=== PATIENT | male | born 1960 | race Caucasian/White ===

== ENCOUNTER → 2020-01-04 15:20 | Outpatient (BNVA) | payer OTHER, SELFPAY | PROVIDERS: PCP Family Medicine; Referring Provider Family Medicine; Visit Provider Internal Medicine | DX: Z86.73 Personal history of transient ischemic attack (TIA), and cerebral infarction without residual deficits (principal); Z51.81 Encounter for therapeutic drug level monitoring; Z79.01 Long term (current) use of anticoagulants | CPT/HCPCS: 85610; 99211 ==

== ENCOUNTER → 2020-02-01 15:30 | Outpatient (BNVA) | payer OTHER, SELFPAY | PROVIDERS: PCP Family Medicine; Referring Provider Family Medicine; Visit Provider Internal Medicine | DX: Z86.73 Personal history of transient ischemic attack (TIA), and cerebral infarction without residual deficits (principal); Z51.81 Encounter for therapeutic drug level monitoring; Z79.01 Long term (current) use of anticoagulants | CPT/HCPCS: 85610; 99211 ==

== ENCOUNTER → 2020-02-29 15:21 | Outpatient (BNVA) | payer OTHER, SELFPAY | PROVIDERS: PCP Family Medicine; Visit Provider Internal Medicine | DX: Z86.73 Personal history of transient ischemic attack (TIA), and cerebral infarction without residual deficits (principal); Z51.81 Encounter for therapeutic drug level monitoring; Z79.01 Long term (current) use of anticoagulants | CPT/HCPCS: 85610; 99211 ==

== ENCOUNTER 2020-03-03 08:31 | Outpatient (REF) | payer OTHER, SELFPAY ==
[2020-03-03 09:23] LABS: Estimated Average Glucose 128 mg/dL; Hemoglobin A1c % 6.1 %
[2020-03-03 09:27] LABS: Anion Gap 11 (12-20); Blood Urea Nitrogen 14 mg/dL (9-16); Carbon Dioxide 28 mmol/L (22-29); Chloride 104 mmol/L (96-108); Cholesterol 163 mg/dL; Estimated Glomerular Filt Rate > 60; Glucose Random 103 mg/dL (60-115); HDL Cholesterol 51 mg/dL; LDL Cholesterol Calculated 86 mg/dl; Potassium 4.2 mmol/l (3.3-5.1); Sodium 139 mmol/L (135-145); Triglycerides 134 mg/dL
== END 2020-03-03 08:32 | disposition home or self-care (01) ==
LOC: HO.LAB 08:31
PROVIDERS: PCP Family Medicine; Visit Provider Family Medicine
DX: Z00.00 Encounter for general adult medical examination without abnormal findings (principal); R73.01 Impaired fasting glucose
CPT/HCPCS: 80048; 80061; 83036

== ENCOUNTER → 2020-04-02 14:01 | Outpatient (BNVA) | payer OTHER, SELFPAY | PROVIDERS: PCP Family Medicine; Visit Provider Internal Medicine | DX: Z86.73 Personal history of transient ischemic attack (TIA), and cerebral infarction without residual deficits (principal); Z79.01 Long term (current) use of anticoagulants; Z51.81 Encounter for therapeutic drug level monitoring | CPT/HCPCS: 85610; 99211 ==

== ENCOUNTER → 2020-04-30 15:13 | Outpatient (BNVA) | payer OTHER, SELFPAY | PROVIDERS: PCP Family Medicine; Visit Provider Internal Medicine | DX: Z86.73 Personal history of transient ischemic attack (TIA), and cerebral infarction without residual deficits (principal); Z51.81 Encounter for therapeutic drug level monitoring; Z79.01 Long term (current) use of anticoagulants | CPT/HCPCS: 85610; 99211 ==

== ENCOUNTER 2020-05-16 10:58 | Outpatient (REF) | payer OTHER, SELFPAY ==
--- NOTE | ~2020-05-16 | XR_ITS ---
EXAMINATION: XR HAND, LEFT CLINICAL INFORMATION: M79.642 - Pain in left hand COMPARISON: None TECHNIQUE: PA, lateral, and oblique views of the left hand. FINDINGS: There is no acute or healing fracture, dislocation, destructive process. The ulnar variance is neutral. There is no carpal joint narrowing, erosive change, or chondrocalcinosis. The MCP and interphalangeal joints show no narrowing or erosive change. There is small spur medial neck fifth metacarpal. Lateral view shows dorsal spurring carpal metacarpal region, not appreciated on the other 2 views. There is a small distal clavicle fourth finger distal phalangeal tuft, possibly related to a remote injury. XR/XR hand LT 2V IMPRESSION: 1. No acute or healing fracture or destructive process. 2. Dorsal spurring carpal metacarpal region only appreciated on lateral view. 3. No erosive changes.
--- NOTE | ~2020-05-16 | XR_ITS ---
EXAMINATION: XR CERVICAL SPINE CLINICAL INFORMATION: M54.12 - Radiculopathy, cervical region COMPARISON: None TECHNIQUE: Cervical spine is imaged in 4 views: AP, lateral, odontoid, and Fuchs. FINDINGS: The cervical vertebral bodies are normal in height and alignment. There is no cervical vertebral compression, spondylolisthesis, destructive process, or prevertebral soft tissue swelling. The odontoid is unremarkable. There is borderline disc narrowing C5-C6. Mild anterior and posterior vertebral spurring present C4-C7. There are leads from pacemaker suggested overlying left lung apex. XR/XR cervical spine 2V IMPRESSION: 1. Mild degenerative disc changes C5-C6. 2. Mild anterior and posterior vertebral spurring C4-C7.
== END 2020-05-16 10:59 | disposition home or self-care (01) ==
LOC: HO.XRAY 10:58
PROVIDERS: PCP Family Medicine; Visit Provider Family Medicine
DX: M54.12 Radiculopathy, cervical region (principal); M79.642 Pain in left hand
CPT/HCPCS: 72040; 73120

== ENCOUNTER → 2020-05-28 15:23 | Outpatient (BNVA) | payer OTHER, SELFPAY | PROVIDERS: PCP Family Medicine; Visit Provider Internal Medicine | DX: Z86.718 Personal history of other venous thrombosis and embolism (principal); Z51.81 Encounter for therapeutic drug level monitoring; Z79.01 Long term (current) use of anticoagulants | CPT/HCPCS: 85610; 99211 ==

== ENCOUNTER → 2020-06-11 08:35 | Outpatient (REF) | payer OTHER, SELFPAY ==
--- NOTE | 2020-06-11 08:38 | CA_ITS ---
Transthoracic Echocardiogram Patient (Last, First, Middle): Skyler Cifuentes, Gender: Male Date of : 1960 Age: 59 Procedure Date: 06/11/2020 Procedure Type: Transthoracic Echocardiogram Location: OP Height: 177.8 cm Weight: 104.78 kg BSA: 2.22 m2 Heart Rate: bpm BP: 110 / 80 mmHg Cake Washer: AUGUSTO Referring MD: García Patterson MD Symptoms: I42.8 NICM I63.40 CVA Study Quality: Fair/contrast ECG Rhythm: Sinus Conclusions: - The calculated ejection fraction is 42% by biplane method. - No obvious valvular pathology seen on this study. Findings Procedure Information The patient receives contrast. Left Ventricle Normal left ventricular cavity size. There is mildly increased left ventricular wall thickness. The left ventricular systolic function is mild to moderately decreased. The calculated ejection fraction is 42% by biplane method. Regional wall motion abnormalities can not be excluded due to suboptimal endocardial definition. Globally hypokinetic. Visually estimated LVEF about 40%. Right Ventricle Normal right ventricular cavity size and systolic function. There is a pacemaker wire seen in the right ventricle. Atria The left atrium is normal in size. The right atrium is normal in size. Aortic Valve There is a normal trileaflet aortic valve. There is no aortic valve stenosis. There is no aortic valve regurgitation. Mitral Valve The mitral valve appears normal. There is trace mitral valve regurgitation. There is no mitral valve stenosis. Pulmonic Valve The pulmonic valve was not well visualized. Tricuspid Valve Normal tricuspid valve structure. There is mild tricuspid valve regurgitation. The pulmonary artery systolic pressure is normal. Great Vessels The asc aorta is normal in size. Venous The inferior vena cava is normal in size and collapses greater than 50% with inspiration. Pericardium/Pleural There is no evidence of pericardial effusion. Prior Study Comparison No significant change compared to prior study dated: 08/24/2019. Recommendations, Care & Conclusions No obvious valvular pathology seen on this study. Measurements 2D Linear Measurements IVSd: 1.07 0.6-0.9/0.6-1.0 cm LVIDd: 4.47 3.9-5.3/4.2-5.9 cm LVIDd Index: 2.01 2.4-3.2/2.2-3.1 cm/m2 LVIDs: 3.39 2.0-3.6 cm LVPWd: 1.08 0.7-1.1 cm Ao Root: 3.50 2.1-3.5 cm LA Diam: 3.40 2.7-3.8/3.0-4.0 cm LAIDs Index: 1.53 1.5-2.3 cm/m2 LV Mass: 208.84 67-162/88-224 g LV Mass Index: 94.07 43-95/49-115 g/m2 LVOT Diam: 2.10 3.0+(-)1.3 cm 2D Systolic Function EF 4C: 40.60 >55% EF 2C: 44.20 >55% EF BiP: 42.10 >55% Mitral Valve MV Pk E: 0.60 MV PK A: 0.82 MV Decel Time: 299.00 E/A: 0.70 E'Lateral: 6.85 E'Medial: 5.87 E/E' Med: 10.30 E/E' Lat: 8.80 PHT: 88.00 MVA PHT: 2.50 Decel Hardeman: 2.01 Aortic Valve AoV Pk Bari: 1.19 AoV Mn Bari: 0.82 AoV VTI: 0.22 AoV Pk Grad: 6.00 Aov Mn Grad: 3.00 ANN Cont.VTI: 2.91 LVOT LVOT Pk Bari: 0.96 LVOT Mn Bari: 0.62 LVOT VTI: 0.18 LVOT Pk Grad: 4.00 LVOT Mn Grad: 2.00 LVOT Diam: 2.10 LVOT Area: 3.46 Diastolic Function MV Pk E: 0.60 MV Pk A: 0.82 E/A: 0.70 E'Medial: 5.87 E/E' Med: 10.30 E' Laterial: 6.85 E/E' Lat: 8.80 Tricuspid Valve TR Pk Bari: 2.73 TR Pk Grad: 30.00 RA Press: 3.00 RVSP: 33.00 Great Vessels Aorta Ao Root-2D: 3.50 2.0-3.7 cm Ao Asc: 3.30 2.1-3.4 cm Updated in Other Vendor System with Status of Final García Patterson MD electronically signed on 06/12/2020 10:56:24 AM with status of Final
== END ==
LOC: HO.CARD 08:35
PROVIDERS: Visit Provider Internal Medicine
DX: I42.8 Other cardiomyopathies (principal); I63.40 Cerebral infarction due to embolism of unspecified cerebral artery
CPT/HCPCS: 93306; Q9957

== ENCOUNTER → 2020-06-25 14:22 | Outpatient (BNVA) | payer OTHER, SELFPAY | PROVIDERS: PCP Family Medicine; Visit Provider Internal Medicine | DX: Z86.73 Personal history of transient ischemic attack (TIA), and cerebral infarction without residual deficits (principal); Z79.01 Long term (current) use of anticoagulants; Z51.81 Encounter for therapeutic drug level monitoring | CPT/HCPCS: 85610; 99211 ==

== ENCOUNTER → 2020-07-02 13:22 | Outpatient (BNVA) | payer OTHER, SELFPAY | PROVIDERS: PCP Family Medicine; Visit Provider Internal Medicine | DX: Z45.02 Encounter for adjustment and management of automatic implantable cardiac defibrillator (principal); I42.8 Other cardiomyopathies; I63.40 Cerebral infarction due to embolism of unspecified cerebral artery; I44.7 Left bundle-branch block, unspecified; G47.33 Obstructive sleep apnea (adult) (pediatric) | CPT/HCPCS: 93005 ==

== ENCOUNTER → 2020-07-23 15:33 | Outpatient (BNVA) | payer OTHER, SELFPAY | PROVIDERS: PCP Family Medicine; Visit Provider Internal Medicine | DX: Z86.73 Personal history of transient ischemic attack (TIA), and cerebral infarction without residual deficits (principal); Z51.81 Encounter for therapeutic drug level monitoring; Z79.01 Long term (current) use of anticoagulants | CPT/HCPCS: 85610; 99211 ==

== ENCOUNTER → 2020-08-21 15:22 | Outpatient (BNVA) | payer OTHER, SELFPAY | PROVIDERS: PCP Family Medicine; Visit Provider Internal Medicine | DX: Z86.73 Personal history of transient ischemic attack (TIA), and cerebral infarction without residual deficits (principal); Z51.81 Encounter for therapeutic drug level monitoring; Z79.01 Long term (current) use of anticoagulants | CPT/HCPCS: 85610; 99211 ==

== ENCOUNTER → 2020-10-02 15:38 | Outpatient (BNVA) | payer OTHER, SELFPAY | PROVIDERS: PCP Family Medicine; Visit Provider Internal Medicine | DX: Z86.73 Personal history of transient ischemic attack (TIA), and cerebral infarction without residual deficits (principal); Z51.81 Encounter for therapeutic drug level monitoring; Z79.01 Long term (current) use of anticoagulants | CPT/HCPCS: 85610; 99211 ==

== ENCOUNTER → 2020-10-30 15:19 | Outpatient (BNVA) | payer OTHER, SELFPAY | PROVIDERS: PCP Family Medicine; Visit Provider Internal Medicine | DX: I48.0 Paroxysmal atrial fibrillation (principal); Z51.81 Encounter for therapeutic drug level monitoring; Z79.01 Long term (current) use of anticoagulants | CPT/HCPCS: 85610; 99211 ==

== ENCOUNTER → 2020-11-19 15:20 | Outpatient (BNVA) | payer OTHER, SELFPAY | PROVIDERS: PCP Family Medicine; Visit Provider Internal Medicine ==

== ENCOUNTER → 2020-11-20 15:30 | Outpatient (BNVA) | payer OTHER, SELFPAY | PROVIDERS: PCP Family Medicine; Visit Provider Internal Medicine | DX: Z86.73 Personal history of transient ischemic attack (TIA), and cerebral infarction without residual deficits (principal); Z51.81 Encounter for therapeutic drug level monitoring; Z79.01 Long term (current) use of anticoagulants | CPT/HCPCS: 85610; 99211 ==

== ENCOUNTER 2020-12-15 07:29 | Outpatient (REF) | payer OTHER, SELFPAY ==
[2020-12-15 08:57] LABS: Anion Gap 13 (12-20); Blood Urea Nitrogen 17 mg/dL (9-16); Calcium 9.3 mg/dL (8.4-10.2); Carbon Dioxide 24 mmol/L (22-29); Chloride 106 mmol/L (96-108); Cholesterol 163 mg/dL; Estimated Glomerular Filt Rate > 60; Glucose Fasting 109 mg/dL (60-99); HDL Cholesterol 41 mg/dL; LDL Cholesterol Calculated 89 mg/dl; Potassium 4.4 mmol/L (3.3-5.1); Sodium 139 mmol/L (135-145); Triglycerides 166 mg/dL
[2020-12-15 09:20] LABS: Creatinine Urine 29.91 mg/dL; Microalbumin Urine < 5.0 mg/L
== END 2020-12-15 07:30 | disposition home or self-care (01) ==
LOC: HO.LAB 07:29
PROVIDERS: PCP Family Medicine; Visit Provider Family Medicine
DX: Z00.00 Encounter for general adult medical examination without abnormal findings (principal); I10 Essential (primary) hypertension; I63.40 Cerebral infarction due to embolism of unspecified cerebral artery
CPT/HCPCS: 36415; 80048; 80061; 82043

== ENCOUNTER → 2020-12-18 15:33 | Outpatient (BNVA) | payer OTHER, SELFPAY | PROVIDERS: PCP Family Medicine; Visit Provider Internal Medicine | DX: Z86.73 Personal history of transient ischemic attack (TIA), and cerebral infarction without residual deficits (principal); Z51.81 Encounter for therapeutic drug level monitoring; Z79.01 Long term (current) use of anticoagulants | CPT/HCPCS: 85610; 99211 ==

== ENCOUNTER → 2021-01-09 13:10 | Outpatient (BNVA) | payer OTHER, SELFPAY | PROVIDERS: PCP Family Medicine; Referring Provider Family Medicine; Visit Provider Internal Medicine ==

== ENCOUNTER → 2021-01-15 15:17 | Outpatient (BNVA) | payer OTHER, SELFPAY | PROVIDERS: PCP Family Medicine; Visit Provider Internal Medicine | DX: Z86.73 Personal history of transient ischemic attack (TIA), and cerebral infarction without residual deficits (principal); Z51.81 Encounter for therapeutic drug level monitoring; Z79.01 Long term (current) use of anticoagulants | CPT/HCPCS: 85610; 99211 ==

== ENCOUNTER → 2021-02-05 14:49 | Outpatient (BNVA) | payer OTHER, SELFPAY | PROVIDERS: PCP Family Medicine; Visit Provider Internal Medicine | DX: Z86.73 Personal history of transient ischemic attack (TIA), and cerebral infarction without residual deficits (principal); Z51.81 Encounter for therapeutic drug level monitoring; Z79.01 Long term (current) use of anticoagulants | CPT/HCPCS: 85610; 99211 ==

== ENCOUNTER → 2021-03-05 15:24 | Outpatient (BNVA) | payer OTHER, SELFPAY | PROVIDERS: PCP Family Medicine; Visit Provider Internal Medicine | DX: Z86.73 Personal history of transient ischemic attack (TIA), and cerebral infarction without residual deficits (principal); Z51.81 Encounter for therapeutic drug level monitoring; Z79.01 Long term (current) use of anticoagulants | CPT/HCPCS: 85610; 99211 ==

== ENCOUNTER 2021-03-18 06:57 | Outpatient (REF) | payer OTHER, SELFPAY ==
[2021-03-18 07:24] LABS: Estimated Average Glucose 128 mg/dL; Hemoglobin A1c % 6.1 %
[2021-03-18 07:50] LABS: Alanine Aminotransferase 31 U/L (0-40); Albumin Level 4.5 g/dL (3.5-5.0); Alkaline Phosphatase 100 U/L (39-117); Anion Gap 9 (12-20); Aspartate Amino Transferase 21 U/L (5-37); Bilirubin Total 0.6 mg/dL (0.0-1.0); Blood Urea Nitrogen 16 mg/dL (9-16); Calcium 9.4 mg/dL (8.4-10.2); Carbon Dioxide 27 mmol/L (22-29); Chloride 106 mmol/L (96-108); Cholesterol 147 mg/dL; Estimated Glomerular Filt Rate > 60; Glucose Fasting 118 mg/dL (60-99); HDL Cholesterol 45 mg/dL; LDL Cholesterol Calculated 73 mg/dl; Sodium 138 mmol/L (135-145); Total Protein 7.1 g/dL (6.5-8.0); Triglycerides 147 mg/dL
== END 2021-03-18 06:58 | disposition home or self-care (01) ==
LOC: HO.LAB 06:57
PROVIDERS: PCP Family Medicine; Visit Provider Family Medicine
DX: Z00.00 Encounter for general adult medical examination without abnormal findings (principal); R73.01 Impaired fasting glucose
CPT/HCPCS: 36415; 80053; 80061; 83036

== ENCOUNTER → 2021-04-02 15:32 | Outpatient (BNVA) | payer OTHER, SELFPAY | PROVIDERS: PCP Family Medicine; Visit Provider Internal Medicine | DX: Z86.73 Personal history of transient ischemic attack (TIA), and cerebral infarction without residual deficits (principal); Z51.81 Encounter for therapeutic drug level monitoring; Z79.01 Long term (current) use of anticoagulants | CPT/HCPCS: 85610; 99211 ==

== ENCOUNTER → 2021-04-30 15:16 | Outpatient (BNVA) | payer OTHER, SELFPAY | PROVIDERS: PCP Family Medicine; Visit Provider Internal Medicine | DX: Z86.73 Personal history of transient ischemic attack (TIA), and cerebral infarction without residual deficits (principal); Z51.81 Encounter for therapeutic drug level monitoring; Z79.01 Long term (current) use of anticoagulants | CPT/HCPCS: 85610; 99211 ==

== ENCOUNTER → 2021-05-28 15:37 | Outpatient (BNVA) | payer OTHER, SELFPAY | PROVIDERS: PCP Family Medicine; Visit Provider Internal Medicine | DX: Z86.73 Personal history of transient ischemic attack (TIA), and cerebral infarction without residual deficits (principal); Z51.81 Encounter for therapeutic drug level monitoring; Z79.01 Long term (current) use of anticoagulants | CPT/HCPCS: 85610; 99211 ==

== ENCOUNTER → 2021-06-26 15:20 | Outpatient (BNVA) | payer OTHER, SELFPAY | PROVIDERS: PCP Family Medicine; Visit Provider Internal Medicine | DX: Z86.73 Personal history of transient ischemic attack (TIA), and cerebral infarction without residual deficits (principal); Z51.81 Encounter for therapeutic drug level monitoring; Z79.01 Long term (current) use of anticoagulants | CPT/HCPCS: 85610; 99211 ==

== ENCOUNTER → 2021-07-24 15:24 | Outpatient (BNVA) | payer OTHER, SELFPAY | PROVIDERS: PCP Family Medicine; Visit Provider Internal Medicine | DX: Z86.718 Personal history of other venous thrombosis and embolism (principal); Z79.01 Long term (current) use of anticoagulants; Z51.81 Encounter for therapeutic drug level monitoring | CPT/HCPCS: 85610; 99211 ==

== ENCOUNTER → 2021-08-21 15:53 | Outpatient (BNVA) | payer OTHER, SELFPAY | PROVIDERS: PCP Family Medicine; Visit Provider Internal Medicine | DX: Z86.73 Personal history of transient ischemic attack (TIA), and cerebral infarction without residual deficits (principal); Z51.81 Encounter for therapeutic drug level monitoring; Z79.01 Long term (current) use of anticoagulants | CPT/HCPCS: 85610; 99211 ==

== ENCOUNTER → 2021-09-11 15:16 | Outpatient (BNVA) | payer OTHER, SELFPAY | PROVIDERS: PCP Family Medicine; Visit Provider Internal Medicine | DX: Z86.73 Personal history of transient ischemic attack (TIA), and cerebral infarction without residual deficits (principal); Z51.81 Encounter for therapeutic drug level monitoring; Z79.01 Long term (current) use of anticoagulants | CPT/HCPCS: 85610; 99211 ==

== ENCOUNTER 2021-09-21 07:03 | Outpatient (REF) | payer OTHER, SELFPAY ==
[2021-09-21 08:10] LABS: Alanine Aminotransferase 27 U/L (0-40); Albumin Level 4.7 g/dL (3.5-5.0); Alkaline Phosphatase 95 U/L (39-117); Anion Gap 10 (12-20); Aspartate Amino Transferase 22 U/L (5-37); Bilirubin Total 0.7 mg/dL (0.0-1.0); Blood Urea Nitrogen 17 mg/dL (9-16); Calcium 9.3 mg/dL (8.4-10.2); Carbon Dioxide 25 mmol/L (22-29); Chloride 105 mmol/L (96-108); Cholesterol 141 mg/dL; Estimated Glomerular Filt Rate > 60; Glucose Fasting 107 mg/dL (60-99); HDL Cholesterol 43 mg/dL; LDL Cholesterol Calculated 70 mg/dl; Sodium 136 mmol/L (135-145); Total Protein 7.5 g/dL (6.5-8.0); Triglycerides 143 mg/dL
[2021-09-21 08:33] LABS: Prostate Specific Antigen Scr 0.71 ng/mL (<0.05-4.0); TSH reflex Free T4 1.32 uIU/mL (0.32-4.0)
[2021-09-21 09:20] LABS: Creatinine Urine 46.48 mg/dL; Microalbumin Urine < 5.0 mg/L
== END 2021-09-21 07:04 | disposition home or self-care (01) ==
LOC: HO.LAB 07:03
PROVIDERS: PCP Family Medicine; Visit Provider Family Medicine
DX: Z00.00 Encounter for general adult medical examination without abnormal findings (principal); Z12.5 Encounter for screening for malignant neoplasm of prostate; I10 Essential (primary) hypertension
CPT/HCPCS: 36415; 80053; 80061; 82043; 84153; 84443

== ENCOUNTER → 2021-09-25 15:30 | Outpatient (BNVA) | payer OTHER, SELFPAY | PROVIDERS: PCP Family Medicine; Visit Provider Internal Medicine | DX: Z86.73 Personal history of transient ischemic attack (TIA), and cerebral infarction without residual deficits (principal); Z51.81 Encounter for therapeutic drug level monitoring; Z79.01 Long term (current) use of anticoagulants | CPT/HCPCS: 85610; 99211 ==

== ENCOUNTER → 2021-10-16 15:36 | Outpatient (BNVA) | payer OTHER, SELFPAY | PROVIDERS: PCP Family Medicine; Visit Provider Internal Medicine | DX: Z86.73 Personal history of transient ischemic attack (TIA), and cerebral infarction without residual deficits (principal); Z51.81 Encounter for therapeutic drug level monitoring; Z79.01 Long term (current) use of anticoagulants | CPT/HCPCS: 85610; 99211 ==

== ENCOUNTER → 2021-11-13 15:16 | Outpatient (BNVA) | payer OTHER, SELFPAY | PROVIDERS: PCP Family Medicine; Visit Provider Internal Medicine | DX: Z86.73 Personal history of transient ischemic attack (TIA), and cerebral infarction without residual deficits (principal); Z51.81 Encounter for therapeutic drug level monitoring; Z79.01 Long term (current) use of anticoagulants | CPT/HCPCS: 85610; 99211 ==

== ENCOUNTER → 2021-12-11 14:44 | Outpatient (REF) | payer OTHER, SELFPAY ==
--- NOTE | 2021-12-11 14:47 | CA_ITS ---
Transthoracic Echocardiogram Patient (Last, First, Middle): Skyler Cifuentes, Gender: Male Date of : 1960 Age: 60 Procedure Date: 12/11/2021 Procedure Type: Transthoracic Echocardiogram Location: OP Height: 177.8 cm Weight: 104.33 kg BSA: 2.22 m2 Heart Rate: bpm BP: 130 / 80 mmHg Maintenance And Engineering Manager: TO Referring MD: García Patterson MD Symptoms: I42.8 - Other cardiomyopathies Study Quality: Adequate w Definity ECG Rhythm: Ventriculary paced rhythm Conclusions: - The left ventricular systolic function is moderately decreased. The calculated ejection fraction is 33% by biplane method. - No obvious valvular pathology seen on this study. Findings Procedure Information Contrast agent, definity, is being given per protocol without apparent complications. Left Ventricle Normal left ventricular cavity size. There is normal left ventricular wall thickness. The left ventricular systolic function is moderately decreased. The calculated ejection fraction is 33% by biplane method. There is moderate global hypokinesis. Diastolic function is normal for age. Right Ventricle Normal right ventricular cavity size and systolic function. There is an ICD wire seen in the right ventricle. Atria Both atria are normal in size. Aortic Valve There is a normal trileaflet aortic valve. There is no aortic valve stenosis. There is no aortic valve regurgitation. Mitral Valve The mitral valve appears normal. There is no mitral valve regurgitation. There is no mitral valve stenosis. Pulmonic Valve The pulmonic valve is likely normal. Tricuspid Valve There is mild tricuspid valve regurgitation. The pulmonary artery systolic pressure is normal. Great Vessels The aortic annulus, sinuses of valsalva, and asc aorta are normal in size. Venous The inferior vena cava is normal in size and collapses greater than 50% with inspiration. Pericardium/Pleural There is no evidence of pericardial effusion. Prior Study Comparison Changes noted compared to prior study dated: 06/11/2020. Slight decrease in LVEF. Recommendations, Care & Conclusions No obvious valvular pathology seen on this study. Measurements 2D Linear Measurements IVSd: 1.00 0.6-0.9/0.6-1.0 cm LVIDd: 5.23 3.9-5.3/4.2-5.9 cm LVIDd Index: 2.36 2.4-3.2/2.2-3.1 cm/m2 LVIDs: 3.59 2.0-3.6 cm LVPWd: 0.81 0.7-1.1 cm LA Diam: 3.30 2.7-3.8/3.0-4.0 cm LAIDs Index: 1.49 1.5-2.3 cm/m2 LV Mass: 213.32 67-162/88-224 g LV Mass Index: 96.09 43-95/49-115 g/m2 LVOT Diam: 2.20 3.0+(-)1.3 cm 2D Systolic Function EF 4C: 31.00 >55% EF 2C: 31.90 >55% EF BiP: 32.90 >55% Mitral Valve MV Pk E: 0.71 MV PK A: 0.72 MV Decel Time: 171.00 E/A: 1.00 E'Lateral: 6.85 E'Medial: 5.44 E/E' Med: 13.10 E/E' Lat: 10.40 PHT: 50.00 MVA PHT: 4.40 Decel [place]: 4.16 Aortic Valve AoV Pk Bari: 1.29 AoV Mn Bari: 0.89 AoV VTI: 0.27 AoV Pk Grad: 7.00 Aov Mn Grad: 4.00 ANN Cont.VTI: 2.71 LVOT LVOT Pk Bair: 0.92 LVOT Mn Bari: 0.59 LVOT VTI: 0.19 LVOT Pk Grad: 3.00 LVOT Mn Grad: 2.00 LVOT Diam: 2.20 LVOT Area: 3.80 Diastolic Function MV Pk E: 0.71 MV Pk A: 0.72 E/A: 1.00 E'Medial: 5.44 E/E' Med: 13.10 E' Laterial: 6.85 E/E' Lat: 10.40 Right Ventricle TAPSE (mm): 22.00 TVS' Bari: 11.00 Tricuspid Valve TR Pk Bari: 2.49 TR Pk Grad: 25.00 RA Press: 3.00 RVSP: 28.00 Great Vessels Aorta Sinus of Valsalva: 3.59 2.0-3.5 cm Ao Asc: 3.30 2.1-3.4 cm Updated in Other Vendor System with Status of Final García Patterson MD electronically signed on 12/12/2021 10:11:43 AM with status of Final
== END ==
LOC: HO.CARD 14:44
PROVIDERS: PCP Family Medicine; Visit Provider Internal Medicine
DX: I42.8 Other cardiomyopathies (principal); Z86.73 Personal history of transient ischemic attack (TIA), and cerebral infarction without residual deficits; Z51.81 Encounter for therapeutic drug level monitoring; Z79.01 Long term (current) use of anticoagulants
CPT/HCPCS: 85610; 93306; 99211; Q9957

== ENCOUNTER → 2021-12-31 13:05 | Outpatient (BNVA) | payer OTHER, SELFPAY | PROVIDERS: PCP Family Medicine; Referring Provider Family Medicine; Visit Provider Internal Medicine | DX: Z45.02 Encounter for adjustment and management of automatic implantable cardiac defibrillator (principal); I42.8 Other cardiomyopathies; I63.40 Cerebral infarction due to embolism of unspecified cerebral artery; I44.7 Left bundle-branch block, unspecified; I48.0 Paroxysmal atrial fibrillation; G47.33 Obstructive sleep apnea (adult) (pediatric) | CPT/HCPCS: 93005 ==

== ENCOUNTER → 2022-01-08 15:28 | Outpatient (BNVA) | payer OTHER, SELFPAY | PROVIDERS: PCP Family Medicine; Visit Provider Internal Medicine | DX: Z86.73 Personal history of transient ischemic attack (TIA), and cerebral infarction without residual deficits (principal); Z79.01 Long term (current) use of anticoagulants; Z51.81 Encounter for therapeutic drug level monitoring | CPT/HCPCS: 85610; 99211 ==

== ENCOUNTER 2022-02-05 15:13 | Outpatient (REF) | payer OTHER, SELFPAY ==
[2022-02-05 17:35] LABS: Anion Gap 14 (12-20); Blood Urea Nitrogen 19 mg/dL (9-16); Calcium 9.3 mg/dL (8.4-10.2); Carbon Dioxide 25 mmol/L (22-29); Chloride 106 mmol/L (96-108); Estimated Glomerular Filt Rate > 60; Glucose Random 64 mg/dL (60-115); Potassium 3.9 mmol/L (3.3-5.1); Sodium 141 mmol/L (135-145)
[2022-02-05 17:41] LABS: B Type Natriuretic Peptide < 10 pg/mL (<100)
== END 2022-02-05 15:14 | disposition home or self-care (01) ==
LOC: HO.LAB 15:13
PROVIDERS: PCP Family Medicine; Visit Provider Internal Medicine
DX: I42.8 Other cardiomyopathies (principal); Z86.73 Personal history of transient ischemic attack (TIA), and cerebral infarction without residual deficits; Z51.81 Encounter for therapeutic drug level monitoring; Z79.01 Long term (current) use of anticoagulants
CPT/HCPCS: 36415; 80048; 83880; 85610; 99211

== ENCOUNTER 2022-02-06 | Outpatient (REF) | payer OTHER, SELFPAY ==
--- NOTE | ~2022-02-06 | XR_ITS ---
EXAMINATION: XR PELVIS CLINICAL INFORMATION: Pain COMPARISON: None TECHNIQUE: AP view of the pelvis. FINDINGS: There is severe right hip arthritis with joint space narrowing, osteophyte formation and subchondral cyst formation. There is a slight lateral position of the left femoral head lying on the lateral femoral head. The left hip joint is unremarkable. Bones of the pelvis are unremarkable. There are degenerative changes of the visualized lower lumbar spine. Soft tissues are unremarkable. XR/XR pelvis 1-2V IMPRESSION: Severe right hip arthritis.
== END 2022-02-06 00:01 | disposition home or self-care (01) ==
LOC: HO.HOSX
PROVIDERS: Visit Provider Orthopaedic Surgery
DX: M25.551 Pain in right hip (principal); M25.552 Pain in left hip
CPT/HCPCS: 72170

== ENCOUNTER → 2022-03-05 15:31 | Outpatient (BNVA) | payer OTHER, SELFPAY | PROVIDERS: PCP Family Medicine; Visit Provider Internal Medicine | DX: Z86.73 Personal history of transient ischemic attack (TIA), and cerebral infarction without residual deficits (principal); Z79.01 Long term (current) use of anticoagulants; Z51.81 Encounter for therapeutic drug level monitoring | CPT/HCPCS: 85610; 99211 ==

== ENCOUNTER → 2022-04-02 15:40 | Outpatient (BNVA) | payer OTHER, SELFPAY | PROVIDERS: PCP Family Medicine; Visit Provider Internal Medicine | DX: Z86.73 Personal history of transient ischemic attack (TIA), and cerebral infarction without residual deficits (principal); Z51.81 Encounter for therapeutic drug level monitoring; Z79.01 Long term (current) use of anticoagulants | CPT/HCPCS: 85610; 99211 ==

== ENCOUNTER → 2022-04-28 14:38 | Outpatient (BNVA) | payer OTHER, SELFPAY | PROVIDERS: PCP Family Medicine; Referring Provider Family Medicine; Visit Provider Internal Medicine | DX: Z13.89 Encounter for screening for other disorder (principal) ==

== ENCOUNTER → 2022-04-29 14:26 | Outpatient (BNVA) | payer OTHER, SELFPAY | PROVIDERS: PCP Family Medicine; Visit Provider Orthopaedic Surgery | DX: Z01.812 Encounter for preprocedural laboratory examination (principal); Z86.73 Personal history of transient ischemic attack (TIA), and cerebral infarction without residual deficits; Z79.01 Long term (current) use of anticoagulants; Z51.81 Encounter for therapeutic drug level monitoring | CPT/HCPCS: 85610; 99211 ==

== ENCOUNTER → 2022-05-27 15:22 | Outpatient (BNVA) | payer OTHER, SELFPAY | PROVIDERS: PCP Family Medicine; Visit Provider Internal Medicine | DX: Z86.73 Personal history of transient ischemic attack (TIA), and cerebral infarction without residual deficits (principal); Z51.81 Encounter for therapeutic drug level monitoring; Z79.01 Long term (current) use of anticoagulants | CPT/HCPCS: 85610; 99211 ==

== ENCOUNTER → 2022-06-05 14:34 | Outpatient (BNVA) | payer OTHER, SELFPAY | PROVIDERS: PCP Family Medicine; Visit Provider Physician Assistant | DX: M16.11 Unilateral primary osteoarthritis, right hip (principal); Z86.73 Personal history of transient ischemic attack (TIA), and cerebral infarction without residual deficits; Z51.81 Encounter for therapeutic drug level monitoring; Z79.01 Long term (current) use of anticoagulants | CPT/HCPCS: 85610; 99211 ==

== ENCOUNTER → 2022-06-09 16:07 | Outpatient (BNVA) | payer OTHER, SELFPAY | PROVIDERS: PCP Family Medicine; Visit Provider Internal Medicine | DX: Z86.73 Personal history of transient ischemic attack (TIA), and cerebral infarction without residual deficits (principal); Z51.81 Encounter for therapeutic drug level monitoring; Z79.01 Long term (current) use of anticoagulants | CPT/HCPCS: 85610; 99211 ==

== ENCOUNTER 2022-06-11 07:08 | Inpatient (IN) | payer OTHER, SELFPAY ==
[2022-05-15 12:06] VITALS: BP 139/73; PULSE 76; RESP 16; O2SAT 98; BMI 31.5
[2022-05-15 12:49] LABS: MANUAL DIFF FLAG NO
[2022-05-15 13:35] LABS: Basophils Percent Auto 0.5 % (0-2); Eosinophils Absolute Auto 0.1 X10*3/uL (0.0-0.4); Eosinophils Percent Auto 0.8 % (0-4); Hematocrit 46.4 % (42.0-52.0); Hemoglobin 15.1 g/dl (14.0-18.0); Imm Gran Abs Auto 0.09 X10*3/uL (0.00-0.03); Imm Gran Pct Auto 1.1 % (0.0-0.4); Lymphocytes Absolute Auto 1.7 X10*3/uL (1.2-4.9); Lymphocytes Percent Auto 20.3 % (20-40); Mean Corpuscular HGB Conc 32.5 g/dl (31.0-36.0); Mean Corpuscular Hemoglobin 29.5 pg (27.0-33.0); Mean Corpuscular Volume 90.6 fL (80.0-98.0); Mean Platelet Volume 9.7 fL (9.4-12.4); Monocytes Absolute Auto 0.5 X10*3/uL (0.1-1.2); Monocytes Percent Auto 5.8 % (2-11); Neutrophils Percent Auto 71.5 % (45-73); Platelet Count 251 X10*3/uL (160-400); Red Blood Count 5.12 X10*6/uL (4.60-5.80); Red Cell Distribution Width 13.1 % (11.0-16.0); White Blood Count 8.4 X10*3/uL (4.8-10.8)
[2022-05-15 13:49] LABS: Anion Gap 14 (12-20); Blood Urea Nitrogen 15 mg/dL (9-16); Calcium 9.5 mg/dL (8.4-10.2); Carbon Dioxide 25 mmol/L (22-29); Chloride 105 mmol/L (96-108); Creatinine Clr Calc Pharmacy 93.2; Estimated Glomerular Filt Rate > 60; Glucose Random 75 mg/dL (60-115); Potassium 4.4 mmol/L (3.3-5.1); Sodium 140 mmol/L (135-145)
[2022-05-15 13:58] LABS: Estimated Average Glucose 126 mg/dL
[2022-05-15 14:47] LABS: MRSA Nasal PCR NEGATIVE (Negative); SA Nasal PCR NEGATIVE (Negative)
--- NOTE | 2022-06-10 10:23 | HO.ANESPROP2 ---
Documented by User: Melissa Casarez NP 06/18/22 15:18 HPI - Anesthesia Eval Consult details Narrative: 61yo M for Right Hip Total Replacement Cardiac cleared PCP cleared Warfarin for hx CVA - lovenox bridge BiV ICD in situ PMFSH Active Problems Active Problems: All Active Problems (Updated 06/05/22 @ 15:26 by Lali Foley PA-C) Osteoarthritis of right hip (Acute) Pre-operative clearance (Acute) Current use of anticoagulant therapy (Acute) Other cerebral infarction (Acute) Elevated fasting blood sugar (Acute) Elevated fasting blood sugar (Acute) Encounter for interrogation of cardiac defibrillator (Acute) Essential hypertension (Acute) Pre-diabetes (Acute) Left hand pain (Acute) Cervical radiculopathy (Acute) 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 (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) High triglycerides (Acute) Diabetes (Acute) Adult general medical exam (Acute) Screening for colon cancer (Acute) Screening for prostate cancer (Acute) Hyperlipidemia (Acute) PAF (paroxysmal atrial fibrillation) (Acute) Hip pain, bilateral (Acute) Bilateral primary osteoarthritis of hip (Acute) Pre-operative cardiovascular examination (Acute) Pacemaker (Acute) Obesity (BMI 30-39.9) (Acute) KIERRA (obstructive sleep apnea) (Acute) LBBB (left bundle branch block) (Acute) Cerebrovascular accident (CVA) due to embolism of cerebral artery (Acute) NICM (nonischemic cardiomyopathy) (Acute) Past Medical History Medical History Biventricular ICD (implantable cardioverter-defibrillator) in place Cerebrovascular accident (CVA) due to embolism of cerebral artery LBBB (left bundle branch block) NICM (nonischemic cardiomyopathy) Obesity (BMI 30-39.9) KIERRA (obstructive sleep apnea) Pacemaker Family History Family History Father CVD (cardiovascular disease) S/P triple vessel bypass Mother Stroke CVD (cardiovascular disease) Brother No problems noted. Sister No problems noted. Sister No problems noted. Sister No problems noted. Sister No problems noted. Son No problems noted. Daughter No problems noted. Surgical History Surgical History History of cardiac catheterization (~03/2018) History of removal of cyst Social History Social History Household Members: Significant Other Housing: House Are you a primary rn intensive care unit to a significant other at home: No Do you presently have visiting nurse or other home services: No Alcohol intake: former Patient Tobacco Use Status: Former Tobacco user Quit Date: 2017 Tobacco use type: Cigarette Years Smoked: 30 e-Cigarette/Vaping Use: Never Used Second Hand Smoke Exposure: No service: No Current occupational status: employed Current occupation: [employer] Cognitive needs: No Hearing needs: No Vision needs: No Meds Allergies Allergy/AdvReac Type Severity Reaction Status Date / Time No Known Allergies Allergy Verified 06/16/22 13:22 [No Known Allergies*] Home Medications Medication Instructions Recorded Confirmed Last Taken Type atorvastatin 20 mg tablet 30 mg PO BEDTIME 05/15/22 06/11/22 Unknown History warfarin 5 mg tablet 2.5 mg PO 3XW 06/16/22 06/16/22 Unknown History warfarin 5 mg tablet 5 mg PO 4XW 06/16/22 06/16/22 Unknown History Exam Exam Date and Time: June 10, 2022 1023 Height,Weight and Vital Signs: Height 5 ft 10 in Weight 99.79 kg Last Vital Signs Pulse 76 05/15/22 12:06 Resp 16 05/15/22 12:06 BP 139/73 05/15/22 12:06 Pulse Ox 98 05/15/22 12:06 O2 Del Method 05/15/22 12:06 Pertinent Lab Results Pertinent Lab Results: Laboratory Tests 05/15/22 05/15/22 05/15/22 12:30 12:47 12:47 WBC 8.4 RBC 5.12 Hgb 15.1 Hct 46.4 MCV 90.6 MCH 29.5 MCHC 32.5 RDW 13.1 Plt Count 251 MPV 9.7 Immature Gran % (Auto) 1.1 H Neut % (Auto) 71.5 Lymph % (Auto) 20.3 [place] % (Auto) 5.8 Eos % (Auto) 0.8 Baso % (Auto) 0.5 Lymph # (Auto) 1.7 [place] # (Auto) 0.5 Eos # (Auto) 0.1 Baso # (Auto) 0.0 Abs Immat Gran (auto) 0.09 H Absolute Neuts (auto) 6.0 Absolute Nucleated RBC 0.000 Nucleated RBC % (auto) 0.0 Sodium 140 Potassium 4.4 Chloride 105 Carbon Dioxide 25 Anion Gap 14 BUN 15 Creatinine 1.01 Estim Creat Clear Calc 93.2 Estimated GFR > 60 Random Glucose 75 Estimat Average Glucose Hemoglobin A1c % Calcium 9.5 Nasal Screen MRSA (PCR) NEGATIVE Nasal S. aureus Screen NEGATIVE Nasal MRSA/S.aureus Interp SEE NOTE Blood Type Antibody Screen 05/15/22 06/05/22 12:47 15:15 WBC RBC Hgb Hct MCV MCH MCHC RDW Plt Count MPV Immature Gran % (Auto) Neut % (Auto) Lymph % (Auto) [place] % (Auto) Eos % (Auto) Baso % (Auto) Lymph # (Auto) [place] # (Auto) Eos # (Auto) Baso # (Auto) Abs Immat Gran (auto) Absolute Neuts (auto) Absolute Nucleated RBC Nucleated RBC % (auto) Sodium Potassium Chloride Carbon Dioxide Anion Gap BUN Creatinine Estim Creat Clear Calc Estimated GFR Random Glucose Estimat Average Glucose 126 Hemoglobin A1c % 6.0 Calcium Nasal Screen MRSA (PCR) Nasal S. aureus Screen Nasal MRSA/S.aureus Interp Blood Type O Positive Antibody Screen NEGATIVE Narrative Narrative: EKG 12/2021 atrial sensed, biventricular paced rhythm at 73/Min. ECHO 11/2021 Conclusions: - The left ventricular systolic function is moderately decreased. The calculated ejection fraction is 33% by biplane method. ? ? ? - No obvious valvular pathology seen on this study.? Left Ventricle Normal left ventricular cavity size.? There is normal left ventricular wall thickness.? The left ventricular systolic function is moderately decreased. The calculated ejection fraction is 33% by biplane method.? There is moderate global hypokinesis.? Diastolic function is normal for age. HF monitor Cardiac Device Check Details: Date of service- 06/02/2022;?based on impedance data and physiological variables, there is no evidence of worsening congestive heart failure. ICD Cardiac Device Check Details: Date of service 03/31/2022;?Battery life 2.6 years; normal lead parameters; no treated VT/VF; adequate biventricular pacing; normal ICD function. Assessment and Plan Assessment Anesthesia Assessment: Chart Reviewed Documented by User: Hilda Nobles MD 06/19/22 09:35 [facility] Past Medical History Medical History Biventricular ICD (implantable cardioverter-defibrillator) in place Cerebrovascular accident (CVA) due to embolism of cerebral artery LBBB (left bundle branch block) NICM (nonischemic cardiomyopathy) Obesity (BMI 30-39.9) KIERRA (obstructive sleep apnea) Pacemaker Family History Family History Father CVD (cardiovascular disease) S/P triple vessel bypass Mother Stroke CVD (cardiovascular disease) Brother No problems noted. Sister No problems noted. Sister No problems noted. Sister No problems noted. Sister No problems noted. Son No problems noted. Daughter No problems noted. Family history of problems with anesthesia: No Surgical History Surgical History History of cardiac catheterization (~03/2018) History of removal of cyst History of Problems with Anesthesia: No Social History Social History Household Members: Significant Other Housing: House Are you a primary rn intensive care unit to a significant other at home: No Do you presently have visiting nurse or other home services: No Alcohol intake: former Patient Tobacco Use Status: Former Tobacco user Quit Date: 2017 Tobacco use type: Cigarette Years Smoked: 30 e-Cigarette/Vaping Use: Never Used Second Hand Smoke Exposure: No service: No Current occupational status: employed Current occupation: [employer] Cognitive needs: No Hearing needs: No Vision needs: No Meds Allergies Allergy/AdvReac Type Severity Reaction Status Date / Time No Known Allergies Allergy Verified 06/16/22 13:22 [No Known Allergies*] Home Medications Medication Instructions Recorded Confirmed Last Taken Type atorvastatin 20 mg tablet 30 mg PO BEDTIME 05/15/22 06/11/22 Unknown History warfarin 5 mg tablet 2.5 mg PO 3XW 03/27/23 03/27/23 Unknown History warfarin 5 mg tablet 5 mg PO 4XW 06/16/22 06/16/22 Unknown History Exam Airway Mallampati Class: II TM Dist: >3cm Neck ROM: Full Heart: rrr Lungs: cta Assessment and Plan Assessment Anesthesia Assessment: Anesthesia Plan Discussed Final Anesthetic Review Family History of Problems with Anesthesia: No History of Problems with Anesthesia: No NPO: Yes ASA Class: III Final Preanesthetic Review: No Changes in Pt Med Stat, Meds/Allgs Chart Reviewed, Consent Obtained/Reviewed and Anes Risks/Benef Reviewed Patient Risk: Intermediate Procedure Risk: Intermediate Anesthetic Plan Anesthetic Plan: GA Disposition: Standard PACU
[2022-06-11] VITALS (16 sets, daily range): BP systolic 104–164; BP diastolic 60–83; PULSE 55–91; RESP 10–20; TEMP 36.1–36.6; O2SAT 96–100
--- NOTE | ~2022-06-11 | XR_ITS ---
EXAMINATION: XR PELVIS CLINICAL INFORMATION: Status post right total hip COMPARISON: 02/06/2022 TECHNIQUE: AP view of the pelvis. FINDINGS: Two-part prosthesis on the right. There is a good visual result. There is no acute finding. No evidence for hardware failure. XR/XR pelvis 1-2V IMPRESSION: Two-part prosthesis on the right. Good visual result.
[2022-06-11] MEDS: oxyCODONE HCl ER 10 MG TAB.ER.12H PO ×2 (07:38→19:58)
[2022-06-11 07:55] LABS: Glucose, Whole Blood 110 mg/dL (60-115)
[2022-06-11 08:14] LABS: Prothrombin Time 11.1 SEC (10.0-13.1)
[2022-06-11 08:15] LABS: COVID-19 Test Negative (Negative); IDNOW Serial# 08D9AD1C
[2022-06-11] MEDS: Lactated Ringers 1,000 ML 50 ML IVCONT (08:27)
--- NOTE | 2022-06-11 11:39 | PM.OP ---
Brief Operative Note Date of Service: 06/11/22 Pre-op diagnosis: Right hip OA Post-op diagnosis: same Procedure: Right PAM Implants: Simone Trident2 60/ 20 deg lip Baker Accolade2 #9 132 deg with + 2.5 36 ceramic femoral head Surgeon: Donaldo Ponce MD Anesthesia: GETA and local Was an Cafeteria Clerk used for this Procedure?: Yes Cafeteria Clerk: Lali Foley Estimated blood loss (mL): 200 IV fluids (mL): 1,000 Pathology: other Condition: stable Disposition: PACU
[2022-06-11] MEDS: Lactated Ringers 1,000 ML 100 ML IVCONT (14:43)
--- NOTE | 2022-06-11 15:27 | PC.NURSE ---
Large amt of bloody drainage present under surgical drsg,NICOLAS Vaughn notified,picture of a drsg sent with patient permission
[2022-06-11] MEDS: oxyCODONE HCl Immed Release 5 MG TABLET PO ×2 (15:39→20:03)
[2022-06-11] MEDS: ceFAZolin Sodium/Dextrose,Iso 2 GM/50 ML PIGGYBACK IV (19:58)
[2022-06-11] MEDS: Docusate Sodium 100 MG CAPSULE PO (19:59)
[2022-06-11] MEDS: Celecoxib 200 MG CAPSULE PO (19:59)
--- NOTE | 2022-06-11 20:38 | PC.NURSE ---
Addendum entered by Kay Shell RN 06/11/22 22:22: Surgical drsg right hip clean and dry since reinforced earlier Original Note: Surgical drsg changed earlier by NICOLAS Escalera saturated with bloody drainage at present,large amt of drainage present on a bed linen,NICOLAS Marshall notified,patient cleansed and drsg reiforced,pillow placed on a side to take presure off the hip,will monitor
--- NOTE | 2022-06-11 21:36 | PHA.MEDREC ---
Pharmacy Consult ? Medication Reconciliation Pharmacy has completed the medication reconciliation.
--- NOTE | 2022-06-11 23:41 | P.CONHOSP_ITS ---
History of Present Illness Data of Consult Service Date: 06/11/22 Primary Care Provider: Richard Calles MD [facility] Reason for consult: Medical management Patient is a 61-year-old male with a PMH significant for HTN no t-ixewkpa-wljydrivt diabetes, HLD, paroxysmal AFib on warfarin, obstructive sleep apnea, CVA, nonischemic cardiomyopathy, left bundle-branch block, 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 Hospitals consult for medical management. Patient has no acute complaints other than mild pain at surgical site. Patient states that he was able to ambulate with help to the door and back but experienced bloody drainage from surgical site. Dressing and bed sheets had to be replaced. Currently dressing is clean with no noticeable drainage. Patient denies chest pain/pressure, palpitations. No shortness of breath. Denies abdominal pain, fever, chills, nausea, vomiting. 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 Sister No problems noted. Sister No problems noted. Sister No problems noted. Sister No problems noted. Son No problems noted. Daughter No problems noted. Surgical History History of cardiac catheterization (~03/2018) History of removal of cyst Social History Household Members: Significant Other Housing: House Are you a primary health care recruiter to a significant other at home: No Do you presently have visiting nurse or other home services: No Alcohol intake: former Patient Tobacco Use Status: Former Tobacco user Quit Date: 2017 Tobacco use type: Cigarette Years Smoked: 30 e-Cigarette/Vaping Use: Never Used Second Hand Smoke Exposure: No Use of substances other than those prescribed or required for medical reasons: No Have you been hit, kicked, punched, or otherwise hurt by someone within the past year? If so, by whom?: No Do you feel safe in your current relationship?: Yes Is there a partner from a previous relationship who is making you feel unsafe now?: No Are you made to feel afraid or neglected: No Spiritual Healthcare Practices: none Sabianism Healthcare Practices: none Cultural Healthcare Practices: none Are you DNR?: No Advance Directives: No Advance Directives Information Provided: Yes Advance Directives on File: No Do you have thoughts of harming others: None Do you have a plan to hurt others: No Plan Recently lost weight without trying: No Eating poorly because of decreased appetite: No Nutrition Risks: No Nutritional Risk Poor oral hygiene: No service: No Current occupational status: employed Current occupation: [employer] Cognitive needs: No Hearing needs: No Vision needs: No Meds Allergies Allergy/AdvReac Type Severity Reaction Status Date / Time No Known Allergies Allergy Verified 06/09/22 16:08 [No Known Allergies*] Active Medications: Current Medications Acetaminophen (Acetaminophen 325 Mg Tablet) 650 mg PO Q6H PRN PRN Reason: Pain, Mild (Pain Scale 1-3) Celecoxib (Celecoxib 200 Mg Capsule) 200 mg PO BID [facility] Last Admin: 06/11/22 19:59 Dose: 200 mg Docusate Sodium (Docusate Sodium 100 Mg Capsule) 100 mg PO BID [facility] Last Admin: 06/11/22 19:59 Dose: 100 mg Hydromorphone HCl (Hydromorphone Hcl 0.5 Mg/0.5 Ml Syringe) 0.25 mg IVPUSH Q4H PRN; Protocol PRN Reason: Pain, Severe (Pain Scale 7-10) Lactated Ringer's (Lr) 1,000 mls @ 100 mls/hr IVCONT .Q10H [facility] Last Admin: 06/11/22 14:43 Dose: 100 mls/hr Ondansetron HCl (Ondansetron Hcl 4 Mg/2 Ml Vial) 4 mg IVPUSH Q8H PRN PRN Reason: Nausea and Vomiting Oxycodone HCl (Oxycodone Hcl Immed Release 5 Mg Tablet) 5 mg PO Q4H PRN PRN Reason: Pain, Moderate (Pain Scale 4-6 Last Admin: 06/11/22 20:03 Dose: 5 mg Oxycodone HCl (Oxycodone Hcl Er 10 Mg Tab.Er.12h) 10 mg PO BID [facility] Last Admin: 06/11/22 19:58 Dose: 10 mg Pharmacy Consult (Consult Rx Perform Med Rec) 1 each MISCELLANE ONCE PRN PRN Reason: Consult order Sodium Chloride (0.9 % Sodium Chloride Flush 3 Ml Syringe) 3 ml IVFLUSH QSHIFT [facility] Last Admin: 06/11/22 17:39 Dose: Not Given Home Medications Medication Instructions Recorded Confirmed Last Taken Type atorvastatin 20 mg tablet 30 mg PO BEDTIME 05/15/22 06/11/22 Unknown History warfarin 5 mg tablet 2.5 mg PO MOFRSA@1800 06/11/22 06/11/22 Unknown History warfarin 5 mg tablet 5 mg PO SUTUWETH@1800 06/11/22 06/11/22 Unknown History Physical Exam Vital Signs and Narrative: Vital Signs: Last Vital Signs Temp 97.8 F 06/11/22 19:36 Pulse 91 06/11/22 19:36 Resp 18 06/11/22 19:36 BP 112/67 06/11/22 19:36 Pulse Ox 96 06/11/22 19:36 O2 Del Method 06/11/22 19:36 O2 Flow Rate 2 06/11/22 12:35 BMI result Body Mass Index 31.5 General: AOx3, no acute distress Resp: CTA bilaterally CVS: S1, S2, RRR GI: +BS, NT, no distention Neuro: Cranial nerves II-XII grossly intact bilaterally. Motor grossly intact bilaterally Extremities: No edema Psych: Appropriate affect Results Labs 05/15/22 12:47 05/15/22 12:47 Labs: Laboratory Results - last 24 hr 06/11/22 06/11/22 06/11/22 07:40 07:52 08:03 PT 11.1 INR 1.0 POC Glucose 110 COVID-19 (IZABELLA) Negative COVID-19 Clin Com See Note Imaging Radiologist's Impressions: Impressions Pelvis X-Ray 06/11/22 11:29 IMPRESSION: Two-part prosthesis on the right. Good visual result. Assessment and Plan (1) Osteoarthritis of right hip: Status: Acute Plan Patient is a 61-year-old male with a PMH significant for HTN non-insulin- dependent diabetes, HLD, paroxysmal AFib on warfarin, obstructive sleep apnea, CVA, nonischemic cardiomyopathy, left bundle-branch block, 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 Hospitals consult for medical management. Patient has no acute complaints other than mild pain at surgical site. Total right hip arthroplasty Plan as per Orthopedics None insulin-dependent diabetes Continue dapagliflozin Hold metformin Sliding scale insulin HLD Continue statin Paroxysmal AFib Continue metoprolol Hold warfarin for now, pending okay by surgical team HFrEF Continue spironolactone, Entresto Thank you for allowing us to participate in the care of this patient. We will continue to follow during the patient's stay at the hospital. Please let us know if there are any acute concerns or questions. Time Spent With Patient Time: Total time managing care of this patient today ____ minutes.
[2022-06-12] VITALS (11 sets, daily range): BP systolic 78–128; BP diastolic 40–74; PULSE 77–89; RESP 18; TEMP 36.4–37; O2SAT 95–99
[2022-06-12] MEDS: Lactated Ringers 1,000 ML 100 ML IVCONT ×2 (00:37→17:24)
[2022-06-12] MEDS: Atorvastatin Calcium 10 MG TABLET 30 MG PO ×2 (00:43→20:57)
[2022-06-12] MEDS: oxyCODONE HCl Immed Release 5 MG TABLET PO ×2 (03:27→09:09)
[2022-06-12 06:55] LABS: MANUAL DIFF FLAG NO
[2022-06-12 06:59] LABS: Hemoglobin 11.2 g/dl (14.0-18.0)
[2022-06-12 07:00] LABS: Basophils Percent Auto 0.2 % (0-2); Eosinophils Percent Auto 0.1 % (0-4); Hematocrit 34.4 % (42.0-52.0); Imm Gran Abs Auto 0.09 X10*3/uL (0.00-0.03); Imm Gran Pct Auto 0.8 % (0.0-0.4); Lymphocytes Absolute Auto 1.4 X10*3/uL (1.2-4.9); Mean Corpuscular Hemoglobin 29.6 pg (27.0-33.0); Mean Corpuscular Volume 92.5 fL (80.0-98.0); Mean Platelet Volume 10.3 fL (9.4-12.4); Monocytes Absolute Auto 1.2 X10*3/uL (0.1-1.2); Monocytes Percent Auto 11.1 % (2-11); Neutrophils Absolute Auto 8.3 x10*3/uL (2.0-8.3); Neutrophils Percent Auto 74.8 % (45-73); Platelet Count 199 X10*3/uL (160-400); Red Blood Count 3.72 X10*6/uL (4.60-5.80); Red Cell Distribution Width 13.3 % (11.0-16.0); White Blood Count 11.1 X10*3/uL (4.8-10.8)
[2022-06-12 07:22] LABS: Anion Gap 16 (12-20); Blood Urea Nitrogen 23 mg/dL (9-16); Calcium 8.5 mg/dL (8.4-10.2); Carbon Dioxide 21 mmol/L (22-29); Chloride 102 mmol/L (96-108); Creatinine Clr Calc Pharmacy 67.2; Estimated Glomerular Filt Rate 52; Glucose Fasting 123 mg/dL (60-99); Potassium 4.2 mmol/L (3.3-5.1); Sodium 135 mmol/L (135-145)
[2022-06-12 07:31] LABS: Glucose, Whole Blood 133 mg/dL (60-115)
[2022-06-12] MEDS: oxyCODONE HCl ER 10 MG TAB.ER.12H PO ×2 (09:08→20:57)
[2022-06-12] MEDS: Enoxaparin Sodium 100 MG/ML SYRINGE SUBCUT (09:08)
[2022-06-12] MEDS: Docusate Sodium 100 MG CAPSULE PO ×2 (09:09→20:57)
[2022-06-12] MEDS: Celecoxib 200 MG CAPSULE PO ×2 (09:09→21:02)
[2022-06-12] MEDS: Spironolactone 25 MG TABLET PO (09:09)
[2022-06-12 09:10] LABS: Hematocrit 36.2 % (42.0-52.0); Hemoglobin 11.9 g/dl (14.0-18.0); Mean Corpuscular HGB Conc 32.9 g/dl (31.0-36.0); Mean Corpuscular Hemoglobin 30.4 pg (27.0-33.0); Mean Corpuscular Volume 92.6 fL (80.0-98.0); Mean Platelet Volume 10.1 fL (9.4-12.4); Platelet Count 209 X10*3/uL (160-400); Red Blood Count 3.91 X10*6/uL (4.60-5.80); Red Cell Distribution Width 13.5 % (11.0-16.0); White Blood Count 10.9 X10*3/uL (4.8-10.8)
[2022-06-12] MEDS: Metoprolol Succinate ER 12.5 MG HALFTAB.ER.24H PO (09:10)
[2022-06-12] MEDS: Sacubitril/Valsartan 24/26 1 TAB TABLET PO (09:10)
[2022-06-12] MEDS: Empagliflozin 10 MG TABLET PO (09:10)
[2022-06-12 09:17] LABS: INTERNATIONAL NORM RATIO 1.1 (0.9-1.1); Prothrombin Time 12.5 SEC (10.0-13.1)
[2022-06-12 09:20] LABS: Partial Thromboplastin Time 26.5 SEC (26.0-36.4)
--- NOTE | 2022-06-12 09:31 | P.PNOP_ITS ---
Subjective Subjective Date of Service: 06/12/22 Interval history: POD 1 s/p RT PAM no overnight events bandage soiled has been out of bed denies sob, palpitations, cp Physical Exam Vital Signs: Vital Signs: Last Vital Signs Temp 98.1 F 06/12/22 07:25 Pulse 86 06/12/22 09:18 Resp 18 06/12/22 07:25 BP 116/56 L 06/12/22 09:18 Pulse Ox 98 06/12/22 09:18 O2 Del Method Room Air 06/12/22 07:25 O2 Flow Rate 2 06/11/22 12:35 BMI result Body Mass Index 31.5 Const: General: cooperative, healthy appearing and no acute distress Resp: Effort & Inspection: normal respiratory effort and able to speak in complete sentences Cardio: Rate: regular rate Peripheral pulses: Peripheral pulses 2+ throughout GI: Palpation (GI): Soft to palpation Skin: General skin exam: no rashes or lesions noted Extrem: Other: incision clean dry and intact. [place] intact. No erythema or joint effusion. Calf supple nontender. Neurovascularly intact. Procedures Date of Service Date of Service: 06/12/22 Progress Note: A&P Assessment and plan (1) History of total right hip replacement: Status: Acute Assessment and Plan: * Continue pain mgmnt * Begin lovenox bridge for dvt ppx and resume coumadin * begin PT for RT PAM * Dispo planning-Pending PT eval, pain mgmnt Time Spent With Patient Time: Total time managing care of this patient today ____ minutes. Quality Stroke Does the patient have a stroke diagnosis?: No VTE Prior VTE?: No VTE Risk Level:: Surgical - very high VTE Device Contraindication: N/A - Device Ordered VTE Drug Contraindication: N/A - Med Ordered
--- NOTE | 2022-06-12 09:50 | HO.POSTANES ---
Post Anesthesia Evaluation Post Anesthesia Evaluation Vital Signs: Vital Signs Temp Pulse Resp BP Pulse Ox O2 Del Method 06/12/22 09:18 86 116/56 L 98 06/12/22 07:25 98.1 F 86 18 116/56 L 98 Room Air 06/12/22 03:08 98.6 F 80 18 128/63 97 Room Air 06/12/22 00:47 97.5 F 79 18 123/74 97 Room Air Anesthesia: General Endotracheal-GETA Mental Status: Awake Pain Control: Satisfactory Nausea/Vomiting: None Hydration: Adequate Anesthesia-Related Issues: No Anes. Related Issues
[2022-06-12] MEDS: ondansetron HCL 4 MG/2 ML VIAL IVPUSH (11:06)
[2022-06-12 11:23] LABS: Glucose, Whole Blood 143 mg/dL (60-115)
--- NOTE | 2022-06-12 12:55 | W.PM.OPN ---
Operative Note Operative Note Date of Service: 06/11/22 Narrative: Date of Service: 06/11/22 Pre-op diagnosis: Right hip OA Post-op diagnosis: same Procedure: Right PAM Implants: [place] Trident2 60/ 20 deg lip [place] Accolade2 #9 132 deg with + 2.5 36 ceramic femoral head Surgeon: Donaldo Ponce MD Anesthesia: GETA and local Was an Access Consultant used for this Procedure?: Yes Access Consultant: Lali Foley Estimated blood loss (mL): 200 IV fluids (mL): 1,000 Pathology: other Condition: stable Disposition: PACU Procedure in detail: Patient was brought into the operating room and placed in the right lateral decubitus position. All bony prominences were well padded and the limb was prepped and draped in standard sterile fashion. A time-out was called to identify proper site procedure proper surgeon IV antibiotics and 1 g of transaxemic acid was NOT administered. I began by making a curvilinear incision over the posterolateral aspect of the greater trochanter. Dissection was taken down to the tensor fascia which was incised in line with the incision and a Charnley retractor was placed. Cautery was used to maintain hemostasis. The hip was internally rotated and the external rotators were identified. The vessels were cauterized and a full-thickness capsular/external rotator layer was developed starting just proximal to the piriformis. This layer was tagged and a dull Hohmann retractor was placed underneath the neck in the hip was dislocated. A neck cut was made 1 cm proximal to the lesser trochanter and the head and neck were removed and measured 56mm on the back table. The head was deformed and eburnated. I then removed the labrum and cauterized the fovea. I started with a 44 reamer and medialized to the inner table. I sequentially reamed up to a size 59 and impacted a 60mm cup at 45 degrees of inclination and 25 degrees of version. I then removed the excedss osteophytes circumerentially and the excess acetabular bone superiorly and anteroinferiorly. I then placed a 20 deg posterior lipped liner and turned my attention to the femur. I identified the piriformis insertion and used this as a starting point for my willie cutter. The medius tendon was protected with a Hibs retractor. A Charnley awl was inserted in the canal and a curved curette used to remove the lateral bone. I irrigated copiously. I then sequentially broached in the patient's natural version to a size 9 and placed my trial implants. I used a #59/132/+2.5 based on my pre-operative template. Using a trail head I took the hip through range of motion. I was satisfied with the stability. I removed all instrumentation and copiously irrigated. I placed my final femoral implant and again took the hip through range of motion and was satisfied with the stability and length. The final 2.5 implant was impacted in place and the hip reduced. Intra-operative radiographs were taken with the patient supine. I was satisfied with the alignment and length. I then irrigated for 3 minutes with iodine.. I performed a capsular closure with 2.0 fiberwire, Estefani's fascia with 0 Vicryl, subcuticular with 2-0 Vicryl and the skin with jose rafael. Patient was placed into a sterile dressing. Patient was extubated brought to the recovery room in stable condition. There were no known complications.
--- NOTE | 2022-06-12 13:28 | PC.NURSE ---
Addendum entered by Magaly Jensen RN 06/12/22 17:33: BP recheck 95/51. Taina Morton aware. Addendum entered by Magaly Jensen RN 06/12/22 15:23: BP recheck 89/51. Taina Morton made aware. Addendum entered by Magaly Jensen RN 06/12/22 15:10: Recheck BP after 1L NS bolus 83/48 automated on L upper arm with pt sitting in recliner. BP manually checked 80/40. Taina Morton made aware. POC checked 139. Original Note: Pt working with physical therapy. Stood up with Physical therapist, PT reports pt complained of lightheadedness but was talking to her. PT reports pt then passed out back into the chair . Pt currently awake and oriented sitting in chair talking and answering appropriately . Vitals P 82 BP 78/42 oxygen 98 on room air respirations 18. NICOLAS Gonsalez notified.
[2022-06-12] MEDS: 0.9 % Sodium Chloride 1,000 ML 999 ML IV (13:41)
--- NOTE | 2022-06-12 14:38 | MHC.CM.PN ---
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
[2022-06-12 15:07] LABS: Glucose, Whole Blood 139 mg/dL (60-115)
[2022-06-12 15:15] LABS: Hematocrit 29.2 % (42.0-52.0); Hemoglobin 9.6 g/dl (14.0-18.0)
[2022-06-12 16:25] LABS: Glucose, Whole Blood 122 mg/dL (60-115)
--- NOTE | 2022-06-12 17:20 | PC.NURSE ---
Warfarin 5mg given per Taina Morton.
[2022-06-12] MEDS: Warfarin Sodium 5 MG TABLET PO (17:23)
[2022-06-12] MEDS: Acetaminophen 325 MG TABLET 650 MG PO (17:30)
--- NOTE | 2022-06-12 17:48 | HO.PM.IMPN ---
Subjective Subjective Date of Service: 06/12/22 Interval History: seen and examined this morning follow up for medical consult s/p right PAM. patient feeling well this am, had saturation of hip dressing overnight subsequently after evaluation pt had episode of syncope while standing to work with PT -bp taken and initially in the 70s Review of Systems Review of Systems: Yes all other systems are reviewed and are negative Constitutional Constitutional: Denies chills and Denies fever(s) ENT Ears, Nose, Mouth, and Throat: Reports dizziness Cardiovascular Cardiovascular: Denies chest pain, Denies palpitations and Denies dyspnea Respiratory Respiratory: Denies cough and Denies dyspnea Gastrointestinal Gastrointestinal: Denies abdominal pain, Denies nausea and Denies vomiting Neurologic Neurologic: Reports dizziness Endocrine Endocrine: Denies palpitations Physical Exam Vital Signs: Vital Signs: Last Vital Signs Temp 97.5 F 06/12/22 15:19 Pulse 77 06/12/22 15:19 Resp 18 06/12/22 15:19 BP 95/51 L 06/12/22 17:32 Pulse Ox 99 06/12/22 15:19 O2 Del Method Room Air 06/12/22 15:19 O2 Flow Rate 2 06/11/22 12:35 BMI result Body Mass Index 31.5 Const: General: cooperative, comfortable, alert and awake Nutritional Appearance: overweight Orientation/consciousness: patient oriented x3 Resp: Effort & Inspection: normal respiratory effort and able to speak in complete sentences Auscultation: clear to auscultation bilaterally Cardio: Rate: regular rate Heart sounds: S1 normal heart sound present and S2 normal heart sound present GI: Inspection: No distended Palpation (GI): Soft to palpation Neuro: General: patient oriented x3 and CN's II-XI intact bilaterally Extrem: Other: right hip bandage with some staining; mild bruising Objective Data Active Medications Acetaminophen (Acetaminophen 325 Mg Tablet) 650 mg PO Q6H PRN PRN Reason: Pain, Mild (Pain Scale 1-3) Last Admin: 06/12/22 17:30 Dose: 650 mg Documented By: JORDAN Atorvastatin Calcium (Atorvastatin Calcium 10 Mg Tablet) 30 mg PO BEDTIME [facility] Last Admin: 06/12/22 00:43 Dose: 30 mg Documented By: TONE Celecoxib (Celecoxib 200 Mg Capsule) 200 mg PO BID [facility] Last Admin: 06/12/22 09:09 Dose: 200 mg Documented By: JORDAN Docusate Sodium (Docusate Sodium 100 Mg Capsule) 100 mg PO BID [facility] Last Admin: 06/12/22 09:09 Dose: 100 mg Documented By: JORDAN Empagliflozin (Empagliflozin 10 Mg Tablet) 10 mg PO DAILY [facility] Last Admin: 06/12/22 09:10 Dose: 10 mg Documented By: JORDAN Enoxaparin Sodium (Enoxaparin Sodium 100 Mg/Ml Syringe) 100 mg SUBCUT Q12H [facility] Last Admin: 06/12/22 09:08 Dose: 100 mg Documented By: JORDAN Glucose (Glucose Gel 15 Gm Gel..Gram.) 15 gm PO Q15M PRN; Protocol PRN Reason: per Hypoglycemia Standing Ord. Hydromorphone HCl (Hydromorphone Hcl 0.5 Mg/0.5 Ml Syringe) 0.25 mg IVPUSH Q4H PRN; Protocol PRN Reason: Pain, Severe (Pain Scale 7-10) Dextrose (D10) 250 mls @ 750 mls/hr IV Q15M PRN; Protocol PRN Reason: per Hypoglycemia Standing Ord. Insulin Human Lispro (Insulin Lispro 100 Unit/Ml 3 Ml Vial) 0 unit SUBCUT QIDACHS [facility]; Protocol Last Admin: 06/12/22 15:53 Dose: Not Given Documented By: JORDAN Non-Admin Reason: No Insulin Coverage Metoprolol Succinate (Metoprolol Succinate Er 12.5 Mg Halftab.Er.24h) 12.5 mg PO DAILY [facility]; Protocol Last Admin: 06/12/22 09:10 Dose: 12.5 mg Documented By: JORDAN Ondansetron HCl (Ondansetron Hcl 4 Mg/2 Ml Vial) 4 mg IVPUSH Q8H PRN PRN Reason: Nausea and Vomiting Last Admin: 06/12/22 11:06 Dose: 4 mg Documented By: JORDAN Oxycodone HCl (Oxycodone Hcl Immed Release 5 Mg Tablet) 5 mg PO Q4H PRN PRN Reason: Pain, Moderate (Pain Scale 4-6 Last Admin: 06/12/22 09:09 Dose: 5 mg Documented By: JORDAN Oxycodone HCl (Oxycodone Hcl Er 10 Mg Tab.Er.12h) 10 mg PO BID [facility] Last Admin: 06/12/22 09:08 Dose: 10 mg Documented By: JORDAN Pharmacy Consult (Consult Rx Perform Med Rec) 1 each MISCELLANE ONCE PRN PRN Reason: Consult order Sacubitril/Valsartan (Sacubitril/Valsartan 1 Tab Tablet) 1 tab PO BID [facility]; Protocol Last Admin: 06/12/22 09:10 Dose: 1 tab Documented By: JORDAN Sodium Chloride (0.9 % Sodium Chloride Flush 3 Ml Syringe) 3 ml IVFLUSH QSHIFT [facility] Last Admin: 06/12/22 15:10 Dose: Not Given Documented By: JORDAN Non-Admin Reason: IV Running Spironolactone (Spironolactone 25 Mg Tablet) 25 mg PO DAILY [facility]; Protocol Last Admin: 06/12/22 09:09 Dose: 25 mg Documented By: JORDAN Warfarin Sodium (Warfarin Sodium 5 Mg Tablet) 5 mg PO DAILY@1800 HARINI Warfarin Sodium (Warfarin Sodium 5 Mg Tablet) 5 mg PO ONCE@1800 ONE Stop: 06/12/22 18:01 Last Admin: 06/12/22 17:23 Dose: 5 mg Documented By: JORDAN Labs 06/12/22 14:57 06/12/22 06:00 Labs: Laboratory Results - last 24 hr 06/12/22 06/12/22 06/12/22 06:00 06:00 07:22 MCV 92.5 MCH 29.6 MCHC 32.0 RDW 13.3 Plt Count 199 MPV 10.3 Immature Gran % (Auto) 0.8 H Neut % (Auto) 74.8 H Lymph % (Auto) 13.0 L [place] % (Auto) 11.1 H Eos % (Auto) 0.1 Baso % (Auto) 0.2 Lymph # (Auto) 1.4 [place] # (Auto) 1.2 Eos # (Auto) 0.0 Baso # (Auto) 0.0 Abs Immat Gran (auto) 0.09 H Absolute Neuts (auto) 8.3 Absolute Nucleated RBC 0.000 Nucleated RBC % (auto) 0.0 PT INR APTT Anion Gap 16 Estim Creat Clear Calc 67.2 Estimated GFR 52 POC Glucose 133 H Fasting Glucose 123 H Calcium 8.5 D 06/12/22 06/12/22 06/12/22 08:32 08:32 11:16 MCV 92.6 MCH 30.4 MCHC 32.9 RDW 13.5 Plt Count 209 MPV 10.1 Immature Gran % (Auto) Neut % (Auto) Lymph % (Auto) [place] % (Auto) Eos % (Auto) Baso % (Auto) Lymph # (Auto) [place] # (Auto) Eos # (Auto) Baso # (Auto) Abs Immat Gran (auto) Absolute Neuts (auto) Absolute Nucleated RBC 0.000 Nucleated RBC % (auto) 0.0 PT 12.5 INR 1.1 APTT 26.5 Anion Gap Estim Creat Clear Calc Estimated GFR POC Glucose 143 H Fasting Glucose Calcium 06/12/22 06/12/22 15:02 16:21 MCV MCH MCHC RDW Plt Count MPV Immature Gran % (Auto) Neut % (Auto) Lymph % (Auto) [place] % (Auto) Eos % (Auto) Baso % (Auto) Lymph # (Auto) [place] # (Auto) Eos # (Auto) Baso # (Auto) Abs Immat Gran (auto) Absolute Neuts (auto) Absolute Nucleated RBC Nucleated RBC % (auto) PT INR APTT Anion Gap Estim Creat Clear Calc Estimated GFR POC Glucose 139 H 122 H Fasting Glucose Calcium Assessment and Plan (1) Anemia: Status: Acute Plan This is a 61-year-old male with a PMH significant for HTN oib-mnvqftt-igafqqrbt diabetes, HLD, paroxysmal AFib on warfarin, obstructive sleep apnea, CVA, nonischemic cardiomyopathy, left bundle-branch block, 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 Hospitals consult for medical management. POD #1 s/p RT PAM Management per Orthopedic team acute normocytic anemia r/t blood loss from surgery discussed with ortho -rec to continue coumadin, but hold lovenox due to anemia follow H/H closely no indication for transfusion at this time syncope likely vasovagal hypotension likely r/t anemia hold bp meds for now continue gentle IVF bp improving Paroxysmal AFib with h/o CVA Continue metoprolol if bp allows resume coumadin, hold lovenox due to anemia HFrEF ECHO from 12/12 with EF 33% Hold spironolactone, Entresto for hypotension continue jardiance Judicious use of fluids, monitor fluid status closely None insulin-dependent diabetes Hold metformin Sliding scale insulin HLD Continue statin attending - dr. thayer dvt ppx - coumadin, follow INR Thank you for allowing us to participate in the care of this patient. We will continue to follow during the patient's stay at the hospital Time Spent With Patient Time: Total time managing care of this patient today ____ minutes. Quality Stroke Does the patient have a stroke diagnosis?: No VTE Prior VTE?: No VTE Risk Level:: Surgical - very high VTE Device Contraindication: N/A - Device Ordered VTE Drug Contraindication: N/A - Med Ordered
[2022-06-12 20:31] LABS: Hematocrit 27.1 % (42.0-52.0); Hemoglobin 9.1 g/dl (14.0-18.0)
[2022-06-12 20:39] LABS: Glucose, Whole Blood 160 mg/dL (60-115)
[2022-06-13 03:25] VITALS: BP 99/57; PULSE 75; RESP 18; TEMP 36.4; O2SAT 96
[2022-06-13 06:03] LABS: MANUAL DIFF FLAG NO
[2022-06-13 06:07] LABS: Basophils Percent Auto 0.4 % (0-2); Eosinophils Percent Auto 0.3 % (0-4); Hematocrit 28.8 % (42.0-52.0); Hemoglobin 9.4 g/dl (14.0-18.0); Imm Gran Abs Auto 0.11 X10*3/uL (0.00-0.03); Imm Gran Pct Auto 1.1 % (0.0-0.4); Lymphocytes Absolute Auto 1.6 X10*3/uL (1.2-4.9); Lymphocytes Percent Auto 16.5 % (20-40); Mean Corpuscular HGB Conc 32.6 g/dl (31.0-36.0); Mean Corpuscular Hemoglobin 30.2 pg (27.0-33.0); Mean Corpuscular Volume 92.6 fL (80.0-98.0); Mean Platelet Volume 10.2 fL (9.4-12.4); Monocytes Absolute Auto 1.1 X10*3/uL (0.1-1.2); Monocytes Percent Auto 11.3 % (2-11); Neutrophils Absolute Auto 6.8 x10*3/uL (2.0-8.3); Neutrophils Percent Auto 70.4 % (45-73); Platelet Count 152 X10*3/uL (160-400); Red Blood Count 3.11 X10*6/uL (4.60-5.80); Red Cell Distribution Width 13.6 % (11.0-16.0); White Blood Count 9.7 X10*3/uL (4.8-10.8)
[2022-06-13 06:30] LABS: Anion Gap 13 (12-20); Blood Urea Nitrogen 23 mg/dL (9-16); Calcium 8.3 mg/dL (8.4-10.2); Carbon Dioxide 24 mmol/L (22-29); Chloride 106 mmol/L (96-108); Creatinine Clr Calc Pharmacy 86.4; Estimated Glomerular Filt Rate > 60; Glucose Fasting 101 mg/dL (60-99); Potassium 4.1 mmol/L (3.3-5.1); Sodium 139 mmol/L (135-145)
[2022-06-13 07:04] VITALS: BP 119/57; PULSE 81; RESP 18; TEMP 36.7; O2SAT 98
[2022-06-13] MEDS: Empagliflozin 10 MG TABLET PO (07:20)
[2022-06-13] MEDS: oxyCODONE HCl ER 10 MG TAB.ER.12H PO (07:20)
[2022-06-13] MEDS: Docusate Sodium 100 MG CAPSULE PO (07:20)
[2022-06-13] MEDS: Celecoxib 200 MG CAPSULE PO (07:20)
[2022-06-13 07:21] LABS: Glucose, Whole Blood 101 mg/dL (60-115)
[2022-06-13] MEDS: Acetaminophen 325 MG TABLET 650 MG PO (07:21)
--- NOTE | 2022-06-13 07:54 | P.DS_ITS ---
DS: Providers Provider Date of Service: 06/13/22 Date of admission: 06/11/22 07:08 Primary care physician: Richard Calles MD Consults: 06/11/22 14:13 Consult to Hospitalist Routine Consulting Provider: Hospitalist Reason For Exam: routine medical management DS: Diagnosis Discharge Diagnosis (1) Anemia: Status: Acute DS: Summary Hospital Course Hospital Course: The patient underwent a successful Right total hip arthroplasty on 06/11/22, was transferred to PACU and then to the floor to recover. During their stay, their vitals were stable, afebrile at 98.0. Labs were unremarkable, H/H 9.2/28.8 . POD 1 he was started on Lovenox along with his Coumadin for DVT ppx. POD he did have a syncopal episode, he was bolused with 1L of NS, Lovenox was d/c to prevent further potential blood loss, Coumadin was continued. He received Physical Therapy services twice a day. Physical therapy should include gait training, ROM to tolerance and strength ening. He is WBAT. Posterior precautuions in place. Prior to discharge, his dressing was changed, incision clean dry and intact, new Aquacel dressing applied. The Aquacel dressing shoulder remain intact and dry at all times. Any concerns with the dressing, please contact orthopedic office. No showering. The plan is to be discharged home with VNA services Time Spent with Patient Time attestation: Total time managing care of this patient today ____ minutes. Discharge coordination time: Less than 30 minutes Quality: Safe Use of Opioids Does Pt have an Active Cancer Diagnosis on the Problem List?: No Quality: Stroke Does the patient have a stroke diagnosis?: No Physical Exam Vital Signs: Vital Signs: Last Vital Signs Temp 98.0 F 06/13/22 07:04 Pulse 81 06/13/22 07:04 Resp 18 06/13/22 07:04 BP 119/57 L 06/13/22 07:04 Pulse Ox 98 06/13/22 07:04 O2 Del Method Room Air 06/13/22 07:04 O2 Flow Rate 2 06/11/22 12:35 BMI result Body Mass Index 31.5 Const: General: cooperative, healthy appearing and no acute distress Resp: Effort & Inspection: normal respiratory effort and able to speak in complete sentences Cardio: Rate: regular rate Peripheral pulses: Peripheral pulses 2+ throughout GI: Palpation (GI): Soft to palpation Skin: General skin exam: no rashes or lesions noted Extrem: Other: incision clean dry and intact. [place] intact. No erythema or joint effusion. Calf supple nontender. Neurovascularly intact. DS: Data Data Completed and Pending Pending studies at discharge: Pending at discharge 06/11/22 11:01 Surgical [PTH] Routine Labs on day of discharge: Laboratory Results - last 24 hr 06/12/22 06/12/22 06/12/22 08:32 08:32 11:16 WBC 10.9 H RBC 3.91 L Hgb 11.9 L Hct 36.2 L MCV 92.6 MCH 30.4 MCHC 32.9 RDW 13.5 Plt Count 209 MPV 10.1 Immature Gran % (Auto) Neut % (Auto) Lymph % (Auto) [place] % (Auto) Eos % (Auto) Baso % (Auto) Lymph # (Auto) [place] # (Auto) Eos # (Auto) Baso # (Auto) Abs Immat Gran (auto) Absolute Neuts (auto) Absolute Nucleated RBC 0.000 Nucleated RBC % (auto) 0.0 PT 12.5 INR 1.1 APTT 26.5 Sodium Potassium Chloride Carbon Dioxide Anion Gap BUN Creatinine Estim Creat Clear Calc Estimated GFR POC Glucose 143 H Fasting Glucose Calcium 06/12/22 06/12/22 06/12/22 14:57 15:02 16:21 WBC RBC Hgb 9.6 L Hct 29.2 L MCV MCH MCHC RDW Plt Count MPV Immature Gran % (Auto) Neut % (Auto) Lymph % (Auto) [place] % (Auto) Eos % (Auto) Baso % (Auto) Lymph # (Auto) [place] # (Auto) Eos # (Auto) Baso # (Auto) Abs Immat Gran (auto) Absolute Neuts (auto) Absolute Nucleated RBC Nucleated RBC % (auto) PT INR APTT Sodium Potassium Chloride Carbon Dioxide Anion Gap BUN Creatinine Estim Creat Clear Calc Estimated GFR POC Glucose 139 H 122 H Fasting Glucose Calcium 06/12/22 06/12/22 06/13/22 20:20 20:21 05:38 WBC 9.7 RBC 3.11 L D Hgb 9.1 L 9.4 L Hct 27.1 L 28.8 L MCV 92.6 MCH 30.2 MCHC 32.6 RDW 13.6 Plt Count 152 L D MPV 10.2 Immature Gran % (Auto) 1.1 H Neut % (Auto) 70.4 Lymph % (Auto) 16.5 L [place] % (Auto) 11.3 H Eos % (Auto) 0.3 Baso % (Auto) 0.4 Lymph # (Auto) 1.6 [place] # (Auto) 1.1 Eos # (Auto) 0.0 Baso # (Auto) 0.0 Abs Immat Gran (auto) 0.11 H Absolute Neuts (auto) 6.8 Absolute Nucleated RBC 0.000 Nucleated RBC % (auto) 0.0 PT INR APTT Sodium Potassium Chloride Carbon Dioxide Anion Gap BUN Creatinine Estim Creat Clear Calc Estimated GFR POC Glucose 160 H Fasting Glucose Calcium 06/13/22 06/13/22 05:38 07:10 WBC RBC Hgb Hct MCV MCH MCHC RDW Plt Count MPV Immature Gran % (Auto) Neut % (Auto) Lymph % (Auto) [place] % (Auto) Eos % (Auto) Baso % (Auto) Lymph # (Auto) [place] # (Auto) Eos # (Auto) Baso # (Auto) Abs Immat Gran (auto) Absolute Neuts (auto) Absolute Nucleated RBC Nucleated RBC % (auto) PT INR APTT Sodium 139 Potassium 4.1 Chloride 106 Carbon Dioxide 24 Anion Gap 13 BUN 23 H Creatinine 1.09 Estim Creat Clear Calc 86.4 Estimated GFR > 60 POC Glucose 101 Fasting Glucose 101 H Calcium 8.3 L Discharge Plan Discharge Anticipated Discharge Date/Time: 06/13/22 07:42 Patient Disposition: Home Health Service Discharge Diagnosis: RT PAM Referrals: Richard Calles MD [Primary Care Provider] - 1 Week Lali Foley PA-C [Physician Kettle Room Helper] - 2 Weeks (06/26/22 2:15 [facility] Lali Foley PA-C) Discharge Medications: New acetaminophen 325 mg Tablet 650 mg PO Q6H PRN (Reason: Pain, Mild (Pain Scale 1-3)) 30 Days Qty: 240 0RF celecoxib 200 mg Capsule 200 mg PO BID 30 Days Qty: 60 0RF docusate sodium 100 mg Capsule 100 mg PO BID 14 Days Qty: 28 0RF oxycodone 5 mg Tablet 5 mg PO Q4H PRN (Reason: Pain, Moderate (Pain Scale 4-6) 7 Days Qty: 42 0RF Rx Instructions: Partial Fill upon patient request. Continued Entresto 24-26 mg tablet 1 tab PO BID Qty: 180 3RF warfarin 5 mg tablet 5 mg PO DAILY Qty: 90 3RF Protocol: Dose Management Condition: Thursday (Week One) Dose/Route: 0 mg Instruction: 0 milliliters Condition: Thursday Dose/Route: 0 mg Instruction: 0 milliliters Condition: Thursday Dose/Route: 0 mg Instruction: 0 milliliters Condition: Thursday Dose/Route: 0 mg Instruction: 0 milliliters Condition: Dose/Route: 7.5 mg Instruction: 1.5 x 5 mg milliliters Condition: Thursday Dose/Route: 5 mg Instruction: 1 x 5 mg milliliter Condition: Thursday Dose/Route: 5 mg Instruction: 1 x 5 mg milliliter Condition: Thursday (Week Two) Dose/Route: 5 mg Instruction: 1 x 5 mg milliliter Condition: Thursday Dose/Route: 2.5 mg Instruction: 0.5 x 5 mg milliliters Condition: Thursday Dose/Route: 5 mg Instruction: 1 x 5 mg milliliter Condition: Thursday Dose/Route: 2.5 mg Instruction: 0.5 x 5 mg milliliters Condition: Dose/Route: 5 mg Instruction: 1 x 5 mg milliliter Condition: Thursday Dose/Route: 2.5 mg Instruction: 0.5 x 5 mg milliliters Condition: Thursday Dose/Route: 5 mg Instruction: 1 x 5 mg milliliter Protocol Text: Adjustment Start Date: 06/12/22 INR Value: 1.1 INR Date: 06/12/22 Recheck Date: 06/16/22 Additional Instructions: take 7.5mg today and 5mg tomm then cont reg dosing no greens cont lovenox Rx Instructions: Take as directed by anticoagulation clinic. spironolactone 25 mg tablet 25 mg PO DAILY Qty: 90 3RF metoprolol succinate 25 mg tablet extended release 24 hr 12.5 mg PO DAILY Qty: 45 3RF (DME) raised toliet seat See Rx Instructions .ROUTE .MEDSUPPLY Qty: 1 0RF Rx Instructions: As directed metformin 500 mg tablet 500 mg PO DAILY Qty: 90 3RF (DME) walker Misc See Rx Instructions .ROUTE .MEDSUPPLY Qty: 1 0RF Rx Instructions: Folding front wheeled walker atorvastatin 20 mg tablet 30 mg PO BEDTIME warfarin 5 mg Tablet 5 mg PO [id number] Protocol: Dose Management Condition: Thursday (Week One) Dose/Route: 0 mg Instruction: 0 milliliters Condition: Thursday Dose/Route: 0 mg Instruction: 0 milliliters Condition: Thursday Dose/Route: 0 mg Instruction: 0 milliliters Condition: Thursday Dose/Route: 0 mg Instruction: 0 milliliters Condition: Dose/Route: 7.5 mg Instruction: 1.5 x 5 mg milliliters Condition: Thursday Dose/Route: 5 mg Instruction: 1 x 5 mg milliliter Condition: Thursday Dose/Route: 5 mg Instruction: 1 x 5 mg milliliter Condition: Thursday (Week Two) Dose/Route: 5 mg Instruction: 1 x 5 mg milliliter Condition: Thursday Dose/Route: 2.5 mg Instruction: 0.5 x 5 mg milliliters Condition: Thursday Dose/Route: 5 mg Instruction: 1 x 5 mg milliliter Condition: Thursday Dose/Route: 2.5 mg Instruction: 0.5 x 5 mg milliliters Condition: Dose/Route: 5 mg Instruction: 1 x 5 mg milliliter Condition: Thursday Dose/Route: 2.5 mg Instruction: 0.5 x 5 mg milliliters Condition: Thursday Dose/Route: 5 mg Instruction: 1 x 5 mg milliliter Protocol Text: Adjustment Start Date: 06/12/22 INR Value: 1.1 INR Date: 06/12/22 Recheck Date: 06/16/22 Additional Instructions: take 7.5mg today and 5mg tomm then cont reg dosing no greens cont lovenox warfarin 5 mg Tablet 2.5 mg PO [id number]@1800 Protocol: Dose Management Condition: Thursday (Week One) Dose/Route: 0 mg Instruction: 0 milliliters Condition: Thursday Dose/Route: 0 mg Instruction: 0 milliliters Condition: Thursday Dose/Route: 0 mg Instruction: 0 milliliters Condition: Thursday Dose/Route: 0 mg Instruction: 0 milliliters Condition: Dose/Route: 7.5 mg Instruction: 1.5 x 5 mg milliliters Condition: Thursday Dose/Route: 5 mg Instruction: 1 x 5 mg milliliter Condition: Thursday Dose/Route: 5 mg Instruction: 1 x 5 mg milliliter Condition: Thursday ( Two) Dose/Route: 5 mg Instruction: 1 x 5 mg milliliter Condition: Thursday Dose/Route: 2.5 mg Instruction: 0.5 x 5 mg milliliters Condition: Thursday Dose/Route: 5 mg Instruction: 1 x 5 mg milliliter Condition: Thursday Dose/Route: 2.5 mg Instruction: 0.5 x 5 mg milliliters Condition: Dose/Route: 5 mg Instruction: 1 x 5 mg milliliter Condition: Thursday Dose/Route: 2.5 mg Instruction: 0.5 x 5 mg milliliters Condition: Thursday Dose/Route: 5 mg Instruction: 1 x 5 mg milliliter Protocol Text: Adjustment Start Date: 06/12/22 INR Value: 1.1 INR Date: 06/12/22 Recheck Date: 06/16/22 Additional Instructions: take 7.5mg today and 5mg tomm then cont reg dosing no greens cont lovenox Farxiga 10 mg tablet 10 mg PO DAILY Qty: 90 3RF Discontinued enoxaparin [Lovenox] 100 mg/mL syringe 100 mg subcut Q12H 10 Days Qty: 20 0RF Protocol: Dose Management Condition: Thursday ( One) Dose/Route: 0 mg Instruction: 0 milliliters Condition: Thursday Dose/Route: 0 mg Instruction: 0 milliliters Condition: Thursday Dose/Route: 0 mg Instruction: 0 milliliters Condition: Thursday Dose/Route: 0 mg Instruction: 0 milliliters Condition: Dose/Route: 7.5 mg Instruction: 1.5 x 5 mg milliliters Condition: Thursday Dose/Route: 5 mg Instruction: 1 x 5 mg milliliter Condition: Thursday Dose/Route: 5 mg Instruction: 1 x 5 mg milliliter Condition: Thursday ( Two) Dose/Route: 5 mg Instruction: 1 x 5 mg milliliter Condition: Thursday Dose/Route: 2.5 mg Instruction: 0.5 x 5 mg milliliters Condition: Thursday Dose/Route: 5 mg Instruction: 1 x 5 mg milliliter Condition: Thursday Dose/Route: 2.5 mg Instruction: 0.5 x 5 mg milliliters Condition: Dose/Route: 5 mg Instruction: 1 x 5 mg milliliter Condition: Thursday Dose/Route: 2.5 mg Instruction: 0.5 x 5 mg milliliters Condition: Thursday Dose/Route: 5 mg Instruction: 1 x 5 mg milliliter Protocol Text: Adjustment Start Date: 06/12/22 INR Value: 1.1 INR Date: 06/12/22 Recheck Date: 06/16/22 Additional Instructions: take 7.5mg today and 5mg tomm then cont reg dosing no greens cont lovenox Discharge Orders: Discharge Order (Routine); Ordered 06/13/22 Ordered By: Rolando Gonsalez Diet: Regular diet Activity on Discharge: Use cane or walker Stand Alone Forms: Patient Portal Discharge page Care Plan Goals: Restore function of joint Health Concerns: none Plan of Treatment: Physical Therapy Pain management DVT prophylaxis Assessment: * Physical Therapy for Total hip arthroplasty: wbat, posterior precautions, gait training, ROM, strength * Limit stair climbing * No showering, no tub bath-keep dressing clean, dry and intact * No driving x6 weeks * COntinue Coumadin INR goal 2-3 * Follow up with [facility] [place] [facility]: * 06/26/22 2:15[facility] Sur[facility]ali Foley PA-C
[2022-06-13 08:45] VITALS: BP 119/57; PULSE 81; O2SAT 98
--- NOTE | 2022-06-13 08:49 | P.F2F_ITS ---
Service Date Service Date: 06/13/22 Encounter Date of encounter: 06/13/22 Reasons for Services Signs and symptoms assessed: Right hip pain, weakness, poor balance Homebound: Leaving the home is medically contraindicated at this time without the asist of a device and/or another person due th the listed conditions above and below. Reason homebound: unsteady gait / fall risk, pain with ambulation, poor balance / fall risk and unable to drive Homebound supporting statement: Pt. is considered home bound due to recent surgery. Unable to drive, poor balance, poor gait mechanics. Certification: Based on the above findings, I certify that this patient is confined to the home and needs intermittent half-way care, physical therapy and/or speech therapy, or continues to need occupational therapy. The patient is under my care, and I have initiated the establishment of the plan of care. The patient will be followed by a physician who will periodically review the plan of care. Time Spent With Patient Time: Total time managing care of this patient today ____ minutes.
--- NOTE | 2022-06-13 10:57 | MHC.CM.PN ---
PLAN IS HOME TODAY WITH [facility] TOMORROW (06/14/22) PHYSICAL THERAPY WILL CHECK B/P INR RESULTS TO BE REPORTED TO PCP. PATIENT AWARE OF PLAN.
[2022-06-13 11:06] LABS: INTERNATIONAL NORM RATIO 1.2 (0.9-1.1); Prothrombin Time 13.7 SEC (10.0-13.1)
[2022-06-13 11:23] LABS: Glucose, Whole Blood 114 mg/dL (60-115)
--- NOTE | 2022-06-13 12:59 | P.PNIM_ITS ---
Subjective Subjective Date of Service: 06/13/22 Interval History: seen and examined this morning follow up for medical consultation observed ambulating in the hallway without issue, no dizziness Review of Systems Review of Systems: Yes all other systems are reviewed and are negative Constitutional Constitutional: Denies chills and Denies fever(s) ENT Ears, Nose, Mouth, and Throat: Denies dizziness Cardiovascular Cardiovascular: Denies chest pain, Denies palpitations and Denies dyspnea Respiratory Respiratory: Denies cough and Denies dyspnea Gastrointestinal Gastrointestinal: Denies abdominal pain Neurologic Neurologic: Denies dizziness Endocrine Endocrine: Denies palpitations Physical Exam Vital Signs: Vital Signs: Last Vital Signs Temp 98.0 F 06/13/22 07:04 Pulse 81 06/13/22 08:45 Resp 18 06/13/22 07:04 BP 119/57 L 06/13/22 08:45 Pulse Ox 98 06/13/22 08:45 O2 Del Method Room Air 06/13/22 07:04 O2 Flow Rate 2 06/11/22 12:35 BMI result Body Mass Index 31.5 Const: General: cooperative, comfortable, alert and awake Nutritional Appearance: overweight Orientation/consciousness: patient oriented x3 Resp: Effort & Inspection: normal respiratory effort and able to speak in complete sentences Auscultation: clear to auscultation bilaterally Cardio: Rate: regular rate Heart sounds: S1 normal heart sound present and S2 normal heart sound present GI: Inspection: No distended Palpation (GI): Soft to palpation Neuro: General: patient oriented x3 and CN's II-XI intact bilaterally Extrem: Other: right hip bandage with some staining; mild bruising Objective Data Labs 06/13/22 05:38 06/13/22 05:38 Labs: Laboratory Results - last 24 hr 06/12/22 06/12/22 06/12/22 15:02 16:21 20:21 MCV MCH MCHC RDW Plt Count MPV Immature Gran % (Auto) Neut % (Auto) Lymph % (Auto) [place] % (Auto) Eos % (Auto) Baso % (Auto) Lymph # (Auto) [place] # (Auto) Eos # (Auto) Baso # (Auto) Abs Immat Gran (auto) Absolute Neuts (auto) Absolute Nucleated RBC Nucleated RBC % (auto) PT INR Anion Gap Estim Creat Clear Calc Estimated GFR POC Glucose 139 H 122 H 160 H Fasting Glucose Calcium 06/13/22 06/13/22 06/13/22 05:38 05:38 07:10 MCV 92.6 MCH 30.2 MCHC 32.6 RDW 13.6 Plt Count 152 L D MPV 10.2 Immature Gran % (Auto) 1.1 H Neut % (Auto) 70.4 Lymph % (Auto) 16.5 L [place] % (Auto) 11.3 H Eos % (Auto) 0.3 Baso % (Auto) 0.4 Lymph # (Auto) 1.6 [place] # (Auto) 1.1 Eos # (Auto) 0.0 Baso # (Auto) 0.0 Abs Immat Gran (auto) 0.11 H Absolute Neuts (auto) 6.8 Absolute Nucleated RBC 0.000 Nucleated RBC % (auto) 0.0 PT INR Anion Gap 13 Estim Creat Clear Calc 86.4 Estimated GFR > 60 POC Glucose 101 Fasting Glucose 101 H Calcium 8.3 L 06/13/22 06/13/22 06/13/22 08:13 08:13 11:14 MCV MCH MCHC RDW Plt Count MPV Immature Gran % (Auto) Neut % (Auto) Lymph % (Auto) [place] % (Auto) Eos % (Auto) Baso % (Auto) Lymph # (Auto) [place] # (Auto) Eos # (Auto) Baso # (Auto) Abs Immat Gran (auto) Absolute Neuts (auto) Absolute Nucleated RBC Nucleated RBC % (auto) PT Cancelled 13.7 H INR Cancelled 1.2 H Anion Gap Estim Creat Clear Calc Estimated GFR POC Glucose 114 Fasting Glucose Calcium Assessment and Plan (1) Anemia: Status: Acute (2) Current use of anticoagulant therapy: Status: Acute (3) Other cerebral infarction: Status: Acute Plan This is a 61-year-old male with a PMH significant for HTN bfr-ovedjmm-odvzmfory diabetes, HLD, paroxysmal AFib on warfarin, obstructive sleep apnea, CVA, nonischemic cardiomyopathy, left bundle-branch block, 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 Hospitals consult for medical management. POD #2 s/p RT PAM Management per Orthopedic team acute normocytic anemia r/t blood loss from surgery discussed with ortho - rec to continue coumadin, but hold lovenox due to anemia H/H has remained stable overnight. no indication for transfusion would recommend to follow CBC given patient is on AC syncope likely vasovagal vs orthostasis hypotension likely r/t anemia bp meds held, received IVF bolus and bp improving today will be going home with VNA services for blood pressure monitoring Paroxysmal AFib with h/o CVA Continue metoprolol if bp allows resume coumadin, ortho rec to hold lovenox due to anemia/bleeding folow INR HFrEF ECHO from 12/12 with EF 33% Hold spironolactone, Entresto for hypotension continue jardiance BP improved. resume meds on discharge None insulin-dependent diabetes Hold metformin Sliding scale insulin HLD Continue statin attending - dr. thayer dvt ppx - coumadin, follow INR Thank you for allowing us to participate in the care of this patient. Time Spent With Patient Time: Total time managing care of this patient today ____ minutes. Quality Stroke Does the patient have a stroke diagnosis?: No VTE Prior VTE?: No VTE Risk Level:: Surgical - very high VTE Device Contraindication: N/A - Device Ordered VTE Drug Contraindication: N/A - Med Ordered
== END 2022-06-13 12:46 | disposition home health service (06) | DRG 470 ==
LOC: HO.SSSA 07:17 → HO.S3 12:22
PROVIDERS: Nurse Practitioner; Physician Assistant; Physician Assistant Medical; Admitting Provider Orthopaedic Surgery; PCP Family Medicine; Visit Provider Orthopaedic Surgery
PROC: 0SR903A Replacement of Right Hip Joint with Ceramic Synthetic Substitute, Uncemented, Open Approach (ICD-10-PCS; CPT 27130; principal; 2022-06-11 09:40)
DX: M16.11 Unilateral primary osteoarthritis, right hip (principal); D62 Acute posthemorrhagic anemia; I42.8 Other cardiomyopathies; I50.22 Chronic systolic (congestive) heart failure; I95.81 Postprocedural hypotension; G47.33 Obstructive sleep apnea (adult) (pediatric); I48.0 Paroxysmal atrial fibrillation; E78.5 Hyperlipidemia, unspecified; I11.0 Hypertensive heart disease with heart failure; I44.7 Left bundle-branch block, unspecified; E11.9 Type 2 diabetes mellitus without complications; Z20.822 Contact with and (suspected) exposure to COVID-19; Z95.810 Presence of automatic (implantable) cardiac defibrillator; Z86.73 Personal history of transient ischemic attack (TIA), and cerebral infarction without residual deficits; Z87.891 Personal history of nicotine dependence; Z79.01 Long term (current) use of anticoagulants; Z79.84 Long term (current) use of oral hypoglycemic drugs; Z79.899 Other long term (current) drug therapy
CPT/HCPCS: 36415; 72170; 80048; 82947; 83036; 85014; 85018; 85025; 85027; 85610; 85730; 86850; 86900; 86901; 87635; 87640; 87641; 88304; 88311; 97110; 97116; 97162; 97165; 97535; C1776; J0131; J0690; J1100; J1170; J1650; J2250; J2370; J2405; J2795; J3010

== ENCOUNTER → 2022-06-16 13:21 | Outpatient (BNVA) | payer OTHER, SELFPAY | PROVIDERS: PCP Family Medicine; Visit Provider Internal Medicine | DX: Z79.01 Long term (current) use of anticoagulants (principal) ==

== ENCOUNTER → 2022-06-19 13:28 | Outpatient (BNVA) | payer OTHER, SELFPAY | PROVIDERS: PCP Family Medicine; Visit Provider Internal Medicine | DX: Z86.73 Personal history of transient ischemic attack (TIA), and cerebral infarction without residual deficits (principal); Z51.81 Encounter for therapeutic drug level monitoring; Z79.01 Long term (current) use of anticoagulants | CPT/HCPCS: 99211 ==

== ENCOUNTER → 2022-06-25 10:34 | Outpatient (BNVA) | payer BC, SELFPAY | PROVIDERS: PCP Family Medicine; Visit Provider Internal Medicine | DX: Z79.01 Long term (current) use of anticoagulants (principal) ==

== ENCOUNTER → 2022-06-26 13:57 | Outpatient (BNVA) | payer BC, SELFPAY | PROVIDERS: PCP Family Medicine; Visit Provider Physician Assistant | DX: Z13.89 Encounter for screening for other disorder (principal) ==

== ENCOUNTER → 2022-07-04 13:27 | Outpatient (BNVA) | payer BC, SELFPAY | PROVIDERS: PCP Family Medicine; Visit Provider Internal Medicine | DX: Z86.718 Personal history of other venous thrombosis and embolism (principal); Z51.81 Encounter for therapeutic drug level monitoring; Z79.01 Long term (current) use of anticoagulants | CPT/HCPCS: 85610; 99211 ==

== ENCOUNTER → 2022-07-11 13:37 | Outpatient (BNVA) | payer BC, SELFPAY | PROVIDERS: PCP Family Medicine; Visit Provider Internal Medicine | DX: Z86.73 Personal history of transient ischemic attack (TIA), and cerebral infarction without residual deficits (principal); Z51.81 Encounter for therapeutic drug level monitoring; Z79.01 Long term (current) use of anticoagulants | CPT/HCPCS: 85610; 99211 ==

== ENCOUNTER 2022-07-24 10:19 | Outpatient (REF) | payer BC, SELFPAY ==
--- NOTE | ~2022-07-24 | XR_ITS ---
EXAMINATION: XR PELVIS CLINICAL INFORMATION: Pain COMPARISON: AP pelvis 06/11/2012 and 02/06/2022 TECHNIQUE: AP view of the pelvis. FINDINGS: There is a total right hip prostheses without periprosthetic fracture or loosening. The left hip joint space is normal. The SI joints are normal. No lytic or sclerotic process seen. XR/XR pelvis 1-2V IMPRESSION: Total right hip prosthesis in satisfactory alignment. No periprosthetic fracture or loosening seen.
== END 2022-07-24 10:20 | disposition home or self-care (01) ==
LOC: HO.HOSX 10:19
PROVIDERS: Visit Provider Physician Assistant
DX: Z47.1 Aftercare following joint replacement surgery (principal); Z96.641 Presence of right artificial hip joint
CPT/HCPCS: 72170

== ENCOUNTER → 2022-07-25 14:21 | Outpatient (BNVA) | payer BC, SELFPAY | PROVIDERS: PCP Family Medicine; Visit Provider Internal Medicine | DX: Z51.81 Encounter for therapeutic drug level monitoring (principal); Z79.01 Long term (current) use of anticoagulants; Z86.73 Personal history of transient ischemic attack (TIA), and cerebral infarction without residual deficits | CPT/HCPCS: 85610; 99211 ==

== ENCOUNTER 2022-07-29 16:00 | Outpatient (RCR) | payer BC, SELFPAY ==
--- NOTE | 2022-06-26 16:01 | MHC.PT.EP ---
[facility] [place] Office [place] Office [place] Office [address] Mariah Olmedo [address] [phone] F: [phone] F: [phone] F: [phone] F: [phone] Physical Therapy Plan of Care Date of Evaluation: Date of Surgery: 06/11/22 Diagnosis: POST-OP Rt PAM Assessment: 61 YO MALE REF TO PT S/P RIGHT PAM ON 06/11/22. OF IMPORTANCE, THE Pt HAS A PACEMAKER AND IMPLANTED CARDIOVERTER- DEFIBRILLATOR. HE RESIDES W HIS PARTNER IN A 2 LEVEL HOME AND IS CURRENTLY AMB W A CANE. OBJECTIVE FINDINGS: PO ROM DEFICITS RIGHT HIP, TIGHT HIP FLEXORS/ CALF MM, (+) STRENGTH DEFICITS, AND INTERMITTENT MILD RIGHT PROX LE PAIN. Pt IS AWARE OF POSTERIOR APPROACH RESTRICTIONS/ PRECAUTIONS. FUNCTIONALLY, Pt IS LIMITED WITH DECR STANDING MEGAN, ALTERED GAIT MECHANICS, STAIR MGMT, AND RESTRICTED WITH MORE PHYSICALLY DEMANDING ADLs. Pt WOULD BENEFIT FROM PT AT THIS TIME TO GUIDE HIM IN HIS POST-OP COURSE, DEV A PROGR HEP, ADDRESS PAIN MGMT, OBTAINING MAXIMAL LEVEL OF FUNCTIONAL INDEPENDENCE, AND PREPARING HIM FOR RTW. Frequency and Duration: The patient will be seen 2 x WK x 10 WKS Short Term Goals: *Pt INDEP W PAM POSTERIOR APPROACH PRECAUTIONS AND SELF-MGMT OF POST-OP STATUS TO PROMOTE OPTIMAL HEALING *Pt WILL DEMON EFFICIENT GAIT MECHANICS W LEAST RESTRICTIVE ASST DEVICE ON LEVEL GROUND AND STAIRS *Pt'S LEFT HIP PAIN WILL DECR TO 2-3/10 *Pt DEMON APPROP BED MOB/ POSITIONING/ SIT <-> STAND/ CAR TRANSFERS Nursing Home Goals: *Pt WILL IMPROVE LUMBOPELVIC/ Lt LE STRENGTH TO AT LEAST 5-/5 *Pt RESUME AT LEAST PLOF EVIDENT W IMPROVED LEFI SCORE (AT EVAL 36/80 ) *Pt INDEP W PROGR HEP AND SELF-SX MGMT TECHN Treatment Plan: Modalities to reduce pain, spasms and effusion. Manual therapy to restore motion and function. Therapeutic exercise to improve strength and flexibility. Neuromuscular re-education for posture and balance. Therapeutic activities to return to functional activities of daily living. Electronically signed by: SHAWN FLORES,PT Please sign and return to therapist. Thank you for your referral.
--- NOTE | 2022-07-30 15:20 | MHC.PT.DC ---
[facility] [place] Office [place] Office [place] Office [address] Mariah Olmedo [address] [phone] F: [phone] F: [phone] F: [phone] F: [phone] Physical Therapy Discharge Report Diagnosis: POST-OP Rt PAM Date of Surgery: 06/11/22 Date of Evaluation: 06/26/22 Date of Discharge: 07/30/22 Treatments to Date: 9 Cancellations to Date: 0 No Shows to Date: 0 Discharge Status: Achieved Goals Improved Function Independent with HEP Discharge Summary: All goals MET with an increase in LEFI (45%->73%) and his strength is now in WFL . Pt is now DC TO I HEP. Electronically signed by: SHAWN FLORESPT Please sign and return to therapist. Thank you for your referral.
== END 2022-07-30 15:21 | disposition home or self-care (01) ==
LOC: HO.PT 16:00
PROVIDERS: Visit Provider Physician Assistant
DX: Z96.641 Presence of right artificial hip joint (principal)
CPT/HCPCS: 97110; 97162; 97530

== ENCOUNTER → 2022-08-08 12:13 | Outpatient (BNVA) | payer BC, SELFPAY | PROVIDERS: PCP Family Medicine; Visit Provider Internal Medicine | DX: Z51.81 Encounter for therapeutic drug level monitoring (principal); Z79.01 Long term (current) use of anticoagulants; Z86.73 Personal history of transient ischemic attack (TIA), and cerebral infarction without residual deficits | CPT/HCPCS: 85610; 99211 ==

== ENCOUNTER 2022-09-04 07:25 | Outpatient (REF) | payer BC, SELFPAY ==
--- NOTE | ~2022-09-04 | XR_ITS ---
EXAMINATION: XR PELVIS CLINICAL INFORMATION: Bilateral hip pain. COMPARISON: 07/24/2022 TECHNIQUE: AP view of the pelvis. FINDINGS: A right prosthetic hip is present. The prosthesis appears in good position without evidence of loosening. Some minimal degenerative changes are present in the left hip with supra-acetabular sclerosis and some osteophytes, unchanged from prior. No interval change since the prior study. Prostatic calcifications are present. XR/XR pelvis 1-2V IMPRESSION: Right hip prosthesis in good position. Mild degenerative changes left hip.
== END 2022-09-04 07:26 | disposition home or self-care (01) ==
LOC: HO.HOSX 07:25
PROVIDERS: Visit Provider Orthopaedic Surgery
DX: Z47.1 Aftercare following joint replacement surgery (principal); Z96.641 Presence of right artificial hip joint
CPT/HCPCS: 72170

== ENCOUNTER → 2022-09-05 15:23 | Outpatient (BNVA) | payer BC, SELFPAY | PROVIDERS: PCP Family Medicine; Visit Provider Internal Medicine | DX: Z86.718 Personal history of other venous thrombosis and embolism (principal); Z51.81 Encounter for therapeutic drug level monitoring; Z79.01 Long term (current) use of anticoagulants | CPT/HCPCS: 85610; 99211 ==

== ENCOUNTER 2022-10-02 15:37 | Outpatient (AMB) | payer BC, SELFPAY ==
--- NOTE | 2022-10-02 15:41 | MHC.OFFVISCO ---
Intake Intake Visit Reasons: Anticoagulation Allergies No Known Allergies [No Known Allergies*] Allergy (Verified 10/02/22 15:38) Medication List - Last Reconciled 10/02/22 by Luli Thomas RN acetaminophen 650 mg (2 x 325 mg) PO Q6H PRN 30 days atorvastatin 30 mg PO BEDTIME dapagliflozin propanediol (Farxiga) 10 mg PO DAILY metformin 500 mg PO DAILY metoprolol succinate ER 12.5 mg (1/2 x 25 mg) PO DAILY [raised toliet seat As directed] sacubitril-valsartan 24-26 mg (Entresto) 1 tab PO BID spironolactone 25 mg PO DAILY walker Folding front wheeled walker warfarin 2.5 mg See Protocol PO 3XW warfarin 5 mg See Protocol PO 4XW Nursing Note INR: 2.3- in therapeutic range Medications and supplements reviewed- no changes No changes in health, diet, medications, or supplements, Denies any signs and symptoms of bleeding or bruising or clotting. Bleeding, bruising, clotting discussed Nutritional guidance given Dose: 5mg x 4, 2.5mg x 3 F/U INR: 4 weeks Patient verbalizes understanding of instructions given Anti-Coag Initial Assessment Social Hx Patient Tobacco Use Status: Former Tobacco user Quit Date: 2017 Tobacco use type: Cigarette alcohol intake: former Alcohol intake frequency: former alcohol drinker Coding Level of Care Code Est Patient Level 1 Diagnoses Current use of anticoagulant therapy Z79.01 Results AMB INR Fingerstick AMB INR Fingerstick 2.3 Last Edit by Luli Thomas RN on 10/02/22 15:42 Assessment & Plan Assessment & Plan (1) Current use of anticoagulant therapy: Code(s): Z79.01 - assisted (current) use of 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
[2022-10-02 15:42] LABS: Prothrombin Time Whole Bld POC 27.6 sec (11.1-13.5); ~PT, ~INR - Anti Coag Clinic 2.3 (0.9-1.1)
== END 2022-10-02 15:48 | disposition home or self-care (01) ==
LOC: HO.ACS 15:37
PROVIDERS: PCP Family Medicine; Visit Provider Internal Medicine
DX: Z79.01 Long term (current) use of anticoagulants (principal)

== ENCOUNTER → 2022-10-02 15:37 | Outpatient (BNVA) | payer BC, SELFPAY | PROVIDERS: PCP Family Medicine; Visit Provider Internal Medicine | DX: Z51.81 Encounter for therapeutic drug level monitoring (principal); Z79.01 Long term (current) use of anticoagulants; Z86.73 Personal history of transient ischemic attack (TIA), and cerebral infarction without residual deficits | CPT/HCPCS: 85610; 99211 ==

== ENCOUNTER 2022-10-03 09:15 | Outpatient (AMB) | payer BC, SELFPAY ==
--- NOTE | 2022-10-03 09:40 | A.OFFVIS_ITS ---
Intake Intake Visit Reasons: medtronik device check Allergies No Known Allergies [No Known Allergies*] Allergy (Verified 10/02/22 15:38) [facility] Medical History Anemia Biventricular ICD (implantable cardioverter-defibrillator) in place Cerebrovascular accident (CVA) due to embolism of cerebral artery LBBB (left bundle branch block) NICM (nonischemic cardiomyopathy) Obesity (BMI 30-39.9) KIERRA (obstructive sleep apnea) Osteoarthritis of right hip Pacemaker Surgical History History of cardiac catheterization (~03/2018) History of removal of cyst Family History Father CVD (cardiovascular disease) S/P triple vessel bypass Mother Stroke CVD (cardiovascular disease) Brother No problems noted. Sister No problems noted. Sister No problems noted. Sister No problems noted. Sister No problems noted. Son No problems noted. Daughter No problems noted. Social History Household Members: Significant Other Housing: House Are you a primary medical care administrator to a significant other at home: No Do you presently have visiting nurse or other home services: No Alcohol intake: former Patient Tobacco Use Status: Former Tobacco user Quit Date: 2017 Tobacco use type: Cigarette Years Smoked: 30 e-Cigarette/Vaping Use: Never Used Second Hand Smoke Exposure: No service: No Current occupational status: employed Current occupation: [employer] Cognitive needs: No Hearing needs: No Vision needs: No Office Procedures Cardiac Device Check Cardiac Device Check Details: patient came into office today for device check. He heard a beep from his ICD few days ago. No beep since that time. [employer] Bi V ICD. Interrogation shows battery 2.2 years, threshold stable, normal range, low tracking rate 50, DDD mode, therapies reviewed and no changes, no VT or VF, a sense V pace 95.9%, no alerts to account for beep sound. He does report having a magnetic drill in his hand at that time which may have contributed to the sound. [employer] transmission also performed and sent to [employer] for their review [id number] Cardiac Device Check, multi lead pacemaker Procedure code (CPT) selection complete Coding Level of Care Code Procedure Only Diagnoses CPT Codes Cardiac Device Check - Cardiac Device 3: [id number] Cardiac Device Check, multi lead pacemaker ([id number])
== END 2022-10-03 11:08 | disposition home or self-care (01) ==
PROVIDERS: PCP Family Medicine; Visit Provider Internal Medicine
DX: I48.0 Paroxysmal atrial fibrillation (principal); Z95.0 Presence of cardiac pacemaker
CPT/HCPCS: 93281

== ENCOUNTER → 2022-10-03 09:15 | Outpatient (BNVA) | payer BC, SELFPAY | PROVIDERS: PCP Family Medicine; Visit Provider Internal Medicine ==

== ENCOUNTER → 2022-10-08 23:59 | Outpatient (BNV) | payer BC, SELFPAY ==
--- NOTE | 2022-10-10 14:43 | MHC.OFFVIS ---
Intake Intake Visit Reasons: Remote HF Monitoring- Medtronic Allergies No Known Allergies [No Known Allergies*] Allergy (Verified 10/02/22 15:38) [facility] Medical History Anemia Biventricular ICD (implantable cardioverter-defibrillator) in place Cerebrovascular accident (CVA) due to embolism of cerebral artery LBBB (left bundle branch block) NICM (nonischemic cardiomyopathy) Obesity (BMI 30-39.9) KIERRA (obstructive sleep apnea) Osteoarthritis of right hip Pacemaker Surgical History History of cardiac catheterization (~03/2018) History of removal of cyst Family History Father CVD (cardiovascular disease) S/P triple vessel bypass Mother Stroke CVD (cardiovascular disease) Brother No problems noted. Sister No problems noted. Sister No problems noted. Sister No problems noted. Sister No problems noted. Son No problems noted. Daughter No problems noted. Social History Household Members: Significant Other Housing: House Are you a primary child daycare worker to a significant other at home: No Do you presently have visiting nurse or other home services: No Alcohol intake: former Patient Tobacco Use Status: Former Tobacco user Quit Date: 2017 Tobacco use type: Cigarette Years Smoked: 30 e-Cigarette/Vaping Use: Never Used Second Hand Smoke Exposure: No service: No Current occupational status: employed Current occupation: [employer] Cognitive needs: No Hearing needs: No Vision needs: No Office Procedures Cardiac Device Check Cardiac Device Check Details: Date of service- 10/08/2022; based on impedance data and physiological variables, there is no evidence of worsening congestive heart failure. Patient activity 8hrs/day. Adequate HR variability. [id number] Cardiac Device Interrogation, cardio physiologic monitor Procedure code (CPT) selection complete Assessment & Plan Assessment & Plan (1) NICM (nonischemic cardiomyopathy): Code(s): I42.8 - Other cardiomyopathies Coding Level of Care Code Procedure Only Diagnoses NICM (nonischemic cardiomyopathy) I42.8 CPT Codes Cardiac Device Check - Cardiac Device 15: [id number] Cardiac Device Interrogation, cardio physiologic monitor ([id number])
== END ==
PROVIDERS: PCP Family Medicine; Visit Provider Internal Medicine
DX: I42.8 Other cardiomyopathies (principal)
CPT/HCPCS: 93297

== ENCOUNTER 2022-10-30 15:23 | Outpatient (AMB) | payer BC, SELFPAY ==
--- NOTE | 2022-10-30 15:27 | MHC.OFFVISCO ---
Intake Intake Visit Reasons: Anticoagulation Allergies No Known Allergies [No Known Allergies*] Allergy (Verified 10/02/22 15:38) Nursing Note INR: 2.0- in therapeutic range Medications and supplements reviewed- no changes No changes in health, diet, medications, or supplements, Denies any signs and symptoms of bleeding or bruising or clotting. Bleeding, bruising, clotting discussed Nutritional guidance given Dose: 2.5mg x 3 , 5mg x 4 F/U INR: pt req 4 weeks Patient verbalizes understanding of instructions given Anti-Coag Initial Assessment Social Hx Patient Tobacco Use Status: Former Tobacco user Quit Date: 2017 Tobacco use type: Cigarette alcohol intake: former Alcohol intake frequency: former alcohol drinker Coding Level of Care Code Est Patient Level 1 Diagnoses Current use of anticoagulant therapy Z79.01 Results AMB INR Fingerstick AMB INR Fingerstick 2.0 Last Edit by Luli Thomas RN on 10/30/22 15:29 Assessment & Plan Assessment & Plan (1) Current use of anticoagulant therapy: Code(s): 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
[2022-10-31 10:33] LABS: Prothrombin Time Whole Bld POC 24.2 sec (11.1-13.5)
== END 2022-10-30 15:33 | disposition home or self-care (01) ==
LOC: HO.ACS 15:23
PROVIDERS: PCP Family Medicine; Visit Provider Internal Medicine
DX: Z79.01 Long term (current) use of anticoagulants (principal)

== ENCOUNTER → 2022-10-30 15:23 | Outpatient (BNVA) | payer BC, SELFPAY | PROVIDERS: PCP Family Medicine; Visit Provider Internal Medicine | DX: Z51.81 Encounter for therapeutic drug level monitoring (principal); Z79.01 Long term (current) use of anticoagulants; Z86.73 Personal history of transient ischemic attack (TIA), and cerebral infarction without residual deficits | CPT/HCPCS: 85610; 99211 ==

== ENCOUNTER 2022-11-04 15:37 | Outpatient (AMB) | payer BC, SELFPAY ==
--- NOTE | 2022-11-04 15:43 | MHC.PC.OV ---
Vital Signs 11/04/22 15:44 Height 5 ft 10 in Weight 220 lb 4 oz BMI 31.6 BP 124/76 Blood Pressure Location Lt brachial Position Sitting Pulse 87 Pulse Source Pulse Oximeter Pulse Oximetry (%) 97 Oxygen Delivery Method Room Air Intake Visit Reasons: f/u diabetes Intake Note: Patient is here to following up on diabetes. Allergies No Known Allergies [No Known Allergies*] Allergy (Verified 11/04/22 15:48) Medication List - Last Reconciled 11/04/22 by Richard Calles MD acetaminophen 650 mg (2 x 325 mg) PO Q6H PRN 30 days atorvastatin 30 mg (1.5 x 20 mg) PO BEDTIME 90 days dapagliflozin propanediol (Farxiga) 10 mg PO DAILY metformin 500 mg PO DAILY metoprolol succinate ER 12.5 mg (1/2 x 25 mg) PO DAILY [raised toliet seat As directed] sacubitril-valsartan 24-26 mg (Entresto) 1 tab PO BID spironolactone 25 mg PO DAILY walker Folding front wheeled walker warfarin 5 mg See Protocol PO 4XW 90 days warfarin 2.5 mg See Protocol PO 3XW Tobacco use date assessed: 11/04/22 Dental Screening Dental Screen Date: 11/04/22 Did you have a dental visit in the last 12 months?: No Did you have a dental problem in the last 6 months where you did not have access to dental care?: No HPI f/u diabetes HPI Details 61 y/o male presents to f/u diabetes and hypertension. Last A1c 07/31/22 5.4%. He is on farxiga 10mg and metformin 500mg daily. A1c today 11/04/22 is 6.1%. Blood pressure today is 124/76. He is on spirinolactone 25mg daily and Entresto 1 tab b.i.d. He notes he has lost a bit of weight. [facility] Medical History Anemia Biventricular ICD (implantable cardioverter-defibrillator) in place Cerebrovascular accident (CVA) due to embolism of cerebral artery LBBB (left bundle branch block) NICM (nonischemic cardiomyopathy) Obesity (BMI 30-39.9) KIERRA (obstructive sleep apnea) Osteoarthritis of right hip Pacemaker Surgical History History of cardiac catheterization (~03/2018) History of removal of cyst Family History Father CVD (cardiovascular disease) S/P triple vessel bypass Mother Stroke CVD (cardiovascular disease) Brother No problems noted. Sister No problems noted. Sister No problems noted. Sister No problems noted. Sister No problems noted. Son No problems noted. Daughter No problems noted. Social History Household Members: Significant Other Housing: House Are you a primary intensive care medicine specialist to a significant other at home: No Do you presently have visiting nurse or other home services: No Alcohol intake: former Patient Tobacco Use Status: Former Tobacco user Quit Date: 2017 Tobacco use type: Cigarette Years Smoked: 30 e-Cigarette/Vaping Use: Never Used Second Hand Smoke Exposure: No service: No Current occupational status: employed Current occupation: [employer] Cognitive needs: No Hearing needs: No Vision needs: No Questionnaire Thrive Questionnaire Date Thrive assessed: 12/25/20 NEVIN-7 AMB Questionnaire NEVIN-7 Date NEVIN - 7 assessed: 03/10/22 Source: Developed by Drs. Mir Thomas, Ann Marie Alcantar, Jorden Guzmán and colleagues, with an educational audrey from [employer]. Review of Systems Const Denies chills, Denies fatigue, Denies fever(s), Denies headache(s) and Denies weakness ENT Denies dizziness and Denies headache(s) Card Denies chest pain, Denies lightheadedness, Denies dyspnea and Denies other (Palpitations) Resp Denies cough, Denies dyspnea, Denies wheezing and Denies other ( shortness of breath) Musc Denies numbness and Denies tingling Neuro Denies dizziness, Denies headache(s), Denies numbness, Denies tingling, Denies paresthesias and Denies weakness Psych Denies anxiety and Denies depression Endo Denies fatigue Aller/Immun Denies wheezing Physical exam (Primary Care) Vital Signs: Last Vital Signs Pulse 87 11/04/22 15:44 BP 124/76 11/04/22 15:44 Pulse Ox 97 11/04/22 15:44 Oxygen Delivery Method Room Air 11/04/22 15:44 BMI result Body Mass Index 31.6 Tobacco/Smoking Status: Tobacco use Status Tobacco use date assessed 11/04/22 11/04/22 15:52 Patient Tobacco Use Status Former Tobacco user 11/04/22 15:43 Tobacco use type Cigarette 11/04/22 15:43 e-Cigarette/Vaping Use Never Used 11/04/22 15:43 Thrive Assessment: Date of Thrive Assessment Date Thrive assessed 12/25/20 11/04/22 15:43 Const General: no acute distress and well developed Nutritional Appearance: well nourished Orientation/consciousness: patient oriented x3 HENMT Head: Yes normocephalic and Yes atraumatic Eyes General: appearance normal, both eyes and all related structures Pupils: Equal, round and reactive pupils present EOM: EOMs intact bilaterally Resp Effort & Inspection: normal respiratory effort Auscultation: clear to auscultation bilaterally Cardio Rate: regular rate Rhythm: regular rhythm Heart sounds: S1 normal heart sound present, S2 normal heart sound present, no gallops, no murmurs and no rubs Neuro General: patient oriented x3 and gait normal Cranial nerves: Yes Equal, round and reactive pupils present Psych Affect: normal affect Assessment and Plan Assessment & Plan (1) Diabetes: Code(s): E11.9 - Type 2 diabetes mellitus without complications Plan: A1c had improved to 5.4% at last visit A1c today is increased to 6.1% Still at goal of less than 7.0% Continue current medication regimen Continue to work at a diabetic diet and exercise and weight control Patient saw his eye doctor this year in about April. No diabetic retinopathy He will have his eye doctor forward the report (2) Essential hypertension: Code(s): I10 - Essential (primary) hypertension Plan: Blood pressure is controlled. Goal is less than 130/80 Continue current medication regimen (3) Cerebrovascular accident (CVA) due to embolism of cerebral artery: Code(s): I63.40 - Cerebral infarction due to embolism of unspecified cerebral artery Plan: Stable Continue blood pressure, blood sugar and lipid control (4) NICM (nonischemic cardiomyopathy): Code(s): I42.8 - Other cardiomyopathies Plan: Followed by cardiology Recent interrogation of his defibrillator Stable Follow-up with Cardiology as recommended (5) Bilateral primary osteoarthritis of hip: Code(s): M16.0 - Bilateral primary osteoarthritis of hip Plan: Now status post total hip and doing well and back to work Continue active lifestyle Follow-up with ortho as recommended Orders: Orders Comprehensive [place]. Panel Fast Today Z00.00 - Encounter for general adult medical examination without abnormal findings Lipid Panel Today Z00.00 - Encounter for general adult medical examination without abnormal findings Prostate Specific Antigen Scr Today Z12.5 - Encounter for screening for malignant neoplasm of prostate TSH reflex Free T4 Today Z00.00 - Encounter for general adult medical examination without abnormal findings Microalbumin, Random (w Creat) Today I10 - Essential (primary) hypertension Complete Blood Count Auto Diff Today Z00.00 - Encounter for general adult medical examination without abnormal findings UA and rflx microscopic Today Z00.00 - Encounter for general adult medical examination without abnormal findings Coding Level of Care Code Est Pt Level 3 (43403) Diagnoses Diabetes E11.9 Essential hypertension I10 Cerebrovascular accident (CVA) due to embolism of cerebral artery I63.40 NICM (nonischemic cardiomyopathy) I42.8 Bilateral primary osteoarthritis of hip M16.0
[2022-11-04 15:44] VITALS: BP 124/76; PULSE 87; O2SAT 97; BMI 31.6
== END 2022-11-04 16:12 | disposition home or self-care (01) ==
PROVIDERS: Visit Provider Family Medicine
DX: E11.9 Type 2 diabetes mellitus without complications (principal); I10 Essential (primary) hypertension; I63.40 Cerebral infarction due to embolism of unspecified cerebral artery; I42.8 Other cardiomyopathies; M16.0 Bilateral primary osteoarthritis of hip
CPT/HCPCS: 83036; 99213

== ENCOUNTER → 2022-11-09 23:59 | Outpatient (BNV) | payer BC, SELFPAY ==
--- NOTE | 2022-11-12 14:08 | MHC.OFFVIS ---
Intake Intake Visit Reasons: Remote ICD check- Medtronic Allergies No Known Allergies [No Known Allergies*] Allergy (Verified 11/04/22 15:48) [facility] Medical History Anemia Biventricular ICD (implantable cardioverter-defibrillator) in place Cerebrovascular accident (CVA) due to embolism of cerebral artery LBBB (left bundle branch block) NICM (nonischemic cardiomyopathy) Obesity (BMI 30-39.9) KIERRA (obstructive sleep apnea) Osteoarthritis of right hip Pacemaker Surgical History History of cardiac catheterization (~03/2018) History of removal of cyst Family History Father CVD (cardiovascular disease) S/P triple vessel bypass Mother Stroke CVD (cardiovascular disease) Brother No problems noted. Sister No problems noted. Sister No problems noted. Sister No problems noted. Sister No problems noted. Son No problems noted. Daughter No problems noted. Social History Household Members: Significant Other Housing: House Are you a primary health care attorney to a significant other at home: No Do you presently have visiting nurse or other home services: No Alcohol intake: former Patient Tobacco Use Status: Former Tobacco user Quit Date: 2017 Tobacco use type: Cigarette Years Smoked: 30 e-Cigarette/Vaping Use: Never Used Second Hand Smoke Exposure: No service: No Current occupational status: employed Current occupation: [employer] Cognitive needs: No Hearing needs: No Vision needs: No Office Procedures Cardiac Device Check Cardiac Device Check Details: Date of service 11/09/2022; Battery life >2 years; normal lead parameters; adequate ventricular pacing; no treated VT/VF; ; normal ICD function. [id number] Cardiac Interrogation, implant defibrillator w/interim Procedure code (CPT) selection complete Assessment & Plan Assessment & Plan (1) NICM (nonischemic cardiomyopathy): Code(s): I42.8 - Other cardiomyopathies (2) LBBB (left bundle branch block): Code(s): I44.7 - Left bundle-branch block, unspecified Coding Level of Care Code Procedure Only Diagnoses NICM (nonischemic cardiomyopathy) I42.8 LBBB (left bundle branch block) I44.7 CPT Codes Cardiac Device Check - Cardiac Device 13: [id number] Cardiac Interrogation, implant defibrillator w/interim ([id number])
== END ==
PROVIDERS: PCP Family Medicine; Visit Provider Internal Medicine
DX: I42.8 Other cardiomyopathies (principal); Z95.810 Presence of automatic (implantable) cardiac defibrillator; I44.7 Left bundle-branch block, unspecified
CPT/HCPCS: 93295

== ENCOUNTER → 2022-11-09 23:59 | Outpatient (BNV) | payer BC, SELFPAY ==
--- NOTE | 2022-11-12 14:02 | A.OFFVIS_ITS ---
Intake Intake Visit Reasons: Remote HF monitoring-Medtronic Allergies No Known Allergies [No Known Allergies*] Allergy (Verified 11/04/22 15:48) [facility] Medical History Anemia Biventricular ICD (implantable cardioverter-defibrillator) in place Cerebrovascular accident (CVA) due to embolism of cerebral artery LBBB (left bundle branch block) NICM (nonischemic cardiomyopathy) Obesity (BMI 30-39.9) KIERRA (obstructive sleep apnea) Osteoarthritis of right hip Pacemaker Surgical History History of cardiac catheterization (~03/2018) History of removal of cyst Family History Father CVD (cardiovascular disease) S/P triple vessel bypass Mother Stroke CVD (cardiovascular disease) Brother No problems noted. Sister No problems noted. Sister No problems noted. Sister No problems noted. Sister No problems noted. Son No problems noted. Daughter No problems noted. Social History Household Members: Significant Other Housing: House Are you a primary personal care service provider to a significant other at home: No Do you presently have visiting nurse or other home services: No Alcohol intake: former Patient Tobacco Use Status: Former Tobacco user Quit Date: 2017 Tobacco use type: Cigarette Years Smoked: 30 e-Cigarette/Vaping Use: Never Used Second Hand Smoke Exposure: No service: No Current occupational status: employed Current occupation: [employer] Cognitive needs: No Hearing needs: No Vision needs: No Office Procedures Cardiac Device Check Cardiac Device Check Details: Date of service- 11/09/2022; based on impedance data and physiological variables, there is no evidence of worsening congestive heart failure. Patient activity about 6 hours a day. [id number] Cardiac Device Interrogation, cardio physiologic monitor Procedure code (CPT) selection complete Assessment & Plan Assessment & Plan (1) NICM (nonischemic cardiomyopathy): Code(s): I42.8 - Other cardiomyopathies Coding Level of Care Code Procedure Only Diagnoses NICM (nonischemic cardiomyopathy) I42.8 CPT Codes Cardiac Device Check - Cardiac Device 15: [id number] Cardiac Device Interrogation, cardio physiologic monitor ([id number])
== END ==
PROVIDERS: PCP Family Medicine; Visit Provider Internal Medicine
DX: I42.8 Other cardiomyopathies (principal); Z95.0 Presence of cardiac pacemaker
CPT/HCPCS: 93297

== ENCOUNTER 2022-11-20 14:10 | Outpatient (AMB) | payer BC, SELFPAY ==
--- NOTE | 2022-11-20 14:14 | A.OFFVIS_ITS ---
Intake Vital Signs 11/20/22 14:15 Height 5 ft 10 in Weight 220 lb BMI 31.6 BP 120/64 Blood Pressure Location Lt brachial Position Sitting Pulse 80 Pulse Source Pulse Oximeter Pulse Oximetry (%) 97 Oxygen Delivery Method Room Air Intake Visit Reasons: Annual check up Intake Note: pt is here for follow up and states he is here for follow up and doing okay, no issues. Section [employer] Activities Clerk Required: No Allergies No Known Allergies [No Known Allergies*] Allergy (Verified 11/20/22 14:37) Medication List - Last Reconciled 11/20/22 by Rhianna Sorenson MD acetaminophen 650 mg (2 x 325 mg) PO Q6H PRN 30 days atorvastatin 30 mg (1.5 x 20 mg) PO BEDTIME 90 days dapagliflozin propanediol (Farxiga) 10 mg PO DAILY metformin 500 mg PO DAILY metoprolol succinate ER 12.5 mg (1/2 x 25 mg) PO DAILY [raised toliet seat As directed] sacubitril-valsartan 24-26 mg (Entresto) 1 tab PO BID spironolactone 25 mg PO DAILY walker Folding front wheeled walker warfarin 5 mg See Protocol PO 4XW 90 days warfarin 2.5 mg See Protocol PO 3XW Do you need a note to return to daycare/school/sports/work: No HPI Annual check up HPI Details Skyler is a known case of obstructive sleep apnea and is coming after 1 year for follow-up. He uses his CPAP very religiously an regularly and sleeps well at least for 8 hours per night. He has no issues with the CPAP. device are the CPAP mask He has no daytime sleepiness. 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 [employer] and now he is looking for a job at [employer] as a de león [facility] Medical History Anemia Biventricular ICD (implantable cardioverter-defibrillator) in place Cerebrovascular accident (CVA) due to embolism of cerebral artery LBBB (left bundle branch block) NICM (nonischemic cardiomyopathy) Obesity (BMI 30-39.9) KIERRA (obstructive sleep apnea) Osteoarthritis of right hip Pacemaker Surgical History History of cardiac catheterization (~03/2018) History of removal of cyst Family History Father CVD (cardiovascular disease) S/P triple vessel bypass Mother Stroke CVD (cardiovascular disease) Brother No problems noted. Sister No problems noted. Sister No problems noted. Sister No problems noted. Sister No problems noted. Son No problems noted. Daughter No problems noted. Social History Household Members: Significant Other Housing: House Are you a primary auto care center manager to a significant other at home: No Do you presently have visiting nurse or other home services: No Alcohol intake: former Patient Tobacco Use Status: Former Tobacco user Quit Date: 2017 Tobacco use type: Cigarette Years Smoked: 30 e-Cigarette/Vaping Use: Never Used Second Hand Smoke Exposure: No service: No Current occupational status: employed Current occupation: [employer] Cognitive needs: No Hearing needs: No Vision needs: No Review of Systems Const All systems reviewed & are unremarkable except as noted in HPI and below Eyes Reports no additional complaints ENT Reports no additional complaints Card Denies chest pain, Denies irregular heart rhythm, Denies leg edema and Denies dyspnea on exertion Resp Denies cough, Denies dyspnea on exertion and Denies wheezing GI Reports no additional complaints Musc Reports no additional complaints Neuro Reports no additional complaints Psych Reports no additional complaints Endo Reports no additional complaints Aller/Immun Denies wheezing Physical Exam Vital Signs: Last Vital Signs Pulse 80 11/20/22 14:15 BP 120/64 11/20/22 14:15 Pulse Ox 97 11/20/22 14:15 Oxygen Delivery Method Room Air 11/20/22 14:15 BMI result Body Mass Index 31.6 Const General: healthy appearing (BUT OVERWEIGHT), comfortable, no acute distress, alert and awake Orientation/consciousness: patient oriented x3 HEENT Head: Yes normal to inspection General nose exam: No nasal polyps present and No nasal discharge present Face and sinus: Yes sinuses nontender Mouth: oropharynx normal Throat: Yes posterior oropharynx normal Eyes General: appearance normal, both eyes and all related structures Neck Neck: Yes normal visual inspection, Yes no lymphadenopathy, Yes trachea midline, Yes no JVD and Yes other (Neck size 18-1/2 inch) Thyroid: Thyroid normal Chest Chest palpation & inspection: normal inspection of the chest, normal palpation of entire chest wall and no tenderness Resp Auscultation: clear to auscultation bilaterally, no crackles and no wheezes Cardio Palpation: normal PMI Rate: regular rate Rhythm: regular rhythm Heart sounds: no gallops and no murmurs Peripheral pulses: Peripheral pulses 2+ throughout GI Palpation (GI): Soft to palpation, nontender, No hepatosplenomegaly present and no masses Auscultation: normal bowel sounds Back/Spine/Pelvis Thoracic/Lumbar Spine: thoracic and lumbar spine normal to inspection Skin General skin exam: no rashes or lesions noted Neuro General: patient oriented x3 and no focal motor deficits Cranial nerves: Yes CN's II-XII intact bilaterally Extrem General: Yes normal to inspection, Yes no clubbing, cyanosis or edema and Yes no calf tenderness Psych Appearance: grossly normal and well kempt Speech and movement: Normal speech and movement present Results Reviewed Results Reviewed: Compliance report is reviewed and he has used 100% of the time average usage per night is 8 hours 9 minutes. Pressure 10 cm. No air leak. Residual AHI 2.5 Assessment & Plan Assessment & Plan (1) Obesity (BMI 30-39.9): Comment: PATIENT IS AWARE OF BEING OVERWEIGHT. HE IS NOT ABLE TO DO ANY STRENUOUS PHYSICAL EXERCISE. DISCUSSED WITH HIM ABOUT THE DIET AND MAY TRY TO REDUCE CALORIES INTAKE. Code(s): E66.9 - Obesity, unspecified (2) KIERRA (obstructive sleep apnea): Comment: He is a well known case of obstructive. sleep apnea He is using CPAP very. Regularly remains fully compliant and benefiting. He denies any daytime sleepiness. Will continue to use the CPAP and at present he has no issues with the mask or CPAP machine. Code(s): G47.33 - Obstructive sleep apnea (adult) (pediatric) Coding Level of Care Code Est Pt Level 3 (13545) Diagnoses Obesity (BMI 30-39.9) E66.9 KIERRA (obstructive sleep apnea) G47.33
[2022-11-20 14:15] VITALS: BP 120/64; PULSE 80; O2SAT 97; BMI 31.6
== END 2022-11-20 14:38 | disposition home or self-care (01) ==
PROVIDERS: PCP Family Medicine; Visit Provider Internal Medicine
DX: E66.9 Obesity, unspecified (principal); G47.33 Obstructive sleep apnea (adult) (pediatric)
CPT/HCPCS: 99213

== ENCOUNTER → 2022-11-20 14:10 | Outpatient (BNVA) | payer BC, SELFPAY | PROVIDERS: PCP Family Medicine; Visit Provider Internal Medicine ==

== ENCOUNTER 2022-11-26 15:14 | Outpatient (AMB) | payer BC, SELFPAY ==
--- NOTE | 2022-11-26 15:29 | MHC.OFFVISCO ---
Intake Intake Visit Reasons: Anticoagulation Allergies No Known Allergies [No Known Allergies*] Allergy (Verified 11/26/22 15:15) Medication List - Last Reconciled 11/26/22 by Kayla Atkins RN acetaminophen 650 mg (2 x 325 mg) PO Q6H PRN 30 days atorvastatin 30 mg (1.5 x 20 mg) PO BEDTIME 90 days dapagliflozin propanediol (Farxiga) 10 mg PO DAILY metformin 500 mg PO DAILY metoprolol succinate ER 12.5 mg (1/2 x 25 mg) PO DAILY [raised toliet seat As directed] sacubitril-valsartan 24-26 mg (Entresto) 1 tab PO BID spironolactone 25 mg PO DAILY walker Folding front wheeled walker warfarin 5 mg See Protocol PO 4XW 90 days warfarin 2.5 mg See Protocol PO 3XW Nursing Note INR: 2.3 in therapeutic range Medications and supplements reviewed No changes in health, diet, medications, or supplements, Denies any signs and symptoms of bleeding or bruising or clotting. Bleeding, bruising, clotting discussed Nutritional guidance given Dose: 2.5mg x 3 days/ 5mg x 4 days F/U INR: 1 month Patient verbalizes understanding of instructions given Anti-Coag Initial Assessment Social Hx Patient Tobacco Use Status: Former Tobacco user Quit Date: 2017 Tobacco use type: Cigarette alcohol intake: former Alcohol intake frequency: former alcohol drinker Coding Level of Care Code Est Patient Level 1 Diagnoses Current use of anticoagulant therapy Z79.01 Results AMB INR Fingerstick AMB INR Fingerstick 2.3 Last Edit by Kayla Atkins RN on 11/26/22 15:24 manual entry slow interfacing Assessment & Plan Assessment & Plan (1) Current use of anticoagulant therapy: Code(s): Z79.01 - detention (current) use of 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
[2022-11-26 15:32] LABS: Prothrombin Time Whole Bld POC 27.5 sec (11.1-13.5); ~PT, ~INR - Anti Coag Clinic 2.3 (0.9-1.1)
== END 2022-11-26 15:31 | disposition home or self-care (01) ==
LOC: HO.ACS 15:14
PROVIDERS: PCP Family Medicine; Visit Provider Internal Medicine
DX: Z79.01 Long term (current) use of anticoagulants (principal)

== ENCOUNTER → 2022-11-26 15:14 | Outpatient (BNVA) | payer BC, SELFPAY | PROVIDERS: PCP Family Medicine; Visit Provider Internal Medicine | DX: Z86.73 Personal history of transient ischemic attack (TIA), and cerebral infarction without residual deficits (principal); Z51.81 Encounter for therapeutic drug level monitoring; Z79.01 Long term (current) use of anticoagulants | CPT/HCPCS: 85610; 99211 ==

== ENCOUNTER → 2022-12-11 23:59 | Outpatient (BNV) | payer BC, SELFPAY ==
--- NOTE | 2022-12-11 14:34 | MHC.OFFVIS ---
Intake Intake Visit Reasons: Remote HF Monitoring- [employer] Allergies No Known Allergies [No Known Allergies*] Allergy (Verified 11/26/22 15:15) [facility] Medical History Anemia Biventricular ICD (implantable cardioverter-defibrillator) in place Cerebrovascular accident (CVA) due to embolism of cerebral artery LBBB (left bundle branch block) NICM (nonischemic cardiomyopathy) Obesity (BMI 30-39.9) KIERRA (obstructive sleep apnea) Osteoarthritis of right hip Pacemaker Surgical History History of cardiac catheterization (~03/2018) History of removal of cyst Family History Father CVD (cardiovascular disease) S/P triple vessel bypass Mother Stroke CVD (cardiovascular disease) Brother No problems noted. Sister No problems noted. Sister No problems noted. Sister No problems noted. Sister No problems noted. Son No problems noted. Daughter No problems noted. Social History Household Members: Significant Other Housing: House Are you a primary transitions rn care coordinator to a significant other at home: No Do you presently have visiting nurse or other home services: No Alcohol intake: former Patient Tobacco Use Status: Former Tobacco user Quit Date: 2017 Tobacco use type: Cigarette Years Smoked: 30 e-Cigarette/Vaping Use: Never Used Second Hand Smoke Exposure: No service: No Current occupational status: employed Current occupation: [employer] Cognitive needs: No Hearing needs: No Vision needs: No Office Procedures Cardiac Device Check Cardiac Device Check Details: Date of service- 12/11/2022; based on impedance data and physiological variables, there is no evidence of worsening congestive heart failure. Patient activity about 6 hours a day. Adequate heart rate variability. [id number] Cardiac Device Interrogation, cardio physiologic monitor Procedure code (CPT) selection complete Assessment & Plan Assessment & Plan (1) NICM (nonischemic cardiomyopathy): Code(s): I42.8 - Other cardiomyopathies Coding Level of Care Code Procedure Only Diagnoses NICM (nonischemic cardiomyopathy) I42.8 CPT Codes Cardiac Device Check - Cardiac Device 15: [id number] Cardiac Device Interrogation, cardio physiologic monitor ([id number])
== END ==
PROVIDERS: PCP Family Medicine; Visit Provider Internal Medicine
DX: I42.8 Other cardiomyopathies (principal); Z95.0 Presence of cardiac pacemaker
CPT/HCPCS: 93297

== ENCOUNTER 2022-12-24 15:23 | Outpatient (AMB) | payer BC, SELFPAY ==
[2022-12-24 15:29] LABS: Prothrombin Time Whole Bld POC 28.3 sec (11.1-13.5); ~PT, ~INR - Anti Coag Clinic 2.4 (0.9-1.1)
--- NOTE | 2022-12-24 15:41 | MHC.OFFVISCO ---
Intake Intake Visit Reasons: Anticoagulation Allergies No Known Allergies [No Known Allergies*] Allergy (Verified 12/24/22 15:29) Medication List - Last Reconciled 12/24/22 by Fay Calhoun RN acetaminophen 650 mg (2 x 325 mg) PO Q6H PRN 30 days atorvastatin 30 mg (1.5 x 20 mg) PO BEDTIME 90 days dapagliflozin propanediol (Farxiga) 10 mg PO DAILY metformin 500 mg PO DAILY metoprolol succinate ER 12.5 mg (1/2 x 25 mg) PO DAILY [raised toliet seat As directed] sacubitril-valsartan 24-26 mg (Entresto) 1 tab PO BID spironolactone 25 mg PO DAILY walker Folding front wheeled walker warfarin 5 mg See Protocol PO 4XW 90 days warfarin 5 mg See Protocol PO 3XW 90 days Nursing Note NO CP,SOB,DIET/MED CHANGES,FALLS OR SX OF BLEEDING. CONTINUE PRESENT DOSE AND FOLLOW-UP IN 4 WEEKS. GOOD UNDERSTANDING OF DOSING INSTR. Anti-Coag Initial Assessment Social Hx Patient Tobacco Use Status: Former Tobacco user Quit Date: 2017 Tobacco use type: Cigarette alcohol intake: former Alcohol intake frequency: former alcohol drinker Coding Level of Care Code Est Patient Level 1 Diagnoses Current use of anticoagulant therapy Z79.01 Assessment & Plan Assessment & Plan (1) Current use of anticoagulant therapy: Code(s): Z79.01 - jail (current) use of 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
== END 2022-12-24 15:47 | disposition home or self-care (01) ==
LOC: HO.ACS 15:23
PROVIDERS: PCP Family Medicine; Visit Provider Internal Medicine
DX: Z79.01 Long term (current) use of anticoagulants (principal)

== ENCOUNTER → 2022-12-24 15:23 | Outpatient (BNVA) | payer BC, SELFPAY | PROVIDERS: PCP Family Medicine; Visit Provider Internal Medicine | DX: Z86.73 Personal history of transient ischemic attack (TIA), and cerebral infarction without residual deficits (principal); Z51.81 Encounter for therapeutic drug level monitoring; Z79.01 Long term (current) use of anticoagulants | CPT/HCPCS: 85610; 99211 ==

== ENCOUNTER 2022-12-30 12:03 | Outpatient (AMB) | payer OTHER, SELFPAY ==
--- NOTE | 2022-12-30 12:32 | MHC.OFFVIS ---
Intake Vital Signs 12/30/22 12:37 Height 5 ft 10 in BMI Reason not done Patient refused/unable BP 104/62 Blood Pressure Location Lt brachial Position Sitting Pulse 67 Intake Visit Reasons: 1 year follow up with [employer] ICD check Intake Note: 1 year follow up w/ EKG Allergies No Known Allergies [No Known Allergies*] Allergy (Verified 12/30/22 12:38) Medication List - Last Reconciled 12/30/22 by García Patterson MD acetaminophen 650 mg (2 x 325 mg) PO Q6H PRN 30 days atorvastatin 30 mg (1.5 x 20 mg) PO BEDTIME 90 days dapagliflozin propanediol (Farxiga) 10 mg PO DAILY metformin 500 mg PO DAILY metoprolol succinate ER 12.5 mg (1/2 x 25 mg) PO DAILY [raised toliet seat As directed] sacubitril-valsartan 24-26 mg (Entresto) 1 tab PO BID spironolactone 25 mg PO DAILY walker Folding front wheeled walker warfarin 5 mg See Protocol PO 4XW 90 days warfarin 5 mg See Protocol PO 3XW 90 days HPI HPI Comments History of Present Illness Details Skyler is here for follow-up regarding cardiomyopathy. To recall, in 2018, he was admitted for complaints of difficulty speaking and generalized weakness. Found to have acute stroke. Full recovery. Echocardiogram then showed a markedly diminished LVEF. Thought to have cardioembolic stroke. He had a long history of smoking and excessive alcohol use but has stopped since. Cardiac catheterization without any CAD. He has had a Bi V ICD since then and overall doing well. Since last seen, no new complaints. Feels good. Compliant with medications. [facility] Medical History Anemia Osteoarthritis of right hip Biventricular ICD (implantable cardioverter-defibrillator) in place Pacemaker Obesity (BMI 30-39.9) KIERRA (obstructive sleep apnea) LBBB (left bundle branch block) 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 Sister No problems noted. Sister No problems noted. Sister No problems noted. Sister No problems noted. Son No problems noted. Daughter No problems noted. Social History Household Members: Significant Other Housing: House Are you a primary residential caregiver to a significant other at home: No Do you presently have visiting nurse or other home services: No Alcohol intake: former Patient Tobacco Use Status: Former Tobacco user Quit Date: 2017 Tobacco use type: Cigarette Years Smoked: 30 e-Cigarette/Vaping Use: Never Used Second Hand Smoke Exposure: No service: No Current occupational status: employed Current occupation: [email or web address] Cognitive needs: No Hearing needs: No Vision needs: No Review of Systems Const Denies weakness ENT Denies dizziness Card Denies chest pain, Denies chest pain with activity, Denies syncope, Denies rapid heart rate, Denies pedal edema, Denies edema, Denies leg edema, Denies lightheadedness, Denies palpitations, Denies dyspnea, Denies dyspnea on exertion and Denies orthopnea Resp Denies cough, Denies dyspnea and Denies dyspnea on exertion GI Denies hematochezia and Denies change in stool character Musc Denies abnormal gait, Denies muscle cramps, Denies muscle weakness, Denies numbness, Denies radiating pain into limb and Denies tingling Neuro Denies abnormal gait, Denies dizziness, Denies syncope, Denies numbness, Denies tingling and Denies weakness Endo Denies palpitations Physical Exam Vital Signs: Last Vital Signs Pulse 67 12/30/22 12:37 BP 104/62 12/30/22 12:37 Const General: comfortable and no acute distress Orientation/consciousness: patient oriented x3 HEENT Other: Unremarkable Head: Yes normal to inspection Neck Neck: Yes normal visual inspection Chest Chest palpation & inspection: normal inspection of the chest Resp Auscultation: clear to auscultation bilaterally Cardio Palpation: normal PMI Heart sounds: S1 normal heart sound present, S2 normal heart sound present, no gallops, no murmurs and no rubs GI Palpation (GI): Soft to palpation Back/Spine/Pelvis Other: unremarkable Skin General skin exam: no rashes or lesions noted Neuro General: patient oriented x3 Extrem General: Yes normal to inspection Psych Mental Status: mental status grossly normal Office Procedures Cardiac Device Check Cardiac Device Check Details: ICD interrogated today. Battery status more than 2 years. Normal lead parameters. Effective ventricular pacing more than 95%. No treated VT/VF. Rare, brief atrial fibrillation episodes. Overall, normal device function. [id number] Cardiac Device Check, multi lead implantable defibrillator Procedure code (CPT) selection complete EKG Details: EKG with atrial sensed, ventricular paced rhythm at 67/Min. [id number], Complete Assessment & Plan Assessment & Plan (1) NICM (nonischemic cardiomyopathy): Code(s): I42.8 - Other cardiomyopathies Plan: In the past, LVEF as low as 10-15%. Most recently 33%. Continue metoprolol ER, Entresto, spironolactone, Farxiga. He is aware of need of routine labs periodically. He will coordinate that his own PCP. He states they are due to be done the next few weeks. (2) Cerebrovascular accident (CVA) due to embolism of cerebral artery: Code(s): I63.40 - Cerebral infarction due to embolism of unspecified cerebral artery Plan: Suspected cardioembolic related to severe cardiomyopathy. No significant disease in the carotids. Continue anticoagulation. (3) LBBB (left bundle branch block): Code(s): I44.7 - Left bundle-branch block, unspecified Plan: Status post bi V ICD. (4) PAF (paroxysmal atrial fibrillation): Code(s): I48.0 - Paroxysmal atrial fibrillation Plan: Very brief episodes on ICD interrogation. Nothing clinically significant. Continue anticoagulation. (5) KIERRA (obstructive sleep apnea): Comment: He is a well known case of obstructive. sleep apnea He is using CPAP very. Regularly remains fully compliant and benefiting. He denies any daytime sleepiness. Will continue to use the CPAP and at present he has no issues with the mask or CPAP machine. Code(s): G47.33 - Obstructive sleep apnea (adult) (pediatric) Plan: Continue CPAP. Coding Level of Care Code Est Pt Level 4 (70984) Diagnoses NICM (nonischemic cardiomyopathy) I42.8 Cerebrovascular accident (CVA) due to embolism of cerebral artery I63.40 LBBB (left bundle branch block) I44.7 PAF (paroxysmal atrial fibrillation) I48.0 KIERRA (obstructive sleep apnea) G47.33 CPT Codes Cardiac Device Check - Cardiac Device 6: [id number] Cardiac Device Check, multi lead implantable defibrillator ([id number]) EKG - CPT: 94531-Thibexqitolpocjyp, Complete ([id number])
[2022-12-30 12:37] VITALS: BP 104/62; PULSE 67
== END 2022-12-30 12:48 | disposition home or self-care (01) ==
PROVIDERS: PCP Family Medicine; Visit Provider Internal Medicine
DX: I42.8 Other cardiomyopathies (principal); I63.40 Cerebral infarction due to embolism of unspecified cerebral artery; I44.7 Left bundle-branch block, unspecified; I48.0 Paroxysmal atrial fibrillation; G47.33 Obstructive sleep apnea (adult) (pediatric)
CPT/HCPCS: 93284; 99214

== ENCOUNTER → 2022-12-30 12:03 | Outpatient (BNVA) | payer OTHER, SELFPAY | PROVIDERS: PCP Family Medicine; Visit Provider Internal Medicine | DX: I42.8 Other cardiomyopathies (principal); I63.40 Cerebral infarction due to embolism of unspecified cerebral artery; I44.7 Left bundle-branch block, unspecified; I48.0 Paroxysmal atrial fibrillation | CPT/HCPCS: 93005 ==

== ENCOUNTER → 2023-01-11 23:59 | Outpatient (BNV) | payer OTHER, SELFPAY ==
--- NOTE | 2023-01-15 13:12 | MHC.OFFVIS ---
Intake Intake Visit Reasons: Remote HF Monitoring- [employer] Allergies No Known Allergies [No Known Allergies*] Allergy (Verified 12/30/22 12:38) [facility] Medical History Anemia Osteoarthritis of right hip Biventricular ICD (implantable cardioverter-defibrillator) in place Pacemaker Obesity (BMI 30-39.9) KIERRA (obstructive sleep apnea) LBBB (left bundle branch block) 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 Sister No problems noted. Sister No problems noted. Sister No problems noted. Sister No problems noted. Son No problems noted. Daughter No problems noted. Social History Household Members: Significant Other Housing: House Are you a primary child care provider to a significant other at home: No Do you presently have visiting nurse or other home services: No Alcohol intake: former Patient Tobacco Use Status: Former Tobacco user Quit Date: 2017 Tobacco use type: Cigarette Years Smoked: 30 e-Cigarette/Vaping Use: Never Used Second Hand Smoke Exposure: No service: No Current occupational status: employed Current occupation: [employer] Cognitive needs: No Hearing needs: No Vision needs: No Office Procedures Cardiac Device Check Cardiac Device Check Details: Date of service- 01/11/2023; based on impedance data and physiological variables, there is no evidence of worsening congestive heart failure. [id number] Cardiac Device Interrogation, cardio physiologic monitor Procedure code (CPT) selection complete Assessment & Plan Assessment & Plan (1) NICM (nonischemic cardiomyopathy): Code(s): I42.8 - Other cardiomyopathies Coding Level of Care Code Procedure Only Diagnoses NICM (nonischemic cardiomyopathy) I42.8 CPT Codes Cardiac Device Check - Cardiac Device 15: [id number] Cardiac Device Interrogation, cardio physiologic monitor ([id number])
== END ==
PROVIDERS: PCP Family Medicine; Visit Provider Internal Medicine
DX: I42.8 Other cardiomyopathies (principal); Z95.0 Presence of cardiac pacemaker
CPT/HCPCS: 93297

== ENCOUNTER 2023-01-21 15:36 | Outpatient (AMB) | payer SELFPAY ==
--- NOTE | 2023-01-21 15:42 | MHC.OFFVISCO ---
Intake Intake Visit Reasons: Anticoagulation Allergies No Known Allergies [No Known Allergies*] Allergy (Verified 01/21/23 15:38) Medication List - Last Reconciled 01/21/23 by Luli Thomas RN acetaminophen 650 mg (2 x 325 mg) PO Q6H PRN 30 days atorvastatin 30 mg (1.5 x 20 mg) PO BEDTIME 90 days dapagliflozin propanediol (Farxiga) 10 mg PO DAILY metformin 500 mg PO DAILY metoprolol succinate ER 12.5 mg (1/2 x 25 mg) PO DAILY [raised toliet seat As directed] sacubitril-valsartan 24-26 mg (Entresto) 1 tab PO BID spironolactone 25 mg PO DAILY walker Folding front wheeled walker warfarin 5 mg See Protocol PO 4XW 90 days warfarin 5 mg See Protocol PO 3XW 90 days Nursing Note INR: 2.4-in therapeutic range of 2-3 Medications and supplements reviewed No changes in health, diet, medications, or supplements, Denies any signs and symptoms of bleeding or bruising or clotting. Bleeding, bruising, clotting discussed Nutritional guidance given Dose: 2.5mg x 3, 5mg x 4 F/U INR: 4 weeks Patient verbalizes understanding of instructions given Anti-Coag Initial Assessment Social Hx Patient Tobacco Use Status: Former Tobacco user Quit Date: 2017 Tobacco use type: Cigarette alcohol intake: former Alcohol intake frequency: former alcohol drinker Coding Level of Care Code Est Patient Level 1 Diagnoses Current use of anticoagulant therapy Z79.01 Assessment & Plan Assessment & Plan (1) Current use of anticoagulant therapy: Code(s): Z79.01 - terminal manager (current) use of 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
[2023-01-21 15:43] LABS: Prothrombin Time Whole Bld POC 28.7 sec (11.1-13.5); ~PT, ~INR - Anti Coag Clinic 2.4 (0.9-1.1)
== END 2023-01-21 15:50 | disposition home or self-care (01) ==
LOC: HO.ACS 15:36
PROVIDERS: PCP Family Medicine; Visit Provider Internal Medicine
DX: Z79.01 Long term (current) use of anticoagulants (principal)

== ENCOUNTER → 2023-01-21 15:36 | Outpatient (BNVA) | payer SELFPAY | PROVIDERS: PCP Family Medicine; Visit Provider Internal Medicine | DX: Z86.73 Personal history of transient ischemic attack (TIA), and cerebral infarction without residual deficits (principal); Z51.81 Encounter for therapeutic drug level monitoring; Z79.01 Long term (current) use of anticoagulants | CPT/HCPCS: 85610; 99211 ==

== ENCOUNTER 2023-01-31 07:28 | Outpatient (REF) | payer OTHER, SELFPAY ==
[2023-01-31 07:42] LABS: MANUAL DIFF FLAG NO
[2023-01-31 08:31] LABS: Basophils Percent Auto 0.5 % (0-2); Eosinophils Absolute Auto 0.2 X10*3/uL (0.0-0.4); Eosinophils Percent Auto 2.8 % (0-4); Hematocrit 43.7 % (42.0-52.0); Hemoglobin 14.3 g/dl (14.0-18.0); Imm Gran Abs Auto 0.08 X10*3/uL (0.00-0.03); Imm Gran Pct Auto 1.2 % (0.0-0.4); Lymphocytes Absolute Auto 1.5 X10*3/uL (1.2-4.9); Lymphocytes Percent Auto 23.4 % (20-40); Mean Corpuscular HGB Conc 32.7 g/dl (31.0-36.0); Mean Corpuscular Hemoglobin 30.2 pg (27.0-33.0); Mean Corpuscular Volume 92.4 fL (80.0-98.0); Mean Platelet Volume 9.6 fL (9.4-12.4); Monocytes Absolute Auto 0.4 X10*3/uL (0.1-1.2); Monocytes Percent Auto 6.6 % (2-11); Neutrophils Absolute Auto 4.3 x10*3/uL (2.0-8.3); Neutrophils Percent Auto 65.5 % (45-73); Platelet Count 215 X10*3/uL (160-400); Red Blood Count 4.73 X10*6/uL (4.60-5.80); Red Cell Distribution Width 13.4 % (11.0-16.0); White Blood Count 6.5 X10*3/uL (4.8-10.8)
[2023-01-31 08:37] LABS: Appearance Urine Clear; Color Urine Yellow; Glucose Urine UA >=1000 mg/dL (Negative); Leukocyte Esterase Urine Negative (Negative); Nitrite Urine Negative (Negative); PH 5.5 (5.0-9.0); Specific Gravity - Urine 1.015 (1.005-1.025); UMIC TRIGGER UA YES; Urine Blood Small (1+) (Negative); Urine Ketones Negative (Negative); Urine Protein Negative (Neg-Trace)
[2023-01-31 08:46] LABS: Bacteria Urine None Seen (None Seen); Hyaline Casts Urine 0-2 /LPF (0-2); RBC Urine 0-2 /HPF (0-2); Squamous Epithelial Cell Urine 0-2 /HPF (0-2); WBC Urine 0-5 /HPF (0-5)
[2023-01-31 09:02] LABS: Alanine Aminotransferase 22 U/L (0-40); Albumin Level 4.6 g/dL (3.5-5.0); Alkaline Phosphatase 108 U/L (39-117); Anion Gap 12 (12-20); Aspartate Amino Transferase 23 U/L (5-37); Bilirubin Total 0.5 mg/dL (0.0-1.0); Blood Urea Nitrogen 21 mg/dL (9-16); Calcium 9.4 mg/dL (8.4-10.2); Carbon Dioxide 26 mmol/L (22-29); Chloride 104 mmol/L (96-108); Cholesterol 147 mg/dL (<200); Estimated Glomerular Filt Rate > 60; Glucose Fasting 100 mg/dL (60-99); HDL Cholesterol 54 mg/dL (>40); LDL Cholesterol Calculated 74 mg/dL (<100); Sodium 138 mmol/L (135-145); Total Protein 7.6 g/dL (6.5-8.0); Triglycerides 96 mg/dL (<150)
[2023-01-31 09:19] LABS: TSH reflex Free T4 1.39 uIU/mL (0.32-4.0)
[2023-01-31 09:20] LABS: Creatinine Urine 33.81 mg/dL; Microalbum/Creatinine Ratio Ur 44.3 ug/mg cr (<30)
== END 2023-01-31 07:29 | disposition home or self-care (01) ==
LOC: HO.LAB 07:28
PROVIDERS: PCP Family Medicine; Visit Provider Family Medicine
DX: Z00.00 Encounter for general adult medical examination without abnormal findings (principal); Z12.5 Encounter for screening for malignant neoplasm of prostate; I10 Essential (primary) hypertension
CPT/HCPCS: 36415; 80053; 80061; 81001; 82043; 82570; 84153; 84443; 85025

== ENCOUNTER 2023-02-09 16:58 | Emergency (ER) | payer OTHER, SELFPAY ==
[2023-02-09 17:04] VITALS: BP 141/88; PULSE 86; RESP 18; TEMP 36.6; O2SAT 99; BMI 30.6
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
== END 2023-02-09 18:25 | disposition home or self-care (01) ==
PROVIDERS: Emergency Provider Student in an Organized Health Care Education/Training Program; PCP Family Medicine
DX: S16.1XXA Strain of muscle, fascia and tendon at neck level, initial encounter (principal); V43.52XA Car driver injured in collision with other type car in traffic accident, initial encounter; E11.9 Type 2 diabetes mellitus without complications; I48.0 Paroxysmal atrial fibrillation; Z87.891 Personal history of nicotine dependence; F12.90 Cannabis use, unspecified, uncomplicated; Y93.89 Activity, other specified; Y92.414 Local residential or business street as the place of occurrence of the external cause; Y99.9 Unspecified external cause status; Z79.01 Long term (current) use of anticoagulants
CPT/HCPCS: 99282; 99283

== ENCOUNTER 2023-02-11 15:30 | Outpatient (AMB) | payer OTHER, SELFPAY ==
--- NOTE | 2023-02-11 15:32 | A.OFFPC_ITS ---
Vital Signs 02/11/23 15:34 Height 5 ft 10 in Weight 222 lb BMI 31.9 BP 112/64 Blood Pressure Location Lt brachial Position Sitting Pulse 73 Pulse Source Pulse Oximeter Pulse Oximetry (%) 96 Oxygen Delivery Method Room Air Intake Visit Reasons: CPE Intake Note: Patient is here today for his physical today. Allergies No Known Allergies [No Known Allergies*] Allergy (Verified 02/11/23 15:35) Tobacco use date assessed: 02/11/23 HPI CPE HPI Details 62 y/o male presents for a CPE with f/u labs and health maintenance. Labs were drawn 01/31/23. Reviewed labs with pt. CBC was fine. Triglycerides 96. TC 147. LDL 74. HDL 54. A1c today 02/11/23 5.9%. He is on metformin 500mg and Farxiga 10mg daily. He notes he has been doing better at his diabetic diet. [facility] Medical History Anemia Osteoarthritis of right hip Biventricular ICD (implantable cardioverter-defibrillator) in place Pacemaker Obesity (BMI 30-39.9) KIERRA (obstructive sleep apnea) LBBB (left bundle branch block) 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 Sister No problems noted. Sister No problems noted. Sister No problems noted. Sister No problems noted. Son No problems noted. Daughter No problems noted. Household Members: Significant Other Housing: House Are you a primary care program resident to a significant other at home: No Do you presently have visiting nurse or other home services: No Alcohol intake: former Patient Tobacco Use Status: Former Tobacco user Quit Date: 2017 Tobacco use type: Cigarette Years Smoked: 30 e-Cigarette/Vaping Use: Never Used Second Hand Smoke Exposure: No Substance Use Type: Marijuana service: No Current occupational status: employed Current occupation: [employer] Cognitive needs: No Hearing needs: No Vision needs: No Questionnaire Thrive Questionnaire Date Thrive assessed: 12/25/20 NEVIN-7 AMB Questionnaire NEVIN-7 Date NEVIN - 7 assessed: 03/10/22 Source: Developed by Drs. Mir Thomas, Ann Marie Alcantar, Jorden Guzmán and colleagues, with an educational audrey from [employer]. Review of Systems Const Denies chills, Denies fatigue, Denies fever(s), Denies headache(s) and Denies weakness Eyes Denies change in vision ENT Denies dizziness, Denies headache(s), Denies hearing loss, Denies nasal congestion, Denies sinus pain, Denies sinus pressure and Denies sore throat Card Denies chest pain, Denies lightheadedness, Denies dyspnea and Denies other (palpitations) Resp Denies cough, Denies dyspnea and Denies wheezing GI Denies abdominal pain, Denies melena, Denies hematochezia, Denies change in bowel habits, Denies dyspepsia and Denies nausea Denies hematuria and Denies dysuria Musc Denies abnormal gait, Denies myalgias, Denies arthralgias, Denies numbness and Denies tingling Skin/Breast Denies rash, Denies unusual bruising and Denies wounds Neuro Denies abnormal gait, Denies dizziness, Denies headache(s), Denies memory loss, Denies numbness, Denies Sensory deficit (Neuro), Denies tingling and Denies weakness Psych Denies anxiety, Denies depression and Denies memory loss Endo Denies cold intolerance, Denies fatigue, Denies heat intolerance, Denies polydipsia and Denies polyuria Lars/Lymph Denies easy bleeding and Denies easy bruising Aller/Immun Denies wheezing Physical exam (Primary Care) Vital Signs: Last Vital Signs Pulse 73 02/11/23 15:34 BP 112/64 02/11/23 15:34 Pulse Ox 96 02/11/23 15:34 Oxygen Delivery Method Room Air 02/11/23 15:34 BMI result Body Mass Index 31.9 Tobacco/Smoking Status: Tobacco use Status Tobacco use date assessed 02/11/23 02/11/23 15:44 Patient Tobacco Use Status Former Tobacco user 02/11/23 15:35 Tobacco use type Cigarette 02/11/23 15:35 e-Cigarette/Vaping Use Never Used 02/11/23 15:35 Thrive Assessment: Date of Thrive Assessment Date Thrive assessed 12/25/20 02/11/23 15:35 Const General: no acute distress, well developed, alert and awake Nutritional Appearance: well nourished Orientation/consciousness: patient oriented x3 HENMT Head: Yes normocephalic and Yes atraumatic Ears: hearing grossly normal bilaterally and TM's normal bilaterally General nose exam: Normal external nose present and Normal nares present Mouth: Normal oral and palatal mucosa present and moist mucous membranes Teeth and gingiva: dentition normal Throat: Yes posterior oropharynx normal Eyes General: appearance normal, both eyes and all related structures Pupils: Equal, round and reactive pupils present and Pupil accommodation reflex normal EOM: EOMs intact bilaterally Neck Neck: Yes normal visual inspection, Yes no lymphadenopathy and Yes trachea midline Thyroid: Thyroid normal Carotids: no bruits Lymphatic: no lymphadenopathy noted Chest Chest palpation & inspection: normal inspection of the chest Resp Effort & Inspection: normal respiratory effort Auscultation: clear to auscultation bilaterally Cardio Rate: regular rate Rhythm: regular rhythm Heart sounds: S1 normal heart sound present, S2 normal heart sound present, no gallops, no murmurs and no rubs Bruits: no abdominal aortic bruits and no carotid bruits GI Palpation (GI): No Abdominal aortic bruit present, Soft to palpation, nontender, No hepatosplenomegaly present and No Rebound tenderness present Auscultation: normal bowel sounds General: Yes no CVA tenderness Back/Spine/Pelvis Back: no CVA tenderness Cervical Spine: cervical ROM normal and No Cervical spine tenderness Thoracic/Lumbar Spine: thoraco-lumbar ROM normal, No pain with thoraco-lumbar ROM, No thoracic spinal tenderness and No lumbar spinal tenderness Skin Lesions: no lesions Rashes: no rashes Trauma: no lacerations or abrasions Wounds: no wounds Nails: normal Neuro General: patient oriented x3 Cranial nerves: Yes Equal, round and reactive pupils present Cognition (Neuro): normal cognition Gait exam (Neuro): Normal gait present Motor exam (neuro): 5/5 motor strength present throughout Sensory Exam: No Sensory deficit (Neuro) Deep tendon reflexes (DTR's): Right patellar reflex intensity grade: 2+ and Left patellar reflex intensity grade: 2+ Extrem General: Yes normal to inspection and No edema Psych Appearance: grossly normal Affect: normal affect Attitude: cooperative Thought process: Normal thought process present Results AMB Hemoglobin A1c AMB Hemoglobin A1c 5.9 % Last Edit by Blanca Bedolla CMA on 02/11/23 16:05 Results Reviewed Results Reviewed: Laboratory Last Values Hgb A1c (Clinic) 5.9 % (4.0-6.0) 02/11/23 16:03 Assessment and Plan Assessment & Plan (1) Adult general medical exam: Code(s): Z00.00 - Encounter for general adult medical examination without abnormal findings Plan: Male?presents?for?complete?physical?exam Encouraged?healthy?diet?with?active?lifestyle?and?plenty?of?exercise (2) Diabetes: Code(s): E11.9 - Type 2 diabetes mellitus without complications Plan: A1c?shows?good?control.??Goal?is?less?than?7% Continue?diabetic?diet Continue?current?medication?regimen Continue?weight?loss?and?exercise (3) Hyperlipidemia: Code(s): E78.5 - Hyperlipidemia, unspecified Plan: LDL?cholesterol?74. History?of?CVA?and?also?has?cardiomyopathy. Encouraged?a?goal?of?less?than?70 - encouraged?additional?diet?low?in?saturated?fats?and?cholesterol?and?exercise?an d?weight?loss.?? (4) Essential hypertension: Code(s): I10 - Essential (primary) hypertension Plan: Blood?pressure?is?controlled.??Goal?is?less?than?130/80 Continue?current?medication?regimen,?exercise?and?weight?loss. (5) PAF (paroxysmal atrial fibrillation): Code(s): I48.0 - Paroxysmal atrial fibrillation Plan: Currently?has?regular?rhythm Pacer?in?place Follow-up?with?Cardiology?as?recommended Continue?warfarin (6) Cerebrovascular accident (CVA) due to embolism of cerebral artery: Code(s): I63.40 - Cerebral infarction due to embolism of unspecified cerebral artery Plan: Stable (7) Cardiomyopathy: Code(s): I42.9 - Cardiomyopathy, unspecified Plan: Stable Follow-up?with?Cardiology?as?recommended (8) Cervicalgia: Code(s): M54.2 - Cervicalgia Plan: Can?use?topical?NSAID,?Tylenol?and?ice/heat Advised?gentle?stretch (9) Screening for colon cancer: Comment: SEND PREP- Code(s): Z12.11 - Encounter for screening for malignant neoplasm of colon (10) Screening for prostate cancer: Code(s): Z12.5 - Encounter for screening for malignant neoplasm of prostate Orders: Orders AMB Hemoglobin A1c Today Z13.9 - Encounter for screening, unspecified Medications: New diclofenac sodium 1% (Aleve (diclofenac)) apply to single elbow, wrist or hand; for hand includes palm/fingers/back of hand 2 grams topical QID PRN 100 grams 1RF pain 30 days Coding Level of Care Code Est Pt Level 3 (01352) Est Pt Prev Care 40-64y(72430) Diagnoses Adult general medical exam Z00.00 Diabetes E11.9 Hyperlipidemia E78.5 Essential hypertension I10 PAF (paroxysmal atrial fibrillation) I48.0 Cerebrovascular accident (CVA) due to embolism of cerebral artery I63.40 Cardiomyopathy I42.9 Cervicalgia M54.2 Screening for colon cancer Z12.11 Screening for prostate cancer Z12.5
[2023-02-11 15:34] VITALS: BP 112/64; PULSE 73; O2SAT 96; BMI 31.9
== END 2023-02-11 16:51 | disposition home or self-care (01) ==
PROVIDERS: PCP Family Medicine; Visit Provider Family Medicine
DX: Z00.00 Encounter for general adult medical examination without abnormal findings (principal); E11.9 Type 2 diabetes mellitus without complications; I48.0 Paroxysmal atrial fibrillation; I63.40 Cerebral infarction due to embolism of unspecified cerebral artery; I42.9 Cardiomyopathy, unspecified; E78.5 Hyperlipidemia, unspecified; I10 Essential (primary) hypertension; M54.2 Cervicalgia
CPT/HCPCS: 83036; 99396

== ENCOUNTER → 2023-02-11 23:59 | Outpatient (BNV) | payer OTHER, SELFPAY ==
--- NOTE | 2023-02-11 10:54 | MHC.OFFVIS ---
Intake Intake Visit Reasons: Remote ICD Check- [employer] Allergies No Known Allergies [No Known Allergies*] Allergy (Verified 01/21/23 15:38) [facility] Medical History Anemia Osteoarthritis of right hip Biventricular ICD (implantable cardioverter-defibrillator) in place Pacemaker Obesity (BMI 30-39.9) KIERRA (obstructive sleep apnea) LBBB (left bundle branch block) 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 Sister No problems noted. Sister No problems noted. Sister No problems noted. Sister No problems noted. Son No problems noted. Daughter No problems noted. Household Members: Significant Other Housing: House Are you a primary career and guidance counselor to a significant other at home: No Do you presently have visiting nurse or other home services: No Alcohol intake: former Patient Tobacco Use Status: Former Tobacco user Quit Date: 2017 Tobacco use type: Cigarette Years Smoked: 30 Smoked in Last 30 Days: No e-Cigarette/Vaping Use: Never Used Second Hand Smoke Exposure: No Use of substances other than those prescribed or required for medical reasons: Yes Substance Use Type: Marijuana Advance Directives: No Advance Directives Information Provided: No service: No Current occupational status: employed Current occupation: [employer] Cognitive needs: No Hearing needs: No Vision needs: No Office Procedures Cardiac Device Check Cardiac Device Check Details: Date of service 02/11/2023; Battery life 2 years; normal lead parameters; no treated VT/VF; adequate biv pacing; normal ICD function. [id number] Cardiac Interrogation, implant defibrillator w/interim Procedure code (CPT) selection complete Assessment & Plan Assessment & Plan (1) NICM (nonischemic cardiomyopathy): Code(s): I42.8 - Other cardiomyopathies Coding Level of Care Code Procedure Only Diagnoses NICM (nonischemic cardiomyopathy) I42.8 CPT Codes Cardiac Device Check - Cardiac Device 13: [id number] Cardiac Interrogation, implant defibrillator w/interim ([id number])
== END ==
PROVIDERS: PCP Family Medicine; Visit Provider Internal Medicine
DX: I42.8 Other cardiomyopathies (principal); Z95.810 Presence of automatic (implantable) cardiac defibrillator
CPT/HCPCS: 93295

== ENCOUNTER → 2023-02-11 23:59 | Outpatient (BNV) | payer OTHER, SELFPAY ==
--- NOTE | 2023-02-11 11:29 | A.OFFVIS_ITS ---
Intake Intake Visit Reasons: Remote HF Monitoring- [employer] Allergies No Known Allergies [No Known Allergies*] Allergy (Verified 01/21/23 15:38) [facility] Medical History Anemia Osteoarthritis of right hip Biventricular ICD (implantable cardioverter-defibrillator) in place Pacemaker Obesity (BMI 30-39.9) KIERRA (obstructive sleep apnea) LBBB (left bundle branch block) 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 Sister No problems noted. Sister No problems noted. Sister No problems noted. Sister No problems noted. Son No problems noted. Daughter No problems noted. Household Members: Significant Other Housing: House Are you a primary personal care aide to a significant other at home: No Do you presently have visiting nurse or other home services: No Alcohol intake: former Patient Tobacco Use Status: Former Tobacco user Quit Date: 2017 Tobacco use type: Cigarette Years Smoked: 30 Smoked in Last 30 Days: No e-Cigarette/Vaping Use: Never Used Second Hand Smoke Exposure: No Use of substances other than those prescribed or required for medical reasons: Yes Substance Use Type: Marijuana Advance Directives: No Advance Directives Information Provided: No service: No Current occupational status: employed Current occupation: [employer] Cognitive needs: No Hearing needs: No Vision needs: No Office Procedures Cardiac Device Check Cardiac Device Check Details: Date of service- 02/11/2023; based on impedance data and physiological variables, there is no evidence of worsening congestive heart failure. Adequate heart rate variability. Patient activity almost 8 hours a day. [id number] Cardiac Device Interrogation, cardio physiologic monitor Procedure code (CPT) selection complete Assessment & Plan Assessment & Plan (1) NICM (nonischemic cardiomyopathy): Code(s): I42.8 - Other cardiomyopathies Coding Level of Care Code Procedure Only Diagnoses NICM (nonischemic cardiomyopathy) I42.8 CPT Codes Cardiac Device Check - Cardiac Device 15: [id number] Cardiac Device Interrogation, cardio physiologic monitor ([id number])
== END ==
PROVIDERS: PCP Family Medicine; Visit Provider Internal Medicine
DX: I42.8 Other cardiomyopathies (principal)
CPT/HCPCS: 93297

== ENCOUNTER 2023-02-18 15:23 | Outpatient (AMB) | payer OTHER, SELFPAY ==
--- NOTE | 2023-02-18 15:33 | MHC.OFFVISCO ---
Intake Intake Visit Reasons: Anticoagulation Allergies No Known Allergies [No Known Allergies*] Allergy (Verified 02/18/23 15:24) Medication List - Last Reconciled 02/18/23 by Luli Thomas RN acetaminophen 650 mg (2 x 325 mg) PO Q6H PRN 30 days atorvastatin 30 mg (1.5 x 20 mg) PO BEDTIME 90 days dapagliflozin propanediol (Farxiga) 10 mg PO DAILY diclofenac sodium 1% (Aleve (diclofenac)) 2 grams topical QID PRN 30 days metformin 500 mg PO DAILY metoprolol succinate ER 12.5 mg (1/2 x 25 mg) PO DAILY [raised toliet seat As directed] sacubitril-valsartan 24-26 mg (Entresto) 1 tab PO BID spironolactone 25 mg PO DAILY walker Folding front wheeled walker warfarin 5 mg See Protocol PO 4XW 90 days Nursing Note INR: 2.3- in therapeutic range of 2-3 Medications and supplements reviewed- no changes No changes in health, diet, medications, or supplements, Denies any signs and symptoms of bleeding or bruising or clotting. 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
[2023-02-18 15:43] LABS: Prothrombin Time Whole Bld POC 27.5 sec (11.1-13.5); ~PT, ~INR - Anti Coag Clinic 2.3 (0.9-1.1)
== END 2023-02-18 15:38 | disposition home or self-care (01) ==
LOC: HO.ACS 15:23
PROVIDERS: PCP Family Medicine; Visit Provider Internal Medicine
DX: Z79.01 Long term (current) use of anticoagulants (principal)

== ENCOUNTER → 2023-02-18 15:23 | Outpatient (BNVA) | payer OTHER, SELFPAY | PROVIDERS: PCP Family Medicine; Visit Provider Internal Medicine | DX: Z86.73 Personal history of transient ischemic attack (TIA), and cerebral infarction without residual deficits (principal); Z51.81 Encounter for therapeutic drug level monitoring; Z79.01 Long term (current) use of anticoagulants | CPT/HCPCS: 85610; 99211 ==

== ENCOUNTER → 2023-03-15 23:59 | Outpatient (BNV) | payer OTHER, SELFPAY ==
--- NOTE | 2023-03-23 13:22 | MHC.OFFVIS ---
Intake Intake Visit Reasons: Remote HF Monitoring- [employer] Allergies No Known Allergies [No Known Allergies*] Allergy (Verified 03/18/23 15:37) [facility] Medical History Anemia Osteoarthritis of right hip Biventricular ICD (implantable cardioverter-defibrillator) in place Pacemaker Obesity (BMI 30-39.9) KIERRA (obstructive sleep apnea) LBBB (left bundle branch block) 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 Sister No problems noted. Sister No problems noted. Sister No problems noted. Sister No problems noted. Son No problems noted. Daughter No problems noted. Social History Household Members: Significant Other Housing: House Are you a primary healthcare associate to a significant other at home: No Do you presently have visiting nurse or other home services: No Alcohol intake: former Comment: aware of trip hazard Patient Tobacco Use Status: Former Tobacco user Quit Date: 2017 Tobacco use type: Cigarette Years Smoked: 30 e-Cigarette/Vaping Use: Never Used Second Hand Smoke Exposure: No Substance Use Type: Marijuana service: No Current occupational status: employed Current occupation: [employer] Cognitive needs: No Hearing needs: No Vision needs: No Office Procedures Cardiac Device Check Cardiac Device Check Details: Date of service- 03/15/2023; based on impedance data and physiological variables, there is no evidence of worsening congestive heart failure. [id number] Cardiac Device Interrogation, cardio physiologic monitor Procedure code (CPT) selection complete Assessment & Plan Assessment & Plan (1) NICM (nonischemic cardiomyopathy): Code(s): I42.8 - Other cardiomyopathies Plan x Coding Level of Care Code Procedure Only Diagnoses NICM (nonischemic cardiomyopathy) I42.8 CPT Codes Cardiac Device Check - Cardiac Device 15: [id number] Cardiac Device Interrogation, cardio physiologic monitor ([id number])
== END ==
PROVIDERS: PCP Family Medicine; Visit Provider Internal Medicine
DX: I42.8 Other cardiomyopathies (principal); Z95.810 Presence of automatic (implantable) cardiac defibrillator
CPT/HCPCS: 93297

== ENCOUNTER 2023-03-18 15:36 | Outpatient (AMB) | payer OTHER, SELFPAY ==
--- NOTE | 2023-03-18 15:44 | MHC.OFFVISCO ---
Intake Intake Visit Reasons: Anticoagulation Allergies No Known Allergies [No Known Allergies*] Allergy (Verified 03/18/23 15:37) Medication List - Last Reconciled 03/18/23 by Luli Thomas RN acetaminophen 650 mg (2 x 325 mg) PO Q6H PRN 30 days atorvastatin 30 mg (1.5 x 20 mg) PO BEDTIME 90 days dapagliflozin propanediol (Farxiga) 10 mg PO DAILY metformin 500 mg PO DAILY metoprolol succinate ER 12.5 mg (1/2 x 25 mg) PO DAILY [raised toliet seat As directed] sacubitril-valsartan 24-26 mg (Entresto) 1 tab PO BID spironolactone 25 mg PO DAILY walker Folding front wheeled walker warfarin 5 mg See Protocol PO 4XW 90 days Nursing Note INR: 2.0- in therapeutic range of 2-3 Medications and supplements reviewed- no changes in medications. No changes in health, diet, medications, or supplements, Denies any signs and symptoms of bleeding or bruising or clotting. Bleeding, bruising, clotting discussed Nutritional guidance given - no greens for 2 days, eat reds to raise Dose: 2.5mg x 3, 5mg x 4 F/U INR: 4 weeks Patient verbalizes understanding of instructions given pt states upcoming colonoscopy- will let acs know date Anti-Coag Initial Assessment Social Hx Patient Tobacco Use Status: Former Tobacco user Quit Date: 2017 Tobacco use type: Cigarette alcohol intake: former Alcohol intake frequency: former alcohol drinker Coding Level of Care Code Est Patient Level 1 Diagnoses Current use of anticoagulant therapy Z79.01 Assessment & Plan Assessment & Plan (1) Current use of anticoagulant therapy: Code(s): Z79.01 - [facility] (current) use of 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
[2023-03-18 15:45] LABS: Prothrombin Time Whole Bld POC 24.5 sec (11.1-13.5)
== END 2023-03-18 15:52 | disposition home or self-care (01) ==
LOC: HO.ACS 15:36
PROVIDERS: PCP Family Medicine; Visit Provider Internal Medicine
DX: Z79.01 Long term (current) use of anticoagulants (principal)

== ENCOUNTER → 2023-03-18 15:36 | Outpatient (BNVA) | payer OTHER, SELFPAY | PROVIDERS: PCP Family Medicine; Visit Provider Internal Medicine | DX: Z86.73 Personal history of transient ischemic attack (TIA), and cerebral infarction without residual deficits (principal); Z51.81 Encounter for therapeutic drug level monitoring; Z79.01 Long term (current) use of anticoagulants | CPT/HCPCS: 85610; 99211 ==

== ENCOUNTER → 2023-04-15 23:59 | Outpatient (BNV) | payer OTHER, SELFPAY ==
--- NOTE | 2023-04-20 13:18 | MHC.OFFVIS ---
Intake Intake Visit Reasons: Remote HF Monitoring- [employer] Allergies No Known Allergies [No Known Allergies*] Allergy (Verified 04/16/23 15:32) [facility] Medical History Anemia Osteoarthritis of right hip Biventricular ICD (implantable cardioverter-defibrillator) in place Pacemaker Obesity (BMI 30-39.9) KIERRA (obstructive sleep apnea) LBBB (left bundle branch block) 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 Sister No problems noted. Sister No problems noted. Sister No problems noted. Sister No problems noted. Son No problems noted. Daughter No problems noted. Social History Household Members: Significant Other Housing: House Are you a primary hospice home care coordinator to a significant other at home: No Do you presently have visiting nurse or other home services: No Alcohol intake: former Comment: aware of trip hazard Patient Tobacco Use Status: Former Tobacco user Quit Date: 2017 Tobacco use type: Cigarette Years Smoked: 30 e-Cigarette/Vaping Use: Never Used Second Hand Smoke Exposure: No Substance Use Type: Marijuana service: No Current occupational status: employed Current occupation: [employer] Cognitive needs: No Hearing needs: No Vision needs: No Office Procedures Cardiac Device Check Cardiac Device Check Details: Date of service- 04/15/2023; based on impedance data and physiological variables, there is no evidence of worsening congestive heart failure. [id number] Cardiac Device Interrogation, cardio physiologic monitor Procedure code (CPT) selection complete Assessment & Plan Assessment & Plan (1) NICM (nonischemic cardiomyopathy): Code(s): I42.8 - Other cardiomyopathies Plan x Coding Level of Care Code Procedure Only Diagnoses NICM (nonischemic cardiomyopathy) I42.8 CPT Codes Cardiac Device Check - Cardiac Device 15: [id number] Cardiac Device Interrogation, cardio physiologic monitor ([id number])
== END ==
PROVIDERS: PCP Family Medicine; Visit Provider Internal Medicine
DX: I42.8 Other cardiomyopathies (principal); Z95.810 Presence of automatic (implantable) cardiac defibrillator
CPT/HCPCS: 93297

== ENCOUNTER 2023-04-16 15:30 | Outpatient (AMB) | payer OTHER, SELFPAY ==
[2023-04-16 15:40] LABS: Prothrombin Time Whole Bld POC 20.6 sec (11.1-13.5); ~PT, ~INR - Anti Coag Clinic 1.7 (0.9-1.1)
--- NOTE | 2023-04-16 15:46 | MHC.OFFVISCO ---
Intake Intake Visit Reasons: Anticoagulation Allergies No Known Allergies [No Known Allergies*] Allergy (Verified 04/16/23 15:32) Nursing Note POC INR 1.7. OUT OF THERAPEUTIC RANGE OF 2-3. PT DENIES MISSED DOSE AND DENIED DIETARY CHANGES. UNSURE WHY INR SUBTHERAPEUTIC. NO CHANGES IN MEDICATION. NO C/O UNUSUAL BLEEDING OR BRUISING. DOSIN MG TODAY AND TOMORROW, THEN CONTINUE REGULAR, 2.5MG X3, 5MG X4 DAYS. F/U 2 WEEKS. PT VERBALIZES UNDERSTANDING OF PLAN Anti-Coag Initial Assessment Social Hx Patient Tobacco Use Status: Former Tobacco user Quit Date: 2017 Tobacco use type: Cigarette alcohol intake: former Alcohol intake frequency: former alcohol drinker Coding Level of Care Code Est Patient Level 1 Diagnoses Current use of anticoagulant therapy Z79.01 Assessment & Plan Assessment & Plan (1) Current use of anticoagulant therapy: Code(s): Z79.01 - halfway (current) use of 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
== END 2023-04-16 15:52 | disposition home or self-care (01) ==
LOC: HO.ACS 15:30
PROVIDERS: PCP Family Medicine; Visit Provider Internal Medicine
DX: Z79.01 Long term (current) use of anticoagulants (principal)

== ENCOUNTER → 2023-04-16 15:30 | Outpatient (BNVA) | payer OTHER, SELFPAY | PROVIDERS: PCP Family Medicine; Visit Provider Internal Medicine | DX: Z86.73 Personal history of transient ischemic attack (TIA), and cerebral infarction without residual deficits (principal); Z51.81 Encounter for therapeutic drug level monitoring; Z79.01 Long term (current) use of anticoagulants | CPT/HCPCS: 85610; 99211 ==

== ENCOUNTER 2023-04-30 15:43 | Outpatient (AMB) | payer OTHER, SELFPAY ==
--- NOTE | 2023-04-30 15:55 | MHC.OFFVISCO ---
Intake Intake Visit Reasons: Anticoagulation Allergies No Known Allergies [No Known Allergies*] Allergy (Verified 04/30/23 15:44) Medication List - Last Reconciled 04/30/23 by Amna Tierney RN acetaminophen 650 mg (2 x 325 mg) PO Q6H PRN 30 days atorvastatin 10 mg PO DAILY atorvastatin 20 mg PO DAILY dapagliflozin propanediol (Farxiga) 10 mg PO DAILY metformin 500 mg PO DAILY metoprolol succinate ER 12.5 mg (1/2 x 25 mg) PO DAILY [raised toliet seat As directed] sacubitril-valsartan 24-26 mg (Entresto) 1 tab PO BID spironolactone 25 mg PO DAILY walker Folding front wheeled walker warfarin 5 mg See Protocol PO 4XW 90 days Nursing Note INR: 2.3 in therapeutic range OF 2-3 Medications and supplements reviewed No changes in health, diet, medications, or supplements, Denies any signs and symptoms of bleeding or bruising or clotting. Bleeding, bruising, clotting discussed Nutritional guidance given Dose: RESUME USUAL DOSE OF 2.5 MG x 3DAYS AND 5 MG x4 DAYS F/U INR: 4 WEEKS Patient verbalizes understanding of instructions given Anti-Coag Initial Assessment Social Hx Patient Tobacco Use Status: Former Tobacco user Quit Date: 2017 Tobacco use type: Cigarette alcohol intake: former Alcohol intake frequency: former alcohol drinker Coding Level of Care Code Est Patient Level 1 Diagnoses Current use of anticoagulant therapy Z79.01 Results AMB INR Fingerstick AMB INR Fingerstick 2.3 Last Edit by Amna Tierney RN on 04/30/23 15:51 INTERFACE DELAY Assessment & Plan Assessment & Plan (1) Current use of anticoagulant therapy: Code(s): Z79.01 - [facility] (current) use of 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
[2023-04-30 15:58] LABS: ~PT, ~INR - Anti Coag Clinic 2.3 (0.9-1.1)
== END 2023-04-30 15:56 | disposition home or self-care (01) ==
LOC: HO.ACS 15:43
PROVIDERS: PCP Family Medicine; Visit Provider Internal Medicine
DX: Z79.01 Long term (current) use of anticoagulants (principal)

== ENCOUNTER → 2023-04-30 15:43 | Outpatient (BNVA) | payer OTHER, SELFPAY | PROVIDERS: PCP Family Medicine; Visit Provider Internal Medicine | DX: Z86.73 Personal history of transient ischemic attack (TIA), and cerebral infarction without residual deficits (principal); Z51.81 Encounter for therapeutic drug level monitoring; Z79.01 Long term (current) use of anticoagulants | CPT/HCPCS: 85610; 99211 ==

== ENCOUNTER → 2023-05-17 23:59 | Outpatient (BNV) | payer OTHER, SELFPAY ==
--- NOTE | 2023-05-18 20:08 | MHC.OFFVIS ---
Intake Intake Visit Reasons: Remote HF Monitoring- [employer] Allergies No Known Allergies [No Known Allergies*] Allergy (Verified 04/30/23 15:44) [facility] Medical History Anemia Osteoarthritis of right hip Biventricular ICD (implantable cardioverter-defibrillator) in place Pacemaker Obesity (BMI 30-39.9) KIERRA (obstructive sleep apnea) LBBB (left bundle branch block) 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 Sister No problems noted. Sister No problems noted. Sister No problems noted. Sister No problems noted. Son No problems noted. Daughter No problems noted. Social History Household Members: Significant Other Housing: House Are you a primary career services representative to a significant other at home: No Do you presently have visiting nurse or other home services: No Alcohol intake: former Comment: aware of trip hazard Patient Tobacco Use Status: Former Tobacco user Quit Date: 2017 Tobacco use type: Cigarette Years Smoked: 30 e-Cigarette/Vaping Use: Never Used Second Hand Smoke Exposure: No Substance Use Type: Marijuana service: No Current occupational status: employed Current occupation: [employer] Cognitive needs: No Hearing needs: No Vision needs: No Office Procedures Cardiac Device Check Cardiac Device Check Details: Date of service- 05/17/2023; based on impedance data and physiological variables, there is no evidence of worsening congestive heart failure. [id number] Cardiac Device Interrogation, cardio physiologic monitor Procedure code (CPT) selection complete Assessment & Plan Assessment & Plan (1) Cardiomyopathy: Code(s): I42.9 - Cardiomyopathy, unspecified Plan x Coding Level of Care Code Procedure Only Diagnoses Cardiomyopathy I42.9 CPT Codes Cardiac Device Check - Cardiac Device 15: [id number] Cardiac Device Interrogation, cardio physiologic monitor ([id number])
== END ==
PROVIDERS: PCP Family Medicine; Visit Provider Internal Medicine
DX: I42.9 Cardiomyopathy, unspecified (principal); Z95.810 Presence of automatic (implantable) cardiac defibrillator
CPT/HCPCS: 93297

== ENCOUNTER → 2023-05-17 23:59 | Outpatient (BNV) | payer OTHER, SELFPAY ==
--- NOTE | 2023-05-18 20:09 | MHC.OFFVIS ---
Intake Intake Visit Reasons: Remote ICD Check- Medtronic Allergies No Known Allergies [No Known Allergies*] Allergy (Verified 04/30/23 15:44) [facility] Medical History Anemia Osteoarthritis of right hip Biventricular ICD (implantable cardioverter-defibrillator) in place Pacemaker Obesity (BMI 30-39.9) KIERRA (obstructive sleep apnea) LBBB (left bundle branch block) 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 Sister No problems noted. Sister No problems noted. Sister No problems noted. Sister No problems noted. Son No problems noted. Daughter No problems noted. Social History Household Members: Significant Other Housing: House Are you a primary reproductive healthcare assistant to a significant other at home: No Do you presently have visiting nurse or other home services: No Alcohol intake: former Comment: aware of trip hazard Patient Tobacco Use Status: Former Tobacco user Quit Date: 2017 Tobacco use type: Cigarette Years Smoked: 30 e-Cigarette/Vaping Use: Never Used Second Hand Smoke Exposure: No Substance Use Type: Marijuana service: No Current occupational status: employed Current occupation: [employer] Cognitive needs: No Hearing needs: No Vision needs: No Office Procedures Cardiac Device Check Cardiac Device Check Details: Date of service 05/17/2023; Battery life 1.8 years; normal lead parameters; no treated VT/VF; adequate biv pacing; normal ICD function. [id number] Cardiac Interrogation, implant defibrillator w/interim Procedure code (CPT) selection complete Assessment & Plan Assessment & Plan (1) Cardiomyopathy: Code(s): I42.9 - Cardiomyopathy, unspecified Plan x Coding Level of Care Code Procedure Only Diagnoses Cardiomyopathy I42.9 CPT Codes Cardiac Device Check - Cardiac Device 13: [id number] Cardiac Interrogation, implant defibrillator w/interim ([id number])
== END ==
PROVIDERS: PCP Family Medicine; Visit Provider Internal Medicine
DX: I42.9 Cardiomyopathy, unspecified (principal); Z95.810 Presence of automatic (implantable) cardiac defibrillator
CPT/HCPCS: 93295

== ENCOUNTER 2023-05-28 15:19 | Outpatient (AMB) | payer OTHER, SELFPAY ==
--- NOTE | 2023-05-28 15:38 | MHC.OFFVISCO ---
Intake Intake Visit Reasons: Anticoagulation Allergies No Known Allergies [No Known Allergies*] Allergy (Verified 04/30/23 15:44) Nursing Note INR: 2.1 in therapeutic range Medications and supplements reviewed No changes in health, diet, medications, or supplements, Denies any signs and symptoms of bleeding or bruising or clotting. Bleeding, bruising, clotting discussed Nutritional guidance given Dose: 2.5MG X 3 DAYS/ 5MG X 4 DAYS F/U INR: 1 MONTH Patient verbalizes understanding of instructions given Anti-Coag Initial Assessment Social Hx Patient Tobacco Use Status: Former Tobacco user Quit Date: 2017 Tobacco use type: Cigarette alcohol intake: former Alcohol intake frequency: former alcohol drinker Questionnaires HAS-BLED Does the patient had uncontrolled Hypertension?: No Does the patient have renal disease?: No Does the patient have liver disease?: No Does the patient have a history of stroke?: Yes Has the patient had major bleeding or predisposition to bleeding?: No Does the patient have labile INRs?: No Is the patient over 65 years of age?: No Is the patient on medications that gives them a predisposition to bleeding?: Yes Does the patient use alcohol?: No HAS-BLED Score: 2 CHADSVASC Age: <65 Gender: Male Does the patient have a history of CHF?: No Does the patient have a history of Hypertension?: Yes Does the patient have a history of Stroke/TIA/Thromboembolism?: Yes Does the patient have a history of Vascular Disease (prior SD, PAD or aortic plaque)?: Yes (HAS CHOLESTEROL AND DIABETES) Does the patient have a history of Diabetes?: Yes CHADS VACS Score: 5 Jatinder Prediction Score Rsk VTE Active Cancer: No Previous VTE, excluding superficial vein thrombosis: No Reduced mobility: No Already known Thrombophilic Condition: Yes With-in last month Trauma and/or Surgery: No Elderly 70 year or older: No Heart and/or Respiratory Failure: No Acute Myocardial infarction and/or Ischemic Stroke: Yes Acute Infection and/or Rheumatologic Disorder: No Obesity (BMI 30 or greater): Yes Ongoing Hormonal Treatment: No Score: 5 Jatinder Score less than 4; Low Risk of VTE Jatinder Score 4 or greater; High Risk of VTE Coding Level of Care Code Est Patient Level 1 Diagnoses Current use of anticoagulant therapy Z79.01 Results AMB INR Fingerstick AMB INR Fingerstick 2.1 Last Edit by aKyla Atkins RN on 05/28/23 15:35 interface failure Assessment & Plan Assessment & Plan (1) Current use of anticoagulant therapy: Code(s): Z79.01 - [facility] (current) use of 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
[2023-05-29 11:14] LABS: Prothrombin Time Whole Bld POC 24.9 sec (11.1-13.5); ~PT, ~INR - Anti Coag Clinic 2.1 (0.9-1.1)
== END 2023-05-28 15:44 | disposition home or self-care (01) ==
LOC: HO.ACS 15:19
PROVIDERS: PCP Family Medicine; Visit Provider Internal Medicine
DX: Z79.01 Long term (current) use of anticoagulants (principal)

== ENCOUNTER → 2023-05-28 15:19 | Outpatient (BNVA) | payer OTHER, SELFPAY | PROVIDERS: PCP Family Medicine; Visit Provider Internal Medicine | DX: Z86.73 Personal history of transient ischemic attack (TIA), and cerebral infarction without residual deficits (principal); Z51.81 Encounter for therapeutic drug level monitoring; Z79.01 Long term (current) use of anticoagulants | CPT/HCPCS: 85610; 99211 ==

== ENCOUNTER 2023-06-10 14:35 | Outpatient (AMB) | payer OTHER, SELFPAY ==
--- NOTE | 2023-06-10 14:55 | A.OFFPC_ITS ---
Vital Signs 06/10/23 14:57 Height 5 ft 10 in Weight 228 lb 2 oz BMI 32.7 BP 140/70 H Blood Pressure Location Rt brachial Position Sitting Respiration 13 Pulse 89 Pulse Source Pulse Oximeter Temp 97.6 F Temp Source Temporal Artery Scan Pulse Oximetry (%) 99 Oxygen Delivery Method Room Air Intake Visit Reasons: f/u hypertension, diabetes and chronic conditions Intake Note: Patient states that hes having issues with his Warfarin Script. Wrapper Rewinder Required: No Accompanied by: Self / Same As Patient Allergies No Known Allergies [No Known Allergies*] Allergy (Verified 06/10/23 15:03) Tobacco use date assessed: 06/10/23 Dental Screening Dental Screen Date: 06/10/23 Did you have a dental visit in the last 12 months?: No Did you have a dental problem in the last 6 months where you did not have access to dental care?: No Was dental information given to patient?: Yes HPI f/u hypertension, diabetes and chronic conditions HPI Details 62 y/o male presents to f/u hypertension , diabetes and chronic conditions. Blood pressure today upon relaxation is 132/66. He is on metoprolol 12.5mg, spironolactone 25mg daily. [facility] Medical History Anemia Osteoarthritis of right hip Biventricular ICD (implantable cardioverter-defibrillator) in place Pacemaker Obesity (BMI 30-39.9) KIERRA (obstructive sleep apnea) LBBB (left bundle branch block) Cerebrovascular accident (CVA) due to embolism of cerebral artery NICM (nonischemic cardiomyopathy) Surgical History History of cardiac catheterization (~03/2018) History of removal of cyst Family History (Updated 06/10/23 @ 15:05 by Sana Varghese MA) Father CVD (cardiovascular disease) S/P triple vessel bypass Mother Stroke CVD (cardiovascular disease) Brother No problems noted. Sister No problems noted. Sister No problems noted. Sister No problems noted. Sister No problems noted. Son No problems noted. Daughter No problems noted. Other Substance abuse Social History Household Members: Significant Other Housing: House Are you a primary pediatric acute care unit nurse to a significant other at home: No Do you presently have visiting nurse or other home services: No Alcohol intake: former Comment: aware of trip hazard Patient Tobacco Use Status: Former Tobacco user Quit Date: 2017 Tobacco use type: Cigarette Years Smoked: 30 e-Cigarette/Vaping Use: Never Used Second Hand Smoke Exposure: No Substance Use Type: Marijuana service: No Current occupational status: employed Current occupation: [employer] Cognitive needs: No Hearing needs: No Vision needs: No Questionnaire Thrive Questionnaire Date Thrive assessed: 12/25/20 NEVIN-7 AMB Questionnaire NEVIN-7 Date NEVIN - 7 assessed: 03/10/22 Source: Developed by Drs. Mir Thomas, Ann Marie Alcantar, Jorden Guzmán and colleagues, with an educational audrey from [employer]. Review of Systems Const Denies chills, Denies fatigue, Denies fever(s), Denies headache(s) and Denies weakness ENT Denies dizziness and Denies headache(s) Card Denies dyspnea Resp Denies cough, Denies dyspnea, Denies wheezing and Denies other (shortness of breath) Musc Denies numbness and Denies tingling Neuro Denies dizziness, Denies headache(s), Denies numbness, Denies tingling and Denies weakness Psych Denies anxiety and Denies depression Endo Denies fatigue Aller/Immun Denies wheezing Physical exam (Primary Care) Vital Signs: Last Vital Signs Temp 97.6 F 06/10/23 14:57 Pulse 89 06/10/23 14:57 Resp 13 06/10/23 14:57 BP 140/70 H 06/10/23 14:57 Pulse Ox 99 06/10/23 14:57 Oxygen Delivery Method Room Air 06/10/23 14:57 BMI result Body Mass Index 32.7 Tobacco/Smoking Status: Tobacco use Status Tobacco use date assessed 06/10/23 06/10/23 15:05 Patient Tobacco Use Status Former Tobacco user 06/10/23 14:57 Tobacco use type Cigarette 06/10/23 14:57 e-Cigarette/Vaping Use Never Used 06/10/23 14:57 Thrive Assessment: Date of Thrive Assessment Date Thrive assessed 12/25/20 06/10/23 14:57 Const General: well developed; No acute distress Nutritional Appearance: well nourished Orientation/consciousness: patient oriented x3 HENMT Head: Yes normocephalic and Yes atraumatic Eyes General: appearance normal, both eyes and all related structures Pupils: Equal, round and reactive pupils present EOM: EOMs intact bilaterally Resp Effort & Inspection: normal respiratory effort Neuro General: patient oriented x3 and gait normal Cranial nerves: Yes Equal, round and reactive pupils present Psych Affect: normal affect Results AMB Hemoglobin A1c AMB Hemoglobin A1c 6.1 % Last Edit by Sana Varghese MA on 06/10/23 15:09 Results Reviewed Results Reviewed: Laboratory Last Values Hgb A1c (Clinic) 6.1 % (4.0-6.0) H 06/10/23 15:08 Assessment and Plan Assessment & Plan (1) Essential hypertension: Code(s): I10 - Essential (primary) hypertension Plan: Blood?pressure?is?fairly?well?controlled?after?relaxation.??Goal?is?less?than?13 0/80 Continue?current?medications Encouraged?a?diet?low?in?salt/sodium,?exercise?and?weight?loss (2) Diabetes: Code(s): E11.9 - Type 2 diabetes mellitus without complications Plan: A1c?6.1%?is?good?control.??Goal?is?less?than?7.0% Continue?current?medication?regimen Encouraged?a?diet?low?in?sugars?and?starches,?exercise?and?weight?loss Patient?thinks?his?last?diabetic?retinal?exam?was?about?2?years?ago?so?I?encoura ged?him?to?call?his?eye?doctor?for?another?appointment?and?he?agrees. Orders: Orders AMB Hemoglobin A1c Today E11.9 - Type 2 diabetes mellitus without complications Medications: Refilled warfarin warfarin 5mg 4x week, 2.5mg 3 x week 5 mg See Protocol PO 4XW 90 days 66 tabs 3RF Coding Level of Care Code Est Pt Level 3 (01769) Diagnoses Essential hypertension I10 Diabetes E11.9
[2023-06-10 14:57] VITALS: BP 140/70; PULSE 89; RESP 13; TEMP 36.4; O2SAT 99; BMI 32.7
== END 2023-06-10 15:48 | disposition home or self-care (01) ==
PROVIDERS: PCP Family Medicine; Visit Provider Family Medicine
DX: I10 Essential (primary) hypertension (principal); E11.9 Type 2 diabetes mellitus without complications
CPT/HCPCS: 83036; 99213

== ENCOUNTER → 2023-06-17 23:59 | Outpatient (BNV) | payer OTHER, SELFPAY ==
--- NOTE | 2023-06-22 18:51 | MHC.OFFVIS ---
Intake Intake Visit Reasons: Remote HF Monitoring- Medtronic Allergies No Known Allergies [No Known Allergies*] Allergy (Verified 06/10/23 15:03) [facility] Medical History Anemia Osteoarthritis of right hip Biventricular ICD (implantable cardioverter-defibrillator) in place Pacemaker Obesity (BMI 30-39.9) KIERRA (obstructive sleep apnea) LBBB (left bundle branch block) Cerebrovascular accident (CVA) due to embolism of cerebral artery NICM (nonischemic cardiomyopathy) Surgical History History of cardiac catheterization (~03/2018) History of removal of cyst Family History (Updated 06/10/23 @ 15:05 by YADY Clarke) Father CVD (cardiovascular disease) S/P triple vessel bypass Mother Stroke CVD (cardiovascular disease) Brother No problems noted. Sister No problems noted. Sister No problems noted. Sister No problems noted. Sister No problems noted. Son No problems noted. Daughter No problems noted. Other Substance abuse Social History Household Members: Significant Other Housing: House Are you a primary career placement specialist to a significant other at home: No Do you presently have visiting nurse or other home services: No Alcohol intake: former Comment: aware of trip hazard Patient Tobacco Use Status: Former Tobacco user Quit Date: 2017 Tobacco use type: Cigarette Years Smoked: 30 e-Cigarette/Vaping Use: Never Used Second Hand Smoke Exposure: No Substance Use Type: Marijuana service: No Current occupational status: employed Current occupation: [employer] Cognitive needs: No Hearing needs: No Vision needs: No Office Procedures Cardiac Device Check Cardiac Device Check Details: Date of service- 06/17/2023; based on impedance data and physiological variables, there is no evidence of worsening congestive heart failure. [id number] Cardiac Device Interrogation, cardio physiologic monitor Procedure code (CPT) selection complete Assessment & Plan Assessment & Plan (1) NICM (nonischemic cardiomyopathy): Code(s): I42.8 - Other cardiomyopathies Plan x Coding Level of Care Code Procedure Only Diagnoses NICM (nonischemic cardiomyopathy) I42.8 CPT Codes Cardiac Device Check - Cardiac Device 15: [id number] Cardiac Device Interrogation, cardio physiologic monitor ([id number])
== END ==
PROVIDERS: PCP Family Medicine; Visit Provider Internal Medicine
DX: I42.8 Other cardiomyopathies (principal)
CPT/HCPCS: 93297

== ENCOUNTER 2023-06-25 15:26 | Outpatient (AMB) | payer OTHER, SELFPAY ==
--- NOTE | 2023-06-25 15:31 | MHC.OFFVISCO ---
Intake Intake Visit Reasons: Anticoagulation Allergies No Known Allergies [No Known Allergies*] Allergy (Verified 06/25/23 15:27) Medication List - Last Reconciled 06/25/23 by Amna Tierney RN acetaminophen 650 mg (2 x 325 mg) PO Q6H PRN 30 days atorvastatin 10 mg PO DAILY atorvastatin 20 mg PO DAILY dapagliflozin propanediol (Farxiga) 10 mg PO DAILY metformin 500 mg PO DAILY metoprolol succinate ER 12.5 mg (1/2 x 25 mg) PO DAILY [raised toliet seat As directed] sacubitril-valsartan 24-26 mg (Entresto) 1 tab PO BID spironolactone 25 mg PO DAILY walker Folding front wheeled walker warfarin 5 mg See Protocol PO 4XW 90 days Nursing Note INR: 2.0 in therapeutic range of 2-3 Medications and supplements reviewed: no changes No changes in health, diet, medications, or supplements, Denies any signs and symptoms of bleeding or bruising or clotting. Bleeding, bruising, clotting discussed Nutritional guidance given to avoid greens today and to have a serving of food from the reds side today and tomorrow then to balance greens and reds Dose: cont usual dose of 2.5mg X3 days and 5mg X 4 days F/U INR: 4 weeks Patient verbalizes understanding of instructions given Anti-Coag Initial Assessment Social Hx Patient Tobacco Use Status: Former Tobacco user Quit Date: 2017 Tobacco use type: Cigarette alcohol intake: former Alcohol intake frequency: former alcohol drinker Coding Level of Care Code Est Patient Level 1 Diagnoses Current use of anticoagulant therapy Z79.01 Results AMB INR Fingerstick AMB INR Fingerstick 2.0 Last Edit by Amna Tierney RN on 06/25/23 15:34 INTERFACE DELAY Assessment & Plan Assessment & Plan (1) Current use of anticoagulant therapy: Code(s): Z79.01 - [facility] (current) use of 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
[2023-06-25 15:36] LABS: Prothrombin Time Whole Bld POC 23.9 sec (11.1-13.5)
== END 2023-06-25 15:47 | disposition home or self-care (01) ==
LOC: HO.ACS 15:26
PROVIDERS: PCP Family Medicine; Visit Provider Internal Medicine
DX: Z79.01 Long term (current) use of anticoagulants (principal)

== ENCOUNTER → 2023-06-25 15:26 | Outpatient (BNVA) | payer OTHER, SELFPAY | PROVIDERS: PCP Family Medicine; Visit Provider Internal Medicine | DX: Z86.73 Personal history of transient ischemic attack (TIA), and cerebral infarction without residual deficits (principal); Z51.81 Encounter for therapeutic drug level monitoring; Z79.01 Long term (current) use of anticoagulants | CPT/HCPCS: 85610; 99211 ==

== ENCOUNTER 2023-07-15 14:50 | Outpatient (AMB) | payer OTHER, SELFPAY ==
[2023-07-15 14:53] VITALS: BP 110/66; PULSE 78; BMI 33.2
--- NOTE | 2023-07-15 14:53 | MHC.OFFVIS ---
Vital Signs 07/15/23 14:53 Height 5 ft 10 in Weight 231 lb 7.766 oz BMI 33.2 BP 110/66 Blood Pressure Location Lt brachial Position Sitting Pulse 78 Intake Visit Reasons: 6 mth f/up Intake Note: 6 month follow-up feeling good Featheredge Machine Operator Required: No Allergies No Known Allergies [No Known Allergies*] Allergy (Verified 06/25/23 15:27) Medication List - Last Reconciled 07/15/23 by García Patterson MD acetaminophen 650 mg (2 x 325 mg) PO Q6H PRN 30 days atorvastatin 10 mg PO DAILY atorvastatin 20 mg PO DAILY dapagliflozin propanediol (Farxiga) 10 mg PO DAILY metformin 500 mg PO DAILY metoprolol succinate ER 12.5 mg (1/2 x 25 mg) PO DAILY [raised toliet seat As directed] sacubitril-valsartan 24-26 mg (Entresto) 1 tab PO BID spironolactone 25 mg PO DAILY walker Folding front wheeled walker warfarin 5 mg See Protocol PO 4XW 90 days HPI Comments Details: Skyler is here for follow-up regarding cardiomyopathy. To recall, in 2018, he was admitted for complaints of difficulty speaking and generalized weakness. Found to have acute stroke. Full recovery. Echocardiogram then showed a markedly diminished LVEF. Thought to have cardioembolic stroke. He had a long history of smoking and excessive alcohol use but has stopped since. Cardiac catheterization without any CAD. He has had a Bi V ICD since then and overall doing well. Overall, seems to be getting along fine. No complaints like angina or shortness of breath or in fact anything cardiac sounding. No limitations in lifestyle. [facility] Medical History Anemia Osteoarthritis of right hip Biventricular ICD (implantable cardioverter-defibrillator) in place Pacemaker Obesity (BMI 30-39.9) KIERRA (obstructive sleep apnea) LBBB (left bundle branch block) 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 Sister No problems noted. Sister No problems noted. Sister No problems noted. Sister No problems noted. Son No problems noted. Daughter No problems noted. Other Substance abuse Social History Household Members: Significant Other Housing: House Are you a primary director career services to a significant other at home: No Do you presently have visiting nurse or other home services: No Alcohol intake: former Comment: aware of trip hazard Patient Tobacco Use Status: Former Tobacco user Quit Date: 2017 Tobacco use type: Cigarette Years Smoked: 30 e-Cigarette/Vaping Use: Never Used Second Hand Smoke Exposure: No Substance Use Type: Marijuana service: No Current occupational status: employed Current occupation: [employer] Cognitive needs: No Hearing needs: No Vision needs: No Review of Systems Const Denies chills, Denies fatigue, Denies fever(s), Denies frequent falls, Denies weakness, Denies weight gain and Denies weight loss ENT Denies dizziness Card Denies chest pain, Denies leg edema, Denies lightheadedness, Denies palpitations, Denies dyspnea, Denies dyspnea on exertion, Denies orthopnea and Denies other (loss of consciousness) Resp Denies cough, Denies dyspnea and Denies dyspnea on exertion GI Denies hematochezia and Denies change in stool character Musc Denies abnormal gait, Denies muscle weakness, Denies numbness, Denies radiating pain into limb and Denies tingling Neuro Denies abnormal gait, Denies dizziness, Denies frequent falls, Denies numbness, Denies tingling and Denies weakness Endo Denies fatigue and Denies palpitations Physical Exam Vital Signs: Last Vital Signs Pulse 78 07/15/23 14:53 BP 110/66 07/15/23 14:53 BMI result Body Mass Index 33.2 Const General: comfortable and no acute distress Orientation/consciousness: patient oriented x3 HEENT Other: Unremarkable Head: Yes normal to inspection Neck Neck: Yes normal visual inspection Chest Chest palpation & inspection: normal inspection of the chest Resp Auscultation: clear to auscultation bilaterally Cardio Palpation: normal PMI Heart sounds: S1 normal heart sound present, S2 normal heart sound present, no gallops, no murmurs and no rubs GI Palpation (GI): Soft to palpation Back/Spine/Pelvis Other: unremarkable Skin General skin exam: no rashes or lesions noted Neuro General: patient oriented x3 Extrem General: Yes normal to inspection Psych Mental Status: mental status grossly normal Assessment & Plan Assessment & Plan (1) NICM (nonischemic cardiomyopathy): Code(s): I42.8 - Other cardiomyopathies Category: Medical Plan: In the past, LVEF as low as 10-15%. Most recently 33%. Continue metoprolol ER, Entresto, spironolactone, Farxiga. Clinically, euvolemic. 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 No significant disease in the carotids. Continue anticoagulation. (3) LBBB (left bundle branch block): Code(s): I44.7 - Left bundle-branch block, unspecified Category: Medical Plan: Status post bi V ICD. (4) PAF (paroxysmal atrial fibrillation): Code(s): I48.0 - Paroxysmal atrial fibrillation Category: Medical Plan: Very brief episodes on ICD interrogation. Nothing clinically significant. Continue anticoagulation. (5) KIERRA (obstructive sleep apnea): Code(s): G47.33 - Obstructive sleep apnea (adult) (pediatric) Category: Medical Plan: Continue CPAP. Coding Level of Care Code Est Pt Level 4 (97009) Diagnoses NICM (nonischemic cardiomyopathy) I42.8 Cerebrovascular accident (CVA) due to embolism of cerebral artery I63.40 LBBB (left bundle branch block) I44.7 PAF (paroxysmal atrial fibrillation) I48.0 KIERRA (obstructive sleep apnea) G47.33
== END 2023-07-15 15:11 | disposition home or self-care (01) ==
PROVIDERS: PCP Family Medicine; Visit Provider Internal Medicine
DX: I42.8 Other cardiomyopathies (principal); I63.40 Cerebral infarction due to embolism of unspecified cerebral artery; I44.7 Left bundle-branch block, unspecified; I48.0 Paroxysmal atrial fibrillation; G47.33 Obstructive sleep apnea (adult) (pediatric)
CPT/HCPCS: 99214

== ENCOUNTER → 2023-07-15 14:50 | Outpatient (BNVA) | payer OTHER, SELFPAY | PROVIDERS: PCP Family Medicine; Visit Provider Internal Medicine ==

== ENCOUNTER → 2023-07-19 23:59 | Outpatient (BNV) | payer OTHER, SELFPAY ==
--- NOTE | 2023-07-22 13:02 | A.OFFVIS_ITS ---
Intake Visit Reasons: Remote HF monitoring- Medtronic Allergies No Known Allergies [No Known Allergies*] Allergy (Verified 06/25/23 15:27) [facility] Medical History Anemia Osteoarthritis of right hip Biventricular ICD (implantable cardioverter-defibrillator) in place Pacemaker Obesity (BMI 30-39.9) KIERRA (obstructive sleep apnea) LBBB (left bundle branch block) 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 Sister No problems noted. Sister No problems noted. Sister No problems noted. Sister No problems noted. Son No problems noted. Daughter No problems noted. Other Substance abuse Social History Household Members: Significant Other Housing: House Are you a primary neonatal intensive care unit nurse to a significant other at home: No Do you presently have visiting nurse or other home services: No Alcohol intake: former Comment: aware of trip hazard Patient Tobacco Use Status: Former Tobacco user Quit Date: 2017 Tobacco use type: Cigarette Years Smoked: 30 e-Cigarette/Vaping Use: Never Used Second Hand Smoke Exposure: No Substance Use Type: Marijuana service: No Current occupational status: employed Current occupation: [employer] Cognitive needs: No Hearing needs: No Vision needs: No Office Procedures Cardiac Device Check Cardiac Device Check Details: Remote pacemaker report generated 07/19/2023. Pacemaker function is adequate [id number] Cardiac Device Interrogation, pacemaker Procedure code (CPT) selection complete Coding CPT Codes Cardiac Device Check - Cardiac Device 12: [id number] Cardiac Device Interrogation, pacemaker ([id number])
--- NOTE | 2023-07-23 21:14 | A.OFFVIS_ITS ---
Intake Visit Reasons: Remote HF monitoring- [employer] Allergies No Known Allergies [No Known Allergies*] Allergy (Verified 06/25/23 15:27) [facility] Medical History Anemia Osteoarthritis of right hip Biventricular ICD (implantable cardioverter-defibrillator) in place Pacemaker Obesity (BMI 30-39.9) KIERRA (obstructive sleep apnea) LBBB (left bundle branch block) 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 Sister No problems noted. Sister No problems noted. Sister No problems noted. Sister No problems noted. Son No problems noted. Daughter No problems noted. Other Substance abuse Social History Household Members: Significant Other Housing: House Are you a primary post acute care nurse practitioner to a significant other at home: No Do you presently have visiting nurse or other home services: No Alcohol intake: former Comment: aware of trip hazard Patient Tobacco Use Status: Former Tobacco user Quit Date: 2017 Tobacco use type: Cigarette Years Smoked: 30 e-Cigarette/Vaping Use: Never Used Second Hand Smoke Exposure: No Substance Use Type: Marijuana service: No Current occupational status: employed Current occupation: [employer] Cognitive needs: No Hearing needs: No Vision needs: No Office Procedures Cardiac Device Check Cardiac Device Check Details: Date of service- 07/19/2023; based on impedance data and physiological variables, there is no evidence of worsening congestive heart failure. [id number] Cardiac Device Interrogation, cardio physiologic monitor Procedure code (CPT) selection complete Assessment & Plan Assessment & Plan (1) NICM (nonischemic cardiomyopathy): Code(s): I42.8 - Other cardiomyopathies Category: Medical Plan x Coding Level of Care Code Procedure Only Diagnoses NICM (nonischemic cardiomyopathy) I42.8 CPT Codes Cardiac Device Check - Cardiac Device 15: [id number] Cardiac Device Interrogation, cardio physiologic monitor ([id number])
== END ==
PROVIDERS: PCP Family Medicine; Visit Provider Internal Medicine
DX: I42.8 Other cardiomyopathies (principal); Z95.810 Presence of automatic (implantable) cardiac defibrillator
CPT/HCPCS: 93297

== ENCOUNTER 2023-07-28 15:18 | Outpatient (AMB) | payer OTHER, SELFPAY ==
--- NOTE | 2023-07-28 15:22 | MHC.OFFVISCO ---
Intake Intake Visit Reasons: Anticoagulation Allergies No Known Allergies [No Known Allergies*] Allergy (Verified 07/28/23 15:19) Medication List - Last Reconciled 07/28/23 by Luli Thomas RN acetaminophen 650 mg (2 x 325 mg) PO Q6H PRN 30 days atorvastatin 10 mg PO DAILY atorvastatin 20 mg PO DAILY dapagliflozin propanediol (Farxiga) 10 mg PO DAILY metformin 500 mg PO DAILY metoprolol succinate ER 12.5 mg (1/2 x 25 mg) PO DAILY [raised toliet seat As directed] sacubitril-valsartan 24-26 mg (Entresto) 1 tab PO BID spironolactone 25 mg PO DAILY walker Folding front wheeled walker warfarin 5 mg See Protocol PO 4XW 90 days Nursing Note INR: 2.2- in therapeutic range of 2-3 Medications and supplements reviewed- no changes No changes in health, diet, medications, or supplements, Denies any signs and symptoms of bleeding or bruising or clotting. Bleeding, bruising, clotting discussed Nutritional guidance given Dose: 2.5mg x 3, 5mg x 4 F/U INR: 4 weeks Patient verbalizes understanding of instructions given Anti-Coag Initial Assessment Social Hx Patient Tobacco Use Status: Former Tobacco user Quit Date: 2017 Tobacco use type: Cigarette alcohol intake: former Alcohol intake frequency: former alcohol drinker Coding Level of Care Code Est Patient Level 1 Diagnoses Current use of anticoagulant therapy Z79.01 Results AMB INR Fingerstick AMB INR Fingerstick 2.2 Last Edit by Luli Thomas RN on 07/28/23 15:24 Assessment & Plan Assessment & Plan (1) Current use of anticoagulant therapy: Code(s): Z79.01 - prison (current) use of 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
[2023-07-28 15:25] LABS: Prothrombin Time Whole Bld POC 26.4 sec (11.1-13.5); ~PT, ~INR - Anti Coag Clinic 2.2 (0.9-1.1)
== END 2023-07-28 15:30 | disposition home or self-care (01) ==
LOC: HO.ACS 15:18
PROVIDERS: PCP Family Medicine; Visit Provider Internal Medicine
DX: Z79.01 Long term (current) use of anticoagulants (principal)

== ENCOUNTER → 2023-07-28 15:18 | Outpatient (BNVA) | payer OTHER, SELFPAY | PROVIDERS: PCP Family Medicine; Visit Provider Internal Medicine | DX: Z86.73 Personal history of transient ischemic attack (TIA), and cerebral infarction without residual deficits (principal); Z51.81 Encounter for therapeutic drug level monitoring; Z79.01 Long term (current) use of anticoagulants | CPT/HCPCS: 85610; 99211 ==

== ENCOUNTER → 2023-08-20 23:59 | Outpatient (BNV) | payer OTHER, SELFPAY ==
--- NOTE | 2023-08-23 14:29 | A.OFFVIS_ITS ---
Intake Visit Reasons: remote ICD -medtronic Allergies No Known Allergies [No Known Allergies*] Allergy (Verified 07/28/23 15:19) [facility] Medical History Anemia Osteoarthritis of right hip Biventricular ICD (implantable cardioverter-defibrillator) in place Pacemaker Obesity (BMI 30-39.9) KIERRA (obstructive sleep apnea) LBBB (left bundle branch block) 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 Sister No problems noted. Sister No problems noted. Sister No problems noted. Sister No problems noted. Son No problems noted. Daughter No problems noted. Other Substance abuse Social History Household Members: Significant Other Housing: House Are you a primary clinical care coordinator to a significant other at home: No Do you presently have visiting nurse or other home services: No Alcohol intake: former Comment: aware of trip hazard Patient Tobacco Use Status: Former Tobacco user Tobacco use type: Cigarette Years Smoked: 30 e-Cigarette/Vaping Use: Never Used Second Hand Smoke Exposure: No Substance Use Type: Marijuana service: No Current occupational status: employed Current occupation: [employer] Cognitive needs: No Hearing needs: No Vision needs: No Office Procedures Cardiac Device Check Cardiac Device Check Details: Date of service 08/20/2023; Battery life 20 months; normal lead parameters; no treated VT/VF; adequte biv pacing; brief atrial fibrillation; normal ICD function. [id number] Cardiac Interrogation, implant defibrillator w/interim Procedure code (CPT) selection complete Assessment & Plan Assessment & Plan (1) NICM (nonischemic cardiomyopathy): Code(s): I42.8 - Other cardiomyopathies Category: Medical Plan x Coding Level of Care Code Procedure Only Diagnoses NICM (nonischemic cardiomyopathy) I42.8 CPT Codes Cardiac Device Check - Cardiac Device 13: [id number] Cardiac Interrogation, implant defibrillator w/interim ([id number])
== END ==
PROVIDERS: PCP Family Medicine; Visit Provider Internal Medicine
DX: I42.8 Other cardiomyopathies (principal); Z95.810 Presence of automatic (implantable) cardiac defibrillator
CPT/HCPCS: 93295

== ENCOUNTER → 2023-08-20 23:59 | Outpatient (BNV) | payer OTHER, SELFPAY ==
--- NOTE | 2023-08-23 14:27 | MHC.OFFVIS ---
Intake Visit Reasons: Remote HF monitoring- [employer] Allergies No Known Allergies [No Known Allergies*] Allergy (Verified 07/28/23 15:19) [facility] Medical History Anemia Osteoarthritis of right hip Biventricular ICD (implantable cardioverter-defibrillator) in place Pacemaker Obesity (BMI 30-39.9) KIERRA (obstructive sleep apnea) LBBB (left bundle branch block) 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 Sister No problems noted. Sister No problems noted. Sister No problems noted. Sister No problems noted. Son No problems noted. Daughter No problems noted. Other Substance abuse Social History Household Members: Significant Other Housing: House Are you a primary director critical care to a significant other at home: No Do you presently have visiting nurse or other home services: No Alcohol intake: former Comment: aware of trip hazard Patient Tobacco Use Status: Former Tobacco user Tobacco use type: Cigarette Years Smoked: 30 e-Cigarette/Vaping Use: Never Used Second Hand Smoke Exposure: No Substance Use Type: Marijuana service: No Current occupational status: employed Current occupation: [employer] Cognitive needs: No Hearing needs: No Vision needs: No Office Procedures Cardiac Device Check Cardiac Device Check Details: Date of service- 08/20/2023; based on impedance data and physiological variables, there is no evidence of worsening congestive heart failure. [id number] Cardiac Device Interrogation, cardio physiologic monitor Procedure code (CPT) selection complete Assessment & Plan Assessment & Plan (1) Cardiomyopathy: Code(s): I42.9 - Cardiomyopathy, unspecified Category: Medical Plan x Coding Level of Care Code Procedure Only Diagnoses Cardiomyopathy I42.9 CPT Codes Cardiac Device Check - Cardiac Device 15: [id number] Cardiac Device Interrogation, cardio physiologic monitor ([id number])
== END ==
PROVIDERS: PCP Family Medicine; Visit Provider Internal Medicine
DX: I42.9 Cardiomyopathy, unspecified (principal); Z95.810 Presence of automatic (implantable) cardiac defibrillator
CPT/HCPCS: 93297

== ENCOUNTER 2023-08-25 15:33 | Outpatient (AMB) | payer OTHER, SELFPAY ==
[2023-08-25 15:39] LABS: Prothrombin Time Whole Bld POC 29.7 sec (11.1-13.5); ~PT, ~INR - Anti Coag Clinic 2.5 (0.9-1.1)
--- NOTE | 2023-08-25 15:39 | MHC.OFFVISCO ---
Intake Intake Visit Reasons: Anticoagulation Allergies No Known Allergies [No Known Allergies*] Allergy (Verified 08/25/23 15:33) Medication List - Last Reconciled 08/25/23 by Luli Thomas RN acetaminophen 650 mg (2 x 325 mg) PO Q6H PRN 30 days atorvastatin 10 mg PO DAILY atorvastatin 20 mg PO DAILY dapagliflozin propanediol (Farxiga) 10 mg PO DAILY metformin 500 mg PO DAILY metoprolol succinate ER 12.5 mg (1/2 x 25 mg) PO DAILY [raised toliet seat As directed] sacubitril-valsartan 24-26 mg (Entresto) 1 tab PO BID spironolactone 25 mg PO DAILY walker Folding front wheeled walker warfarin 5 mg See Protocol PO 4XW 90 days Nursing Note INR: 2.5- in therapeutic range of 2-3 Medications and supplements reviewed- no changes No changes in health, diet, medications, or supplements, Denies any signs and symptoms of bleeding or bruising or clotting. 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
== END 2023-08-25 16:06 | disposition home or self-care (01) ==
LOC: HO.ACS 15:33
PROVIDERS: PCP Family Medicine; Visit Provider Internal Medicine
DX: Z79.01 Long term (current) use of anticoagulants (principal)

== ENCOUNTER → 2023-08-25 15:33 | Outpatient (BNVA) | payer OTHER, SELFPAY | PROVIDERS: PCP Family Medicine; Visit Provider Internal Medicine | DX: Z86.73 Personal history of transient ischemic attack (TIA), and cerebral infarction without residual deficits (principal); Z51.81 Encounter for therapeutic drug level monitoring; Z79.01 Long term (current) use of anticoagulants | CPT/HCPCS: 85610; 99211 ==

== ENCOUNTER 2023-09-02 15:35 | Outpatient (AMB) | payer OTHER, SELFPAY ==
[2023-09-02 15:39] VITALS: BP 120/60; PULSE 77; O2SAT 97; BMI 32.2
--- NOTE | 2023-09-02 15:39 | MHC.PC.OV ---
Vital Signs 09/02/23 15:39 Height 5 ft 10 in Weight 224 lb 8 oz BMI 32.2 BP 120/60 Blood Pressure Location Lt brachial Position Sitting Pulse 77 Pulse Source Pulse Oximeter Pulse Oximetry (%) 97 Oxygen Delivery Method Room Air Intake Visit Reasons: f/u hypertension, diabetes and chronic conditions Intake Note: Patient si here to follow up on hypertension, diabetes, and chronic conditions. Patient would like refill on the coumadin. Allergies No Known Allergies [No Known Allergies*] Allergy (Verified 09/02/23 15:42) Medication List - Last Reconciled 09/02/23 by Richard Calles MD acetaminophen 650 mg (2 x 325 mg) PO Q6H PRN 30 days atorvastatin 10 mg PO DAILY atorvastatin 20 mg PO DAILY dapagliflozin propanediol (Farxiga) 10 mg PO DAILY metformin 500 mg PO DAILY metoprolol succinate ER 12.5 mg (1/2 x 25 mg) PO DAILY [raised toliet seat As directed] sacubitril-valsartan 24-26 mg (Entresto) 1 tab PO BID spironolactone 25 mg PO DAILY walker Folding front wheeled walker warfarin 5 mg See Protocol PO 4XW 90 days Tobacco use date assessed: 09/02/23 Dental Screening Dental Screen Date: 06/10/23 HPI f/u hypertension, diabetes and chronic conditions HPI Details 62 y/o male presents to f/u hypertension, diabetes, chronic conditions. Blood pressure today 120/60. He is on spironolactone 25mg, metoprolol 12.5mg daily. A1c today 09/02/23 is 6.2%. He is on metformin 500mg daily. [facility] Medical History Anemia Osteoarthritis of right hip Biventricular ICD (implantable cardioverter-defibrillator) in place Pacemaker Obesity (BMI 30-39.9) KIERRA (obstructive sleep apnea) LBBB (left bundle branch block) 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 Sister No problems noted. Sister No problems noted. Sister No problems noted. Sister No problems noted. Son No problems noted. Daughter No problems noted. Other Substance abuse Social History Household Members: Significant Other Housing: House Are you a primary day care home provider to a significant other at home: No Do you presently have visiting nurse or other home services: No Alcohol intake: former Comment: aware of trip hazard Patient Tobacco Use Status: Former Tobacco user Tobacco use type: Cigarette Years Smoked: 30 e-Cigarette/Vaping Use: Never Used Second Hand Smoke Exposure: No Substance Use Type: Marijuana service: No Current occupational status: employed Current occupation: [employer] Cognitive needs: No Hearing needs: No Vision needs: No Questionnaire Thrive Questionnaire Date Thrive assessed: 12/25/20 NEVIN-7 AMB Questionnaire NEVIN-7 Date NEVIN - 7 assessed: 03/10/22 Source: Developed by Drs. Mir Thomas, Ann Marie Alcantar, Jorden Guzmán and colleagues, with an educational audrey from [employer]. Physical exam (Primary Care) Vital Signs: Last Vital Signs Pulse 77 09/02/23 15:39 BP 120/60 09/02/23 15:39 Pulse Ox 97 09/02/23 15:39 Oxygen Delivery Method Room Air 09/02/23 15:39 BMI result Body Mass Index 32.2 Tobacco/Smoking Status: Tobacco use Status Tobacco use date assessed 09/02/23 09/02/23 15:47 Patient Tobacco Use Status Former Tobacco user 09/02/23 15:41 Tobacco use type Cigarette 09/02/23 15:41 e-Cigarette/Vaping Use Never Used 09/02/23 15:41 Thrive Assessment: Date of Thrive Assessment Date Thrive assessed 12/25/20 09/02/23 15:41 Results AMB Hemoglobin A1c AMB Hemoglobin A1c 6.2 % Last Edit by Linda Morton CMA on 09/02/23 15:59 Assessment and Plan Assessment & Plan (1) Essential hypertension: Code(s): I10 - Essential (primary) hypertension Plan: Blood?pressure?is?well?controlled.??Goal?is?less?than?130/80?for?patient?with?history?of?cardiomyopathy Continue?current?medication?regimen (2) Diabetes: Code(s): E11.9 - Type 2 diabetes mellitus without complications Plan: A1c?6.2%?represents?good?control.??Goal?is?less?than?7.0% Continue?current?medication?regimen Continue?diabetic?diet Patient?is?overdue?for?eye?exam?and?he?will?try?to?make?a?call?or?set?up?an?appointment?with?an?eye?doctor. If?he?is?having?difficulty?he?will?let?me?know?and?I?will?make?the?referral. Orders: Orders AMB Hemoglobin A1c Today Z13.9 - Encounter for screening, unspecified Medications: Refilled warfarin warfarin 5mg 4x week, 2.5mg 3 x week 5 mg See Protocol PO 4XW 90 days 66 tabs 3RF Coding Level of Care Code Est Pt Level 3 (80531) Diagnoses Essential hypertension I10 Diabetes E11.9
== END 2023-09-02 16:06 | disposition home or self-care (01) ==
PROVIDERS: PCP Family Medicine; Visit Provider Family Medicine
DX: I10 Essential (primary) hypertension (principal); E11.9 Type 2 diabetes mellitus without complications
CPT/HCPCS: 83036; 99213

== ENCOUNTER → 2023-09-21 23:59 | Outpatient (BNV) | payer OTHER, SELFPAY ==
--- NOTE | 2023-09-27 11:14 | MHC.OFFVIS ---
Intake Visit Reasons: Remote HF monitoring- [employer] Allergies No Known Allergies [No Known Allergies*] Allergy (Verified 09/22/23 15:27) [facility] Medical History Anemia Osteoarthritis of right hip Biventricular ICD (implantable cardioverter-defibrillator) in place Pacemaker Obesity (BMI 30-39.9) KIERRA (obstructive sleep apnea) LBBB (left bundle branch block) 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 Sister No problems noted. Sister No problems noted. Sister No problems noted. Sister No problems noted. Son No problems noted. Daughter No problems noted. Other Substance abuse Social History Household Members: Significant Other Housing: House Are you a primary health care facilities inspector to a significant other at home: No Do you presently have visiting nurse or other home services: No Alcohol intake: former Comment: aware of trip hazard Patient Tobacco Use Status: Former Tobacco user Tobacco use type: Cigarette Years Smoked: 30 e-Cigarette/Vaping Use: Never Used Second Hand Smoke Exposure: No Substance Use Type: Marijuana service: No Current occupational status: employed Current occupation: [employer] Cognitive needs: No Hearing needs: No Vision needs: No Office Procedures Cardiac Device Check Cardiac Device Check Details: Date of service- 09/21/2023; based on impedance data and physiological variables, there is no evidence of worsening congestive heart failure. [id number] Cardiac Device Interrogation, cardio physiologic monitor Procedure code (CPT) selection complete Assessment & Plan Assessment & Plan (1) NICM (nonischemic cardiomyopathy): Code(s): I42.8 - Other cardiomyopathies Category: Medical Plan x Coding Level of Care Code Procedure Only Diagnoses NICM (nonischemic cardiomyopathy) I42.8 CPT Codes Cardiac Device Check - Cardiac Device 15: [id number] Cardiac Device Interrogation, cardio physiologic monitor ([id number])
== END ==
PROVIDERS: PCP Family Medicine; Visit Provider Internal Medicine
DX: I42.8 Other cardiomyopathies (principal); Z95.810 Presence of automatic (implantable) cardiac defibrillator
CPT/HCPCS: 93297

== ENCOUNTER 2023-09-22 15:26 | Outpatient (AMB) | payer OTHER, SELFPAY ==
--- NOTE | 2023-09-22 15:33 | MHC.OFFVISCO ---
Intake Intake Visit Reasons: Anticoagulation Allergies No Known Allergies [No Known Allergies*] Allergy (Verified 09/22/23 15:27) Medication List - Last Reconciled 09/22/23 by Luli Thomas RN acetaminophen 650 mg (2 x 325 mg) PO Q6H PRN 30 days atorvastatin 10 mg PO DAILY atorvastatin 20 mg PO DAILY dapagliflozin propanediol (Farxiga) 10 mg PO DAILY metformin 500 mg PO DAILY metoprolol succinate ER 12.5 mg (1/2 x 25 mg) PO DAILY [raised toliet seat As directed] sacubitril-valsartan 24-26 mg (Entresto) 1 tab PO BID spironolactone 25 mg PO DAILY walker Folding front wheeled walker warfarin 5 mg See Protocol PO 4XW 90 days Nursing Note INR: 2.0- in therapeutic range of 2-3 Medications and supplements reviewed- no changes No changes in health, diet, medications, or supplements, pt states took warfarin in am one day instead of pm Denies any signs and symptoms of bleeding or bruising or clotting. Bleeding, bruising, clotting discussed Nutritional guidance given - no greens for 2 days, eat a red today Dose: 2.5mg x 3 5mg x 4 F/U INR: 4 weeks Patient verbalizes understanding of instructions given Anti-Coag Initial Assessment Social Hx Patient Tobacco Use Status: Former Tobacco user Tobacco use type: Cigarette alcohol intake: former Alcohol intake frequency: former alcohol drinker Coding Level of Care Code Est Patient Level 1 Diagnoses Current use of anticoagulant therapy Z79.01 Assessment & Plan Assessment & Plan (1) Current use of anticoagulant therapy: Code(s): Z79.01 - group home (current) use of 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
[2023-09-22 15:34] LABS: Prothrombin Time Whole Bld POC 23.8 sec (11.1-13.5)
== END 2023-09-22 15:39 | disposition home or self-care (01) ==
LOC: HO.ACS 15:26
PROVIDERS: PCP Family Medicine; Visit Provider Internal Medicine
DX: Z79.01 Long term (current) use of anticoagulants (principal)

== ENCOUNTER → 2023-09-22 15:26 | Outpatient (BNVA) | payer OTHER, SELFPAY | PROVIDERS: PCP Family Medicine; Visit Provider Internal Medicine | DX: Z86.73 Personal history of transient ischemic attack (TIA), and cerebral infarction without residual deficits (principal); Z51.81 Encounter for therapeutic drug level monitoring; Z79.01 Long term (current) use of anticoagulants | CPT/HCPCS: 85610; 99211 ==

== ENCOUNTER 2023-10-01 15:18 | Outpatient (AMB) | payer OTHER, SELFPAY ==
[2023-10-01 15:21] VITALS: BP 110/62; PULSE 85; O2SAT 96; BMI 32.1
--- NOTE | 2023-10-01 15:21 | A.OFFVIS_ITS ---
Vital Signs 10/01/23 15:21 Height 5 ft 10 in Weight 223 lb 12.307 oz BMI 32.1 BP 110/62 Blood Pressure Location Lt brachial Position Sitting Pulse 85 Pulse Source Pulse Oximeter Pulse Oximetry (%) 96 Oxygen Delivery Method Room Air Intake Visit Reasons: kierra Intake Note: pt is here for follow up and states he is doing well with cpap. Tanning Solution Maker Required: No Allergies No Known Allergies [No Known Allergies*] Allergy (Verified 10/01/23 15:29) Medication List - Last Reconciled 10/01/23 by Rhianna Sorenson MD acetaminophen 650 mg (2 x 325 mg) PO Q6H PRN 30 days atorvastatin 10 mg PO DAILY atorvastatin 20 mg PO DAILY dapagliflozin propanediol (Farxiga) 10 mg PO DAILY metformin 500 mg PO DAILY metoprolol succinate ER 12.5 mg (1/2 x 25 mg) PO DAILY [raised toliet seat As directed] sacubitril-valsartan 24-26 mg (Entresto) 1 tab PO BID spironolactone 25 mg PO DAILY walker Folding front wheeled walker warfarin 5 mg See Protocol PO 4XW 90 days PFSH Medical History Anemia Osteoarthritis of right hip Biventricular ICD (implantable cardioverter-defibrillator) in place Pacemaker Obesity (BMI 30-39.9) KIERRA (obstructive sleep apnea) LBBB (left bundle branch block) 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 Sister No problems noted. Sister No problems noted. Sister No problems noted. Sister No problems noted. Son No problems noted. Daughter No problems noted. Other Substance abuse Social History Household Members: Significant Other Housing: House Are you a primary child care center administrator to a significant other at home: No Do you presently have visiting nurse or other home services: No Alcohol intake: former Comment: aware of trip hazard Patient Tobacco Use Status: Former Tobacco user Tobacco use type: Cigarette Years Smoked: 30 e-Cigarette/Vaping Use: Never Used Second Hand Smoke Exposure: No Substance Use Type: Marijuana service: No Current occupational status: employed Current occupation: [employer] Cognitive needs: No Hearing needs: No Vision needs: No Coding
--- NOTE | 2023-10-01 15:23 | A.OFFVIS_ITS ---
Vital Signs 10/01/23 15:21 Height 5 ft 10 in Weight 223 lb 12.307 oz BMI 32.1 BP 110/62 Blood Pressure Location Lt brachial Position Sitting Pulse 85 Pulse Source Pulse Oximeter Pulse Oximetry (%) 96 Oxygen Delivery Method Room Air Intake Visit Reasons: nik Allergies No Known Allergies [No Known Allergies*] Allergy (Verified 10/01/23 15:29) Medication List - Last Reconciled 10/01/23 by Rhianna Sorenson MD acetaminophen 650 mg (2 x 325 mg) PO Q6H PRN 30 days atorvastatin 10 mg PO DAILY atorvastatin 20 mg PO DAILY dapagliflozin propanediol (Farxiga) 10 mg PO DAILY metformin 500 mg PO DAILY metoprolol succinate ER 12.5 mg (1/2 x 25 mg) PO DAILY [raised toliet seat As directed] sacubitril-valsartan 24-26 mg (Entresto) 1 tab PO BID spironolactone 25 mg PO DAILY walker Folding front wheeled walker warfarin 5 mg See Protocol PO 4XW 90 days Do you need a note to return to daycare/school/sports/work: No HPI HPI nik: Details: TON COMES ONCE A YEAR FOR FOLLOW-UP IN RELATION TO HIS THE OBSTRUCTIVE SLEEP APNEA AND USE OF THE CPAP. HE USES THE CPAP EVERY NIGHT AND SLEEPS GOOD. HE HAS NO ISSUE WITH THE MASK OR CPAP DEVICE. HE WAKES UP REFRESHED. HE STAYS VERY ACTIVE BUT HAS NOT BEEN ABLE TO LOSE MUCH WEIGHT. 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 Sister No problems noted. Sister No problems noted. Sister No problems noted. Sister No problems noted. Son No problems noted. Daughter No problems noted. Other Substance abuse Social History Household Members: Significant Other Housing: House Are you a primary post anesthesia care unit nurse to a significant other at home: No Do you presently have visiting nurse or other home services: No Alcohol intake: former Comment: aware of trip hazard Patient Tobacco Use Status: Former Tobacco user Tobacco use type: Cigarette Years Smoked: 30 e-Cigarette/Vaping Use: Never Used Second Hand Smoke Exposure: No Substance Use Type: Marijuana service: No Current occupational status: employed Current occupation: [employer] Cognitive needs: No Hearing needs: No Vision needs: No Review of Systems Const All systems reviewed & are unremarkable except as noted in HPI and below Eyes Reports no additional complaints ENT Reports no additional complaints Card Denies chest pain, Denies irregular heart rhythm, Denies leg edema and Denies dyspnea on exertion Resp Denies cough, Denies dyspnea on exertion and Denies wheezing GI Reports no additional complaints Musc Reports no additional complaints Neuro Reports no additional complaints Psych Reports no additional complaints Endo Reports no additional complaints Aller/Immun Denies wheezing Physical Exam Const General: healthy appearing (BUT OVERWEIGHT), comfortable, no acute distress, alert and awake Orientation/consciousness: patient oriented x3 HEENT Head: Yes normal to inspection General nose exam: No nasal polyps present and No nasal discharge present Face and sinus: Yes sinuses nontender Mouth: oropharynx normal Throat: Yes posterior oropharynx normal Eyes General: appearance normal, both eyes and all related structures Neck Neck: Yes normal visual inspection, Yes no lymphadenopathy, Yes trachea midline, Yes no JVD and Yes other (Neck size 18-1/2 inch) Thyroid: Thyroid normal Chest Chest palpation & inspection: normal inspection of the chest, normal palpation of entire chest wall and no tenderness Resp Auscultation: clear to auscultation bilaterally, no crackles and no wheezes Cardio Palpation: normal PMI Rate: regular rate Rhythm: regular rhythm Heart sounds: no gallops and no murmurs Peripheral pulses: Peripheral pulses 2+ throughout GI Palpation (GI): Soft to palpation, nontender, No hepatosplenomegaly present and no masses Auscultation: normal bowel sounds Back/Spine/Pelvis Thoracic/Lumbar Spine: thoracic and lumbar spine normal to inspection Skin General skin exam: no rashes or lesions noted Neuro General: patient oriented x3 and no focal motor deficits Cranial nerves: Yes CN's II-XII intact bilaterally Extrem General: Yes normal to inspection, Yes no clubbing, cyanosis or edema and Yes no calf tenderness Psych Appearance: grossly normal and well kempt Speech and movement: Normal speech and movement present Results Reviewed Results Reviewed: COMPLIANCE REPORT FOR THE LAST 30 NIGHTS IS REVIEWED. HIS USAGE HAS BEEN 100% WITH AN AVERAGE USE PER NIGHT OF 8 HOURS 23 MINUTES. PRESSURE SETTING 10 CM, THERE HAS BEEN NO AIR LEAK. RESIDUAL AHI ONLY 2.7 Assessment & Plan Assessment & Plan (1) Obesity (BMI 30-39.9): Comment: PATIENT IS AWARE OF BEING OVERWEIGHT. HE IS NOT ABLE TO DO ANY STRENUOUS PHYSICAL EXERCISE, BUT REMAINS VERY ACTIVE A MAIL CENSOR . Code(s): E66.9 - Obesity, unspecified Category: Medical Plan: DISCUSSED WITH HIM ABOUT THE WEIGHT. I ADVISED HIM TO CUT OUT THE CARBOHYDRATES, ALSO HE SHOULD DO SOME PHYSICAL EXERCISE EVERY DAY (2) NIK (obstructive sleep apnea): Comment: HE IS KNOWN TO HAVE OBSTRUCTIVE SLEEP APNEA WHICH IS WELL TREATED WITH THE USE OF CPAP. TON IS VERY COMPLIANT AND USING THE CPAP, HAS NOTED IN THE COMPLIANCE REPORT. HE GETS NEW SUPPLIES REGULARLY EVERY 6 MONTHS. Code(s): G47.33 - Obstructive sleep apnea (adult) (pediatric) Category: Medical Plan: COMMENDED FOR GOOD COMPLIANCE AND ADVISED TO CONTINUE USING THE CPAP EVERY NIGHT TON COMES ONCE A YEAR FOR HIS FOLLOW-UP. Coding Level of Care Code Est Pt Level 3 (44468) Diagnoses Obesity (BMI 30-39.9) E66.9 NIK (obstructive sleep apnea) G47.33
== END 2023-10-01 15:37 | disposition home or self-care (01) ==
PROVIDERS: PCP Family Medicine; Visit Provider Internal Medicine
DX: E66.9 Obesity, unspecified (principal); G47.33 Obstructive sleep apnea (adult) (pediatric)
CPT/HCPCS: 99213

== ENCOUNTER → 2023-10-01 15:18 | Outpatient (BNVA) | payer OTHER, SELFPAY | PROVIDERS: PCP Family Medicine; Visit Provider Internal Medicine ==

== ENCOUNTER 2023-10-20 15:21 | Outpatient (AMB) | payer OTHER, SELFPAY ==
[2023-10-20 15:32] LABS: Prothrombin Time Whole Bld POC 33.8 sec (11.1-13.5); ~PT, ~INR - Anti Coag Clinic 2.8 (0.9-1.1)
--- NOTE | 2023-10-20 15:36 | MHC.OFFVISCO ---
Intake Intake Visit Reasons: Anticoagulation Allergies No Known Allergies [No Known Allergies*] Allergy (Verified 10/20/23 15:25) Medication List - Last Reconciled 10/20/23 by Kayla Atkins RN acetaminophen 650 mg (2 x 325 mg) PO Q6H PRN 30 days atorvastatin 10 mg PO DAILY atorvastatin 20 mg PO DAILY dapagliflozin propanediol (Farxiga) 10 mg PO DAILY metformin 500 mg PO DAILY metoprolol succinate ER 12.5 mg (1/2 x 25 mg) PO DAILY [raised toliet seat As directed] sacubitril-valsartan 24-26 mg (Entresto) 1 tab PO BID spironolactone 25 mg PO DAILY walker Folding front wheeled walker warfarin 5 mg See Protocol PO 4XW 90 days Nursing Note INR: 2.8 in therapeutic range Medications and supplements reviewed No changes in health, diet, medications, or supplements, Denies any signs and symptoms of bleeding or bruising or clotting. Bleeding, bruising, clotting discussed Nutritional guidance given Dose: KEEP SAME DOSE 2.5MG X 3 DAYS/ 5MG X 4 DAYS F/U INR: 1 MONTH Patient verbalizes understanding of instructions given Anti-Coag Initial Assessment Social Hx Patient Tobacco Use Status: Former Tobacco user Tobacco use type: Cigarette alcohol intake: former Alcohol intake frequency: former alcohol drinker Coding Level of Care Code Est Patient Level 1 Diagnoses Current use of anticoagulant therapy Z79.01 Assessment & Plan Assessment & Plan (1) Current use of anticoagulant therapy: Code(s): Z79.01 - MCC (current) use of 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
== END 2023-10-20 15:39 | disposition home or self-care (01) ==
LOC: HO.ACS 15:21
PROVIDERS: PCP Family Medicine; Visit Provider Internal Medicine
DX: Z79.01 Long term (current) use of anticoagulants (principal)

== ENCOUNTER → 2023-10-20 15:21 | Outpatient (BNVA) | payer OTHER, SELFPAY | PROVIDERS: PCP Family Medicine; Visit Provider Internal Medicine | DX: Z86.73 Personal history of transient ischemic attack (TIA), and cerebral infarction without residual deficits (principal); Z51.81 Encounter for therapeutic drug level monitoring; Z79.01 Long term (current) use of anticoagulants | CPT/HCPCS: 85610; 99211 ==

== ENCOUNTER → 2023-10-22 23:59 | Outpatient (BNV) | payer OTHER, SELFPAY ==
--- NOTE | 2023-10-28 13:05 | A.OFFVIS_ITS ---
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- [employer] Allergies No Known Allergies [No Known Allergies*] Allergy (Verified 10/20/23 15:25) [facility] Medical History Anemia Osteoarthritis of right hip Biventricular ICD (implantable cardioverter-defibrillator) in place Pacemaker Obesity (BMI 30-39.9) KIERRA (obstructive sleep apnea) LBBB (left bundle branch block) 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 Sister No problems noted. Sister No problems noted. Sister No problems noted. Sister No problems noted. Son No problems noted. Daughter No problems noted. Other Substance abuse Social History Household Members: Significant Other Housing: House Are you a primary health care legal assistant to a significant other at home: No Do you presently have visiting nurse or other home services: No Alcohol intake: former Comment: aware of trip hazard Patient Tobacco Use Status: Former Tobacco user Tobacco use type: Cigarette Years Smoked: 30 e-Cigarette/Vaping Use: Never Used Second Hand Smoke Exposure: No Substance Use Type: Marijuana service: No Current occupational status: employed Current occupation: [employer] Cognitive needs: No Hearing needs: No Vision needs: No Office Procedures Cardiac Device Check Cardiac Device Check Details: Date of service- 10/22/2023; based on impedance data and physiological variables, there is no evidence of worsening congestive heart failure. [id number] Cardiac Device Interrogation, cardio physiologic monitor Procedure code (CPT) selection complete Assessment & Plan Assessment & Plan (1) Cardiomyopathy: Code(s): I42.9 - Cardiomyopathy, unspecified Category: Medical Plan x Coding Level of Care Code Procedure Only Diagnoses Cardiomyopathy I42.9 CPT Codes Cardiac Device Check - Cardiac Device 15: [id number] Cardiac Device Interrogation, cardio physiologic monitor ([id number])
== END ==
PROVIDERS: PCP Family Medicine; Visit Provider Internal Medicine
DX: I42.9 Cardiomyopathy, unspecified (principal); Z95.810 Presence of automatic (implantable) cardiac defibrillator
CPT/HCPCS: 93297

== ENCOUNTER 2023-11-17 15:26 | Outpatient (AMB) | payer OTHER, SELFPAY ==
[2023-11-17 15:34] LABS: Prothrombin Time Whole Bld POC 25.2 sec (11.1-13.5); ~PT, ~INR - Anti Coag Clinic 2.1 (0.9-1.1)
--- NOTE | 2023-11-17 15:36 | MHC.OFFVISCO ---
Intake Intake Visit Reasons: Anticoagulation Allergies No Known Allergies [No Known Allergies*] Allergy (Verified 11/17/23 15:27) Medication List - Last Reconciled 11/17/23 by Amna Tierney, RN acetaminophen 650 mg (2 x 325 mg) PO Q6H PRN 30 days atorvastatin 10 mg PO DAILY atorvastatin 20 mg PO DAILY dapagliflozin propanediol (Farxiga) 10 mg PO DAILY metformin 500 mg PO DAILY metoprolol succinate ER 12.5 mg (1/2 x 25 mg) PO DAILY [raised toliet seat As directed] sacubitril-valsartan 24-26 mg (Entresto) 1 tab PO BID spironolactone 25 mg PO DAILY walker Folding front wheeled walker warfarin 5 mg See Protocol PO 4XW 90 days Nursing Note INR: 2.1 in therapeutic range of 2-3 Medications and supplements reviewed No changes in health, diet, medications, or supplements, Denies any signs and symptoms of bleeding or bruising or clotting. Bleeding, bruising, clotting discussed Nutritional guidance given to hold greens today and have a serving of food from the list that raises the INR Dose: 5mg X 4 days and 2.5mg X 3 days (M-W-F) F/U INR: 4 weeks Patient verbalizes understanding of instructions given Anti-Coag Initial Assessment Social Hx Patient Tobacco Use Status: Former Tobacco user Tobacco use type: Cigarette alcohol intake: former Alcohol intake frequency: former alcohol drinker Coding Level of Care Code Est Patient Level 1 Diagnoses Current use of anticoagulant therapy Z79.01 Assessment & Plan Assessment & Plan (1) Current use of anticoagulant therapy: Code(s): 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
== END 2023-11-17 15:47 | disposition home or self-care (01) ==
LOC: HO.ACS 15:26
PROVIDERS: PCP Family Medicine; Visit Provider Internal Medicine
DX: Z79.01 Long term (current) use of anticoagulants (principal)

== ENCOUNTER → 2023-11-17 15:26 | Outpatient (BNVA) | payer OTHER, SELFPAY | PROVIDERS: PCP Family Medicine; Visit Provider Internal Medicine | DX: Z86.73 Personal history of transient ischemic attack (TIA), and cerebral infarction without residual deficits (principal); Z51.81 Encounter for therapeutic drug level monitoring; Z79.01 Long term (current) use of anticoagulants | CPT/HCPCS: 85610; 99211 ==

== ENCOUNTER → 2023-11-23 23:59 | Outpatient (BNV) | payer OTHER, SELFPAY ==
--- NOTE | 2023-11-29 14:13 | A.OFFVIS_ITS ---
Intake Visit Reasons: Remote HF monitoring- [employer] Allergies No Known Allergies [No Known Allergies*] Allergy (Verified 11/17/23 15:27) [facility] Medical History Anemia Osteoarthritis of right hip Biventricular ICD (implantable cardioverter-defibrillator) in place Pacemaker Obesity (BMI 30-39.9) KIERRA (obstructive sleep apnea) LBBB (left bundle branch block) 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 Sister No problems noted. Sister No problems noted. Sister No problems noted. Sister No problems noted. Son No problems noted. Daughter No problems noted. Other Substance abuse Social History Household Members: Significant Other Housing: House Are you a primary home care giver to a significant other at home: No Do you presently have visiting nurse or other home services: No Alcohol intake: former Comment: aware of trip hazard Patient Tobacco Use Status: Former Tobacco user Tobacco use type: Cigarette Years Smoked: 30 e-Cigarette/Vaping Use: Never Used Second Hand Smoke Exposure: No Substance Use Type: Marijuana service: No Current occupational status: employed Current occupation: [employer] Cognitive needs: No Hearing needs: No Vision needs: No Office Procedures Cardiac Device Check Cardiac Device Check Details: Date of service- 11/23/2023; based on impedance data and physiological variables, there is no evidence of worsening congestive heart failure. [id number] Cardiac Device Interrogation, cardio physiologic monitor Procedure code (CPT) selection complete Assessment & Plan Assessment & Plan (1) Cardiomyopathy: Code(s): I42.9 - Cardiomyopathy, unspecified Category: Medical Plan x Coding Level of Care Code Procedure Only Diagnoses Cardiomyopathy I42.9 CPT Codes Cardiac Device Check - Cardiac Device 15: [id number] Cardiac Device Interrogation, cardio physiologic monitor ([id number])
== END ==
PROVIDERS: PCP Family Medicine; Visit Provider Internal Medicine
DX: I42.9 Cardiomyopathy, unspecified (principal); Z95.810 Presence of automatic (implantable) cardiac defibrillator
CPT/HCPCS: 93297

== ENCOUNTER → 2023-11-23 23:59 | Outpatient (BNV) | payer OTHER, SELFPAY ==
--- NOTE | 2023-11-29 14:25 | A.OFFVIS_ITS ---
Intake Visit Reasons: Remote device check- [employer] Allergies No Known Allergies [No Known Allergies*] Allergy (Verified 11/17/23 15:27) [facility] Medical History Anemia Osteoarthritis of right hip Biventricular ICD (implantable cardioverter-defibrillator) in place Pacemaker Obesity (BMI 30-39.9) KIERRA (obstructive sleep apnea) LBBB (left bundle branch block) 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 Sister No problems noted. Sister No problems noted. Sister No problems noted. Sister No problems noted. Son No problems noted. Daughter No problems noted. Other Substance abuse Social History Household Members: Significant Other Housing: House Are you a primary wound care technician to a significant other at home: No Do you presently have visiting nurse or other home services: No Alcohol intake: former Comment: aware of trip hazard Patient Tobacco Use Status: Former Tobacco user Tobacco use type: Cigarette Years Smoked: 30 e-Cigarette/Vaping Use: Never Used Second Hand Smoke Exposure: No Substance Use Type: Marijuana service: No Current occupational status: employed Current occupation: [employer] Cognitive needs: No Hearing needs: No Vision needs: No Office Procedures Cardiac Device Check Cardiac Device Check Details: Date of service 11/23/2023; Battery life 18 months; normal lead parameters; no treated VT/VF; effective ventricular pacing 98%; normal ICD function. [id number] Cardiac Interrogation, implant defibrillator w/interim Procedure code (CPT) selection complete Assessment & Plan Assessment & Plan (1) Cardiomyopathy: Code(s): I42.9 - Cardiomyopathy, unspecified Category: Medical Plan x Coding Level of Care Code Procedure Only Diagnoses Cardiomyopathy I42.9 CPT Codes Cardiac Device Check - Cardiac Device 13: [id number] Cardiac Interrogation, implant defibrillator w/interim ([id number])
== END ==
PROVIDERS: PCP Family Medicine; Visit Provider Internal Medicine
DX: I42.9 Cardiomyopathy, unspecified (principal); Z95.810 Presence of automatic (implantable) cardiac defibrillator
CPT/HCPCS: 93295

== ENCOUNTER 2023-12-01 15:37 | Outpatient (AMB) | payer OTHER, SELFPAY ==
--- NOTE | 2023-12-01 15:38 | A.OFFPC_ITS ---
Vital Signs 12/01/23 15:46 Height 5 ft 10 in Weight 228 lb 4 oz BMI 32.7 BP 132/64 Blood Pressure Location Rt brachial Position Sitting Respiration 14 Pulse 82 Pulse Source Pulse Oximeter Pulse Oximetry (%) 98 Oxygen Delivery Method Room Air Intake Visit Reasons: f/u hypertension, diabetes Intake Note: Follow up htn and diabetes Allergies No Known Allergies [No Known Allergies*] Allergy (Verified 12/01/23 15:45) Medication List - Last Reviewed 12/01/23 by Tere Skinner CMA acetaminophen 650 mg (2 x 325 mg) PO Q6H PRN 30 days atorvastatin 10 mg PO DAILY atorvastatin 20 mg PO DAILY dapagliflozin propanediol (Farxiga) 10 mg PO DAILY metformin 500 mg PO DAILY metoprolol succinate ER 12.5 mg (1/2 x 25 mg) PO DAILY sacubitril-valsartan 24-26 mg (Entresto) 1 tab PO BID spironolactone 25 mg PO DAILY warfarin 5 mg See Protocol PO 4XW 90 days Tobacco use date assessed: 09/02/23 Dental Screening Dental Screen Date: 06/10/23 HPI f/u hypertension, diabetes HPI Details 62 y/o male presents to f/u hypertension , diabetes. Blood pressure today is 132/64. He is on spironolactone 25mg, metoprolol 12.5mg daily. Last A1c 09/02/23 6.2%. He is on metformin 500mg daily. A1c today 12/01/23 is Continues to f/u with Cardiology Dr. Patterson for cardiomyopathy. HPI Comments History of Present Illness Details Documentation assistance for Richard Calles MD, was provided by Juancho Morejon, [employer] on 12/01/2023 at 3:45 PM EST. I, Dr. Calles, have read, observed, and verified documentation. [facility] Medical History Anemia Osteoarthritis of right hip Biventricular ICD (implantable cardioverter-defibrillator) in place Pacemaker Obesity (BMI 30-39.9) KIERRA (obstructive sleep apnea) LBBB (left bundle branch block) 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 Sister No problems noted. Sister No problems noted. Sister No problems noted. Sister No problems noted. Son No problems noted. Daughter No problems noted. Other Substance abuse Social History Household Members: Significant Other Housing: House Are you a primary animal care giver to a significant other at home: No Do you presently have visiting nurse or other home services: No Alcohol intake: former Comment: aware of trip hazard Patient Tobacco Use Status: Former Tobacco user Tobacco use type: Cigarette Years Smoked: 30 e-Cigarette/Vaping Use: Never Used Second Hand Smoke Exposure: No Substance Use Type: Marijuana service: No Current occupational status: employed Current occupation: [employer] Cognitive needs: No Hearing needs: No Vision needs: No Questionnaire Thrive Questionnaire Date Thrive assessed: 12/25/20 NEVIN-7 AMB Questionnaire NEVIN-7 Date NEVIN - 7 assessed: 03/10/22 Source: Developed by Drs. Mir Thomas, Ann Marie Alcantar, Jorden Guzmán and colleagues, with an educational audrey from [employer]. Review of Systems Const Denies chills, Denies fatigue, Denies fever(s), Denies headache(s) and Denies weakness ENT Denies dizziness and Denies headache(s) Card Denies dyspnea Resp Denies cough, Denies dyspnea, Denies wheezing and Denies other (shortness of breath) Musc Denies numbness and Denies tingling Neuro Denies dizziness, Denies headache(s), Denies numbness, Denies tingling and Denies weakness Psych Denies anxiety and Denies depression Endo Denies fatigue Aller/Immun Denies wheezing Physical exam (Primary Care) Vital Signs: Last Vital Signs Pulse 82 12/01/23 15:46 Resp 14 12/01/23 15:46 BP 132/64 12/01/23 15:46 Pulse Ox 98 12/01/23 15:46 Oxygen Delivery Method Room Air 12/01/23 15:46 BMI result Body Mass Index 32.7 Tobacco/Smoking Status: Tobacco use Status Tobacco use date assessed 09/02/23 12/01/23 15:40 Patient Tobacco Use Status Former Tobacco user 12/01/23 15:40 Tobacco use type Cigarette 12/01/23 15:40 e-Cigarette/Vaping Use Never Used 12/01/23 15:40 Thrive Assessment: Date of Thrive Assessment Date Thrive assessed 12/25/20 12/01/23 15:40 Const General: well developed; No acute distress Nutritional Appearance: well nourished Orientation/consciousness: patient oriented x3 HENMT Head: Yes normocephalic and Yes atraumatic Eyes General: appearance normal, both eyes and all related structures Pupils: Equal, round and reactive pupils present EOM: EOMs intact bilaterally Resp Effort & Inspection: normal respiratory effort Auscultation: clear to auscultation bilaterally Cardio Rate: regular rate Rhythm: regular rhythm Heart sounds: S1 normal heart sound present, S2 normal heart sound present, no gallops, no murmurs and no rubs Neuro General: patient oriented x3 and gait normal Cranial nerves: Yes Equal, round and reactive pupils present Psych Affect: normal affect Assessment and Plan Assessment & Plan (1) Essential hypertension: Code(s): I10 - Essential (primary) hypertension Plan: Blood?pressure?is?fairly?well?controlled.??Goal?is?less?than?130/80 Continue?current?medication Work?at?weight?loss Watch?salt/sodium (2) Diabetes: Code(s): E11.9 - Type 2 diabetes mellitus without complications Plan: A1c?today?6.0%?which?is?improved?from?last?visit?at?6.2%.??Good?control.??Goal?i s?less?than?7.0% Continue?current?medications Overdue?for?eye?exam.??Made?a?referral?to?Dr. Gonzalez (3) Cardiomyopathy: Code(s): I42.9 - Cardiomyopathy, unspecified Plan: Stable Follow-up?with?Cardiology?as?recommended (4) Screening for colon cancer: Code(s): Z12.11 - Encounter for screening for malignant neoplasm of colon Plan: Due for colonoscopy Referred?to?Gastroenterology Orders: Orders Comprehensive [place]. Panel Fast 5 Months Z00.00 - Encounter for general adult medical examination without abnormal findings UA and rflx microscopic 5 Months Z00.00 - Encounter for general adult medical examination without abnormal findings Lipid Panel 5 Months Z00.00 - Encounter for general adult medical examination without abnormal findings Microalbumin, Random (w Creat) 5 Months I10 - Essential (primary) hypertension Prostate Specific Antigen Scr 5 Months Z12.5 - Encounter for screening for malignant neoplasm of prostate TSH reflex Free T4 5 Months Z00.00 - Encounter for general adult medical examination without abnormal findings Referrals Ophthalmology Referral E11.9 - Type 2 diabetes mellitus without complications Gastroenterology Referral Z12.11 - Encounter for screening for malignant neoplasm of colon Coding Level of Care Code Est Pt Level 4 (69347) Diagnoses Essential hypertension I10 Diabetes E11.9 Cardiomyopathy I42.9 Screening for colon cancer Z12.11
[2023-12-01 15:46] VITALS: BP 132/64; PULSE 82; RESP 14; O2SAT 98; BMI 32.7
== END 2023-12-01 16:06 | disposition home or self-care (01) ==
PROVIDERS: PCP Family Medicine; Visit Provider Family Medicine
DX: I10 Essential (primary) hypertension (principal); E11.9 Type 2 diabetes mellitus without complications; I42.9 Cardiomyopathy, unspecified; Z12.11 Encounter for screening for malignant neoplasm of colon
CPT/HCPCS: 83036; 99214

== ENCOUNTER 2023-12-15 15:26 | Outpatient (AMB) | payer OTHER, SELFPAY ==
[2023-12-15 15:33] LABS: Prothrombin Time Whole Bld POC 26.5 sec (11.1-13.5); ~PT, ~INR - Anti Coag Clinic 2.2 (0.9-1.1)
--- NOTE | 2023-12-15 15:34 | MHC.OFFVISCO ---
Intake Intake Visit Reasons: Anticoagulation Allergies No Known Allergies [No Known Allergies*] Allergy (Verified 12/15/23 15:27) Medication List - Last Reconciled 12/15/23 by Amna Tierney RN acetaminophen 650 mg (2 x 325 mg) PO Q6H PRN 30 days atorvastatin 10 mg PO DAILY atorvastatin 20 mg PO DAILY dapagliflozin propanediol (Farxiga) 10 mg PO DAILY metformin 500 mg PO DAILY metoprolol succinate ER 12.5 mg (1/2 x 25 mg) PO DAILY sacubitril-valsartan 24-26 mg (Entresto) 1 tab PO BID spironolactone 25 mg PO DAILY warfarin 5 mg See Protocol PO 4XW 90 days Nursing Note INR: 2.2 in therapeutic range of 2-3 Medications and supplements reviewed No changes in health, diet, medications, or supplements, Denies any signs and symptoms of bleeding or bruising or clotting. 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
== END 2023-12-15 15:40 | disposition home or self-care (01) ==
LOC: HO.ACS 15:26
PROVIDERS: PCP Family Medicine; Visit Provider Internal Medicine
DX: Z79.01 Long term (current) use of anticoagulants (principal)

== ENCOUNTER → 2023-12-15 15:26 | Outpatient (BNVA) | payer OTHER, SELFPAY | PROVIDERS: PCP Family Medicine; Visit Provider Internal Medicine | DX: Z86.73 Personal history of transient ischemic attack (TIA), and cerebral infarction without residual deficits (principal); Z79.01 Long term (current) use of anticoagulants; Z51.81 Encounter for therapeutic drug level monitoring | CPT/HCPCS: 85610; 99211 ==

== ENCOUNTER → 2023-12-25 23:59 | Outpatient (BNV) | payer OTHER, SELFPAY ==
--- NOTE | 2023-12-29 13:02 | MHC.OFFVIS ---
Intake Visit Reasons: Remote HF monitoring- [employer] Allergies No Known Allergies [No Known Allergies*] Allergy (Verified 12/15/23 15:27) [facility] Medical History (Updated 12/29/23 @ 13:03 by García Patterson MD) Anemia Osteoarthritis of right hip Biventricular ICD (implantable cardioverter-defibrillator) in place Pacemaker Obesity (BMI 30-39.9) KIERRA (obstructive sleep apnea) LBBB (left bundle branch block) 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 Sister No problems noted. Sister No problems noted. Sister No problems noted. Sister No problems noted. Son No problems noted. Daughter No problems noted. Other Substance abuse Social History Household Members: Significant Other Housing: House Are you a primary care professional to a significant other at home: No Do you presently have visiting nurse or other home services: No Alcohol intake: former Comment: aware of trip hazard Patient Tobacco Use Status: Former Tobacco user Tobacco use type: Cigarette Years Smoked: 30 e-Cigarette/Vaping Use: Never Used Second Hand Smoke Exposure: No Substance Use Type: Marijuana service: No Current occupational status: employed Current occupation: [employer] Cognitive needs: No Hearing needs: No Vision needs: No Office Procedures Cardiac Device Check Cardiac Device Check Details: Date of service- 12/25/2023; based on impedance data and physiological variables, there is no evidence of worsening congestive heart failure. [id number] Cardiac Device Interrogation, cardio physiologic monitor Procedure code (CPT) selection complete Assessment & Plan Assessment & Plan (1) Biventricular ICD (implantable cardioverter-defibrillator) in place: Code(s): Z95.810 - Presence of automatic (implantable) cardiac defibrillator Category: Medical (2) Cardiomyopathy: Code(s): I42.9 - Cardiomyopathy, unspecified Category: Medical Plan x Coding Level of Care Code Procedure Only Diagnoses Biventricular ICD (implantable cardioverter-defibrillator) in place Z95.810 Cardiomyopathy I42.9 CPT Codes Cardiac Device Check - Cardiac Device 15: [id number] Cardiac Device Interrogation, cardio physiologic monitor ([id number])
== END ==
PROVIDERS: PCP Family Medicine; Visit Provider Internal Medicine
DX: I42.9 Cardiomyopathy, unspecified (principal); Z95.810 Presence of automatic (implantable) cardiac defibrillator
CPT/HCPCS: 93297

== ENCOUNTER 2024-01-05 14:40 | Outpatient (AMB) | payer OTHER, SELFPAY ==
[2024-01-05 14:53] VITALS: BP 120/70; PULSE 70; BMI 32.3
--- NOTE | 2024-01-05 14:53 | A.OFFVIS_ITS ---
Vital Signs 01/05/24 14:53 Height 5 ft 10 in Weight 225 lb 4.999 oz BMI 32.3 BP 120/70 Blood Pressure Location Lt brachial Position Sitting Pulse 70 Intake Visit Reasons: 6 mth /w med ck Opthalmic Tech Required: No Accompanied by: Self / Same As Patient Allergies No Known Allergies [No Known Allergies*] Allergy (Verified 12/15/23 15:27) Medication List - Last Reconciled 01/05/24 by García Patterson MD acetaminophen 650 mg (2 x 325 mg) PO Q6H PRN 30 days atorvastatin 10 mg PO DAILY atorvastatin 20 mg PO DAILY dapagliflozin propanediol (Farxiga) 10 mg PO DAILY metformin 500 mg PO DAILY metoprolol succinate ER 12.5 mg (1/2 x 25 mg) PO DAILY sacubitril-valsartan 24-26 mg (Entresto) 1 tab PO BID spironolactone 25 mg PO DAILY warfarin 5 mg See Protocol PO DAILY HPI Comments Details: Skyler is here for follow-up regarding cardiomyopathy. To recall, in 2018, he was admitted for complaints of difficulty speaking and generalized weakness. Found to have acute stroke. Full recovery. Echocardiogram then showed a markedly diminished LVEF. Thought to have cardioembolic stroke. He had a long history of smoking and excessive alcohol use but has stopped since. Cardiac catheterization without any CAD. He has had a Bi V ICD since then and overall doing well. Since last seen, he states he is actually doing quite good. No specific cardiac symptoms whatsoever. [facility] Medical History (Updated 01/05/24 @ 15:24 by García Patterson MD) Anemia Osteoarthritis of right hip Biventricular ICD (implantable cardioverter-defibrillator) in place Pacemaker Obesity (BMI 30-39.9) KIERRA (obstructive sleep apnea) LBBB (left bundle branch block) 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 Sister No problems noted. Sister No problems noted. Sister No problems noted. Sister No problems noted. Son No problems noted. Daughter No problems noted. Other Substance abuse Social History Household Members: Significant Other Housing: House Are you a primary healthcare manager to a significant other at home: No Do you presently have visiting nurse or other home services: No Alcohol intake: former Comment: aware of trip hazard Patient Tobacco Use Status: Former Tobacco user Tobacco use type: Cigarette Years Smoked: 30 e-Cigarette/Vaping Use: Never Used Second Hand Smoke Exposure: No Substance Use Type: Marijuana service: No Current occupational status: employed Current occupation: [employer] Cognitive needs: No Hearing needs: No Vision needs: No Review of Systems Const All systems reviewed & are unremarkable except as noted in HPI and below Reports as per HPI and Reports no additional complaints Eyes Reports as per HPI and Denies no additional complaints ENT Denies no additional complaints and Reports as per HPI Card Reports as per HPI, Reports no additional complaints, Denies acrocyanosis, Denies chest pain, Denies leg edema, Denies lightheadedness, Denies palpitations and Denies dyspnea Resp Reports as per HPI, Denies no additional complaints and Denies dyspnea GI Reports as per HPI and Denies no additional complaints Reports no additional complaints and Reports as per HPI Musc Reports no additional complaints and Reports as per HPI Skin/Breast Reports system reviewed and no additional complaints, except as documented Neuro Reports no additional complaints and Reports as per HPI Psych Reports no additional complaints and Reports as per HPI Endo Reports no additional complaints, Reports as per HPI and Denies palpitations Lars/Lymph Reports no additional complaints and Reports as per HPI Aller/Immun Reports no additional complaints and Reports as per HPI Physical Exam Vital Signs: Last Vital Signs Pulse 70 01/05/24 14:53 BP 120/70 01/05/24 14:53 BMI result Body Mass Index 32.3 Const General: comfortable and no acute distress Orientation/consciousness: patient oriented x3 HEENT Other: Unremarkable Head: Yes normal to inspection Neck Neck: Yes normal visual inspection Chest Chest palpation & inspection: normal inspection of the chest Resp Auscultation: clear to auscultation bilaterally Cardio Palpation: normal PMI Heart sounds: S1 normal heart sound present, S2 normal heart sound present, no gallops, no murmurs and no rubs GI Palpation (GI): Soft to palpation Back/Spine/Pelvis Other: unremarkable Skin General skin exam: no rashes or lesions noted Neuro General: patient oriented x3 Extrem General: Yes normal to inspection Psych Mental Status: mental status grossly normal Office Procedures EKG Details: EKG with atrial sensed, ventricular paced rhythm at 70/Min. [id number], Complete Assessment & Plan Assessment & Plan (1) NICM (nonischemic cardiomyopathy): Code(s): I42.8 - Other cardiomyopathies Category: Medical Plan: In the past, LVEF as low as 10-15%. Most recently 33%. Continue metoprolol ER, Entresto, spironolactone, Farxiga. Clinically, euvolemic. 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 No significant disease in the carotids. Continue anticoagulation. (3) LBBB (left bundle branch block): Code(s): I44.7 - Left bundle-branch block, unspecified Category: Medical Plan: Status post bi V ICD. (4) PAF (paroxysmal atrial fibrillation): Code(s): I48.0 - Paroxysmal atrial fibrillation Category: Medical Plan: Brief episodes on ICD interrogation. Nothing clinically significant. Continue anticoagulation. (5) KIERRA (obstructive sleep apnea): Code(s): G47.33 - Obstructive sleep apnea (adult) (pediatric) Category: Medical Plan: Continue CPAP. Medications: Changed From warfarin warfarin 5mg 4x week, 2.5mg 3 x week 5 mg See Protocol PO 4XW 90 days 66 tabs 3RF To warfarin warfarin 5mg 4x week, 2.5mg 3 x week 5 mg See Protocol PO DAILY Coding Level of Care Code Est Pt Level 4 (46983) Diagnoses NICM (nonischemic cardiomyopathy) I42.8 Cerebrovascular accident (CVA) due to embolism of cerebral artery I63.40 LBBB (left bundle branch block) I44.7 PAF (paroxysmal atrial fibrillation) I48.0 KIERRA (obstructive sleep apnea) G47.33 CPT Codes EKG - CPT: 83700-[id number], Complete ([id number])
== END 2024-01-05 15:15 | disposition home or self-care (01) ==
PROVIDERS: PCP Family Medicine; Visit Provider Internal Medicine
DX: I42.8 Other cardiomyopathies (principal); I63.40 Cerebral infarction due to embolism of unspecified cerebral artery; I44.7 Left bundle-branch block, unspecified; I48.0 Paroxysmal atrial fibrillation; G47.33 Obstructive sleep apnea (adult) (pediatric)
CPT/HCPCS: 93010; 99214

== ENCOUNTER → 2024-01-05 14:40 | Outpatient (BNVA) | payer OTHER, SELFPAY | PROVIDERS: PCP Family Medicine; Visit Provider Internal Medicine | DX: I42.8 Other cardiomyopathies (principal); I44.7 Left bundle-branch block, unspecified; I48.0 Paroxysmal atrial fibrillation; G47.33 Obstructive sleep apnea (adult) (pediatric); Z86.73 Personal history of transient ischemic attack (TIA), and cerebral infarction without residual deficits; Z79.01 Long term (current) use of anticoagulants; Z79.899 Other long term (current) drug therapy; Z99.89 Dependence on other enabling machines and devices | CPT/HCPCS: 93005 ==

== ENCOUNTER 2024-01-12 15:38 | Outpatient (AMB) | payer OTHER, SELFPAY ==
--- NOTE | 2024-01-12 15:59 | MHC.OFFVISCO ---
Intake Intake Visit Reasons: Anticoagulation Allergies No Known Allergies [No Known Allergies*] Allergy (Verified 01/12/24 15:39) Medication List - Last Reconciled 01/12/24 by Kayla Atkins RN acetaminophen 650 mg (2 x 325 mg) PO Q6H PRN 30 days atorvastatin 10 mg PO DAILY atorvastatin 20 mg PO DAILY dapagliflozin propanediol (Farxiga) 10 mg PO DAILY metformin 500 mg PO DAILY metoprolol succinate ER 12.5 mg (1/2 x 25 mg) PO DAILY sacubitril-valsartan 24-26 mg (Entresto) 1 tab PO BID spironolactone 25 mg PO DAILY warfarin 5 mg See Protocol PO DAILY Nursing Note INR: 2.6 in therapeutic range Medications and supplements reviewed No changes in health, diet, medications, or supplements, Denies any signs and symptoms of bleeding or bruising or clotting. Bleeding, bruising, clotting discussed Nutritional guidance given Dose: 2.5MG X 3 DAYS/ 5MG X 4 DAYS F/U INR: 1 MONTH Patient verbalizes understanding of instructions given Anti-Coag Initial Assessment Social Hx Patient Tobacco Use Status: Former Tobacco user Tobacco use type: Cigarette alcohol intake: former Alcohol intake frequency: former alcohol drinker Coding Level of Care Code Est Patient Level 1 Diagnoses Current use of anticoagulant therapy Z79.01 Results AMB INR Fingerstick AMB INR Fingerstick 2.6 Last Edit by Kayla Atkins RN on 01/12/24 15:50 manual entry Assessment & Plan Assessment & Plan (1) Current use of anticoagulant therapy: Code(s): Z79.01 - retirement (current) use of 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
[2024-01-12 16:37] LABS: Prothrombin Time Whole Bld POC 31.5 sec (11.1-13.5); ~PT, ~INR - Anti Coag Clinic 2.6 (0.9-1.1)
== END 2024-01-12 16:02 | disposition home or self-care (01) ==
LOC: HO.ACS 15:38
PROVIDERS: PCP Family Medicine; Visit Provider Internal Medicine
DX: Z79.01 Long term (current) use of anticoagulants (principal)

== ENCOUNTER → 2024-01-12 15:38 | Outpatient (BNVA) | payer OTHER, SELFPAY | PROVIDERS: PCP Family Medicine; Visit Provider Internal Medicine | DX: Z86.73 Personal history of transient ischemic attack (TIA), and cerebral infarction without residual deficits (principal); Z79.01 Long term (current) use of anticoagulants; Z51.81 Encounter for therapeutic drug level monitoring | CPT/HCPCS: 85610; 99211 ==

== ENCOUNTER → 2024-01-26 23:59 | Outpatient (BNV) | payer OTHER, SELFPAY ==
--- NOTE | 2024-01-31 09:58 | A.OFFVIS_ITS ---
Intake Visit Reasons: Remote HF monitoring- [employer] Allergies No Known Allergies [No Known Allergies*] Allergy (Verified 01/12/24 15:39) [facility] Medical History (Updated 01/05/24 @ 15:24 by García Patterson MD) Anemia Osteoarthritis of right hip Biventricular ICD (implantable cardioverter-defibrillator) in place Pacemaker Obesity (BMI 30-39.9) KIERRA (obstructive sleep apnea) LBBB (left bundle branch block) 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 Sister No problems noted. Sister No problems noted. Sister No problems noted. Sister No problems noted. Son No problems noted. Daughter No problems noted. Other Substance abuse Social History Household Members: Significant Other Housing: House Are you a primary career coordinator to a significant other at home: No Do you presently have visiting nurse or other home services: No Alcohol intake: former Comment: aware of trip hazard Patient Tobacco Use Status: Former Tobacco user Tobacco use type: Cigarette Years Smoked: 30 e-Cigarette/Vaping Use: Never Used Second Hand Smoke Exposure: No Substance Use Type: Marijuana service: No Current occupational status: employed Current occupation: [employer] Cognitive needs: No Hearing needs: No Vision needs: No Office Procedures Cardiac Device Check Cardiac Device Check Details: Date of service- 01/26/2024; based on impedance data and physiological variables, there is no evidence of worsening congestive heart failure. [id number] Cardiac Device Interrogation, cardio physiologic monitor Procedure code (CPT) selection complete Assessment & Plan Assessment & Plan (1) Biventricular ICD (implantable cardioverter-defibrillator) in place: Code(s): Z95.810 - Presence of automatic (implantable) cardiac defibrillator Category: Medical (2) Cardiomyopathy: Code(s): I42.9 - Cardiomyopathy, unspecified Category: Medical Plan x Coding Level of Care Code Procedure Only Diagnoses Biventricular ICD (implantable cardioverter-defibrillator) in place Z95.810 Cardiomyopathy I42.9 CPT Codes Cardiac Device Check - Cardiac Device 15: [id number] Cardiac Device Interrogation, cardio physiologic monitor ([id number])
== END ==
PROVIDERS: PCP Family Medicine; Visit Provider Internal Medicine
DX: I42.9 Cardiomyopathy, unspecified (principal); Z95.810 Presence of automatic (implantable) cardiac defibrillator
CPT/HCPCS: 93297

== ENCOUNTER 2024-02-16 15:21 | Outpatient (AMB) | payer OTHER, SELFPAY ==
[2024-02-16 15:28] LABS: Prothrombin Time Whole Bld POC 25.8 sec (11.1-13.5); ~PT, ~INR - Anti Coag Clinic 2.2 (0.9-1.1)
--- NOTE | 2024-02-16 15:31 | MHC.OFFVISCO ---
Intake Intake Visit Reasons: Anticoagulation Allergies No Known Allergies [No Known Allergies*] Allergy (Verified 02/16/24 15:22) Medication List - Last Reconciled 02/16/24 by Kayla Atkins RN acetaminophen 650 mg (2 x 325 mg) PO Q6H PRN 30 days atorvastatin 10 mg PO DAILY atorvastatin 20 mg PO DAILY dapagliflozin propanediol (Farxiga) 10 mg PO DAILY metformin 500 mg PO DAILY metoprolol succinate ER 12.5 mg (1/2 x 25 mg) PO DAILY sacubitril-valsartan 24-26 mg (Entresto) 1 tab PO BID spironolactone 25 mg PO DAILY warfarin 5 mg See Protocol PO DAILY Nursing Note INR: 2.2 in therapeutic range Medications and supplements reviewed No changes in health, diet, medications, or supplements, Denies any signs and symptoms of bleeding or bruising or clotting. Bleeding, bruising, clotting discussed Nutritional guidance given Dose: KEEP SAME 2.5MG MWF/ 5MG X 4 DAYS F/U INR: 1 MONTH Patient verbalizes understanding of instructions given Anti-Coag Initial Assessment Social Hx Patient Tobacco Use Status: Former Tobacco user Tobacco use type: Cigarette alcohol intake: former Alcohol intake frequency: former alcohol drinker Coding Level of Care Code Est Patient Level 1 Diagnoses Current use of anticoagulant therapy Z79.01 Assessment & Plan Assessment & Plan (1) Current use of anticoagulant therapy: Code(s): Z79.01 - roasterman (current) use of 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
== END 2024-02-16 15:33 | disposition home or self-care (01) ==
LOC: HO.ACS 15:21
PROVIDERS: PCP Family Medicine; Visit Provider Internal Medicine
DX: Z79.01 Long term (current) use of anticoagulants (principal)

== ENCOUNTER → 2024-02-16 15:21 | Outpatient (BNVA) | payer OTHER, SELFPAY | PROVIDERS: PCP Family Medicine; Visit Provider Internal Medicine | DX: Z86.73 Personal history of transient ischemic attack (TIA), and cerebral infarction without residual deficits (principal); Z79.01 Long term (current) use of anticoagulants; Z51.81 Encounter for therapeutic drug level monitoring | CPT/HCPCS: 85610; 99211 ==

== ENCOUNTER → 2024-02-27 23:59 | Outpatient (BNV) | payer OTHER, SELFPAY ==
--- NOTE | 2024-03-06 10:05 | MHC.OFFVIS ---
Intake Visit Reasons: Remote device check- [employer] Allergies No Known Allergies [No Known Allergies*] Allergy (Verified 03/01/24 16:15) [facility] Medical History (Updated 01/05/24 @ 15:24 by García Patterson MD) Anemia Osteoarthritis of right hip Biventricular ICD (implantable cardioverter-defibrillator) in place Pacemaker Obesity (BMI 30-39.9) KIERRA (obstructive sleep apnea) LBBB (left bundle branch block) 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 Sister No problems noted. Sister No problems noted. Sister No problems noted. Sister No problems noted. Son No problems noted. Daughter No problems noted. Other Substance abuse Social History Household Members: Significant Other Housing: House Are you a primary managed care provider to a significant other at home: No Do you presently have visiting nurse or other home services: No Alcohol intake: former Comment: aware of trip hazard Patient Tobacco Use Status: Former Tobacco user Tobacco use type: Cigarette Years Smoked: 30 e-Cigarette/Vaping Use: Never Used Second Hand Smoke Exposure: No Substance Use Type: Marijuana service: No Current occupational status: employed Current occupation: [employer] Cognitive needs: No Hearing needs: No Vision needs: No Office Procedures Cardiac Device Check Cardiac Device Check Details: Date of service ; Battery life 16 months; normal lead parameters; no treated VT/VF; Effective V pacing 97.8% ; normal ICD function. [id number] Cardiac Device Interrogation, pacemaker Procedure code (CPT) selection complete Assessment & Plan Assessment & Plan (1) Biventricular ICD (implantable cardioverter-defibrillator) in place: Code(s): Z95.810 - Presence of automatic (implantable) cardiac defibrillator Category: Medical (2) Cardiomyopathy: Code(s): I42.9 - Cardiomyopathy, unspecified Category: Medical Plan x Coding Level of Care Code Procedure Only Diagnoses Biventricular ICD (implantable cardioverter-defibrillator) in place Z95.810 Cardiomyopathy I42.9 CPT Codes Cardiac Device Check - Cardiac Device 12: [id number] Cardiac Device Interrogation, pacemaker ([id number])
== END ==
PROVIDERS: PCP Family Medicine; Visit Provider Internal Medicine
DX: I42.9 Cardiomyopathy, unspecified (principal); Z95.810 Presence of automatic (implantable) cardiac defibrillator
CPT/HCPCS: 93295

== ENCOUNTER 2024-03-01 15:35 | Outpatient (AMB) | payer OTHER, SELFPAY ==
--- NOTE | 2024-03-01 15:58 | A.OFFPC_ITS ---
Vital Signs 03/01/24 16:17 Height 5 ft 10 in Weight 231 lb 4 oz BMI 33.2 BP 116/60 Blood Pressure Location Rt brachial Position Sitting Respiration 16 Pulse 77 Pulse Source Pulse Oximeter Temp 97.9 F Temp Source Oral Pulse Oximetry (%) 76 L Oxygen Delivery Method Room Air Intake Visit Reasons: f/u DM & HTN Intake Note: f/u DM and HTN Allergies No Known Allergies [No Known Allergies*] Allergy (Verified 03/01/24 16:15) Medication List - Last Reconciled 03/01/24 by Richard Calles MD acetaminophen 650 mg (2 x 325 mg) PO Q6H PRN 30 days atorvastatin 10 mg PO DAILY atorvastatin 20 mg PO DAILY dapagliflozin propanediol (Farxiga) 10 mg PO DAILY metformin 500 mg PO DAILY metoprolol succinate ER 12.5 mg (1/2 x 25 mg) PO DAILY sacubitril-valsartan 24-26 mg (Entresto) 1 tab PO BID spironolactone 25 mg PO DAILY warfarin 5 mg See Protocol PO DAILY Tobacco use date assessed: 09/02/23 Dental Screening Dental Screen Date: 06/10/23 HPI f/u DM & HTN HPI Details 63 y/o male presents to f/u diabetes, HT N. A1c today 03/01/24 6.0%. Blood pressure today 116/60, 77p. He is on metorpolol 12.5mg, Entresto, spironolactone 25mg daily. HPI Comments History of Present Illness Details Documentation assistance for Richard Calles MD, was provided by Juancho Morejon,? Clothing Worker on 03/01/2024 at 4:41 PM EST. I, Dr. Calles, have read, observed, and verified documentation. [facility] Medical History (Updated 01/05/24 @ 15:24 by García Patterson MD) Anemia Osteoarthritis of right hip Biventricular ICD (implantable cardioverter-defibrillator) in place Pacemaker Obesity (BMI 30-39.9) KIERRA (obstructive sleep apnea) LBBB (left bundle branch block) 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 Sister No problems noted. Sister No problems noted. Sister No problems noted. Sister No problems noted. Son No problems noted. Daughter No problems noted. Other Substance abuse Social History Household Members: Significant Other Housing: House Are you a primary resident caregiver to a significant other at home: No Do you presently have visiting nurse or other home services: No Alcohol intake: former Comment: aware of trip hazard Patient Tobacco Use Status: Former Tobacco user Tobacco use type: Cigarette Years Smoked: 30 e-Cigarette/Vaping Use: Never Used Second Hand Smoke Exposure: No Substance Use Type: Marijuana service: No Current occupational status: employed Current occupation: [employer] Cognitive needs: No Hearing needs: No Vision needs: No Questionnaire PHQ-9 Over the last 2 weeks, how often have you been bothered by any of the following problems? 1. Little interest or pleasure in doing things: not at all 2. Feeling down, depressed, or hopeless: not at all 3. Trouble falling or staying asleep, or sleeping too much: not at all 4. Feeling tired or having little energy: not at all 5. Poor appetite or overeating: not at all 6. Feeling bad about yourself - or that you are a failure or have let yourself or your family down: not at all 7. Trouble concentrating on things, such as reading the newspaper or watching television: not at all 8. Moving or speaking so slowly that other people could have noticed. Or the opposite - being so fidgety or restless that you have been moving around a lot more than usual: not at all 9. Thoughts that you would be better off or of hurting yourself in some way: not at all Total score: 0 Source: Developed by Drs. Mir Thomas, Ann Marie Alcantar, Jorden Guzmán and colleagues, with an educational audrey from [employer]. Thrive Questionnaire Date Thrive assessed: 02/23/24 I am a: Patient What is your living situation today?: I have a steady place to live Within the past 12 months, did the food you bought not last and you didn't have the money to get more?: Never true Within the past 12 months, did you worry whether your food would run out before you got money to buy more?: Never true Do you have trouble paying for medicines?: No Do you have trouble getting transportation to medical appointments?: No Do you have trouble paying your heating and electricity bill?: No Do you have trouble taking care of your child, family member or friend?: No Do you have trouble with day-to-day activities such as bathing, preparing meals, shopping, managing finances, etc.?: No Are you currently unemployed and looking for a job?: No Are you interested in more education?: No Please select the resources that you would like help with: None Currently or been in a relationship where the following occur: No concerns reported THRIVE Score: 0 AUDIT C Alcohol Use Questionnaire (AUDIT-C) 1. How often do you have a drink containing alcohol?: Never Total Score: 0 NEVIN-7 AMB Questionnaire NEVIN-7 Date NEVIN - 7 assessed: 03/10/22 Feeling nervous, anxious, or on edge: 0 = Not at all Not being able to stop or control worryin = Not at all Worrying too much about different things: 0 = Not at all Trouble relaxin = Not at all Being so restless that it is hard to sit still: 0 = Not at all Becoming easily annoyed or irritable: 0 = Not at all Feeling afraid as if something awful might happen: 0 = Not at all Total NEVIN-7 score (0-4 normal; 5-9 mild; 10-14 moderate; 15-21 severe): 0 Source: Developed by Drs. Mir Thomas, Ann Marie Alcantar, Jorden Guzmán and colleagues, with an educational audrey from [employer]. Review of Systems Const Denies chills, Denies fatigue, Denies fever(s), Denies headache(s) and Denies weakness ENT Denies dizziness and Denies headache(s) Card Denies chest pain, Denies lightheadedness, Denies dyspnea and Denies other (Palpitations) Resp Denies cough, Denies dyspnea, Denies wheezing and Denies other ( shortness of breath) Musc Denies numbness and Denies tingling Neuro Denies dizziness, Denies headache(s), Denies numbness, Denies tingling, Denies paresthesias and Denies weakness Psych Denies anxiety and Denies depression Endo Denies fatigue Aller/Immun Denies wheezing Physical exam (Primary Care) Vital Signs: Last Vital Signs Temp 97.9 F 03/01/24 16:17 Pulse 77 03/01/24 16:17 Resp 16 03/01/24 16:17 BP 116/60 03/01/24 16:17 Pulse Ox 76 L 03/01/24 16:17 Oxygen Delivery Method Room Air 03/01/24 16:17 BMI result Body Mass Index 33.2 Tobacco/Smoking Status: Tobacco use Status Tobacco use date assessed 09/02/23 03/01/24 15:58 Patient Tobacco Use Status Former Tobacco user 03/01/24 15:58 Tobacco use type Cigarette 03/01/24 15:58 e-Cigarette/Vaping Use Never Used 03/01/24 15:58 PHQ-9: PHQ-9 Score PHQ-9: Total score 0 03/01/24 16:41 Thrive Assessment: Date of Thrive Assessment Date Thrive assessed 02/23/24 03/01/24 15:58 Currently or been in a relationship where the following occur: No concerns reported Const General: no acute distress and well developed Nutritional Appearance: well nourished Orientation/consciousness: patient oriented x3 HENMT Head: Yes normocephalic and Yes atraumatic Eyes General: appearance normal, both eyes and all related structures Pupils: Equal, round and reactive pupils present EOM: EOMs intact bilaterally Resp Effort & Inspection: normal respiratory effort Auscultation: clear to auscultation bilaterally Cardio Rate: regular rate Rhythm: regular rhythm Heart sounds: S1 normal heart sound present, S2 normal heart sound present, no gallops, no murmurs and no rubs Neuro General: patient oriented x3 and gait normal Cranial nerves: Yes Equal, round and reactive pupils present Psych Affect: normal affect Coding Level of Care Code Est Pt Level 3 (58355) Diagnoses Diabetes E11.9 Essential hypertension I10 Assessment & Plan Assessment & Plan (1) Diabetes: Code(s): E11.9 - Type 2 diabetes mellitus without complications Category: Medical Plan: A1c?6.0%?remains?stable?and?well?controlled.??Goal?is?less?than?7.0% Continue?current?medication?regimen Recent?diabetic?eye?exam?in?December?was?negative?for?diabetic?retinopathy. (2) Essential hypertension: Code(s): I10 - Essential (primary) hypertension Category: Medical Plan: Blood?pressure?is?controlled.??Goal?is?less?than?130/80 Continue?current?medication?regimen
[2024-03-01 16:17] VITALS: BP 116/60; PULSE 77; RESP 16; TEMP 36.6; O2SAT 76; BMI 33.2
== END 2024-03-01 17:05 ==
PROVIDERS: PCP Family Medicine; Visit Provider Family Medicine
DX: E11.9 Type 2 diabetes mellitus without complications (principal); I10 Essential (primary) hypertension

== ENCOUNTER 2024-03-18 15:25 | Outpatient (AMB) | payer OTHER, SELFPAY ==
--- NOTE | 2024-03-18 15:37 | MHC.OFFVISCO ---
Intake Intake Visit Reasons: Anticoagulation Allergies No Known Allergies [No Known Allergies*] Allergy (Verified 03/18/24 15:25) Medication List - Last Reconciled 03/18/24 by Kayla Atkins RN acetaminophen 650 mg (2 x 325 mg) PO Q6H PRN 30 days atorvastatin 20 mg PO DAILY atorvastatin 10 mg PO DAILY dapagliflozin propanediol (Farxiga) 10 mg PO DAILY metformin 500 mg PO DAILY metoprolol succinate ER 12.5 mg (1/2 x 25 mg) PO DAILY sacubitril-valsartan 24-26 mg (Entresto) 1 tab PO BID spironolactone 25 mg PO DAILY warfarin 5 mg See Protocol PO DAILY Nursing Note INR: 2.3 in therapeutic range Medications and supplements reviewed No changes in health, diet, medications, or supplements, Denies any signs and symptoms of bleeding or bruising or clotting. Bleeding, bruising, clotting discussed Nutritional guidance given Dose: 2.5MG X 3 DAYS/ 5MG X 4 DAYS F/U INR: 1 MONTH Patient verbalizes understanding of instructions given Anti-Coag Initial Assessment Social Hx Patient Tobacco Use Status: Former Tobacco user Tobacco use type: Cigarette alcohol intake: former Alcohol intake frequency: former alcohol drinker Coding Level of Care Code Est Patient Level 1 Diagnoses Current use of anticoagulant therapy Z79.01 Results AMB INR Fingerstick AMB INR Fingerstick 2.3 Last Edit by Kayla Atkins RN on 03/18/24 15:32 manual entry Assessment & Plan Assessment & Plan (1) Current use of anticoagulant therapy: Code(s): Z79.01 - assisted (current) use of 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
[2024-03-18 16:21] LABS: Prothrombin Time Whole Bld POC 27.5 sec (11.1-13.5); ~PT, ~INR - Anti Coag Clinic 2.3 (0.9-1.1)
== END 2024-03-18 15:38 | disposition home or self-care (01) ==
LOC: HO.ACS 15:25
PROVIDERS: PCP Family Medicine; Visit Provider Internal Medicine
DX: Z79.01 Long term (current) use of anticoagulants (principal)

== ENCOUNTER → 2024-03-18 15:25 | Outpatient (BNVA) | payer OTHER, SELFPAY | PROVIDERS: PCP Family Medicine; Visit Provider Internal Medicine | DX: Z86.73 Personal history of transient ischemic attack (TIA), and cerebral infarction without residual deficits (principal); Z79.01 Long term (current) use of anticoagulants; Z51.81 Encounter for therapeutic drug level monitoring | CPT/HCPCS: 85610; 99211 ==

== ENCOUNTER → 2024-03-30 23:59 | Outpatient (BNV) | payer OTHER, SELFPAY ==
--- NOTE | 2024-04-06 19:11 | MHC.OFFVIS ---
Intake Visit Reasons: Remote HF monitoring- [employer] Allergies No Known Allergies [No Known Allergies*] Allergy (Verified 03/18/24 15:25) [facility] Medical History (Updated 01/05/24 @ 15:24 by García Patterson MD) Anemia Osteoarthritis of right hip Biventricular ICD (implantable cardioverter-defibrillator) in place Pacemaker Obesity (BMI 30-39.9) KIERRA (obstructive sleep apnea) LBBB (left bundle branch block) 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 Sister No problems noted. Sister No problems noted. Sister No problems noted. Sister No problems noted. Son No problems noted. Daughter No problems noted. Other Substance abuse Social History Household Members: Significant Other Housing: House Are you a primary point of care specialist to a significant other at home: No Do you presently have visiting nurse or other home services: No Alcohol intake: former Comment: aware of trip hazard Patient Tobacco Use Status: Former Tobacco user Tobacco use type: Cigarette Years Smoked: 30 e-Cigarette/Vaping Use: Never Used Second Hand Smoke Exposure: No Substance Use Type: Marijuana service: No Current occupational status: employed Current occupation: [employer] Cognitive needs: No Hearing needs: No Vision needs: No Office Procedures Cardiac Device Check Cardiac Device Check Details: Date of service- 03/30/2024; based on impedance data and physiological variables, there is no evidence of worsening congestive heart failure. [id number] Cardiac Device Interrogation, cardio physiologic monitor Procedure code (CPT) selection complete Assessment & Plan Assessment & Plan (1) Biventricular ICD (implantable cardioverter-defibrillator) in place: Code(s): Z95.810 - Presence of automatic (implantable) cardiac defibrillator Category: Medical (2) Cardiomyopathy: Code(s): I42.9 - Cardiomyopathy, unspecified Category: Medical Plan x Coding Level of Care Code Procedure Only Diagnoses Biventricular ICD (implantable cardioverter-defibrillator) in place Z95.810 Cardiomyopathy I42.9 CPT Codes Cardiac Device Check - Cardiac Device 15: [id number] Cardiac Device Interrogation, cardio physiologic monitor ([id number])
== END ==
PROVIDERS: PCP Family Medicine; Visit Provider Internal Medicine
DX: I42.9 Cardiomyopathy, unspecified (principal); Z95.810 Presence of automatic (implantable) cardiac defibrillator
CPT/HCPCS: 93297

== ENCOUNTER 2024-04-22 15:37 | Outpatient (AMB) | payer OTHER, SELFPAY ==
[2024-04-22 15:44] LABS: Prothrombin Time Whole Bld POC 24.4 sec (11.1-13.5)
--- NOTE | 2024-04-22 15:48 | MHC.OFFVISCO ---
Intake Intake Visit Reasons: Anticoagulation Allergies No Known Allergies [No Known Allergies*] Allergy (Verified 04/22/24 15:37) Medication List - Last Reconciled 04/22/24 by Kayla Atkins RN acetaminophen 650 mg (2 x 325 mg) PO Q6H PRN 30 days atorvastatin 20 mg PO DAILY atorvastatin 10 mg PO DAILY dapagliflozin propanediol (Farxiga) 10 mg PO DAILY metformin 500 mg PO DAILY metoprolol succinate ER 12.5 mg (1/2 x 25 mg) PO DAILY sacubitril-valsartan 24-26 mg (Entresto) 1 tab PO BID spironolactone 25 mg PO DAILY warfarin 5 mg See Protocol PO DAILY Nursing Note INR: 2.0 in therapeutic range Medications and supplements reviewed No changes in health, diet, medications, or supplements, Denies any signs and symptoms of bleeding or bruising or clotting. 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
== END 2024-04-22 15:49 | disposition home or self-care (01) ==
LOC: HO.ACS 15:37
PROVIDERS: PCP Family Medicine; Visit Provider Internal Medicine
DX: Z79.01 Long term (current) use of anticoagulants (principal)

== ENCOUNTER → 2024-05-01 23:59 | Outpatient (BNV) | payer OTHER, SELFPAY ==
--- NOTE | 2024-05-09 10:55 | A.OFFVIS_ITS ---
Intake Visit Reasons: Remote HF monitoring- [employer] Allergies No Known Allergies [No Known Allergies*] Allergy (Verified 04/22/24 15:37) [facility] Medical History (Updated 01/05/24 @ 15:24 by García Patterson MD) Anemia Osteoarthritis of right hip Biventricular ICD (implantable cardioverter-defibrillator) in place Pacemaker Obesity (BMI 30-39.9) KIERRA (obstructive sleep apnea) LBBB (left bundle branch block) 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 Sister No problems noted. Sister No problems noted. Sister No problems noted. Sister No problems noted. Son No problems noted. Daughter No problems noted. Other Substance abuse Social History Household Members: Significant Other Housing: House Are you a primary critical care rn to a significant other at home: No Do you presently have visiting nurse or other home services: No Alcohol intake: former Comment: aware of trip hazard Patient Tobacco Use Status: Former Tobacco user Tobacco use type: Cigarette Years Smoked: 30 e-Cigarette/Vaping Use: Never Used Second Hand Smoke Exposure: No Substance Use Type: Marijuana service: No Current occupational status: employed Current occupation: [employer] Cognitive needs: No Hearing needs: No Vision needs: No Office Procedures Cardiac Device Check Cardiac Device Check Details: Date of service- 05/01/2024; based on impedance data and physiological variables, there is no evidence of worsening congestive heart failure. [id number] Cardiac Device Interrogation, cardio physiologic monitor Procedure code (CPT) selection complete Assessment & Plan Assessment & Plan (1) NICM (nonischemic cardiomyopathy): Code(s): I42.8 - Other cardiomyopathies Category: Medical (2) Biventricular ICD (implantable cardioverter-defibrillator) in place: Code(s): Z95.810 - Presence of automatic (implantable) cardiac defibrillator Category: Medical Plan x Coding Level of Care Code Procedure Only Diagnoses NICM (nonischemic cardiomyopathy) I42.8 Biventricular ICD (implantable cardioverter-defibrillator) in place Z95.810 CPT Codes Cardiac Device Check - Cardiac Device 15: [id number] Cardiac Device Interrogation, cardio physiologic monitor ([id number])
== END ==
PROVIDERS: PCP Family Medicine; Visit Provider Internal Medicine
DX: I42.8 Other cardiomyopathies (principal); Z95.810 Presence of automatic (implantable) cardiac defibrillator
CPT/HCPCS: 93297

== ENCOUNTER 2024-05-20 15:25 | Outpatient (AMB) | payer OTHER, SELFPAY ==
[2024-05-20 15:32] LABS: Prothrombin Time Whole Bld POC 23.8 sec (11.1-13.5)
--- NOTE | 2024-05-20 15:38 | MHC.OFFVISCO ---
Intake Intake Visit Reasons: Anticoagulation Allergies No Known Allergies [No Known Allergies*] Allergy (Verified 05/20/24 15:25) Medication List - Last Reconciled 05/20/24 by Kayla Atkins RN acetaminophen 650 mg (2 x 325 mg) PO Q6H PRN 30 days atorvastatin 20 mg PO DAILY atorvastatin 10 mg PO DAILY dapagliflozin propanediol (Farxiga) 10 mg PO DAILY metformin 500 mg PO DAILY metoprolol succinate ER 12.5 mg (1/2 x 25 mg) PO DAILY sacubitril-valsartan 24-26 mg (Entresto) 1 tab PO BID spironolactone 25 mg PO DAILY warfarin 5 mg See Protocol PO DAILY Nursing Note Ambulatory to [facility] - he is well, 2.0 in therapeutic range- trending on lower side - pt has been walking more which may lower INR Medications and supplements reviewed No changes in health, diet, medications, or supplements, Denies any signs and symptoms of bleeding or bruising or clotting. Bleeding, bruising, clotting discussed Nutritional guidance given - keep diet the same Dose: increase dose 5mg x 5 days/ 2.5mg x 2 days F/U INR: 1 MONTH PER PT REQUEST - instructed if any unusual bruising or bleeding to call [facility] Patient verbalizes understanding of instructions given Anti-Coag Initial Assessment Social Hx Patient Tobacco Use Status: Former Tobacco user Tobacco use type: Cigarette alcohol intake: former Alcohol intake frequency: former alcohol drinker Coding Level of Care Code Est Patient Level 1 Diagnoses Current use of anticoagulant therapy Z79.01 Results AMB INR Fingerstick AMB INR Fingerstick 2.0 Last Edit by Kayla Atkins RN on 05/20/24 15:34 manual entry Assessment & Plan Assessment & Plan (1) Current use of anticoagulant therapy: Code(s): Z79.01 - USP (current) use of 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
== END 2024-05-20 15:52 | disposition home or self-care (01) ==
LOC: HO.ACS 15:25
PROVIDERS: PCP Family Medicine; Visit Provider Internal Medicine
DX: Z79.01 Long term (current) use of anticoagulants (principal)

== ENCOUNTER → 2024-05-20 15:25 | Outpatient (BNVA) | payer OTHER, SELFPAY | PROVIDERS: PCP Family Medicine; Visit Provider Internal Medicine | DX: Z86.73 Personal history of transient ischemic attack (TIA), and cerebral infarction without residual deficits (principal); Z79.01 Long term (current) use of anticoagulants; Z51.81 Encounter for therapeutic drug level monitoring | CPT/HCPCS: 85610; 99211 ==

== ENCOUNTER → 2024-06-01 23:59 | Outpatient (BNV) | payer OTHER, SELFPAY ==
--- NOTE | 2024-06-06 16:06 | MHC.OFFVIS ---
Intake Visit Reasons: Remote HF monitoring- [employer] Allergies No Known Allergies [No Known Allergies*] Allergy (Verified 05/20/24 15:25) ON LICENSE OF [facility] Medical History (Updated 01/05/24 @ 15:24 by García Patterson MD) Anemia Osteoarthritis of right hip Biventricular ICD (implantable cardioverter-defibrillator) in place Pacemaker Obesity (BMI 30-39.9) KIERRA (obstructive sleep apnea) LBBB (left bundle branch block) 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 Sister No problems noted. Sister No problems noted. Sister No problems noted. Sister No problems noted. Son No problems noted. Daughter No problems noted. Other Substance abuse Social History Household Members: Significant Other Housing: House Are you a primary resident care technician to a significant other at home: No Do you presently have visiting nurse or other home services: No Alcohol intake: former Comment: aware of trip hazard Patient Tobacco Use Status: Former Tobacco user Tobacco use type: Cigarette Years Smoked: 30 e-Cigarette/Vaping Use: Never Used Second Hand Smoke Exposure: No Substance Use Type: Marijuana service: No Current occupational status: employed Current occupation: [employer] Cognitive needs: No Hearing needs: No Vision needs: No Office Procedures Cardiac Device Check Cardiac Device Check Details: Remote heart failure report generated 06/01/2024. Heart failure parameters are stable [id number] Cardiac Device Interrogation, cardio physiologic monitor Procedure code (CPT) selection complete Assessment & Plan Assessment & Plan (1) Biventricular ICD (implantable cardioverter-defibrillator) in place: Code(s): Z95.810 - Presence of automatic (implantable) cardiac defibrillator Category: Medical Plan: See above Coding Level of Care Code Procedure Only Diagnoses Biventricular ICD (implantable cardioverter-defibrillator) in place Z95.810 CPT Codes Cardiac Device Check - Cardiac Device 15: [id number] Cardiac Device Interrogation, cardio physiologic monitor ([id number])
== END ==
PROVIDERS: PCP Family Medicine; Visit Provider Internal Medicine Cardiovascular Disease
DX: Z45.02 Encounter for adjustment and management of automatic implantable cardiac defibrillator (principal)
CPT/HCPCS: 93297

== ENCOUNTER → 2024-06-01 23:59 | Outpatient (BNV) | payer OTHER, SELFPAY ==
--- NOTE | 2024-06-06 16:07 | A.OFFVIS_ITS ---
Intake Visit Reasons: Remote device check- [employer] Allergies No Known Allergies [No Known Allergies*] Allergy (Verified 05/20/24 15:25) [facility] Medical History (Updated 01/05/24 @ 15:24 by García Patterson MD) Anemia Osteoarthritis of right hip Biventricular ICD (implantable cardioverter-defibrillator) in place Pacemaker Obesity (BMI 30-39.9) KIERRA (obstructive sleep apnea) LBBB (left bundle branch block) 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 Sister No problems noted. Sister No problems noted. Sister No problems noted. Sister No problems noted. Son No problems noted. Daughter No problems noted. Other Substance abuse Social History Household Members: Significant Other Housing: House Are you a primary home visit field care manager to a significant other at home: No Do you presently have visiting nurse or other home services: No Alcohol intake: former Comment: aware of trip hazard Patient Tobacco Use Status: Former Tobacco user Tobacco use type: Cigarette Years Smoked: 30 e-Cigarette/Vaping Use: Never Used Second Hand Smoke Exposure: No Substance Use Type: Marijuana service: No Current occupational status: employed Current occupation: [employer] Cognitive needs: No Hearing needs: No Vision needs: No Office Procedures Cardiac Device Check Cardiac Device Check Details: Remote ICD report generated 06/01/2024. ICD function is adequate. Bi V pacing 97% of the time [id number] Cardiac Interrogation, implant defibrillator w/interim Procedure code (CPT) selection complete Assessment & Plan Assessment & Plan (1) Biventricular ICD (implantable cardioverter-defibrillator) in place: Code(s): Z95.810 - Presence of automatic (implantable) cardiac defibrillator Category: Medical Plan: See above Coding Level of Care Code Procedure Only Diagnoses Biventricular ICD (implantable cardioverter-defibrillator) in place Z95.810 CPT Codes Cardiac Device Check - Cardiac Device 13: [id number] Cardiac Interrogation, im plant defibrillator w/interim ([id number])
== END ==
PROVIDERS: PCP Family Medicine; Visit Provider Internal Medicine Cardiovascular Disease
DX: Z45.02 Encounter for adjustment and management of automatic implantable cardiac defibrillator (principal)
CPT/HCPCS: 93295

== ENCOUNTER 2024-06-17 15:24 | Outpatient (AMB) | payer OTHER, SELFPAY ==
[2024-06-17 15:32] LABS: Prothrombin Time Whole Bld POC 28.2 sec (11.1-13.5); ~PT, ~INR - Anti Coag Clinic 2.3 (0.9-1.1)
--- NOTE | 2024-06-17 15:39 | MHC.OFFVISCO ---
Intake Intake Visit Reasons: Anticoagulation Allergies No Known Allergies [No Known Allergies*] Allergy (Verified 06/17/24 15:25) Medication List - Last Reconciled 06/17/24 by Kayla Atkins RN acetaminophen 650 mg (2 x 325 mg) PO Q6H PRN 30 days atorvastatin 20 mg PO DAILY atorvastatin 10 mg PO DAILY dapagliflozin propanediol (Farxiga) 10 mg PO DAILY metformin 500 mg PO DAILY metoprolol succinate ER 12.5 mg (1/2 x 25 mg) PO DAILY sacubitril-valsartan 24-26 mg (Entresto) 1 tab PO BID spironolactone 25 mg PO DAILY warfarin 5 mg See Protocol PO DAILY Nursing Note INR: 2.3 in therapeutic range Medications and supplements reviewed CURRENTLY HAS A COLD - ENC TO CALL [facility] IF HE STARTS ANY NEW MEDICATIONS, ENC [place] IF HAS TO TAKE TYLENOL FOR A FEW DAYS Denies any signs and symptoms of bleeding or bruising or clotting. Bleeding, bruising, clotting discussed Nutritional guidance given Dose: KEEP SAME 2.5MG X 2 DAYS/ 5G X 5 DAYS F/U INR: 1 MONTH Patient verbalizes understanding of instructions given Anti-Coag Initial Assessment Social Hx Patient Tobacco Use Status: Former Tobacco user Tobacco use type: Cigarette alcohol intake: former Alcohol intake frequency: former alcohol drinker Coding Level of Care Code Est Patient Level 1 Diagnoses Current use of anticoagulant therapy Z79.01 Results AMB INR Fingerstick AMB INR Fingerstick 2.3 Last Edit by Kayla Atkins RN on 06/17/24 15:33 MANUAL ENTRY Assessment & Plan Assessment & Plan (1) Current use of anticoagulant therapy: Code(s): 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
== END 2024-06-17 15:41 | disposition home or self-care (01) ==
LOC: HO.ACS 15:24
PROVIDERS: PCP Family Medicine; Visit Provider Internal Medicine Medical Oncology
DX: Z79.01 Long term (current) use of anticoagulants (principal)

== ENCOUNTER → 2024-06-17 15:24 | Outpatient (BNVA) | payer OTHER, SELFPAY | PROVIDERS: PCP Family Medicine; Visit Provider Internal Medicine Medical Oncology | DX: Z86.73 Personal history of transient ischemic attack (TIA), and cerebral infarction without residual deficits (principal); Z51.81 Encounter for therapeutic drug level monitoring; Z79.01 Long term (current) use of anticoagulants | CPT/HCPCS: 85610; 99211 ==

== ENCOUNTER 2024-06-28 14:25 | Outpatient (AMB) | payer OTHER, SELFPAY ==
[2024-06-28 14:46] VITALS: BP 128/68; PULSE 72; BMI 31.9
--- NOTE | 2024-06-28 14:46 | A.OFFVIS_ITS ---
Vital Signs 06/28/24 14:46 Height 5 ft 10 in Weight 222 lb 10.67 oz BMI 31.9 BP 128/68 Blood Pressure Location Lt brachial Position Sitting Pulse 72 Pulse Source Pulse Oximeter Intake Visit Reasons: 6month f/u Allergies No Known Allergies [No Known Allergies*] Allergy (Verified 06/17/24 15:25) Medication List - Last Reconciled 06/28/24 by García Patterson MD acetaminophen 650 mg (2 x 325 mg) PO Q6H PRN 30 days atorvastatin 20 mg PO DAILY atorvastatin 10 mg PO DAILY dapagliflozin propanediol (Farxiga) 10 mg PO DAILY metformin 500 mg PO DAILY metoprolol succinate ER 12.5 mg (1/2 x 25 mg) PO DAILY sacubitril-valsartan 24-26 mg (Entresto) 1 tab PO BID spironolactone 25 mg PO DAILY warfarin 5 mg See Protocol PO DAILY HPI Comments Details: Skyler is here for follow-up regarding cardiomyopathy. To recall, in 2018, he was admitted for complaints of difficulty speaking and generalized weakness. Found to have acute stroke. Full recovery. Echocardiogram then showed a markedly diminished LVEF. Thought to have cardioembolic stroke. He had a long history of smoking and excessive alcohol use but has stopped since. Cardiac catheterization without any CAD. He has had a Bi V ICD since then and overall doing well. No new concerns he denies any chest pains or shortness of breath or in fact any cardiac symptoms. [facility] Medical History (Updated 01/05/24 @ 15:24 by García Patterson MD) Anemia Osteoarthritis of right hip Biventricular ICD (implantable cardioverter-defibrillator) in place Pacemaker Obesity (BMI 30-39.9) KIERRA (obstructive sleep apnea) LBBB (left bundle branch block) 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 Sister No problems noted. Sister No problems noted. Sister No problems noted. Sister No problems noted. Son No problems noted. Daughter No problems noted. Other Substance abuse Social History Household Members: Significant Other Housing: House Are you a primary career placement services counselor to a significant other at home: No Do you presently have visiting nurse or other home services: No Alcohol intake: former Comment: aware of trip hazard Patient Tobacco Use Status: Former Tobacco user Tobacco use type: Cigarette Years Smoked: 30 e-Cigarette/Vaping Use: Never Used Second Hand Smoke Exposure: No Substance Use Type: Marijuana service: No Current occupational status: employed Current occupation: [employer] Cognitive needs: No Hearing needs: No Vision needs: No Review of Systems Const Denies weakness ENT Denies dizziness Card Denies chest pain, Denies chest pain with activity, Denies syncope, Denies rapid heart rate, Denies pedal edema, Denies edema, Denies leg edema, Denies lightheadedness, Denies palpitations, Denies dyspnea, Denies dyspnea on exertion and Denies orthopnea Resp Denies cough, Denies dyspnea and Denies dyspnea on exertion GI Denies hematochezia and Denies change in stool character Musc Denies abnormal gait, Denies muscle cramps, Denies muscle weakness, Denies numbness, Denies radiating pain into limb and Denies tingling Neuro Denies abnormal gait, Denies dizziness, Denies syncope, Denies numbness, Denies tingling and Denies weakness Endo Denies palpitations Physical Exam Vital Signs: Last Vital Signs Pulse 72 06/28/24 14:46 BP 128/68 06/28/24 14:46 BMI result Body Mass Index 31.9 Const General: comfortable and no acute distress Orientation/consciousness: patient oriented x3 HEENT Other: Unremarkable Head: Yes normal to inspection Neck Neck: Yes normal visual inspection Chest Chest palpation & inspection: normal inspection of the chest Resp Auscultation: clear to auscultation bilaterally Cardio Palpation: normal PMI Heart sounds: S1 normal heart sound present, S2 normal heart sound present, no gallops, no murmurs and no rubs GI Palpation (GI): Soft to palpation Back/Spine/Pelvis Other: unremarkable Skin General skin exam: no rashes or lesions noted Neuro General: patient oriented x3 Extrem General: Yes normal to inspection Psych Mental Status: mental status grossly normal Assessment & Plan Assessment & Plan (1) NICM (nonischemic cardiomyopathy): Code(s): I42.8 - Other cardiomyopathies Category: Medical Plan: In the past, LVEF as low as 10-15%. Most recently 33%. Continue metoprolol ER, Entresto, spironolactone, Farxiga. Clinically, euvolemic. Recheck echo before next visit. Also has not had labs in a while and he states he is going to go for them this week. 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 No significant disease in the carotids. Continue anticoagulation. Labs as above. (3) LBBB (left bundle branch block): Code(s): I44.7 - Left bundle-branch block, unspecified Category: Medical Plan: Status post Bi V ICD. (4) PAF (paroxysmal atrial fibrillation): Code(s): I48.0 - Paroxysmal atrial fibrillation Category: Medical Plan: Brief episodes on ICD interrogation. Nothing clinically significant. Continue anticoagulation. (5) KIERRA (obstructive sleep apnea): Code(s): G47.33 - Obstructive sleep apnea (adult) (pediatric) Category: Medical Plan: Continue CPAP. Coding Level of Care Code Est Pt Level 4 (33345) Complex EM visit Add On G2211 Diagnoses NICM (nonischemic cardiomyopathy) I42.8 Cerebrovascular accident (CVA) due to embolism of cerebral artery I63.40 LBBB (left bundle branch block) I44.7 PAF (paroxysmal atrial fibrillation) I48.0 KIERRA (obstructive sleep apnea) G47.33
== END 2024-06-28 15:07 | disposition home or self-care (01) ==
LOC: HO.HCS 14:26
PROVIDERS: PCP Family Medicine; Visit Provider Internal Medicine
DX: I42.8 Other cardiomyopathies (principal); I63.40 Cerebral infarction due to embolism of unspecified cerebral artery; I44.7 Left bundle-branch block, unspecified; I48.0 Paroxysmal atrial fibrillation; G47.33 Obstructive sleep apnea (adult) (pediatric)
CPT/HCPCS: 99214

== ENCOUNTER 2024-07-02 07:38 | Outpatient (REF) | payer OTHER, SELFPAY ==
[2024-07-02 09:09] LABS: Appearance Urine Clear; Color Urine Yellow; Glucose Urine UA >=1000 mg/dL (Negative); Leukocyte Esterase Urine Negative (Negative); Nitrite Urine Negative (Negative); PH 5.5 (5.0-9.0); Specific Gravity - Urine >= 1.030 (1.005-1.025); UMIC TRIGGER UA YES; Urine Blood Trace (Negative); Urine Ketones Negative (Negative); Urine Protein Negative (Neg-Trace)
[2024-07-02 09:19] LABS: Bacteria Urine None Seen (None Seen); Hyaline Casts Urine 0-2 /LPF (0-2); RBC Urine 0-2 /HPF (0-2); Squamous Epithelial Cell Urine 0-2 /HPF (0-2); WBC Urine 0-5 /HPF (0-5)
[2024-07-02 09:46] LABS: Alanine Aminotransferase 32 U/L (0-40); Albumin Level 4.5 g/dL (3.5-5.0); Alkaline Phosphatase 101 U/L (39-117); Anion Gap 11 (12-20); Aspartate Amino Transferase 27 U/L (5-37); Bilirubin Total 0.8 mg/dL (0.0-1.0); Blood Urea Nitrogen 14 mg/dL (9-16); Calcium 9.2 mg/dL (8.4-10.2); Carbon Dioxide 26 mmol/L (22-29); Chloride 107 mmol/L (96-108); Cholesterol 140 mg/dL (<200); Estimated Glomerular Filt Rate > 60; Glucose Fasting 102 mg/dL (60-99); HDL Cholesterol 46 mg/dL (>40); LDL Cholesterol Calculated 73 mg/dL (<100); Potassium 4.4 mmol/L (3.3-5.1); Sodium 140 mmol/L (135-145); Total Protein 7.1 g/dL (6.5-8.0); Triglycerides 107 mg/dL (<150)
[2024-07-02 09:49] LABS: Microalbum/Creatinine Ratio Ur 16.6 ug/mg cr (<30)
[2024-07-02 10:05] LABS: TSH reflex Free T4 1.14 uIU/mL (0.32-4.0)
== END 2024-07-02 07:39 | disposition home or self-care (01) ==
LOC: HO.LAB 07:38
PROVIDERS: PCP Family Medicine; Visit Provider Family Medicine
DX: Z00.00 Encounter for general adult medical examination without abnormal findings (principal); I10 Essential (primary) hypertension; Z12.5 Encounter for screening for malignant neoplasm of prostate
CPT/HCPCS: 36415; 80053; 80061; 81001; 81003; 82043; 82570; 84153; 84443

== ENCOUNTER → 2024-07-03 23:59 | Outpatient (BNV) | payer OTHER, SELFPAY ==
--- NOTE | 2024-07-11 12:31 | MHC.OFFVIS ---
Intake Visit Reasons: Remote HF monitoring- [employer] Allergies No Known Allergies [No Known Allergies*] Allergy (Verified 06/17/24 15:25) [facility] Medical History (Updated 01/05/24 @ 15:24 by García Patterson MD) Anemia Osteoarthritis of right hip Biventricular ICD (implantable cardioverter-defibrillator) in place Pacemaker Obesity (BMI 30-39.9) KIERRA (obstructive sleep apnea) LBBB (left bundle branch block) 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 Sister No problems noted. Sister No problems noted. Sister No problems noted. Sister No problems noted. Son No problems noted. Daughter No problems noted. Other Substance abuse Social History Household Members: Significant Other Housing: House Are you a primary family day care worker to a significant other at home: No Do you presently have visiting nurse or other home services: No Alcohol intake: former Comment: aware of trip hazard Patient Tobacco Use Status: Former Tobacco user Tobacco use type: Cigarette Years Smoked: 30 e-Cigarette/Vaping Use: Never Used Second Hand Smoke Exposure: No Substance Use Type: Marijuana service: No Current occupational status: employed Current occupation: [employer] Cognitive needs: No Hearing needs: No Vision needs: No Office Procedures Cardiac Device Check Cardiac Device Check Details: Date of service- 07/03/2024; based on impedance data and physiological variables, there is no evidence of worsening congestive heart failure. [id number] Cardiac Device Interrogation, cardio physiologic monitor Procedure code (CPT) selection complete Assessment & Plan Assessment & Plan (1) Biventricular ICD (implantable cardioverter-defibrillator) in place: Code(s): Z95.810 - Presence of automatic (implantable) cardiac defibrillator Category: Medical (2) Cardiomyopathy: Code(s): I42.9 - Cardiomyopathy, unspecified Category: Medical Plan x Coding Level of Care Code Procedure Only Diagnoses Biventricular ICD (implantable cardioverter-defibrillator) in place Z95.810 Cardiomyopathy I42.9 CPT Codes Cardiac Device Check - Cardiac Device 15: [id number] Cardiac Device Interrogation, cardio physiologic monitor ([id number])
== END ==
PROVIDERS: PCP Family Medicine; Visit Provider Internal Medicine
DX: I42.9 Cardiomyopathy, unspecified (principal); Z95.810 Presence of automatic (implantable) cardiac defibrillator
CPT/HCPCS: 93297

== ENCOUNTER 2024-07-11 15:38 | Outpatient (AMB) | payer OTHER, SELFPAY ==
--- NOTE | 2024-07-11 15:54 | A.OFFPC_ITS ---
Vital Signs 07/11/24 16:05 Height 5 ft 10 in Weight 197 lb 4 oz BMI 28.3 BP 104/60 Blood Pressure Location Lt brachial Position Sitting Respiration 14 Pulse 73 Pulse Source Pulse Oximeter Temp 97.6 F Temp Source Oral Pulse Oximetry (%) 95 Oxygen Delivery Method Room Air Intake Visit Reasons: CPE with f/u labs and health maint Intake Note: patient is scheduled for cpe Counter Caser Required: No Allergies No Known Allergies [No Known Allergies*] Allergy (Verified 07/11/24 16:02) Medication List - Last Reconciled 07/11/24 by Richard Calles MD acetaminophen 650 mg (2 x 325 mg) PO Q6H PRN 30 days atorvastatin 40 mg PO DAILY 90 days dapagliflozin propanediol (Farxiga) 10 mg PO DAILY metformin 500 mg PO DAILY metoprolol succinate ER 12.5 mg (1/2 x 25 mg) PO DAILY sacubitril-valsartan 24-26 mg (Entresto) 1 tab PO BID spironolactone 25 mg PO DAILY warfarin 5 mg See Protocol PO DAILY Tobacco use date assessed: 07/11/24 Dental Screening Dental Screen Date: 07/11/24 Did you have a dental visit in the last 12 months?: No Did you have a dental problem in the last 6 months where you did not have access to dental care?: No Was dental information given to patient?: No HPI CPE with f/u labs and health maint HPI Details 63 y/o male presents for a CPE with f/u labs and health maintenance. Labs drawn 07/02/24. Reviewed labs with pt. Elevated fasting glucose of 102. Triglycerides 107 TC 140. LDL 73. He is on artovastatin 10mg daily. HDL 46. PSA 1.90. Blood pressure today 104/60, 73p. He is on metoprolol 12.5mg, spironolactone 25mg, Entresto. A1c today 07/11/24 6.1%. HPI Comments History of Present Illness Details Documentation assistance for Richard Calles MD, was provided by Juancho Morejon, [place] on 07/11/2024 at 4:39 PM EST. I, Dr. Calles, have read, observed, and verified documentation. [facility] Medical History Anemia Osteoarthritis of right hip Biventricular ICD (implantable cardioverter-defibrillator) in place Pacemaker Obesity (BMI 30-39.9) KIERRA (obstructive sleep apnea) LBBB (left bundle branch block) 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 Sister No problems noted. Sister No problems noted. Sister No problems noted. Sister No problems noted. Son No problems noted. Daughter No problems noted. Other Substance abuse Social History Household Members: Significant Other Housing: House Are you a primary team primary care physician to a significant other at home: No Do you presently have visiting nurse or other home services: No Alcohol intake: former Comment: aware of trip hazard Patient Tobacco Use Status: Former Tobacco user Tobacco use type: Cigarette Years Smoked: 30 e-Cigarette/Vaping Use: Never Used Second Hand Smoke Exposure: No Substance Use Type: Marijuana service: No Current occupational status: employed Current occupation: [email or web address] Cognitive needs: No Hearing needs: No Vision needs: No Questionnaire PHQ-9 Over the last 2 weeks, how often have you been bothered by any of the following problems? 1. Little interest or pleasure in doing things: not at all 2. Feeling down, depressed, or hopeless: not at all 3. Trouble falling or staying asleep, or sleeping too much: not at all 4. Feeling tired or having little energy: not at all 5. Poor appetite or overeating: not at all 6. Feeling bad about yourself - or that you are a failure or have let yourself or your family down: not at all 7. Trouble concentrating on things, such as reading the newspaper or watching television: not at all 8. Moving or speaking so slowly that other people could have noticed. Or the opposite - being so fidgety or restless that you have been moving around a lot more than usual: not at all 9. Thoughts that you would be better off or of hurting yourself in some way: not at all Total score: 0 Depression Screening Interpretation: Negative Depression Screening Done: Yes 75229 - PHQ-9 Billing: Yes Source: Developed by Drs. Mir Thomas, Ann Marie Alcantar, Jorden Guzmán and colleagues, with an educational audrey from [employer]. Thrive Questionnaire Date Thrive assessed: 07/11/24 I am a: Patient What is your living situation today?: I have a steady place to live Within the past 12 months, did the food you bought not last and you didn't have the money to get more?: Never true Within the past 12 months, did you worry whether your food would run out before you got money to buy more?: Never true Do you have trouble paying for medicines?: No Do you have trouble getting transportation to medical appointments?: No Do you have trouble paying your heating and electricity bill?: No Do you have trouble taking care of your child, family member or friend?: No Do you have trouble with day-to-day activities such as bathing, preparing meals, shopping, managing finances, etc.?: No Are you currently unemployed and looking for a job?: No Are you interested in more education?: No Please select the resources that you would like help with: None Currently or been in a relationship where the following occur: No concerns reported THRIVE Score: 0 AUDIT C Alcohol Use Questionnaire (AUDIT-C) 1. How often do you have a drink containing alcohol?: Never 3. How often do you have six or more drinks on one occasion?: Never Total Score: 0 Score Reviewed/Action Taken: Yes NEVIN-7 AMB Questionnaire NEVIN-7 Date NEVIN - 7 assessed: 07/11/24 Feeling nervous, anxious, or on edge: 0 = Not at all Not being able to stop or control worryin = Not at all Worrying too much about different things: 0 = Not at all Trouble relaxin = Not at all Being so restless that it is hard to sit still: 0 = Not at all Becoming easily annoyed or irritable: 0 = Not at all Feeling afraid as if something awful might happen: 0 = Not at all Total NEVIN-7 score (0-4 normal; 5-9 mild; 10-14 moderate; 15-21 severe): 0 Source: Developed by Drs. Mir Thomas, Ann Marie Alcantar, Jorden Guzmán and colleagues, with an educational audrey from [employer]. NEVIN-7 Assessment Billing NEVIN-7 Assessment Tool: NEVIN-7 Assessment 85988 Review of Systems Const Denies chills, Denies fatigue, Denies fever(s), Denies headache(s) and Denies weakness Eyes Denies change in vision ENT Denies dizziness, Denies headache(s), Denies hearing loss, Denies nasal congest ion, Denies sinus pain, Denies sinus pressure and Denies sore throat Card Denies chest pain, Denies lightheadedness, Denies dyspnea and Denies other (palpitations) Resp Denies cough, Denies dyspnea and Denies wheezing GI Denies abdominal pain, Denies melena, Denies hematochezia, Denies change in bowel habits, Denies dyspepsia and Denies nausea Denies hematuria and Denies dysuria Musc Denies abnormal gait, Denies myalgias, Denies arthralgias, Denies numbness and Denies tingling Skin/Breast Denies rash, Denies unusual bruising and Denies wounds Neuro Denies abnormal gait, Denies dizziness, Denies headache(s), Denies memory loss, Denies numbness, Denies Sensory deficit (Neuro), Denies tingling and Denies weakness Psych Denies anxiety, Denies depression and Denies memory loss Endo Denies cold intolerance, Denies fatigue, Denies heat intolerance, Denies polydipsia and Denies polyuria Lars/Lymph Denies easy bleeding and Denies easy bruising Aller/Immun Denies wheezing Physical exam (Primary Care) Vital Signs: Last Vital Signs Temp 97.6 F 07/11/24 16:05 Pulse 73 07/11/24 16:05 Resp 14 07/11/24 16:05 BP 104/60 07/11/24 16:05 Pulse Ox 95 07/11/24 16:05 Oxygen Delivery Method Room Air 07/11/24 16:05 BMI result Body Mass Index 28.3 Tobacco/Smoking Status: Tobacco use Status Tobacco use date assessed 07/11/24 07/11/24 16:08 Patient Tobacco Use Status Former Tobacco user 07/11/24 15:54 Tobacco use type Cigarette 07/11/24 15:54 e-Cigarette/Vaping Use Never Used 07/11/24 15:54 PHQ-9: PHQ-9 Score PHQ-9: Total score 0 07/11/24 16:35 Depression Screening Interpretation: Negative Thrive Assessment: Date of Thrive Assessment Date Thrive assessed 07/11/24 07/11/24 16:08 Currently or been in a relationship where the following occur: No concerns reported Const General: no acute distress, well developed, alert and awake Nutritional Appearance: well nourished Orientation/consciousness: patient oriented x3 HENMT Head: Yes normocephalic and Yes atraumatic Ears: hearing grossly normal bilaterally and TM's normal bilaterally General nose exam: Normal external nose present and Normal nares present Mouth: Normal oral and palatal mucosa present and moist mucous membranes Teeth and gingiva: dentition normal Throat: Yes posterior oropharynx normal Eyes General: appearance normal, both eyes and all related structures Pupils: Equal, round and reactive pupils present and Pupil accommodation reflex normal EOM: EOMs intact bilaterally Neck Neck: Yes normal visual inspection, Yes no lymphadenopathy and Yes trachea midline Thyroid: Thyroid normal Carotids: no bruits Lymphatic: no lymphadenopathy noted Chest Chest palpation & inspection: normal inspection of the chest Resp Effort & Inspection: normal respiratory effort Auscultation: clear to auscultation bilaterally Cardio Rate: regular rate Rhythm: abnormal rhythm and abnormal rhythm irregularly irregular Heart sounds: S1 normal heart sound present, S2 normal heart sound present, no gallops, no murmurs and no rubs Bruits: no abdominal aortic bruits and no carotid bruits GI Palpation (GI): No Abdominal aortic bruit present, Soft to palpation, nontender, No hepatosplenomegaly present and No Rebound tenderness present Auscultation: normal bowel sounds General: Yes no CVA tenderness Back/Spine/Pelvis Back: no CVA tenderness Cervical Spine: cervical ROM normal and No Cervical spine tenderness Thoracic/Lumbar Spine: thoraco-lumbar ROM normal, No pain with thoraco-lumbar ROM, No thoracic spinal tenderness and No lumbar spinal tenderness Skin Lesions: no lesions Rashes: no rashes Trauma: no lacerations or abrasions Wounds: no wounds Nails: normal Neuro General: patient oriented x3 Cranial nerves: Yes Equal, round and reactive pupils present Cognition (Neuro): normal cognition Gait exam (Neuro): Normal gait present Motor exam (neuro): 5/5 motor strength present throughout Sensory Exam: No Sensory deficit (Neuro) Deep tendon reflexes (DTR's): Right patellar reflex intensity grade: 2+ and Left patellar reflex intensity grade: 2+ Extrem General: Yes normal to inspection and No edema Psych Appearance: grossly normal Affect: normal affect Attitude: cooperative Thought process: Normal thought process present Results AMB Hemoglobin A1c AMB Hemoglobin A1c 6.1 % Last Edit by YADY Bruce on 07/11/24 16:50 Coding Level of Care Code Est Pt Level 3 (30938) Est Pt Prev Care 40-64y(13008) Diagnoses Adult general medical exam Z00.00 Hyperlipidemia E78.5 PAF (paroxysmal atrial fibrillation) I48.0 Pre-diabetes R73.03 Cerebrovascular accident (CVA) due to embolism of cerebral artery I63.40 Essential hypertension I10 Screening for prostate cancer Z12.5 Screening for colon cancer Z12.11 Additional Codes NEVIN-7 Assessment Billing - NEVIN-7 Assessment Tool: NEVIN-7 Assessment 46934 ([id number]) PHQ-9 - 79044 - PHQ-9 Billing: Yes ([id number]) Assessment & Plan Assessment & Plan (1) Adult general medical exam: Code(s): Z00.00 - Encounter for general adult medical examination without abnormal findings Category: Medical Plan: 63-year-old?male?presents?for?complete?physical?exam Encouraged?healthy?diet?with?active?lifestyle?and?plenty?of?exercise (2) Hyperlipidemia: Code(s): E78.5 - Hyperlipidemia, unspecified Category: Medical Plan: LDL?cholesterol?is?a?little?above?goal. We?discussed?his?lifestyle?and?he?feels?that?he?is?doing?above?most?can?do. Will?increase?atorvastatin to 40mg daily (3) PAF (paroxysmal atrial fibrillation): Code(s): I48.0 - Paroxysmal atrial fibrillation Category: Medical Plan: Stable?and?followed?by? Continue?warfarin?and?metoprolol. (4) Pre-diabetes: Code(s): R73.03 - Prediabetes Category: Medical Plan: A1c?controlled?at?6.1%. Does?take?metformin?and?Farxiga Continue?current?medications (5) Cerebrovascular accident (CVA) due to embolism of cerebral artery: Code(s): I63.40 - Cerebral infarction due to embolism of unspecified cerebral artery Category: Medical Plan: Blood?pressure?is?controlled.??Goal?is?less?than?130/80 Good?blood?pressure?control,?lipids?in?blood?sugar?control (6) Essential hypertension: Code(s): I10 - Essential (primary) hypertension Category: Medical Plan: As?above,?blood?pressure?104/60.??Goal?is?less than?130/80 Continue?current?medications (7) Screening for prostate cancer: Code(s): Z12.5 - Encounter for screening for malignant neoplasm of prostate Category: Medical Plan: PSA?is?within?normal?range Continue?annual?screening (8) Screening for colon cancer: Code(s): Z12.11 - Encounter for screening for malignant neoplasm of colon Category: Medical Plan: Patient?has?appointment?with?Gastroenterology?in?August Follow-up?with?GI?as?recommended Orders: Orders AMB Hemoglobin A1c Today R73.03 - Prediabetes Comprehensive [place]. Panel Fast Today E78.5 - Hyperlipidemia, unspecified, Z00.00 - Encounter for general adult medical examination without abnormal findings Lipid Panel Today E78.5 - Hyperlipidemia, unspecified, Z00.00 - Encounter for general adult medical examination without abnormal findings Medications: New atorvastatin 40 mg PO DAILY 90 days 90 tabs 2RF Discontinued atorvastatin Take this 20mg tablet w a 10 mg tablet to equal 30 mg daily. Written like this per insurance company. Discontinued Reason: Doctor's Order 20 mg PO DAILY 90 tabs 3RF atorvastatin Take this 10mg tablet w a 20 mg tablet to equal 30 mg daily. Written like this per insurance company. Discontinued Reason: Doctor's Order 10 mg PO DAILY 90 tabs 3RF
[2024-07-11 16:05] VITALS: BP 104/60; PULSE 73; RESP 14; TEMP 36.4; O2SAT 95; BMI 28.3
== END 2024-07-11 17:05 | disposition home or self-care (01) ==
LOC: HO.HMCFM 15:39
PROVIDERS: PCP Family Medicine; Visit Provider Family Medicine
DX: Z00.00 Encounter for general adult medical examination without abnormal findings (principal); I48.0 Paroxysmal atrial fibrillation; I63.40 Cerebral infarction due to embolism of unspecified cerebral artery; E78.5 Hyperlipidemia, unspecified; R73.03 Prediabetes; I10 Essential (primary) hypertension; Z12.5 Encounter for screening for malignant neoplasm of prostate; Z12.11 Encounter for screening for malignant neoplasm of colon

== ENCOUNTER → 2024-07-11 15:38 | Outpatient (BNVA) | payer OTHER, SELFPAY | PROVIDERS: PCP Family Medicine; Visit Provider Family Medicine | DX: Z00.00 Encounter for general adult medical examination without abnormal findings (principal); E78.5 Hyperlipidemia, unspecified; I48.0 Paroxysmal atrial fibrillation; R73.03 Prediabetes; I10 Essential (primary) hypertension; Z86.73 Personal history of transient ischemic attack (TIA), and cerebral infarction without residual deficits; Z79.01 Long term (current) use of anticoagulants; Z79.899 Other long term (current) drug therapy | CPT/HCPCS: 83036; 96127 ==

== ENCOUNTER 2024-07-15 15:17 | Outpatient (AMB) | payer OTHER, SELFPAY ==
--- NOTE | 2024-07-15 15:27 | MHC.OFFVISCO ---
Intake Intake Visit Reasons: Anticoagulation Allergies No Known Allergies [No Known Allergies*] Allergy (Verified 07/15/24 15:20) Medication List - Last Reconciled 07/15/24 by Luli Thomas RN acetaminophen 650 mg (2 x 325 mg) PO Q6H PRN 30 days atorvastatin 40 mg PO DAILY 90 days dapagliflozin propanediol (Farxiga) 10 mg PO DAILY metformin 500 mg PO DAILY metoprolol succinate ER 12.5 mg (1/2 x 25 mg) PO DAILY sacubitril-valsartan 24-26 mg (Entresto) 1 tab PO BID spironolactone 25 mg PO DAILY warfarin 5 mg See Protocol PO DAILY Nursing Note INR: 2.3- in therapeutic range 2-3 Medications and supplements reviewed- atorvastatin increased to 40mg which can raise inr No changes in health, diet, medications, or supplements, Denies any signs and symptoms of bleeding or bruising or clotting. Bleeding, bruising, clotting discussed Nutritional guidance given Dose: 2.5mg x 2, 5mg x 5 F/U INR: 2 weeks Patient verbalizes understanding of instructions given Anti-Coag Initial Assessment Social Hx Patient Tobacco Use Status: Former Tobacco user Tobacco use type: Cigarette alcohol intake: former Alcohol intake frequency: former alcohol drinker Coding Level of Care Code Est Patient Level 1 Diagnoses Current use of anticoagulant therapy Z79.01 Assessment & Plan Assessment & Plan (1) Current use of anticoagulant therapy: Code(s): Z79.01 - long term acute care registered nurse (current) use of 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
[2024-07-15 15:28] LABS: Prothrombin Time Whole Bld POC 27.2 sec (11.1-13.5); ~PT, ~INR - Anti Coag Clinic 2.3 (0.9-1.1)
== END 2024-07-15 15:36 | disposition home or self-care (01) ==
LOC: HO.ACS 15:17
PROVIDERS: PCP Family Medicine; Visit Provider Internal Medicine Medical Oncology
DX: Z79.01 Long term (current) use of anticoagulants (principal)

== ENCOUNTER → 2024-07-15 15:17 | Outpatient (BNVA) | payer OTHER, SELFPAY | PROVIDERS: PCP Family Medicine; Visit Provider Internal Medicine Medical Oncology | DX: Z86.73 Personal history of transient ischemic attack (TIA), and cerebral infarction without residual deficits (principal); Z51.81 Encounter for therapeutic drug level monitoring; Z79.01 Long term (current) use of anticoagulants | CPT/HCPCS: 85610; 99211 ==

== ENCOUNTER 2024-07-29 15:22 | Outpatient (AMB) | payer OTHER, SELFPAY ==
[2024-07-29 15:31] LABS: Prothrombin Time Whole Bld POC 25.7 sec (11.1-13.5); ~PT, ~INR - Anti Coag Clinic 2.1 (0.9-1.1)
--- NOTE | 2024-07-29 15:37 | MHC.OFFVISCO ---
Intake Intake Visit Reasons: Anticoagulation Allergies No Known Allergies [No Known Allergies*] Allergy (Verified 07/29/24 15:22) Medication List - Last Reconciled 07/29/24 by Amna Tierney, RN acetaminophen 650 mg (2 x 325 mg) PO Q6H PRN 30 days atorvastatin 40 mg PO DAILY 90 days dapagliflozin propanediol (Farxiga) 10 mg PO DAILY metformin 500 mg PO DAILY metoprolol succinate ER 12.5 mg (1/2 x 25 mg) PO DAILY sacubitril-valsartan 24-26 mg (Entresto) 1 tab PO BID spironolactone 25 mg PO DAILY warfarin 5 mg See Protocol PO DAILY Nursing Note INR: 2.1 in therapeutic range of 2-3 Medications and supplements reviewed No changes in health, diet, medications, or supplements, Denies any signs and symptoms of bleeding or bruising or clotting. Bleeding, bruising, clotting discussed Nutritional guidance given to avoid greens today Dose: will increase one day from 2.5mg to 5mg as pt has been at the lower end of target range then will resume 5mg X 5 days and 2.5mg X 2 days (Mon & ) F/U INR: 4 weeks Patient verbalizes understanding of instructions given Anti-Coag Initial Assessment Social Hx Patient Tobacco Use Status: Former Tobacco user Tobacco use type: Cigarette alcohol intake: former Alcohol intake frequency: former alcohol drinker Coding Level of Care Code Est Patient Level 1 Diagnoses Current use of anticoagulant therapy Z79.01 Assessment & Plan Assessment & Plan (1) Current use of anticoagulant therapy: Code(s): Z79.01 - residential (current) use of 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
== END 2024-07-29 15:44 | disposition home or self-care (01) ==
LOC: HO.ACS 15:22
PROVIDERS: PCP Family Medicine; Visit Provider Internal Medicine Medical Oncology
DX: Z79.01 Long term (current) use of anticoagulants (principal)

== ENCOUNTER → 2024-07-29 15:22 | Outpatient (BNVA) | payer OTHER, SELFPAY | PROVIDERS: PCP Family Medicine; Visit Provider Internal Medicine Medical Oncology | DX: Z86.73 Personal history of transient ischemic attack (TIA), and cerebral infarction without residual deficits (principal); Z51.81 Encounter for therapeutic drug level monitoring; Z79.01 Long term (current) use of anticoagulants | CPT/HCPCS: 85610; 99211 ==

== ENCOUNTER → 2024-08-03 23:59 | Outpatient (BNV) | payer OTHER, SELFPAY ==
--- NOTE | 2024-08-04 08:44 | MHC.OFFVIS ---
Intake Visit Reasons: Remote HF monitoring- [employer] Allergies No Known Allergies [No Known Allergies*] Allergy (Verified 07/29/24 15:22) [facility] Medical History Anemia Osteoarthritis of right hip Biventricular ICD (implantable cardioverter-defibrillator) in place Pacemaker Obesity (BMI 30-39.9) KIERRA (obstructive sleep apnea) LBBB (left bundle branch block) 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 Sister No problems noted. Sister No problems noted. Sister No problems noted. Sister No problems noted. Son No problems noted. Daughter No problems noted. Other Substance abuse Social History Household Members: Significant Other Housing: House Are you a primary home care scheduler to a significant other at home: No Do you presently have visiting nurse or other home services: No Alcohol intake: former Comment: aware of trip hazard Patient Tobacco Use Status: Former Tobacco user Tobacco use type: Cigarette Years Smoked: 30 e-Cigarette/Vaping Use: Never Used Second Hand Smoke Exposure: No Substance Use Type: Marijuana service: No Current occupational status: employed Current occupation: [employer] Cognitive needs: No Hearing needs: No Vision needs: No Office Procedures Cardiac Device Check Cardiac Device Check Details: Date of service- 08/03/2024; based on impedance data and physiological variables, there is no evidence of worsening congestive heart failure. [id number] Cardiac Device Interrogation, cardio physiologic monitor Procedure code (CPT) selection complete Assessment & Plan Assessment & Plan (1) Biventricular ICD (implantable cardioverter-defibrillator) in place: Code(s): Z95.810 - Presence of automatic (implantable) cardiac defibrillator Category: Medical (2) NICM (nonischemic cardiomyopathy): Code(s): I42.8 - Other cardiomyopathies Category: Medical Plan x Coding Level of Care Code Procedure Only Diagnoses Biventricular ICD (implantable cardioverter-defibrillator) in place Z95.810 NICM (nonischemic cardiomyopathy) I42.8 CPT Codes Cardiac Device Check - Cardiac Device 15: [id number] Cardiac Device Interrogation, cardio physiologic monitor ([id number])
== END ==
PROVIDERS: PCP Family Medicine; Visit Provider Internal Medicine
DX: I42.8 Other cardiomyopathies (principal); Z95.810 Presence of automatic (implantable) cardiac defibrillator
CPT/HCPCS: 93297

== ENCOUNTER 2024-08-26 14:52 | Outpatient (AMB) | payer OTHER, SELFPAY ==
--- NOTE | 2024-08-26 15:04 | MHC.OFFVISCO ---
Intake Intake Visit Reasons: Anticoagulation Allergies No Known Allergies [No Known Allergies*] Allergy (Verified 08/26/24 14:53) Medication List - Last Reconciled 08/26/24 by Kayla Atkins RN acetaminophen 650 mg (2 x 325 mg) PO Q6H PRN 30 days atorvastatin 40 mg PO DAILY 90 days dapagliflozin propanediol (Farxiga) 10 mg PO DAILY metformin 500 mg PO DAILY metoprolol succinate ER 12.5 mg (1/2 x 25 mg) PO DAILY sacubitril-valsartan 24-26 mg (Entresto) 1 tab PO BID spironolactone 25 mg PO DAILY warfarin 5 mg See Protocol PO DAILY Nursing Note INR: 2.2 in therapeutic range Medications and supplements reviewed No changes in health, diet, medications, or supplements, Denies any signs and symptoms of bleeding or bruising or clotting. Bleeding, bruising, clotting discussed Nutritional guidance given Dose: 2.5MG X 2 DAYS/ 5MG X 5 DAYS F/U INR: 1 MONTH Patient verbalizes understanding of instructions given Anti-Coag Initial Assessment Social Hx Patient Tobacco Use Status: Former Tobacco user Tobacco use type: Cigarette alcohol intake: former Alcohol intake frequency: former alcohol drinker Questionnaires HAS-BLED Does the patient had uncontrolled Hypertension?: No Does the patient have renal disease?: No Does the patient have liver disease?: No Does the patient have a history of stroke?: Yes Has the patient had major bleeding or predisposition to bleeding?: No Does the patient have labile INRs?: No Is the patient over 65 years of age?: No Is the patient on medications that gives them a predisposition to bleeding?: Yes Does the patient use alcohol?: No HAS-BLED Score: 2 CHADSVASC Age: <65 Gender: Male Does the patient have a history of CHF?: No Does the patient have a history of Hypertension?: Yes Does the patient have a history of Stroke/TIA/Thromboembolism?: Yes Does the patient have a history of Vascular Disease (prior AL, PAD or aortic plaque)?: Yes (HAS CHOLESTEROL ) Does the patient have a history of Diabetes?: Yes CHADS VACS Score: 5 Jatinder Prediction Score Rsk VTE Active Cancer: No Previous VTE, excluding superficial vein thrombosis: No Reduced mobility: No Already known Thrombophilic Condition: No With-in last month Trauma and/or Surgery: No Elderly 70 year or older: No Heart and/or Respiratory Failure: No Acute Myocardial infarction and/or Ischemic Stroke: Yes Acute Infection and/or Rheumatologic Disorder: No Obesity (BMI 30 or greater): Yes Ongoing Hormonal Treatment: No Score: 2 Jatinder Score less than 4; Low Risk of VTE Jatinder Score 4 or greater; High Risk of VTE Coding Level of Care Code Est Patient Level 1 Diagnoses Current use of anticoagulant therapy Z79.01 Results AMB INR Fingerstick AMB INR Fingerstick 2.2 Last Edit by Kayla Atkins RN on 08/26/24 15:00 manual entry Assessment & Plan Assessment & Plan (1) Current use of anticoagulant therapy: Code(s): Z79.01 - nursing home (current) use of 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
[2024-08-26 15:25] LABS: Prothrombin Time Whole Bld POC 26.8 sec (11.1-13.5); ~PT, ~INR - Anti Coag Clinic 2.2 (0.9-1.1)
== END 2024-08-26 15:12 | disposition home or self-care (01) ==
LOC: HO.ACS 14:52
PROVIDERS: PCP Family Medicine; Visit Provider Internal Medicine Medical Oncology
DX: Z79.01 Long term (current) use of anticoagulants (principal)

== ENCOUNTER → 2024-08-26 14:52 | Outpatient (BNVA) | payer OTHER, SELFPAY | PROVIDERS: PCP Family Medicine; Visit Provider Internal Medicine Medical Oncology | DX: Z01.818 Encounter for other preprocedural examination (principal); Z79.01 Long term (current) use of anticoagulants; I42.8 Other cardiomyopathies; G47.33 Obstructive sleep apnea (adult) (pediatric); E66.9 Obesity, unspecified; I48.0 Paroxysmal atrial fibrillation; Z95.810 Presence of automatic (implantable) cardiac defibrillator | CPT/HCPCS: 85610; 99211 ==

== ENCOUNTER 2024-08-26 15:11 | Outpatient (AMB) | payer OTHER, SELFPAY ==
--- NOTE | 2024-08-26 15:15 | A.OFFVIS_ITS ---
Vital Signs 08/26/24 15:31 Height 5 ft 10 in Weight 225 lb BMI 32.3 BP 134/76 Blood Pressure Location Lt brachial Position Sitting Pulse 76 Pulse Source Pulse Oximeter Pulse Oximetry (%) 96 Oxygen Delivery Method Room Air Intake Visit Reasons: Pre colonoscopy Intake Note: New patient for initial colo screening. CC; Pt denies any GI sx or concerns at this time. Pt is due for initial colo. Cologuard negative 6 years ago per pt. No pertinent FMHx. Clay Molder Required: No Accompanied by: Self / Same As Patient Allergies No Known Allergies [No Known Allergies*] Allergy (Verified 08/26/24 14:53) HPI HPI Pre colonoscopy: Details: 63-year-old male here for preprocedural meeting to discuss a screening colonoscopy. He is referred by Richard Calles. PMX KIERRA Obesity Paroxysmal atrial fibrillation Chronic anticoagulation Nonischemic cardiomyopathy -biventricular pacemaker/ICD Hypertension High cholesterol Diabetes Cervical radiculopathy Osteoarthritis of the hip History of CVA * SURGICAL HISTORY Cardiac catheterization Pacemaker placement Dermal cyst on forehead removed Right total hip replacement * ALLERGIES: NKDA * [employer] LABS: Laboratory Tests 07/02/24 07/11/24 08:08 16:47 Estimated GFR > 60 Hgb A1c (Clinic) 6.1 H Total Bilirubin 0.8 AST 27 ALT 32 Alkaline Phosphatase 101 TSH 1.14 TODAY'S VISIT This is his first colonoscopy. No anes or sed problems. His cardiac problems are well controlled and he has KIERRA. NO ID problems. He had a negative Cologuard in 2017, no known FHX of crc or polyps. 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 Sister Lupus (systemic lupus erythematosus) Sister No problems noted. Sister No problems noted. Sister No problems noted. Son No problems noted. Daughter No problems noted. Other Substance abuse Social History Household Members: Significant Other Housing: House Are you a primary home care physical therapist to a significant other at home: No Do you presently have visiting nurse or other home services: No Alcohol intake: former Comment: aware of trip hazard Patient Tobacco Use Status: Former Tobacco user Tobacco use type: Cigarette Years Smoked: 30 e-Cigarette/Vaping Use: Never Used Second Hand Smoke Exposure: No Substance Use Type: Marijuana service: No Current occupational status: employed Current occupation: [employer] Cognitive needs: No Hearing needs: No Vision needs: No Review of Systems Const Denies fatigue, Denies fever(s), Denies night sweats, Denies poor appetite and Denies weight loss Eyes Details: glasses Reports requires corrective lenses ENT Reports Normal hearing present, Denies dental pain, Denies dysphagia, Denies hearing loss, Denies mouth pain, Denies odynophagia, Denies throat swelling, Denies tongue swelling and Reports other (Dentition adequate) Card Reports no additional complaints Resp Reports no additional complaints GI Details: Denies abdominal pain, Denies melena, Denies bloating, Denies hematochezia, Denies constipation, Denies GI cramping, Denies dysphagia, Denies excessive flatus, Denies early satiety, Denies heartburn, Denies diarrhea, Denies nausea, Denies odynophagia, Denies vomiting and Denies hematemesis Skin/Breast Denies pruritus, Denies lesions, Denies rash and Denies jaundice Neuro Reports Normal hearing present and Denies Abnormal speech present Endo Denies fatigue Aller/Immun Denies throat swelling and Denies tongue swelling Physical Exam Vital Signs: Last Vital Signs Pulse 76 08/26/24 15:31 BP 134/76 08/26/24 15:31 Pulse Ox 96 08/26/24 15:31 Oxygen Delivery Method Room Air 08/26/24 15:31 BMI result Body Mass Index 32.3 Const General: cooperative, no acute distress, well developed and well groomed Nutritional Appearance: well nourished and obese centrally obese Orientation/consciousness: oriented to person, oriented to place and oriented to time Limitations: No language barrier HEENT Head: Yes normocephalic and Yes atraumatic Eyes General: appearance normal, both eyes and all related structures Pupils: Equal, round and reactive pupils present Neck Neck: Yes normal visual inspection and Yes no lymphadenopathy Thyroid: Thyroid normal Resp Effort & Inspection: normal respiratory effort and able to speak in complete sentences Auscultation: clear to auscultation bilaterally Cardio Rate: regular rate Rhythm: regular rhythm Heart sounds: Normal, physiologic split S2 sound present Peripheral pulses: radial pulses present and posterior tibial pulses present GI Inspection: No distended, No Abdominal panniculus present and Yes obesity Palpation (GI): Soft to palpation, nontender, no guarding, not rigid and No hepatosplenomegaly present Percussion: Yes normal to percussion Auscultation: normal bowel sounds Rectal Exam - Male: Yes deferred Skin General skin exam: no rashes or lesions noted, turgor normal, skin not dry, no jaundice, No spider nevi and no striae Rashes: no rashes Nails: normal Neuro General: oriented to person, oriented to place and oriented to time Cranial nerves: Yes Equal, round and reactive pupils present and Yes Normal hearing present Speech: No Abnormal speech present Extrem General: Yes normal to inspection, No clubbing, No cyanosis and No edema Psych Appearance: grossly normal and well kempt Mental Status: mental status grossly normal Speech and movement: Normal speech and movement present Affect: normal affect Attitude: cooperative Thought process: Normal thought process present and not confabulating Thought content: Normal thought content present Insight: Good insight present (Psych) Judgement: Good judgement present (Psych) Results AMB INR Fingerstick AMB INR Fingerstick 2.2 Last Edit by Kayla Atkins RN on 08/26/24 15:00 manual entry Assessment & Plan Assessment & Plan (1) Current use of anticoagulant therapy: Code(s): Z79.01 - group home (current) use of 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 (2) NICM (nonischemic cardiomyopathy): Code(s): I42.8 - Other cardiomyopathies Category: Medical (3) KIERRA (obstructive sleep apnea): Code(s): G47.33 - Obstructive sleep apnea (adult) (pediatric) Category: Medical (4) Obesity (BMI 30-39.9): Comment: PATIENT IS AWARE OF BEING OVERWEIGHT. 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 Code(s): E66.9 - Obesity, unspecified Category: Medical (5) PAF (paroxysmal atrial fibrillation): Code(s): I48.0 - Paroxysmal atrial fibrillation Category: Medical (6) Biventricular ICD (implantable cardioverter-defibrillator) in place: Code(s): Z95.810 - Presence of automatic (implantable) cardiac defibrillator Category: Medical (7) Pre-op examination: Code(s): Z01.818 - Encounter for other preprocedural examination Category: Medical Plan This is his first colonoscopy. No anes or sed problems. His cardiac problems are well controlled and he has KIERRA. NO ID problems. He had a negative Cologuard in 2017, no known FHX of crc or polyps. Orders: Orders Colonoscopy - GI Use Only 08/26/24 E66.9 - Obesity, unspecified, G47.33 - Obstructive sleep apnea (adult) (pediatric), I42.8 - Other cardiomyopathies, I48.0 - Paroxysmal atrial fibrillation, Z01.818 - Encounter for other preprocedural examination, Z79.01 - group home (current) use of anticoagulants, Z95.810 - Presence of automatic (implantable) cardiac defibrillator Medications: New sodium,potassium,mag sulfates 17.5-3.13-1.6 gram (Suprep Bowel Prep Kit) 480 mL orally; FOR COLONOSCOPY PREP 354 mL 0RF Coding Level of Care Code New Pt Level 3 (27860) Diagnoses Current use of anticoagulant therapy Z79.01 NICM (nonischemic cardiomyopathy) I42.8 KIERRA (obstructive sleep apnea) G47.33 Obesity (BMI 30-39.9) E66.9 PAF (paroxysmal atrial fibrillation) I48.0 Biventricular ICD (implantable cardioverter-defibrillator) in place Z95.810 Pre-op examination Z01.818
[2024-08-26 15:31] VITALS: BP 134/76; PULSE 76; O2SAT 96; BMI 32.3
== END 2024-08-26 15:52 | disposition home or self-care (01) ==
LOC: HO.HGI 15:12
PROVIDERS: PCP Family Medicine; Visit Provider Nurse Practitioner
DX: Z01.818 Encounter for other preprocedural examination (principal); Z12.11 Encounter for screening for malignant neoplasm of colon; Z79.01 Long term (current) use of anticoagulants; I42.8 Other cardiomyopathies; G47.33 Obstructive sleep apnea (adult) (pediatric); I48.0 Paroxysmal atrial fibrillation; Z95.810 Presence of automatic (implantable) cardiac defibrillator
CPT/HCPCS: 99203

== ENCOUNTER → 2024-09-04 23:59 | Outpatient (BNV) | payer OTHER, SELFPAY ==
--- NOTE | 2024-09-11 09:31 | MHC.OFFVIS ---
Intake Visit Reasons: Remote device check- [employer] Allergies No Known Allergies (No Known Allergies*) Allergy (Verified 08/26/24 14:53) [facility] Medical History Cardiomyopathy Pacemaker Pre-operative cardiovascular examination Hip pain, bilateral Adult general medical exam Screening for prostate cancer Screening for colon cancer Left hand pain Elevated fasting blood sugar Encounter for interrogation of cardiac defibrillator Elevated fasting blood sugar Pre-operative clearance Anemia Osteoarthritis of right hip Biventricular ICD (implantable cardioverter-defibrillator) in place Obesity (BMI 30-39.9) KIERRA (obstructive sleep apnea) LBBB (left bundle branch block) 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 Sister Lupus (systemic lupus erythematosus) Sister No problems noted. Sister No problems noted. Sister No problems noted. Son No problems noted. Daughter No problems noted. Other Substance abuse Social History Household Members: Significant Other Housing: House Are you a primary intensive care nurse to a significant other at home: No Do you presently have visiting nurse or other home services: No Alcohol intake: former Comment: aware of trip hazard Patient Tobacco Use Status: Former Tobacco user Tobacco use type: Cigarette Years Smoked: 30 e-Cigarette/Vaping Use: Never Used Second Hand Smoke Exposure: No Substance Use Type: Marijuana service: No Current occupational status: employed Current occupation: [employer] Cognitive needs: No Hearing needs: No Vision needs: No Office Procedures Cardiac Device Check Cardiac Device Check Details: Date of service 09/04/2024; Battery life 14 months; normal lead parameters; no treated VT/VF; effective MARKETING ASSISTANT 97%; normal ICD function. [id number] Cardiac Interrogation, implant defibrillator w/interim Procedure code (CPT) selection complete Assessment & Plan Assessment & Plan (1) Biventricular ICD (implantable cardioverter-defibrillator) in place: Code(s): Z95.810 - Presence of automatic (implantable) cardiac defibrillator Category: Medical (2) NICM (nonischemic cardiomyopathy): Code(s): I42.8 - Other cardiomyopathies Category: Medical Plan x Coding Level of Care Code Procedure Only Diagnoses Biventricular ICD (implantable cardioverter-defibrillator) in place Z95.810 NICM (nonischemic cardiomyopathy) I42.8 CPT Codes Cardiac Device Check - Cardiac Device 13: [id number] Cardiac Interrogation, implant defibrillator w/interim ([id number])
== END ==
PROVIDERS: PCP Family Medicine; Visit Provider Internal Medicine
DX: I42.8 Other cardiomyopathies (principal); Z95.810 Presence of automatic (implantable) cardiac defibrillator
CPT/HCPCS: 93295

== ENCOUNTER → 2024-09-04 23:59 | Outpatient (BNV) | payer OTHER, SELFPAY ==
--- NOTE | 2024-09-11 09:27 | A.OFFVIS_ITS ---
Intake Visit Reasons: Remote HF monitoring- [employer] Allergies No Known Allergies (No Known Allergies*) Allergy (Verified 08/26/24 14:53) [facility] Medical History Cardiomyopathy Pacemaker Pre-operative cardiovascular examination Hip pain, bilateral Adult general medical exam Screening for prostate cancer Screening for colon cancer Left hand pain Elevated fasting blood sugar Encounter for interrogation of cardiac defibrillator Elevated fasting blood sugar Pre-operative clearance Anemia Osteoarthritis of right hip Biventricular ICD (implantable cardioverter-defibrillator) in place Obesity (BMI 30-39.9) KIERRA (obstructive sleep apnea) LBBB (left bundle branch block) 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 Sister Lupus (systemic lupus erythematosus) Sister No problems noted. Sister No problems noted. Sister No problems noted. Son No problems noted. Daughter No problems noted. Other Substance abuse Social History Household Members: Significant Other Housing: House Are you a primary hospice care transitions coordinator to a significant other at home: No Do you presently have visiting nurse or other home services: No Alcohol intake: former Comment: aware of trip hazard Patient Tobacco Use Status: Former Tobacco user Tobacco use type: Cigarette Years Smoked: 30 e-Cigarette/Vaping Use: Never Used Second Hand Smoke Exposure: No Substance Use Type: Marijuana service: No Current occupational status: employed Current occupation: [employer] Cognitive needs: No Hearing needs: No Vision needs: No Office Procedures Cardiac Device Check Cardiac Device Check Details: Date of service- 09/04/2024; based on impedance data and physiological variables, there is no evidence of worsening congestive heart failure. [id number] Cardiac Device Interrogation, cardio physiologic monitor Procedure code (CPT) selection complete Assessment & Plan Assessment & Plan (1) Biventricular ICD (implantable cardioverter-defibrillator) in place: Code(s): Z95.810 - Presence of automatic (implantable) cardiac defibrillator Category: Medical (2) NICM (nonischemic cardiomyopathy): Code(s): I42.8 - Other cardiomyopathies Category: Medical Plan x Coding Level of Care Code Procedure Only Diagnoses Biventricular ICD (implantable cardioverter-defibrillator) in place Z95.810 NICM (nonischemic cardiomyopathy) I42.8 CPT Codes Cardiac Device Check - Cardiac Device 15: [id number] Cardiac Device Interrogation, cardio physiologic monitor ([id number])
== END ==
PROVIDERS: PCP Family Medicine; Visit Provider Internal Medicine
DX: I42.8 Other cardiomyopathies (principal); Z95.810 Presence of automatic (implantable) cardiac defibrillator
CPT/HCPCS: 93297

== ENCOUNTER 2024-09-29 13:34 | Outpatient (AMB) | payer OTHER, SELFPAY ==
--- NOTE | 2024-09-29 13:42 | MHC.OFFVIS ---
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: No Allergies No Known Allergies (No Known Allergies*) Allergy (Verified 09/29/24 14:13) Medication List - Last Reconciled 09/29/24 by Rhianna Sorenson MD acetaminophen 650 mg (2 x 325 mg) PO Q6H PRN 30 days atorvastatin 40 mg PO DAILY 90 days dapagliflozin propanediol (Farxiga) 10 mg PO DAILY metformin 500 mg PO DAILY metoprolol succinate ER 12.5 mg (1/2 x 25 mg) PO DAILY sacubitril-valsartan 24-26 mg (Entresto) 1 tab PO BID sodium,potassium,mag sulfates 17.5-3.13-1.6 gram (Suprep Bowel Prep Kit) 480 mL orally; FOR COLONOSCOPY PREP spironolactone 25 mg PO DAILY warfarin 5 mg See Protocol PO DAILY Do you need a note to return to daycare/school/sports/work: No HPI HPI Obstructive sleep apnea: Details: This 63 years old gentleman moderately obese with a round face and narrow upper airways, has obstructive sleep apnea which is being treated with the use of CPAP( FF mask a-fit-40 10 cms ) Comes for follow-up after 1 year. He is very compliant and can not actually sleep without the use of CPAP. He gets good sleep at least for 7 hours. Is usage of mask is up to 8 hours and 30 minutes, but about 1 hour of that time is while he is still awake. His weight goes up and down and current BMI 31.5 indicates moderate obesity. [facility] Medical History Cardiomyopathy Pacemaker Pre-operative cardiovascular examination Hip pain, bilateral Adult general medical exam Screening for prostate cancer Screening for colon cancer Left hand pain Elevated fasting blood sugar Encounter for interrogation of cardiac defibrillator Elevated fasting blood sugar Pre-operative clearance Anemia Osteoarthritis of right hip Biventricular ICD (implantable cardioverter-defibrillator) in place Obesity (BMI 30-39.9) KIERRA (obstructive sleep apnea) LBBB (left bundle branch block) 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 Sister Lupus (systemic lupus erythematosus) Sister No problems noted. Sister No problems noted. Sister No problems noted. Son No problems noted. Daughter No problems noted. Other Substance abuse Social History Household Members: Significant Other Housing: House Are you a primary child care education coordinator to a significant other at home: No Do you presently have visiting nurse or other home services: No Alcohol intake: former Comment: aware of trip hazard Patient Tobacco Use Status: Former Tobacco user Tobacco use type: Cigarette Years Smoked: 30 e-Cigarette/Vaping Use: Never Used Second Hand Smoke Exposure: No Substance Use Type: Marijuana service: No Current occupational status: employed Current occupation: [employer] Cognitive needs: No Hearing needs: No Vision needs: No Review of Systems Const All systems reviewed & are unremarkable except as noted in HPI and below Eyes Reports no additional complaints ENT Reports no additional complaints Card Denies chest pain, Denies irregular heart rhythm, Denies leg edema and Denies dyspnea on exertion Resp Denies cough, Denies dyspnea on exertion and Denies wheezing GI Reports no additional complaints Musc Reports no additional complaints Neuro Reports no additional complaints Psych Reports no additional complaints Endo Reports no additional complaints Aller/Immun Denies wheezing Physical Exam Vital Signs: Last Vital Signs Pulse 69 09/29/24 13:43 BP 120/80 09/29/24 13:43 Pulse Ox 97 09/29/24 13:43 Oxygen Delivery Method Room Air 09/29/24 13:43 BMI result Body Mass Index 31.5 Const General: healthy appearing (BUT OVERWEIGHT), comfortable, no acute distress, alert and awake Orientation/consciousness: patient oriented x3 HEENT Head: Yes normal to inspection General nose exam: No nasal polyps present and No nasal discharge present Face and sinus: Yes sinuses nontender Mouth: oropharynx normal Throat: Yes posterior oropharynx normal Eyes General: appearance normal, both eyes and all related structures Neck Neck: Yes normal visual inspection, Yes no lymphadenopathy, Yes trachea midline, Yes no JVD and Yes other (Neck size 18-1/2 inch) Thyroid: Thyroid normal Chest Chest palpation & inspection: normal inspection of the chest, normal palpation of entire chest wall and no tenderness Resp Auscultation: clear to auscultation bilaterally, no crackles and no wheezes Cardio Palpation: normal PMI Rate: regular rate Rhythm: regular rhythm Heart sounds: no gallops and no murmurs Peripheral pulses: Peripheral pulses 2+ throughout GI Palpation (GI): Soft to palpation, nontender, No hepatosplenomegaly present and no masses Auscultation: normal bowel sounds Back/Spine/Pelvis Thoracic/Lumbar Spine: thoracic and lumbar spine normal to inspection Skin General skin exam: no rashes or lesions noted Neuro General: patient oriented x3 and no focal motor deficits Cranial nerves: Yes CN's II-XII intact bilaterally Extrem General: Yes normal to inspection, Yes no clubbing, cyanosis or edema and Yes no calf tenderness Psych Appearance: grossly normal and well kempt Speech and movement: Normal speech and movement present Results Reviewed Results Reviewed: Compliance report for the last 30 nights shows that he uses. 100% of the nights Average use it per night 8 hours 33 minutes. There is no air leak. Residual AHI 3.8, which may be due to the fact that the pressure is relatively enough. Assessment & Plan Assessment & Plan (1) KIERRA (obstructive sleep apnea): Comment: Known case of obstructive sleep apnea being treated very well with the use of CPAP. ( FF mask and Pressure 10 CMs ) He is very compliant and benefiting from the use, Code(s): G47.33 - Obstructive sleep apnea (adult) (pediatric) Category: Medical Plan: Commended for his good compliance. Advised to keep on using the CPAP. regularly every night (2) Obesity (BMI 30-39.9): Comment: PATIENT IS AWARE OF BEING OVERWEIGHT. 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 Code(s): E66.9 - Obesity, unspecified Category: Medical Plan: Advised to manage his dietary intake and see if he can cut down the calories especially from carbohydrates. Coding Level of Care Code Est Pt Level 3 (45124) Diagnoses KIERRA (obstructive sleep apnea) G47.33 Obesity (BMI 30-39.9) E66.9
[2024-09-29 13:43] VITALS: BP 120/80; PULSE 69; O2SAT 97; BMI 31.5
== END 2024-09-29 14:11 | disposition home or self-care (01) ==
LOC: HO.HPS 13:34
PROVIDERS: PCP Family Medicine; Visit Provider Internal Medicine
DX: G47.33 Obstructive sleep apnea (adult) (pediatric) (principal); E66.9 Obesity, unspecified
CPT/HCPCS: 99213

== ENCOUNTER 2024-09-30 07:21 | Outpatient (REF) | payer OTHER, SELFPAY ==
[2024-09-30 08:29] LABS: Appearance Urine Clear; Glucose Urine UA >=1000 mg/dL (Negative); PH 5.5 (5.0-9.0); Specific Gravity - Urine 1.025 (1.005-1.025); UMIC TRIGGER UA YES
[2024-09-30 08:53] LABS: Alanine Aminotransferase 39 U/L (0-40); Albumin Level 4.7 g/dL (3.5-5.0); Alkaline Phosphatase 118 U/L (39-117); Anion Gap 11 (12-20); Aspartate Amino Transferase 27 U/L (5-37); Blood Urea Nitrogen 18 mg/dL (9-16); Calcium 9.0 mg/dL (8.4-10.2); Carbon Dioxide 26 mmol/L (22-29); Chloride 106 mmol/L (96-108); Cholesterol 134 mg/dL (<200); Estimated Glomerular Filt Rate > 60; HDL Cholesterol 49 mg/dL (>40); Potassium 4.1 mmol/L (3.3-5.1); Sodium 139 mmol/L (135-145); Total Protein 7.0 g/dL (6.5-8.0); Triglycerides 116 mg/dL (<150)
== END 2024-09-30 07:22 | disposition home or self-care (01) ==
LOC: HO.LAB 07:21
PROVIDERS: PCP Family Medicine; Visit Provider Family Medicine
DX: Z00.00 Encounter for general adult medical examination without abnormal findings (principal)
CPT/HCPCS: 36415; 80053; 80061; 81001; 85610; 99211

== ENCOUNTER 2024-09-30 08:01 | Outpatient (AMB) | payer OTHER, SELFPAY ==
[2024-09-30 08:07] LABS: Prothrombin Time Whole Bld POC 28.1 sec (11.1-13.5); ~PT, ~INR - Anti Coag Clinic 2.3 (0.9-1.1)
--- NOTE | 2024-09-30 08:11 | MHC.OFFVISCO ---
Intake Intake Visit Reasons: Anticoagulation Allergies No Known Allergies (No Known Allergies*) Allergy (Verified 09/30/24 08:01) Medication List - Last Reconciled 09/30/24 by Amna Tierney, NATHANIEL acetaminophen 650 mg (2 x 325 mg) PO Q6H PRN 30 days atorvastatin 40 mg PO DAILY 90 days dapagliflozin propanediol (Farxiga) 10 mg PO DAILY metformin 500 mg PO DAILY metoprolol succinate ER 12.5 mg (1/2 x 25 mg) PO DAILY sacubitril-valsartan 24-26 mg (Entresto) 1 tab PO BID sodium,potassium,mag sulfates 17.5-3.13-1.6 gram (Suprep Bowel Prep Kit) 480 mL orally; FOR COLONOSCOPY PREP spironolactone 25 mg PO DAILY warfarin 5 mg See Protocol PO DAILY Nursing Note INR: 2.3 in therapeutic range of 2-3 Medications and supplements reviewed No changes in health, diet, medications, or supplements, Denies any signs and symptoms of bleeding or bruising or clotting. Bleeding, bruising, clotting discussed Nutritional guidance given to balance foods that raise the INR with foods that lower the INR Dose: 5mg X 5 days and 2.5mg X 2 days (Mon & Thurs) F/U INR: 4 weeks Patient verbalizes understanding of instructions given Anti-Coag Initial Assessment Social Hx Patient Tobacco Use Status: Former Tobacco user Tobacco use type: Cigarette alcohol intake: former Alcohol intake frequency: former alcohol drinker Coding Level of Care Code Est Patient Level 1 Diagnoses Current use of anticoagulant therapy Z79.01 Assessment & Plan Assessment & Plan (1) Current use of anticoagulant therapy: Code(s): 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
== END 2024-09-30 08:13 | disposition home or self-care (01) ==
LOC: HO.ACS 08:01
PROVIDERS: PCP Family Medicine; Visit Provider Internal Medicine Medical Oncology
DX: Z79.01 Long term (current) use of anticoagulants (principal)

== ENCOUNTER 2024-10-25 14:04 | Outpatient (AMB) | payer OTHER, SELFPAY ==
--- NOTE | 2024-10-25 14:18 | A.OFFPC_ITS ---
Vital Signs 10/25/24 14:25 Height 5 ft 10 in Weight 224 lb 6 oz BMI 32.2 BP 108/60 Blood Pressure Location Rt brachial Position Sitting Respiration 10 L Pulse 73 Pulse Source Pulse Oximeter Temp 98.6 F Temp Source Oral Pulse Oximetry (%) 96 Oxygen Delivery Method Room Air Intake Visit Reasons: f/u HTN, HLD, prediabetes Intake Note: patient is scheduled for htn and lab review Counterintelligence Agent Required: No Allergies No Known Allergies (No Known Allergies*) Allergy (Verified 10/25/24 14:24) Tobacco use date assessed: 07/11/24 Dental Screening Dental Screen Date: 07/11/24 [facility] Medical History Cardiomyopathy Pacemaker Pre-operative cardiovascular examination Hip pain, bilateral Adult general medical exam Screening for prostate cancer Screening for colon cancer Left hand pain Elevated fasting blood sugar Encounter for interrogation of cardiac defibrillator Elevated fasting blood sugar Pre-operative clearance Anemia Osteoarthritis of right hip Biventricular ICD (implantable cardioverter-defibrillator) in place Obesity (BMI 30-39.9) KIERRA (obstructive sleep apnea) LBBB (left bundle branch block) 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 Sister Lupus (systemic lupus erythematosus) Sister No problems noted. Sister No problems noted. Sister No problems noted. Son No problems noted. Daughter No problems noted. Other Substance abuse Social History Household Members: Significant Other Housing: House Are you a primary youth career specialist to a significant other at home: No Do you presently have visiting nurse or other home services: No Alcohol intake: former Comment: aware of trip hazard Patient Tobacco Use Status: Former Tobacco user Tobacco use type: Cigarette Years Smoked: 30 e-Cigarette/Vaping Use: Never Used Second Hand Smoke Exposure: No Substance Use Type: Marijuana service: No Current occupational status: employed Current occupation: [employer] Cognitive needs: No Hearing needs: No Vision needs: No Questionnaire Thrive Questionnaire Date Thrive assessed: 07/04/24 I am a: Patient What is your living situation today?: I have a steady place to live Within the past 12 months, did the food you bought not last and you didn't have the money to get more?: Never true Within the past 12 months, did you worry whether your food would run out before you got money to buy more?: Never true Do you have trouble paying for medicines?: No Do you have trouble getting transportation to medical appointments?: No Do you have trouble paying your heating and electricity bill?: No Do you have trouble taking care of your child, family member or friend?: No Do you have trouble with day-to-day activities such as bathing, preparing meals, shopping, managing finances, etc.?: No Are you currently unemployed and looking for a job?: No Are you interested in more education?: No Please select the resources that you would like help with: None Currently or been in a relationship where the following occur: No concerns reported THRIVE Score: 0 NEVIN-7 AMB Questionnaire NEVIN-7 Date NEVIN - 7 assessed: 07/11/24 Source: Developed by Drs. Mir Thomas, Ann Marie Alcantar, Jorden Guzmán and colleagues, with an educational audrey from [employer]. Physical exam (Primary Care) Vital Signs: Last Vital Signs Temp 98.6 F 10/25/24 14:25 Pulse 73 10/25/24 14:25 Resp 10 L 10/25/24 14:25 BP 108/60 10/25/24 14:25 Pulse Ox 96 10/25/24 14:25 Oxygen Delivery Method Room Air 10/25/24 14:25 BMI result Body Mass Index 32.2 Tobacco/Smoking Status: Tobacco use Status Tobacco use date assessed 07/11/24 10/25/24 14:18 Patient Tobacco Use Status Former Tobacco user 10/25/24 14:18 Tobacco use type Cigarette 10/25/24 14:18 e-Cigarette/Vaping Use Never Used 10/25/24 14:18 Thrive Assessment: Date of Thrive Assessment Date Thrive assessed 07/04/24 10/25/24 14:18 Currently or been in a relationship where the following occur: No concerns reported Coding Level of Care Code Est Pt Level 4 (01466) Diagnoses Essential hypertension I10 Diabetes E11.9 Hyperlipidemia E78.5 Assessment & Plan Assessment & Plan (1) Essential hypertension: Code(s): I10 - Essential (primary) hypertension Category: Medical Plan: Blood pressure is at goal of less than 130/80. Continue current medications Hydrate well (2) Diabetes: Code(s): E11.9 - Type 2 diabetes mellitus without complications Category: Medical Plan: A1c 5.8%. Good control. Goal is less than 7.0% Continue current medication regimen and diabetic diet Up-to-date with eye exam - no diabetic retinopathy at last check. He has upcoming eye exam scheduled in December (3) Hyperlipidemia: Code(s): E78.5 - Hyperlipidemia, unspecified Category: Medical Plan: Had increased atorvastatin at prior visits and he is tolerating this well Cholesterol levels are all at goal LDL cholesterol goal is less than 70
[2024-10-25 14:25] VITALS: BP 108/60; PULSE 73; RESP 10; TEMP 37; O2SAT 96; BMI 32.2
== END 2024-10-25 14:56 | disposition home or self-care (01) ==
LOC: HO.HMCFM 14:05
PROVIDERS: PCP Family Medicine; Visit Provider Family Medicine
DX: I10 Essential (primary) hypertension (principal); E11.9 Type 2 diabetes mellitus without complications; E78.5 Hyperlipidemia, unspecified

== ENCOUNTER 2024-10-28 15:20 | Outpatient (AMB) | payer OTHER, SELFPAY ==
[2024-10-28 15:47] LABS: Prothrombin Time Whole Bld POC 31.7 sec (11.1-13.5); ~PT, ~INR - Anti Coag Clinic 2.6 (0.9-1.1)
--- NOTE | 2024-10-28 15:52 | MHC.OFFVISCO ---
Intake Intake Visit Reasons: Anticoagulation Allergies No Known Allergies (No Known Allergies*) Allergy (Verified 10/28/24 15:20) Medication List - Last Reconciled 10/28/24 by Kayla Atkins RN acetaminophen 650 mg (2 x 325 mg) PO Q6H PRN 30 days atorvastatin 40 mg PO DAILY 90 days dapagliflozin propanediol (Farxiga) 10 mg PO DAILY enoxaparin (Lovenox) 100 mg subcut Q12H 10 days metformin 500 mg PO DAILY metoprolol succinate ER 12.5 mg (1/2 x 25 mg) PO DAILY sacubitril-valsartan 24-26 mg (Entresto) 1 tab PO BID sodium,potassium,mag sulfates 17.5-3.13-1.6 gram (Suprep Bowel Prep Kit) 480 mL orally; FOR COLONOSCOPY PREP spironolactone 25 mg PO DAILY warfarin 5 mg See Protocol PO DAILY Nursing Note INR: 2.6 in therapeutic range Medications and supplements reviewed No changes in health, diet, medications, or supplements, Denies any signs and symptoms of bleeding or bruising or clotting. Bleeding, bruising, clotting discussed Nutritional guidance given Dose: 5MG X 5 DAYS/ 2.5MG X 2 DAYS F/U INR: 11/04/24 SO PT KNOWS WHEN TO START LOVENOX Patient verbalizes understanding of instructions given Anti-Coag Initial Assessment Social Hx Patient Tobacco Use Status: Former Tobacco user Tobacco use type: Cigarette alcohol intake: former Alcohol intake frequency: former alcohol drinker Coding Level of Care Code Est Patient Level 1 Diagnoses Current use of anticoagulant therapy Z79.01 Results AMB INR Fingerstick AMB INR Fingerstick 2.6 Last Edit by Kayla Atkins RN on 10/28/24 15:36 manual entry Assessment & Plan Assessment & Plan (1) Current use of anticoagulant therapy: Code(s): Z79.01 - intermediate (current) use of 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
== END 2024-10-28 15:55 | disposition home or self-care (01) ==
LOC: HO.ACS 15:20
PROVIDERS: PCP Family Medicine; Visit Provider Internal Medicine Medical Oncology
DX: Z79.01 Long term (current) use of anticoagulants (principal)

== ENCOUNTER → 2024-10-28 15:20 | Outpatient (BNVA) | payer OTHER, SELFPAY | PROVIDERS: PCP Family Medicine; Visit Provider Internal Medicine Medical Oncology | DX: Z79.01 Long term (current) use of anticoagulants (principal) | CPT/HCPCS: 85610; 99211 ==

== ENCOUNTER 2024-11-04 14:51 | Outpatient (AMB) | payer OTHER, SELFPAY ==
[2024-11-04 15:00] LABS: Prothrombin Time Whole Bld POC 32.7 sec (11.1-13.5); ~PT, ~INR - Anti Coag Clinic 2.7 (0.9-1.1)
--- NOTE | 2024-11-04 15:10 | MHC.OFFVISCO ---
Intake Intake Visit Reasons: Anticoagulation Allergies No Known Allergies (No Known Allergies*) Allergy (Verified 11/04/24 14:53) Medication List - Last Reconciled 11/04/24 by Fay Calhoun RN acetaminophen 650 mg (2 x 325 mg) PO Q6H PRN 30 days atorvastatin 40 mg PO DAILY 90 days dapagliflozin propanediol (Farxiga) 10 mg PO DAILY enoxaparin (Lovenox) 100 mg See Protocol subcut Q12H 10 days metformin 500 mg PO DAILY metoprolol succinate ER 12.5 mg (1/2 x 25 mg) PO DAILY sacubitril-valsartan 24-26 mg (Entresto) 1 tab PO BID sodium,potassium,mag sulfates 17.5-3.13-1.6 gram (Suprep Bowel Prep Kit) 480 mL orally; FOR COLONOSCOPY PREP spironolactone 25 mg PO DAILY warfarin 5 mg See Protocol PO DAILY Nursing Note PT.TO HAVE COLONOSCOPY ON 11/11. STARTS 5 DAY WARFARIN HOLD AFTER LAST DOSE ON 11/05. PT.HAS INSTR.RE LOVENOX , AND PT.VERB.GOOD UNDERSTANDING TODAY. TO CALL [facility] IN MEANTIME IF ANY QUESTIONS/CONCERNS ARISE PT. AGREES TO RESTART WARFARIN AND LOVENOX PER MD AFTER PROCEDURE. Anti-Coag Initial Assessment Social Hx Patient Tobacco Use Status: Former Tobacco user Tobacco use type: Cigarette alcohol intake: former Alcohol intake frequency: former alcohol drinker Coding Level of Care Code Est Patient Level 1 Diagnoses Current use of anticoagulant therapy Z79.01 Results AMB INR Fingerstick AMB INR Fingerstick 2.7 Last Edit by Fay Calhoun RN on 11/04/24 15:00 Assessment & Plan Assessment & Plan (1) Current use of anticoagulant therapy: Code(s): Z79.01 - half-way (current) use of 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
== END 2024-11-04 15:15 | disposition home or self-care (01) ==
LOC: HO.ACS 14:51
PROVIDERS: PCP Family Medicine; Visit Provider Internal Medicine Medical Oncology
DX: Z79.01 Long term (current) use of anticoagulants (principal)

== ENCOUNTER → 2024-11-04 14:51 | Outpatient (BNVA) | payer OTHER, SELFPAY | PROVIDERS: PCP Family Medicine; Visit Provider Internal Medicine Medical Oncology | DX: Z79.01 Long term (current) use of anticoagulants (principal) | CPT/HCPCS: 85610; 99211 ==

== ENCOUNTER → 2024-11-07 23:59 | Outpatient (BNV) | payer OTHER, SELFPAY ==
--- NOTE | 2024-11-22 14:00 | MHC.OFFVIS ---
Intake Visit Reasons: Remote HF monitoring- [employer] Allergies No Known Allergies (No Known Allergies*) Allergy (Verified 11/16/24 16:00) [facility] Medical History Cardiomyopathy Pacemaker Pre-operative cardiovascular examination Hip pain, bilateral Adult general medical exam Screening for prostate cancer Screening for colon cancer Left hand pain Elevated fasting blood sugar Encounter for interrogation of cardiac defibrillator Elevated fasting blood sugar Pre-operative clearance Anemia Osteoarthritis of right hip Biventricular ICD (implantable cardioverter-defibrillator) in place Obesity (BMI 30-39.9) KIERRA (obstructive sleep apnea) LBBB (left bundle branch block) 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 Sister Lupus (systemic lupus erythematosus) Sister No problems noted. Sister No problems noted. Sister No problems noted. Son No problems noted. Daughter No problems noted. Other Substance abuse Social History Household Members: Significant Other Housing: House Are you a primary career development associate to a significant other at home: No Do you presently have visiting nurse or other home services: No Alcohol intake: former Comment: aware of trip hazard Patient Tobacco Use Status: Former Tobacco user Tobacco use type: Cigarette Years Smoked: 30 e-Cigarette/Vaping Use: Never Used Second Hand Smoke Exposure: No Substance Use Type: Marijuana service: No Current occupational status: employed Current occupation: [employer] Cognitive needs: No Hearing needs: No Vision needs: No Office Procedures Cardiac Device Check Cardiac Device Check Details: Date of service- 11/07/2024; based on impedance data and physiological variables, there is no evidence of worsening congestive heart failure. [id number] Cardiac Device Interrogation, cardio physiologic monitor Procedure code (CPT) selection complete Assessment & Plan Assessment & Plan (1) Biventricular ICD (implantable cardioverter-defibrillator) in place: Code(s): Z95.810 - Presence of automatic (implantable) cardiac defibrillator Category: Medical (2) NICM (nonischemic cardiomyopathy): Code(s): I42.8 - Other cardiomyopathies Category: Medical Plan x Medications: On Hold warfarin Hold Comment: Resume on 11/11/24. resume warfarin tonight 5 mg See Protocol PO DAILY 90 tabs 3RF Coding Level of Care Code Procedure Only Diagnoses Biventricular ICD (implantable cardioverter-defibrillator) in place Z95.810 NICM (nonischemic cardiomyopathy) I42.8 CPT Codes Cardiac Device Check - Cardiac Device 15: [id number] Cardiac Device Interrogation, cardio physiologic monitor ([id number])
== END ==
PROVIDERS: PCP Family Medicine; Visit Provider Internal Medicine
DX: I42.8 Other cardiomyopathies (principal); Z95.810 Presence of automatic (implantable) cardiac defibrillator
CPT/HCPCS: 93297

== ENCOUNTER 2024-11-11 07:50 | Day surgery (SDC) | payer OTHER, SELFPAY ==
--- NOTE | 2024-11-10 08:30 | P.CONAN_ITS ---
Documented by User: Melissa Casarez NP 11/10/24 08:39 HPI - Anesthesia Eval Consult details Narrative: 63yo M for ?Colonoscopy Follows [facility] Cardiology for NI-Cardiomyopathy (EF 33% on last echo), ICD in situ, LBBB, CVA 2017. Stable and asymptomatic at 06/2024 office visit (Last echo 2021 with repeat scheduled for 11/16/24) On warfarin. 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) High triglycerides (Acute) Diabetes (Acute) Hyperlipidemia (Acute) PAF (paroxysmal atrial fibrillation) (Acute) Bilateral primary osteoarthritis of hip (Acute) Obesity (BMI 30-39.9) (Acute) KIERRA (obstructive sleep apnea) (Acute) LBBB (left bundle branch block) (Acute) Cerebrovascular accident (CVA) due to embolism of cerebral artery (Acute) NICM (nonischemic cardiomyopathy) (Acute) Past Medical History Medical History Cardiomyopathy Pacemaker Pre-operative cardiovascular examination Hip pain, bilateral Adult general medical exam Screening for prostate cancer Screening for colon cancer Left hand pain Elevated fasting blood sugar Encounter for interrogation of cardiac defibrillator Elevated fasting blood sugar Pre-operative clearance Anemia Osteoarthritis of right hip Biventricular ICD (implantable cardioverter-defibrillator) in place Obesity (BMI 30-39.9) KIERRA (obstructive sleep apnea) LBBB (left bundle branch block) Cerebrovascular accident (CVA) due to embolism of cerebral artery NICM (nonischemic cardiomyopathy) Family History Family History Father CVD (cardiovascular disease) S/P triple vessel bypass Mother Stroke CVD (cardiovascular disease) Brother No problems noted. Sister Lupus (systemic lupus erythematosus) Sister No problems noted. Sister No problems noted. Sister No problems noted. Son No problems noted. Daughter No problems noted. Other Substance abuse Family history of problems with anesthesia: No Surgical History Surgical History History of total right hip replacement History of cardiac catheterization (~03/2018) History of removal of cyst History of Problems with Anesthesia: No Social History Social History Household Members: Significant Other Housing: House Are you a primary director of career services to a significant other at home: No Do you presently have visiting nurse or other home services: No Alcohol intake: former Comment: aware of trip hazard Patient Tobacco Use Status: Former Tobacco user Tobacco use type: Cigarette Years Smoked: 30 e-Cigarette/Vaping Use: Never Used Second Hand Smoke Exposure: No Use of substances other than those prescribed or required for medical reasons: No Substance Use Type: Marijuana Advance Directives: No Advance Directives Information Provided: Yes service: No Current occupational status: employed Current occupation: [employer] Cognitive needs: No Hearing needs: No Vision needs: No Meds Allergies Allergy/AdvReac Type Severity Reaction Status Date / Time No Known Allergies (No Known Allergy Verified 11/04/24 14:53 Allergies*) Exam Pertinent Lab Results Pertinent Lab Results: Laboratory Tests 09/30/24 07:33 Sodium 139 Potassium 4.1 Chloride 106 Carbon Dioxide 26 BUN 18 H Creatinine 1.05 Narrative Narrative: EKG 12/2023 A-sensed, V-paced @ 70 ECHO 2021 Conclusions: - The left ventricular systolic function is moderately decreased. The calculated ejection fraction is 33% by biplane method. - No obvious valvular pathology seen on this study. Assessment and Plan Assessment Anesthesia Assessment: Chart Reviewed Final Anesthetic Review Family History of Problems with Anesthesia: No History of Problems with Anesthesia: No Documented by User: Vidhya Baker MD 11/11/24 08:30 [facility] Past Medical History Medical History Cardiomyopathy Pacemaker Pre-operative cardiovascular examination Hip pain, bilateral Adult general medical exam Screening for prostate cancer Screening for colon cancer Left hand pain Elevated fasting blood sugar Encounter for interrogation of cardiac defibrillator Elevated fasting blood sugar Pre-operative clearance Anemia Osteoarthritis of right hip Biventricular ICD (implantable cardioverter-defibrillator) in place Obesity (BMI 30-39.9) KIERRA (obstructive sleep apnea) LBBB (left bundle branch block) Cerebrovascular accident (CVA) due to embolism of cerebral artery NICM (nonischemic cardiomyopathy) Family History Family History Father CVD (cardiovascular disease) S/P triple vessel bypass Mother Stroke CVD (cardiovascular disease) Brother No problems noted. Sister Lupus (systemic lupus erythematosus) Sister No problems noted. Sister No problems noted. Sister No problems noted. Son No problems noted. Daughter No problems noted. Other Substance abuse Surgical History Surgical History History of total right hip replacement History of cardiac catheterization (~03/2018) History of removal of cyst Social History Social History Household Members: Significant Other Housing: House Are you a primary director of career services to a significant other at home: No Do you presently have visiting nurse or other home services: No Alcohol intake: former Comment: aware of trip hazard Patient Tobacco Use Status: Former Tobacco user Tobacco use type: Cigarette Years Smoked: 30 e-Cigarette/Vaping Use: Never Used Second Hand Smoke Exposure: No Use of substances other than those prescribed or required for medical reasons: No Substance Use Type: Marijuana Advance Directives: No Advance Directives Information Provided: Yes service: No Current occupational status: employed Current occupation: [employer] Cognitive needs: No Hearing needs: No Vision needs: No Meds Allergies Allergy/AdvReac Type Severity Reaction Status Date / Time No Known Allergies (No Known Allergy Verified 11/04/24 14:53 Allergies*) Exam Airway Mallampati Class: III TM Dist: >3cm Neck ROM: Full Heart: rrr Lungs: cta Assessment and Plan Assessment Anesthesia Assessment: Anesthesia Plan Discussed Final Anesthetic Review NPO: Yes ASA Class: III Final Preanesthetic Review: No Changes in Pt Med Stat, Meds/Allgs Chart Reviewed and Consent Obtained/Reviewed Patient Risk: Intermediate Procedure Risk: Low Anesthetic Plan Anesthetic Plan: MAC: Disposition: Standard PACU
--- NOTE | 2024-11-11 07:02 | MHC.SHP ---
Pre-Procedural Eval Section A - 24 Hr Update-Section A only Date of Service: 11/11/24 The patient is an INPATIENT: No The patient has been examined within 24 hours of the surgical procedure. The History & Physical has been completed within 30 days and I have reviewed it.: No Section B - Complete if H&P > 30 days Chief Complaint: screening Relevant Family History (Specify if Yes): No Relevant Social History: Tobacco Use (Former smoker) Present Medications: see Short Stay Collaborative assessment Medical History: Significant History (KIERRA Obesity Paroxysmal atrial fibrillation Chronic anticoagulation Nonischemic cardiomyopathy -biventricular pacemaker/ICD Hypertension High cholesterol Diabetes Cervical radiculopathy Osteoarthritis of the hip History of CVA ) History of Previous Operations: Relevant previous surgery/procedure and date(s) (Cardiac catheterization Pacemaker placement Dermal cyst on forehead removed Right total hip replacement ) Allergies: Allergies Allergy/AdvReac Type Severity Reaction Status Date / Time No Known Allergies (No Known Allergy Verified 11/04/24 14:53 Allergies*) Review of Systems Sugical H&P ROS: Negative: Constitution, Cardiovascular, Respiratory and Gastrointestinal Exam Surgical H&P Exam: Normal: Heart, Normal: Lungs, Normal: Extremities and Normal: Abdomen Plan Diagnosis/Plan: Unchanged I have reviewed the history and physical and performed a pertinent physical examination on my patient. No changes have occurred unless specified. Time Spent With Patient Time: Total time managing care of this patient today ____ minutes.
[2024-11-11 08:07] VITALS: BP 134/70; PULSE 74; RESP 16; TEMP 36.7; O2SAT 99
[2024-11-11 08:22] LABS: INTERNATIONAL NORM RATIO 1.0 (0.9-1.1); Prothrombin Time 11.2 SEC (10.9-12.4)
[2024-11-11] MEDS: Lactated Ringers 1,000 ML 50 ML IVCONT (08:26)
[2024-11-11 10:29] VITALS: BP 95/56; PULSE 72; RESP 16; TEMP 36.2; O2SAT 97
--- NOTE | 2024-11-11 10:29 | HO.OPN-COLON ---
Colonoscopy Operative Note Operative Note Date of Service: 11/11/24 Narrative: COLONOSCOPY TILL CECUM WITH BIOPSIES AND SNARE POLYPECTOMY Pre-op diagnosis: Colon cancer screening (first colon). Post-op diagnosis:? Colon polyps, Diverticulosis, hemorrhoids Endoscopist:? Isaiah Leyva MD Anesthesia:?MAC Consent: Indications for the procedure and potential complications of bleeding, perforation, reaction to medications and missed diagnosis were discussed with the patient and informed consent was obtained. Instrument: Olympus CF H 190 L variable stiffness adult colonoscope Monitoring: Vital signs and clinical assessment, intermittent blood pressure monitoring, continuous EKG monitoring, Pulse oximetry and Carbon Dioxide monitoring were done throughout the procedure. Please see anesthesia flowsheet. Colon withdrawl time was 19 minutes. Procedure: The patient was placed in the left lateral decubitis position and pre-procedure medications were administered. After a digital rectal examination of the ano-rectum, the video colonoscope was inserted into the rectum and advanced through the colon to the cecum. The colonoscope was slowly withdrawn in a retrograde panoramic fashion and the colon mucosa was carefully examined including a retroflexed view of the rectum. Findings and interventions are described below. Procedure Difficulty: without difficulty Findings: Terminal Ileum: Not evaluated Cecum: A 5-6 mm sessile polyp - removed with a cold snare Ascending Colon: Normal Transverse Colon: A 6-7 mm sessile polyp - removed with a cold snare Descending Colon: Normal Sigmoid Colon: Two 4-5 mm diminutive appearing polyps - removed with a cold biopsy. Moderate diverticulosis Rectum: Normal Ano-rectum: Small internal hemorrhoids Colon preparation: Good after some irrigation. [place] Bowel Preparation Scale Right colon; 2 Transverse colon: 2 Left colon; 2 (0 = Unprepared colon segment with mucosa not seen due to solid stool that cannot be cleared. 1 = Portion of mucosa of the colon segment seen, but other areas of the colon segment not well seen due to staining, residual stool and/or opaque liquid. 2 = Minor amount of residual staining, small fragments of stool and/or opaque liquid, but mucosa of colon segment seen well. 3 = Entire mucosa of colon segment seen well with no residual staining, small fragments of stool or opaque liquid) Impression and Post Procedure Diagnosis: Colonoscopy Findings: Four small polyps were removed Moderate diverticulosis seen in the sigmoid colon Small hemorrhoids on retroflexed exam. Plan: I will send a letter with biopsy results. Repeat Colonoscopy in 3-5 years if polyps are adenomatous and 10 year if polyps are hyperplastic. Above findings were reviewed with the patient and relevant handouts were given and the discharge area.
[2024-11-11 10:44] VITALS: BP 100/64; PULSE 70; RESP 16; TEMP 36.2; O2SAT 100
== END 2024-11-11 11:01 | disposition home or self-care (01) ==
PROVIDERS: Nurse Practitioner; PCP Family Medicine; Visit Provider Internal Medicine Gastroenterology
PROC: 0DJD8ZZ Inspection of Lower Intestinal Tract, Via Natural or Artificial Opening Endoscopic (ICD-10-PCS; CPT 45378; principal; 2024-11-11 09:20)
DX: Z12.11 Encounter for screening for malignant neoplasm of colon (principal); K57.30 Diverticulosis of large intestine without perforation or abscess without bleeding; K64.8 Other hemorrhoids; E11.9 Type 2 diabetes mellitus without complications; I10 Essential (primary) hypertension; E78.5 Hyperlipidemia, unspecified; I48.0 Paroxysmal atrial fibrillation; I44.7 Left bundle-branch block, unspecified; G47.33 Obstructive sleep apnea (adult) (pediatric); E66.9 Obesity, unspecified; Z68.32 Body mass index [BMI] 32.0-32.9, adult; Z99.89 Dependence on other enabling machines and devices; Z86.73 Personal history of transient ischemic attack (TIA), and cerebral infarction without residual deficits; Z95.810 Presence of automatic (implantable) cardiac defibrillator; Z79.01 Long term (current) use of anticoagulants; Z87.891 Personal history of nicotine dependence
CPT/HCPCS: 45385; 45380; 36415; 85610; 88305; J2003; J2250; J2704

== ENCOUNTER → 2024-11-11 07:50 | Outpatient (BNV) | payer OTHER, SELFPAY | PROVIDERS: PCP Family Medicine; Visit Provider Internal Medicine Gastroenterology | DX: Z12.11 Encounter for screening for malignant neoplasm of colon (principal); D12.0 Benign neoplasm of cecum; D12.3 Benign neoplasm of transverse colon; D12.5 Benign neoplasm of sigmoid colon; K57.30 Diverticulosis of large intestine without perforation or abscess without bleeding; K64.8 Other hemorrhoids | CPT/HCPCS: 45380; 45385 ==

== ENCOUNTER 2024-11-14 15:25 | Outpatient (AMB) | payer OTHER, SELFPAY ==
[2024-11-14 15:32] LABS: Prothrombin Time Whole Bld POC 19.7 sec (11.1-13.5); ~PT, ~INR - Anti Coag Clinic 1.6 (0.9-1.1)
--- NOTE | 2024-11-14 15:40 | MHC.OFFVISCO ---
Intake Intake Visit Reasons: Anticoagulation Allergies No Known Allergies (No Known Allergies*) Allergy (Verified 11/14/24 15:26) Medication List - Last Reconciled 11/14/24 by Kayla Atkins RN acetaminophen 650 mg (2 x 325 mg) PO Q6H PRN 30 days atorvastatin 40 mg PO DAILY 90 days dapagliflozin propanediol (Farxiga) 10 mg PO DAILY enoxaparin (Lovenox) 100 mg See Protocol subcut Q12H 10 days metformin 500 mg PO DAILY metoprolol succinate ER 12.5 mg (1/2 x 25 mg) PO DAILY sacubitril-valsartan 24-26 mg (Entresto) 1 tab PO BID spironolactone 25 mg PO DAILY warfarin 5 mg See Protocol PO DAILY Held on 11/11/24. Instructions: Resume on 11/11/24. resume warfarin tonight Nursing Note INR 1.6 out of therapeutic range Medications and supplements reviewed Patient status: s/p colonoscopy 11/11/2024 with polypectomies- results pending Medications or supplements: was off warfarin x 5 days and resume 11/11/24 with lovneox bridge Diet: started off soft foods then resumed back to usual diet- avoiding greens Denies any signs and symptoms of bleeding or clotting or unusual bruising Bleeding, bruising, clotting discussed Nutritional guidance given: avoid all greens, eat orange and reds to help raise the INR Dose: had booster dose yesterday 7.5mg - will booster dose again today from 2.5mg to 5mg then resume usual dose 2.5mg x 2 days /5mg x 5 days F/U INR Date: Thursday11/16/24 ?? Patient verbalizing understanding of instructions given. 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
== END 2024-11-14 15:45 | disposition home or self-care (01) ==
LOC: HO.ACS 15:25
PROVIDERS: PCP Family Medicine; Visit Provider Internal Medicine Medical Oncology
DX: Z79.01 Long term (current) use of anticoagulants (principal)

== ENCOUNTER → 2024-11-14 15:25 | Outpatient (BNVA) | payer OTHER, SELFPAY | PROVIDERS: PCP Family Medicine; Visit Provider Internal Medicine Medical Oncology | DX: Z86.73 Personal history of transient ischemic attack (TIA), and cerebral infarction without residual deficits (principal); Z79.01 Long term (current) use of anticoagulants; Z51.81 Encounter for therapeutic drug level monitoring | CPT/HCPCS: 85610; 99211 ==

== ENCOUNTER → 2024-11-16 14:27 | Outpatient (REF) | payer OTHER, SELFPAY ==
--- NOTE | 2024-11-16 14:29 | CA_ITS ---
Transthoracic Echocardiogram Patient (Last, First, Middle): Skyler Cifuentes, Gender: Male Date of : 1960 Age: 63 Procedure Date: 11/16/2024 Procedure Type: Transthoracic Echocardiogram Location: OP Height: 177.8 cm Weight: 101.61 kg BSA: 2.19 m2 Heart Rate: bpm BP: 110 / 60 mmHg Agricultural Extension Educator: MARCELLA Referring MD: García Patterson MD Symptoms: I42.8 - Other cardiomyopathies Study Quality: Adequate w contrast ECG Rhythm: Sinus Conclusions: - The left ventricular systolic function is mildly decreased. The calculated ejection fraction is 50% by biplane method. - No obvious valvular pathology seen on this study. Findings Procedure Information Contrast agent, definity, is being given per protocol without apparent complications. Left Ventricle Normal left ventricular cavity size. There is normal left ventricular wall thickness. The left ventricular systolic function is mildly decreased. The calculated ejection fraction is 50% by biplane method. There is mild global hypokinesis. Diastolic function is normal for age. Right Ventricle Normal right ventricular cavity size and systolic function. There is an ICD wire seen in the right ventricle. Atria Both atria are normal in size. Aortic Valve There is a normal trileaflet aortic valve. There is no aortic valve stenosis. There is no aortic valve regurgitation. Mitral Valve The mitral valve appears normal. There is no mitral valve regurgitation. There is no mitral valve stenosis. Pulmonic Valve The pulmonic valve is likely normal. Tricuspid Valve There is mild tricuspid valve regurgitation. There is no evidence of pulmonary hypertension. Great Vessels The asc aorta is normal in size. Venous The inferior vena cava is normal in size and collapses greater than 50% with inspiration. Pericardium/Pleural There is no evidence of pericardial effusion. Prior Study Comparison Changes noted compared to prior study dated: 12/11/2021. Improved LVEF. Recommendations, Care & Conclusions No obvious valvular pathology seen on this study. Measurements 2D Linear Measurements IVSd: 1.13 0.6-0.9/0.6-1.0 cm LVIDd: 5.21 3.9-5.3/4.2-5.9 cm LVIDd Index: 2.38 2.4-3.2/2.2-3.1 cm/m2 LVIDs: 4.00 2.0-3.6 cm LVPWd: 0.95 0.7-1.1 cm LA Diam: 3.70 2.7-3.8/3.0-4.0 cm LAIDs Index: 1.69 1.5-2.3 cm/m2 LV Mass: 255.51 67-162/88-224 g LV Mass Index: 116.67 43-95/49-115 g/m2 LVOT Diam: 2.10 3.0+(-)1.3 cm 2D Systolic Function EF 4C: 43.20 >55% EF 2C: 55.90 >55% EF BiP: 49.90 >55% Mitral Valve MV Pk E: 0.87 MV PK A: 0.87 MV Decel Time: 195.00 E/A: 1.00 E'Lateral: 6.64 E'Medial: 6.53 E/E' Med: 13.30 E/E' Lat: 13.10 PHT: 57.00 MVA PHT: 3.86 Decel Smith: 4.46 Aortic Valve AoV Pk Bari: 1.33 AoV Mn Bari: 0.96 AoV VTI: 0.28 AoV Pk Grad: 7.00 Aov Mn Grad: 4.00 ANN Cont.VTI: 2.64 LVOT LVOT Pk Bari: 1.01 LVOT Mn Bari: 0.69 LVOT VTI: 0.21 LVOT Pk Grad: 4.00 LVOT Mn Grad: 2.00 LVOT Diam: 2.10 LVOT Area: 3.46 Diastolic Function MV Pk E: 0.87 MV Pk A: 0.87 E/A: 1.00 E'Medial: 6.53 E/E' Med: 13.30 E' Laterial: 6.64 E/E' Lat: 13.10 Right Ventricle TAPSE (mm): 23.50 TVS' Bari: 12.10 Tricuspid Valve TR Pk Bari: 2.63 TR Pk Grad: 28.00 RA Press: 3.00 RVSP: 31.00 Great Vessels Aorta Sinus of Valsalva: 3.48 2.0-3.5 cm Ao Asc: 3.30 2.1-3.4 cm Updated in Other Vendor System with Status of Final García Patterson MD electronically signed on 11/18/2024 9:15:49 AM with status of Final
== END ==
LOC: HO.CARD 14:27
PROVIDERS: PCP Family Medicine; Visit Provider Internal Medicine
DX: I42.8 Other cardiomyopathies (principal)
CPT/HCPCS: 85610; 93306; 99211; Q9957

== ENCOUNTER → 2024-11-16 14:29 | Outpatient (BNV) | payer OTHER, SELFPAY | PROVIDERS: PCP Family Medicine; Visit Provider Internal Medicine | DX: I42.8 Other cardiomyopathies (principal) | CPT/HCPCS: 93306 ==

== ENCOUNTER 2024-11-16 16:00 | Outpatient (AMB) | payer OTHER, SELFPAY ==
--- NOTE | 2024-11-16 16:12 | MHC.OFFVISCO ---
Intake Intake Visit Reasons: Anticoagulation Allergies No Known Allergies (No Known Allergies*) Allergy (Verified 11/16/24 16:00) Medication List - Last Reconciled 11/16/24 by Fay Calhoun RN acetaminophen 650 mg (2 x 325 mg) PO Q6H PRN 30 days atorvastatin 40 mg PO DAILY 90 days dapagliflozin propanediol (Farxiga) 10 mg PO DAILY enoxaparin (Lovenox) 100 mg See Protocol subcut Q12H 10 days metformin 500 mg PO DAILY metoprolol succinate ER 12.5 mg (1/2 x 25 mg) PO DAILY sacubitril-valsartan 24-26 mg (Entresto) 1 tab PO BID spironolactone 25 mg PO DAILY warfarin 5 mg See Protocol PO DAILY Held on 11/11/24. Instructions: Resume on 11/11/24. resume warfarin tonight Nursing Note PT.RESUMED WARFARIN ON 11/11 AFTER COLONOSCOPY. HE HAS BEEN ON BID LOVENOX. OK TO STOP LOVENOX AND RESUME USUAL WARFARIN DOSE( 2.5MG X2 MG X5) AND FOLLOW-UP HERE IN 4 WEEKS. TO CALL [facility] IN MEANTIME IF ANY QUESTIONS/CONCERNS ARISE. Anti-Coag Initial Assessment Social Hx Patient Tobacco Use Status: Former Tobacco user Tobacco use type: Cigarette alcohol intake: former Alcohol intake frequency: former alcohol drinker Coding Level of Care Code Est Patient Level 1 Diagnoses Current use of anticoagulant therapy Z79.01 Results AMB INR Fingerstick AMB INR Fingerstick 2.2 Last Edit by Fay Calhoun RN on 11/16/24 16:09 Assessment & Plan Assessment & Plan (1) Current use of anticoagulant therapy: Code(s): Z79.01 - investigations director (current) use of 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 Medications: Discontinued enoxaparin (Lovenox) Bridging for procedure. Continue BID dosing while INR < 2.0 . Discontinued Reason: Patient Completed Course 100 mg See Protocol subcut Q12H 10 days 20 mL 0RF
[2024-11-17 08:08] LABS: Prothrombin Time Whole Bld POC 27.0 sec (11.1-13.5); ~PT, ~INR - Anti Coag Clinic 2.2 (0.9-1.1)
== END 2024-11-16 16:15 | disposition home or self-care (01) ==
LOC: HO.ACS 16:00
PROVIDERS: PCP Family Medicine; Visit Provider Internal Medicine Medical Oncology
DX: Z79.01 Long term (current) use of anticoagulants (principal)

== ENCOUNTER 2024-11-28 13:17 | Outpatient (AMB) | payer OTHER, SELFPAY ==
--- NOTE | 2024-11-28 13:47 | MHC.OFFVIS ---
Vital Signs 11/28/24 13:48 Height 5 ft 10 in Weight 224 lb 13.944 oz BMI 32.3 BP 124/68 Blood Pressure Location Lt brachial Position Sitting Pulse 92 Pulse Source Monitor Intake Visit Reasons: 6 month w/ device ck Allergies No Known Allergies (No Known Allergies*) Allergy (Verified 11/16/24 16:00) Medication List - Last Reconciled 11/28/24 by García Patterson MD acetaminophen 650 mg (2 x 325 mg) PO Q6H PRN 30 days atorvastatin 40 mg PO DAILY 90 days dapagliflozin propanediol (Farxiga) 10 mg PO DAILY metformin 500 mg PO DAILY metoprolol succinate ER 12.5 mg (1/2 x 25 mg) PO DAILY sacubitril-valsartan 24-26 mg (Entresto) 1 tab PO BID spironolactone 25 mg PO DAILY warfarin 5 mg See Protocol PO DAILY Held on 11/11/24. Instructions: Resume on 11/11/24. resume warfarin tonight HPI Comments Details: Skyler is here for follow-up regarding cardiomyopathy. To recall, in 2018, he was admitted for complaints of difficulty speaking and generalized weakness. Found to have acute stroke. Full recovery. Echocardiogram then showed a markedly diminished LVEF. Thought to have cardioembolic stroke. He had a long history of smoking and excessive alcohol use but has stopped since. Cardiac catheterization without any CAD. He has had a Bi V ICD since then and overall doing well. Overall, no new concerns. He states he is doing good. No cardiac symptoms. 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 Sister Lupus (systemic lupus erythematosus) Sister No problems noted. Sister No problems noted. Sister No problems noted. Son No problems noted. Daughter No problems noted. Other Substance abuse Social History Household Members: Significant Other Housing: House Are you a primary wound care specialist to a significant other at home: No Do you presently have visiting nurse or other home services: No Alcohol intake: former Comment: aware of trip hazard Patient Tobacco Use Status: Former Tobacco user Tobacco use type: Cigarette Years Smoked: 30 e-Cigarette/Vaping Use: Never Used Second Hand Smoke Exposure: No Substance Use Type: Marijuana service: No Current occupational status: employed Current occupation: [employer] Cognitive needs: No Hearing needs: No Vision needs: No Review of Systems Const Denies weakness ENT Denies dizziness Card Denies chest pain, Denies chest pain with activity, Denies syncope, Denies rapid heart rate, Denies pedal edema, Denies edema, Denies leg edema, Denies lightheadedness, Denies palpitations, Denies dyspnea, Denies dyspnea on exertion and Denies orthopnea Resp Denies cough, Denies dyspnea and Denies dyspnea on exertion GI Denies hematochezia and Denies change in stool character Musc Denies abnormal gait, Denies muscle cramps, Denies muscle weakness, Denies numbness, Denies radiating pain into limb and Denies tingling Neuro Denies abnormal gait, Denies dizziness, Denies syncope, Denies numbness, Denies tingling and Denies weakness Endo Denies palpitations Physical Exam Vital Signs: Last Vital Signs Pulse 92 11/28/24 13:48 BP 124/68 11/28/24 13:48 BMI result Body Mass Index 32.3 Const General: comfortable and no acute distress Orientation/consciousness: patient oriented x3 HEENT Other: Unremarkable Head: Yes normal to inspection Neck Neck: Yes normal visual inspection Chest Chest palpation & inspection: normal inspection of the chest Resp Auscultation: clear to auscultation bilaterally Cardio Palpation: normal PMI Heart sounds: S1 normal heart sound present, S2 normal heart sound present, no gallops, no murmurs and no rubs GI Palpation (GI): Soft to palpation Back/Spine/Pelvis Other: unremarkable Skin General skin exam: no rashes or lesions noted Neuro General: patient oriented x3 Extrem General: Yes normal to inspection Psych Mental Status: mental status grossly normal Office Procedures Cardiac Device Check Cardiac Device Check Details: ICD interrogated today. CURTAIN WORKER D. Normal lead parameters. No treated episodes. Effective ventricular pacing 97.9%. Atrial high rate episodes but very brief only sec. overall, normal device function. [id number] Cardiac Device Check, multi lead implantable defibrillator Procedure code (CPT) selection complete EKG Details: EKG with atrial sensed, ventricular paced rhythm at 92/Min. [id number], Complete Assessment & Plan Assessment & Plan (1) NICM (nonischemic cardiomyopathy): Code(s): I42.8 - Other cardiomyopathies Category: Medical Plan: In the past, LVEF as low as 10-15%. Most recently 50%. Continue metoprolol ER, Entresto, spironolactone, Farxiga. Clinically, euvolemic. 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 No significant disease in the carotids. Continue anticoagulation. Labs as above. (3) LBBB (left bundle branch block): Code(s): I44.7 - Left bundle-branch block, unspecified Category: Medical Plan: Status post Bi V ICD. (4) PAF (paroxysmal atrial fibrillation): Code(s): I48.0 - Paroxysmal atrial fibrillation Category: Medical Plan: Brief episodes on ICD interrogation. Nothing clinically significant. Continue anticoagulation. (5) KIERRA (obstructive sleep apnea): Comment: Known case of obstructive sleep apnea being treated very well with the use of CPAP. ( FF mask and Pressure 10 CMs ) He is very compliant and benefiting from the use, Code(s): G47.33 - Obstructive sleep apnea (adult) (pediatric) Category: Medical Plan: Continue CPAP. 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
[2024-11-28 13:48] VITALS: BP 124/68; PULSE 92; BMI 32.3
== END 2024-11-28 14:11 | disposition home or self-care (01) ==
LOC: HO.HCS 13:18
PROVIDERS: PCP Family Medicine; Visit Provider Internal Medicine
DX: I42.8 Other cardiomyopathies (principal); I63.40 Cerebral infarction due to embolism of unspecified cerebral artery; I44.7 Left bundle-branch block, unspecified; I48.0 Paroxysmal atrial fibrillation; G47.33 Obstructive sleep apnea (adult) (pediatric)
CPT/HCPCS: 93010; 93284; 99214; G2211

== ENCOUNTER → 2024-11-28 13:17 | Outpatient (BNVA) | payer OTHER, SELFPAY | PROVIDERS: PCP Family Medicine; Visit Provider Internal Medicine | DX: I48.0 Paroxysmal atrial fibrillation (principal) | CPT/HCPCS: 93005 ==

== ENCOUNTER → 2024-12-09 23:59 | Outpatient (BNV) | payer OTHER, SELFPAY ==
--- NOTE | 2024-12-15 08:30 | A.OFFVIS_ITS ---
Intake Visit Reasons: Remote device check- [employer] Allergies No Known Allergies (No Known Allergies*) Allergy (Verified 12/14/24 15:24) [facility] Medical History Cardiomyopathy Pacemaker Pre-operative cardiovascular examination Hip pain, bilateral Adult general medical exam Screening for prostate cancer Screening for colon cancer Left hand pain Elevated fasting blood sugar Encounter for interrogation of cardiac defibrillator Elevated fasting blood sugar Pre-operative clearance Anemia Osteoarthritis of right hip Biventricular ICD (implantable cardioverter-defibrillator) in place Obesity (BMI 30-39.9) KIERRA (obstructive sleep apnea) LBBB (left bundle branch block) 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 Sister Lupus (systemic lupus erythematosus) Sister No problems noted. Sister No problems noted. Sister No problems noted. Son No problems noted. Daughter No problems noted. Other Substance abuse Social History Household Members: Significant Other Housing: House Are you a primary primary care pediatrician to a significant other at home: No Do you presently have visiting nurse or other home services: No Alcohol intake: former Comment: aware of trip hazard Patient Tobacco Use Status: Former Tobacco user Tobacco use type: Cigarette Years Smoked: 30 e-Cigarette/Vaping Use: Never Used Second Hand Smoke Exposure: No Substance Use Type: Marijuana service: No Current occupational status: employed Current occupation: [employer] Cognitive needs: No Hearing needs: No Vision needs: No Office Procedures Cardiac Device Check Cardiac Device Check Details: Date of service 12/09/2024; Battery life 10months; normal lead parameters; no treated VT/VF; effective V pacing 98%; normal ICD function. [id number] Cardiac Interrogation, implant defibrillator w/interim Procedure code (CPT) selection complete Assessment & Plan Assessment & Plan (1) Biventricular ICD (implantable cardioverter-defibrillator) in place: Code(s): Z95.810 - Presence of automatic (implantable) cardiac defibrillator Category: Medical (2) NICM (nonischemic cardiomyopathy): Code(s): I42.8 - Other cardiomyopathies Category: Medical Plan x Coding Level of Care Code Procedure Only Diagnoses Biventricular ICD (implantable cardioverter-defibrillator) in place Z95.810 NICM (nonischemic cardiomyopathy) I42.8 CPT Codes Cardiac Device Check - Cardiac Device 13: [id number] Cardiac Interrogation, implant defibrillator w/interim ([id number])
== END ==
PROVIDERS: PCP Family Medicine; Visit Provider Internal Medicine
DX: I42.8 Other cardiomyopathies (principal); Z95.810 Presence of automatic (implantable) cardiac defibrillator
CPT/HCPCS: 93295

== ENCOUNTER → 2024-12-09 23:59 | Outpatient (BNV) | payer OTHER, SELFPAY ==
--- NOTE | 2024-12-15 08:28 | MHC.OFFVIS ---
Intake Visit Reasons: Remote HF monitoring- [employer] Allergies No Known Allergies (No Known Allergies*) Allergy (Verified 12/14/24 15:24) [facility] Medical History Cardiomyopathy Pacemaker Pre-operative cardiovascular examination Hip pain, bilateral Adult general medical exam Screening for prostate cancer Screening for colon cancer Left hand pain Elevated fasting blood sugar Encounter for interrogation of cardiac defibrillator Elevated fasting blood sugar Pre-operative clearance Anemia Osteoarthritis of right hip Biventricular ICD (implantable cardioverter-defibrillator) in place Obesity (BMI 30-39.9) KIERRA (obstructive sleep apnea) LBBB (left bundle branch block) 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 Sister Lupus (systemic lupus erythematosus) Sister No problems noted. Sister No problems noted. Sister No problems noted. Son No problems noted. Daughter No problems noted. Other Substance abuse Social History Household Members: Significant Other Housing: House Are you a primary acute care certified nursing assistant to a significant other at home: No Do you presently have visiting nurse or other home services: No Alcohol intake: former Comment: aware of trip hazard Patient Tobacco Use Status: Former Tobacco user Tobacco use type: Cigarette Years Smoked: 30 e-Cigarette/Vaping Use: Never Used Second Hand Smoke Exposure: No Substance Use Type: Marijuana service: No Current occupational status: employed Current occupation: [employer] Cognitive needs: No Hearing needs: No Vision needs: No Office Procedures Cardiac Device Check Cardiac Device Check Details: Date of service- 12/09/2024; based on impedance data and physiological variables, there is no evidence of worsening congestive heart failure. [id number] Cardiac Device Interrogation, cardio physiologic monitor Procedure code (CPT) selection complete Assessment & Plan Assessment & Plan (1) Biventricular ICD (implantable cardioverter-defibrillator) in place: Code(s): Z95.810 - Presence of automatic (implantable) cardiac defibrillator Category: Medical (2) NICM (nonischemic cardiomyopathy): Code(s): I42.8 - Other cardiomyopathies Category: Medical Plan x Coding Level of Care Code Procedure Only Diagnoses Biventricular ICD (implantable cardioverter-defibrillator) in place Z95.810 NICM (nonischemic cardiomyopathy) I42.8 CPT Codes Cardiac Device Check - Cardiac Device 15: [id number] Cardiac Device Interrogation, cardio physiologic monitor ([id number])
== END ==
PROVIDERS: PCP Family Medicine; Visit Provider Internal Medicine
DX: I42.8 Other cardiomyopathies (principal); Z95.810 Presence of automatic (implantable) cardiac defibrillator
CPT/HCPCS: 93297

== ENCOUNTER 2024-12-14 15:24 | Outpatient (AMB) | payer OTHER, SELFPAY ==
--- NOTE | 2024-12-14 15:28 | MHC.OFFVISCO ---
Intake Intake Visit Reasons: Anticoagulation Allergies No Known Allergies (No Known Allergies*) Allergy (Verified 12/14/24 15:24) Medication List - Last Reconciled 12/14/24 by Luli Thomas RN acetaminophen 650 mg (2 x 325 mg) PO Q6H PRN 30 days atorvastatin 40 mg PO DAILY 90 days dapagliflozin propanediol (Farxiga) 10 mg PO DAILY metformin 500 mg PO DAILY metoprolol succinate ER 12.5 mg (1/2 x 25 mg) PO DAILY sacubitril-valsartan 24-26 mg (Entresto) 1 tab PO BID spironolactone 25 mg PO DAILY warfarin 5 mg See Protocol PO DAILY Held on 11/11/24. Instructions: Resume on 11/11/24. resume warfarin tonight Nursing Note INR: 2.5- in therapeutic range 2-3 Medications and supplements reviewed- no changes No changes in health, diet, medications, or supplements, Denies any signs and symptoms of bleeding or bruising or clotting. Bleeding, bruising, clotting discussed Nutritional guidance given Dose: 2.5mg x 2, 5mg x 5 F/U INR: 4 weeks ]Patient verbalizes understanding of instructions given Anti-Coag Initial Assessment Social Hx Patient Tobacco Use Status: Former Tobacco user Tobacco use type: Cigarette alcohol intake: former Alcohol intake frequency: former alcohol drinker Coding Level of Care Code Est Patient Level 1 Diagnoses Current use of anticoagulant therapy Z79.01 Assessment & Plan Assessment & Plan (1) Current use of anticoagulant therapy: Code(s): Z79.01 - correction (current) use of 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
[2024-12-14 15:29] LABS: Prothrombin Time Whole Bld POC 29.5 sec (11.1-13.5); ~PT, ~INR - Anti Coag Clinic 2.5 (0.9-1.1)
== END 2024-12-14 15:35 | disposition home or self-care (01) ==
LOC: HO.ACS 15:24
PROVIDERS: PCP Family Medicine; Visit Provider Internal Medicine Medical Oncology
DX: Z79.01 Long term (current) use of anticoagulants (principal)

== ENCOUNTER → 2024-12-14 15:24 | Outpatient (BNVA) | payer OTHER, SELFPAY | PROVIDERS: PCP Family Medicine; Visit Provider Internal Medicine Medical Oncology | DX: Z86.73 Personal history of transient ischemic attack (TIA), and cerebral infarction without residual deficits (principal); Z79.01 Long term (current) use of anticoagulants; Z51.81 Encounter for therapeutic drug level monitoring | CPT/HCPCS: 85610; 99211 ==

== ENCOUNTER 2025-01-09 09:03 | Outpatient (AMB) | payer OTHER, SELFPAY ==
[2025-01-09 09:12] LABS: Prothrombin Time Whole Bld POC 33.6 sec (11.1-13.5); ~PT, ~INR - Anti Coag Clinic 2.8 (0.9-1.1)
--- NOTE | 2025-01-09 09:16 | MHC.OFFVISCO ---
Intake Intake Visit Reasons: Anticoagulation Allergies No Known Allergies (No Known Allergies*) Allergy (Verified 01/09/25 09:07) Medication List - Last Reconciled 01/09/25 by Kayla Atkins RN acetaminophen 650 mg (2 x 325 mg) PO Q6H PRN 30 days atorvastatin 40 mg PO DAILY 90 days dapagliflozin propanediol (Farxiga) 10 mg PO DAILY metformin 500 mg PO DAILY metoprolol succinate ER 12.5 mg (1/2 x 25 mg) PO DAILY sacubitril-valsartan 24-26 mg (Entresto) 1 tab PO BID spironolactone 25 mg PO DAILY warfarin 5 mg See Protocol PO DAILY Held on 11/11/24. Instructions: Resume on 11/11/24. resume warfarin tonight Nursing Note INR: 2.8 in therapeutic range Medications and supplements reviewed No changes in health, diet, medications, or supplements, Denies any signs and symptoms of bleeding or bruising or clotting. Bleeding, bruising, clotting discussed Nutritional guidance given Dose: 2.5mg x 2 days/ 5mg x 5 days F/U INR: 1month Patient verbalizes understanding of instructions given Anti-Coag Initial Assessment Social Hx Patient Tobacco Use Status: Former Tobacco user Tobacco use type: Cigarette alcohol intake: former Alcohol intake frequency: former alcohol drinker Coding Level of Care Code Est Patient Level 1 Diagnoses Current use of anticoagulant therapy Z79.01 Results AMB INR Fingerstick AMB INR Fingerstick 2.8 Last Edit by Kayla Atkins RN on 01/09/25 09:14 manual entry Assessment & Plan Assessment & Plan (1) Current use of anticoagulant therapy: Code(s): 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
== END 2025-01-09 09:18 | disposition home or self-care (01) ==
LOC: HO.ACS 09:03
PROVIDERS: PCP Family Medicine; Visit Provider Internal Medicine Medical Oncology
DX: Z79.01 Long term (current) use of anticoagulants (principal)

== ENCOUNTER → 2025-01-09 09:03 | Outpatient (BNVA) | payer OTHER, SELFPAY | PROVIDERS: PCP Family Medicine; Visit Provider Internal Medicine Medical Oncology | DX: I48.91 Unspecified atrial fibrillation (principal); Z86.73 Personal history of transient ischemic attack (TIA), and cerebral infarction without residual deficits; Z51.81 Encounter for therapeutic drug level monitoring; Z79.01 Long term (current) use of anticoagulants | CPT/HCPCS: 85610; 99211 ==

== ENCOUNTER → 2025-01-09 23:59 | Outpatient (BNV) | payer OTHER, SELFPAY ==
--- NOTE | 2025-01-15 09:21 | A.OFFVIS_ITS ---
Intake Visit Reasons: Remote HF monitoring- [employer] Allergies No Known Allergies (No Known Allergies*) Allergy (Verified 01/09/25 09:07) [facility] Medical History Cardiomyopathy Pacemaker Pre-operative cardiovascular examination Hip pain, bilateral Adult general medical exam Screening for prostate cancer Screening for colon cancer Left hand pain Elevated fasting blood sugar Encounter for interrogation of cardiac defibrillator Elevated fasting blood sugar Pre-operative clearance Anemia Osteoarthritis of right hip Biventricular ICD (implantable cardioverter-defibrillator) in place Obesity (BMI 30-39.9) KIERRA (obstructive sleep apnea) LBBB (left bundle branch block) 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 Sister Lupus (systemic lupus erythematosus) Sister No problems noted. Sister No problems noted. Sister No problems noted. Son No problems noted. Daughter No problems noted. Other Substance abuse Social History Household Members: Significant Other Housing: House Are you a primary care management associate to a significant other at home: No Do you presently have visiting nurse or other home services: No Alcohol intake: former Comment: aware of trip hazard Patient Tobacco Use Status: Former Tobacco user Tobacco use type: Cigarette Years Smoked: 30 e-Cigarette/Vaping Use: Never Used Second Hand Smoke Exposure: No Substance Use Type: Marijuana service: No Current occupational status: employed Current occupation: [employer] Cognitive needs: No Hearing needs: No Vision needs: No Office Procedures Cardiac Device Check Cardiac Device Check Details: Date of service- 01/09/2025; based on impedance data and physiological variables, there is no evidence of worsening congestive heart failure. [id number] Cardiac Device Interrogation, cardio physiologic monitor Procedure code (CPT) selection complete Results AMB INR Fingerstick AMB INR Fingerstick 2.8 Last Edit by Kayla Atkins, RN on 01/09/25 09:14 manual entry Assessment & Plan Assessment & Plan (1) Biventricular ICD (implantable cardioverter-defibrillator) in place: Code(s): Z95.810 - Presence of automatic (implantable) cardiac defibrillator Category: Medical (2) NICM (nonischemic cardiomyopathy): Code(s): I42.8 - Other cardiomyopathies Category: Medical Plan x Coding Level of Care Code Procedure Only Diagnoses Biventricular ICD (implantable cardioverter-defibrillator) in place Z95.810 NICM (nonischemic cardiomyopathy) I42.8 CPT Codes Cardiac Device Check - Cardiac Device 15: [id number] Cardiac Device Interrogation, cardio physiologic monitor ([id number])
== END ==
PROVIDERS: PCP Family Medicine; Visit Provider Internal Medicine
DX: I42.8 Other cardiomyopathies (principal); Z95.810 Presence of automatic (implantable) cardiac defibrillator
CPT/HCPCS: 93297

== ENCOUNTER 2025-01-30 15:39 | Outpatient (AMB) | payer OTHER, SELFPAY ==
--- NOTE | 2025-01-30 16:02 | A.OFFPC_ITS ---
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 Blood pressure today 110/70, 72p. He is on spironolactone 25mg, metoprolol 12.5mg daily, Entresto 24-26 mg b.i.d. No recent lipid panel to review. A1c today 6.3%. He is on Farxiga, metformin 500mg daily. [facility] Medical History Cardiomyopathy Pacemaker Pre-operative cardiovascular examination Hip pain, bilateral Adult general medical exam Screening for prostate cancer Screening for colon cancer Left hand pain Elevated fasting blood sugar Encounter for interrogation of cardiac defibrillator Elevated fasting blood sugar Pre-operative clearance Anemia Osteoarthritis of right hip Biventricular ICD (implantable cardioverter-defibrillator) in place Obesity (BMI 30-39.9) KIERRA (obstructive sleep apnea) LBBB (left bundle branch block) 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 Sister Lupus (systemic lupus erythematosus) Sister No problems noted. Sister No problems noted. Sister No problems noted. Son No problems noted. Daughter No problems noted. Other Substance abuse Social History Household Members: Significant Other Housing: House Are you a primary resident care coordinator to a significant other at home: No Do you presently have visiting nurse or other home services: No Alcohol intake: former Comment: aware of trip hazard Patient Tobacco Use Status: Former Tobacco user Tobacco use type: Cigarette Years Smoked: 30 e-Cigarette/Vaping Use: Never Used Second Hand Smoke Exposure: No Substance Use Type: Marijuana service: No Current occupational status: employed Current occupation: [employer] Cognitive needs: No Hearing needs: No Vision needs: No Questionnaire Thrive Questionnaire Date Thrive assessed: 07/04/24 I am a: Patient What is your living situation today?: I have a steady place to live Within the past 12 months, did the food you bought not last and you didn't have the money to get more?: Never true Within the past 12 months, did you worry whether your food would run out before you got money to buy more?: Never true Do you have trouble paying for medicines?: No Do you have trouble getting transportation to medical appointments?: No Do you have trouble paying your heating and electricity bill?: No Do you have trouble taking care of your child, family member or friend?: No Do you have trouble with day-to-day activities such as bathing, preparing meals, shopping, managing finances, etc.?: No Are you currently unemployed and looking for a job?: No Are you interested in more education?: No Please select the resources that you would like help with: None Currently or been in a relationship where the following occur: No concerns reported THRIVE Score: 0 NEVIN-7 AMB Questionnaire NEVIN-7 Date NEVIN - 7 assessed: 07/11/24 Source: Developed by Drs. Mir Thomas, Ann Marie Alcantar, Jorden Guzmán and colleagues, with an educational audrey from [employer]. Review of Systems Const Denies chills, Denies fatigue, Denies fever(s), Denies headache(s) and Denies weakness ENT Denies dizziness and Denies headache(s) Card Denies dyspnea Resp Denies cough, Denies dyspnea, Denies wheezing and Denies other (shortness of breath) Musc Denies numbness and Denies tingling Neuro Denies dizziness, Denies headache(s), Denies numbness, Denies tingling and Denies weakness Psych Denies anxiety and Denies depression Endo Denies fatigue Aller/Immun Denies wheezing Physical exam (Primary Care) Vital Signs: Last Vital Signs Temp 98.0 F 01/30/25 16:10 Pulse 72 01/30/25 16:10 Resp 14 01/30/25 16:10 BP 110/70 01/30/25 16:10 Pulse Ox 97 01/30/25 16:10 Oxygen Delivery Method Room Air 01/30/25 16:10 BMI result Body Mass Index 33.0 Tobacco/Smoking Status: Tobacco use Status Tobacco use date assessed 07/11/24 01/30/25 16:03 Patient Tobacco Use Status Former Tobacco user 01/30/25 16:03 Tobacco use type Cigarette 01/30/25 16:03 e-Cigarette/Vaping Use Never Used 01/30/25 16:03 Thrive Assessment: Date of Thrive Assessment Date Thrive assessed 07/04/24 01/30/25 16:03 Currently or been in a relationship where the following occur: No concerns reported Const General: well developed; No acute distress Nutritional Appearance: well nourished Orientation/consciousness: patient oriented x3 HENMT Head: Yes normocephalic and Yes atraumatic Eyes General: appearance normal, both eyes and all related structures Pupils: Equal, round and reactive pupils present EOM: EOMs intact bilaterally Resp Effort & Inspection: normal respiratory effort Auscultation: clear to auscultation bilaterally Cardio Rate: regular rate Rhythm: regular rhythm Heart sounds: S1 normal heart sound present, S2 normal heart sound present, no gallops, no murmurs and no rubs Neuro General: patient oriented x3 and gait normal Cranial nerves: Yes Equal, round and reactive pupils present Psych Affect: normal affect Results AMB Hemoglobin A1c AMB Hemoglobin A1c 6.3 % Last Edit by YADY Bruce on 01/30/25 16:22 Coding Level of Care Code Est Pt Level 4 (47140) Diagnoses Essential hypertension I10 Hyperlipidemia E78.5 Diabetes E11.9 History of CVA (cerebrovascular accident) Z86.73 Assessment & Plan Assessment & Plan (1) Essential hypertension: Code(s): I10 - Essential (primary) hypertension Category: Medical Plan: Blood pressure is well controlled. Goal is less than 130/80 Continue current medications (2) Hyperlipidemia: Code(s): E78.5 - Hyperlipidemia, unspecified Category: Medical Plan: Lipids have been well controlled. He is on atorvastatin 40 mg daily Will recheck with next blood draw (3) Diabetes: Code(s): E11.9 - Type 2 diabetes mellitus without complications Category: Medical Plan: A1c 6.3%. Good control. Goal is less than 7.0% Continue metformin and Farxiga as prescribed Continue diabetic diet Eye exam in December showed no diabetic retinopathy. Up-to-date. (4) History of CVA (cerebrovascular accident): Code(s): Z86.73 - Personal history of transient ischemic attack (TIA), and cerebral infarction without residual deficits Category: Medical Plan: Stable Orders: Orders AMB Hemoglobin A1c Today R73.03 - Prediabetes
[2025-01-30 16:10] VITALS: BP 110/70; PULSE 72; RESP 14; TEMP 36.7; O2SAT 97; BMI 33.0
== END 2025-01-30 16:25 | disposition home or self-care (01) ==
LOC: HO.HMCFM 15:40
PROVIDERS: PCP Family Medicine; Visit Provider Family Medicine
DX: I10 Essential (primary) hypertension (principal); E78.5 Hyperlipidemia, unspecified; E11.9 Type 2 diabetes mellitus without complications; Z86.73 Personal history of transient ischemic attack (TIA), and cerebral infarction without residual deficits; R73.03 Prediabetes

== ENCOUNTER → 2025-01-30 15:39 | Outpatient (BNVA) | payer OTHER, SELFPAY | PROVIDERS: PCP Family Medicine; Visit Provider Family Medicine | DX: E11.9 Type 2 diabetes mellitus without complications (principal); E78.5 Hyperlipidemia, unspecified; Z86.73 Personal history of transient ischemic attack (TIA), and cerebral infarction without residual deficits | CPT/HCPCS: 83036 ==

== ENCOUNTER 2025-02-06 15:34 | Outpatient (AMB) | payer OTHER, SELFPAY ==
--- NOTE | 2025-02-06 15:45 | MHC.OFFVISCO ---
Intake Intake Visit Reasons: Anticoagulation Allergies No Known Allergies (No Known Allergies*) Allergy (Verified 02/06/25 15:34) Medication List - Last Reconciled 02/06/25 by Kayla Atkins RN acetaminophen 650 mg (2 x 325 mg) PO Q6H PRN 30 days atorvastatin 40 mg PO DAILY 90 days dapagliflozin propanediol (Farxiga) 10 mg PO DAILY metformin 500 mg PO DAILY metoprolol succinate ER 12.5 mg (1/2 x 25 mg) PO DAILY sacubitril-valsartan 24-26 mg (Entresto) 1 tab PO BID spironolactone 25 mg PO DAILY warfarin 5 mg See Protocol PO DAILY Held on 11/11/24. Instructions: Resume on 11/11/24. resume warfarin tonight Nursing Note INR: 2.5 in therapeutic range Medications and supplements reviewed No changes in health, diet, medications, or supplements, Denies any signs and symptoms of bleeding or bruising or clotting. Bleeding, bruising, clotting discussed Nutritional guidance given Dose: 2.5MG X 2 DAYS/ 5MG X 5 DAYS F/U INR: 1 MONTH Patient verbalizes understanding of instructions given Anti-Coag Initial Assessment Social Hx Patient Tobacco Use Status: Former Tobacco user Tobacco use type: Cigarette alcohol intake: former Alcohol intake frequency: former alcohol drinker Coding Level of Care Code Est Patient Level 1 Diagnoses Current use of anticoagulant therapy Z79.01 Results AMB INR Fingerstick AMB INR Fingerstick 2.5 Last Edit by Kayla Atkins RN on 02/06/25 15:42 MANUAL ENTRY Assessment & Plan Assessment & Plan (1) Current use of anticoagulant therapy: Code(s): Z79.01 - senior living (current) use of 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 Medications: Resumed warfarin 5 mg See Protocol PO DAILY 90 tabs 3RF
[2025-02-07 09:22] LABS: Prothrombin Time Whole Bld POC 29.9 sec (11.1-13.5); ~PT, ~INR - Anti Coag Clinic 2.5 (0.9-1.1)
== END 2025-02-06 15:46 | disposition home or self-care (01) ==
LOC: HO.ACS 15:34
PROVIDERS: PCP Family Medicine; Visit Provider Internal Medicine Medical Oncology
DX: Z79.01 Long term (current) use of anticoagulants (principal)

== ENCOUNTER → 2025-02-06 15:34 | Outpatient (BNVA) | payer OTHER, SELFPAY | PROVIDERS: PCP Family Medicine; Visit Provider Internal Medicine Medical Oncology | DX: Z79.01 Long term (current) use of anticoagulants (principal) | CPT/HCPCS: 85610; 99211 ==

== ENCOUNTER → 2025-02-21 09:23 | Outpatient (BNV) | payer OTHER, SELFPAY | PROVIDERS: PCP Family Medicine; Visit Provider Internal Medicine | DX: I50.9 Heart failure, unspecified (principal); Z95.810 Presence of automatic (implantable) cardiac defibrillator | CPT/HCPCS: 93297 ==

== ENCOUNTER 2025-03-06 15:22 | Outpatient (AMB) | payer OTHER, SELFPAY ==
[2025-03-06 15:29] LABS: Prothrombin Time Whole Bld POC 30.9 sec (11.1-13.5); ~PT, ~INR - Anti Coag Clinic 2.6 (0.9-1.1)
--- NOTE | 2025-03-06 15:33 | MHC.OFFVISCO ---
Intake Intake Visit Reasons: Anticoagulation Allergies No Known Allergies (No Known Allergies*) Allergy (Verified 03/06/25 15:23) Medication List - Last Reconciled 03/06/25 by Kayla Atkins RN acetaminophen 650 mg (2 x 325 mg) PO Q6H PRN 30 days atorvastatin 40 mg PO DAILY 90 days dapagliflozin propanediol (Farxiga) 10 mg PO DAILY metformin 500 mg PO DAILY metoprolol succinate ER 12.5 mg (1/2 x 25 mg) PO DAILY sacubitril-valsartan 24-26 mg (Entresto) 1 tab PO BID spironolactone 25 mg PO DAILY warfarin 5 mg See Protocol PO DAILY Nursing Note INR: 2.6 in therapeutic range Medications and supplements reviewed No changes in health, diet, medications, or supplements, Denies any signs and symptoms of bleeding or bruising or clotting. Bleeding, bruising, clotting discussed Nutritional guidance given Dose: 2.5mg x 2 days/ 5mg x 5 days F/U INR: 1 month Patient verbalizes understanding of instructions given Anti-Coag Initial Assessment Social Hx Patient Tobacco Use Status: Former Tobacco user Tobacco use type: Cigarette alcohol intake: former Alcohol intake frequency: former alcohol drinker Coding Level of Care Code Est Patient Level 1 Diagnoses Current use of anticoagulant therapy Z79.01 Assessment & Plan Assessment & Plan (1) Current use of anticoagulant therapy: Code(s): Z79.01 - retirement (current) use of 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
== END 2025-03-06 15:36 | disposition home or self-care (01) ==
LOC: HO.ACS 15:22
PROVIDERS: PCP Family Medicine; Visit Provider Internal Medicine Medical Oncology
DX: Z79.01 Long term (current) use of anticoagulants (principal)

== ENCOUNTER → 2025-03-06 15:22 | Outpatient (BNVA) | payer OTHER, SELFPAY | PROVIDERS: PCP Family Medicine; Visit Provider Internal Medicine Medical Oncology | DX: Z86.73 Personal history of transient ischemic attack (TIA), and cerebral infarction without residual deficits (principal); Z51.81 Encounter for therapeutic drug level monitoring; Z79.01 Long term (current) use of anticoagulants | CPT/HCPCS: 85610; 99211 ==